=== PATIENT | male | born 1970 | race Caucasian/White ===

== ENCOUNTER → 2019-12-07 07:56 | Outpatient (BNVA) | payer OTHER, SELFPAY | PROVIDERS: Family Provider Family Medicine Adult Medicine; PCP Family Medicine; Visit Provider Nurse Practitioner | DX: F43.12 Post-traumatic stress disorder, chronic (principal); F33.1 Major depressive disorder, recurrent, moderate | CPT/HCPCS: 99213 ==

== ENCOUNTER 2019-12-16 11:37 | Outpatient (CLI) | payer OTHER, SELFPAY ==
--- NOTE | 2019-12-16 12:00 | CT_ITS ---
WS: [id number] CT CERVICAL SPINE HISTORY: Neck pain TECHNIQUE: Contiguous 2.5 mm axial imaging performed through the entire cervical spine. Sagittal and coronal reformats also performed. All CT scans at [facility] use at least one of these do se optimization techniques: automated exposure control; mA and/or kV adjustment per patient size (inc ludes targeted exams where dose is matched to clinical indication); or iterative reconstruction. DLP: 1813.51 mGycm COMPARISON: 09/30/2019 MRI cervical spine. Mild straightening of the normal cervical lordosis. Small endplate osteophytes with the cervical spin e. Mild disc space narrowing at C5-6. No fractures. Craniocervical junction is normally aligned. C1 a nd C2 lateral masses are aligned odontoid is intact. C2-C3: Central disc protrusion with small calcification. No stenosis. C3-C4: Very mild osteophytic ridging. Mild LEFT foraminal narrowing due to osteophyte disease and fac et disease. C4-C5: Mild osteophytic ridging and a central disc protrusion. Mild contact on the ventral thecal sac . No significant stenosis. C5-C6: Mild osteophytic ridging is asymmetric to the RIGHT. Severe RIGHT foraminal stenosis is predom inantly due to osteophyte disease from the facet and vertebral body. Mild contact on the ventral cord . There is a component of disc bulging centrally. Mild central stenosis with no LEFT foraminal narrow ing. C6-C7: Mild osteophytic ridging is asymmetric to the LEFT. Mild contact on the LEFT ventral thecal sa c. Mild encroachment into the proximal LEFT foramen. C7-T1: No stenosis. Lung apices are clear. Paravertebral soft tissues are normal. CT/CT cervical spin wo con* [id number] IMPRESSION: 1. Severe RIGHT foraminal stenosis at C5-6 due to asymmetric hypertrophic oste ophyte disease. 2. Mild central stenosis at C5-6 due to disc osteophyte disease. 3. Mild LEFT proximal foraminal stenosis due to asymmetric osteophyte disease from the vertebral body. 4. Mild LEFT foraminal stenosis at C3-4 due to osteophyte.
== END 2019-12-16 11:38 | disposition home or self-care (01) ==
LOC: RADWPI 11:41
PROVIDERS: Family Provider Family Medicine Adult Medicine; PCP Emergency Medicine Emergency Medical Services; Visit Provider Licensed Practical Nurse
DX: M54.2 Cervicalgia (principal); M48.02 Spinal stenosis, cervical region
CPT/HCPCS: 72125

== ENCOUNTER → 2020-01-28 10:09 | Outpatient (BNVA) | payer OTHER, SELFPAY | PROVIDERS: Family Provider Family Medicine Adult Medicine; PCP Emergency Medicine Emergency Medical Services; Visit Provider Nurse Practitioner | DX: J02.9 Acute pharyngitis, unspecified (principal); J06.9 Acute upper respiratory infection, unspecified | CPT/HCPCS: 87081; 87880 ==

== ENCOUNTER → 2020-02-22 09:25 | Outpatient (BNVA) | payer OTHER, SELFPAY | PROVIDERS: Family Provider Family Medicine Adult Medicine; PCP Emergency Medicine Emergency Medical Services; Referring Provider Licensed Practical Nurse; Visit Provider Psychiatry & Neurology Neurology | DX: G56.22 Lesion of ulnar nerve, left upper limb (principal) | CPT/HCPCS: 95886; 95910 ==

== ENCOUNTER 2020-03-29 12:51 | Observation (INO) | payer OTHER, SELFPAY ==
[2020-03-28 10:20] VITALS: BMI 28.7
[2020-03-29] VITALS (20 sets, daily range): BP systolic 127–171; BP diastolic 85–114; PULSE 65–108; RESP 11–20; TEMP 36.1–36.6; O2SAT 95–100
--- NOTE | 2020-03-29 09:15 | ANES.PREANE2 ---
Pre-Anesthetic Assessment Pre-Anesthetic Assessment: Height/Weight: Height 1.78 m Weight 90.718 kg Temp Pulse Resp BP Pulse Ox 97.8 F 67 18 127/85 99 03/29/20 09:02 03/29/20 09:02 03/29/20 09:02 03/29/20 09:02 03/29/20 09:02 Preop Diagnosis: Intervertebral disc disorder with myelopathy, mid cervical region Proposed Procedure: Operation Date: 03/29/20 10:00 Proposed Procedures p Anterior Cervical Discecotmy&Fusion 2Lev C5-6 C6-7 32671 M50.020(Not Applicable) - Dm Jenkins MD Last intake: Intake Last Liquid Date 03/28/20 Last Liquid Time 20:30 Last Solid Date 03/28/20 Last Solid Time 19:30 Social: Social History: Tobacco (chews) and No alcohol Exam: Pre-Anes Outpt Exam: alert, oriented x 3, clear to auscultation bilaterally and regular rate & rhythm Airway: Submandibular: WNL Cervical ROM: WNL MP: 1 Dentition: Other (very poor dentation) History/ROS: No significant history except as noted Pulmonary: Pulmonary: None reported CV/HEM: CV/HEM: HTN : : None reported Hepatic: Hepatic: None reported GI: GI: GERD (occ) Metabolic: Metabolic: Hyperlipidemia Musc/skel: Musc/skel: OA/DJD Neuropsych: Neuropsych: Anxiety, Depression and Neuropathy (bilat UE) Anesthetic Plan: ASA status: 3 Anesthesia: Anesthesia Evaluation and General Risk of > 500 ml blood loss (7ml/kg in children): No PFSH Anesthesia PFSH: Medical History Cervical disc disorder with myelopathy of mid-cervical region Major depressive disorder, recurrent, moderate Post-traumatic stress disorder, chronic 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 Salena Jenkins Open release of the median nerve at wrist on the right History of knee surgery (~2001) Left knee History of shoulder surgery (~1991) 1991 and 2016, Right Family History Father COPD (chronic obstructive pulmonary disease) Social History Smoking and tobacco status: former smoker Alcohol intake: former Year of sobriety/quit date alcohol: 20+ Lives independently: Yes Household members: spouse Housing: House Marital status: service: Yes Current occupational status: disabled History of recent travel: No Data Anesthesia Cardiac Studies: No Data to Display
[2020-03-29] MEDS: sodium chloride 0.9% 1,000 ML 30 ML IV (09:17)
--- NOTE | 2020-03-29 09:21 | W.PM.OPSUD ---
Surgery/Procedure H&P Update DATE OF PROCEDURE: March 29, 2020 DATE H&P PERFORMED: 03/27/20 H&P UPDATE INFORMATION: I have reviewed H&P completed within last 30 days and H&P to be scanned into chart PREOP DIAGNOSIS: Intervertebral disc disorder with myelopathy, mid cervical region PRIMARY INDICATION FOR PROCEDURE: Pain PLANNED PROCEDURE: Operation Date: 03/29/20 10:00 Proposed Procedures Anterior Cervical Discectomy/Fusion/fixation, C5-6 and C6-7 96664 M50.020(Not Applicable) - Dm Jenkins MD
--- NOTE | 2020-03-29 09:52 | XR_ITS ---
WS: [id number] INTRAOPERATIVE LATERAL CERVICAL SPINE HISTORY: surgery COMPARISON: None available. Lateral radiograph obtained in the OR with a metallic marker indicating the anterior C6-7 disc level. Soft tissue spacers are now present. Patient is intubated. XR/XR cervical spine 1ort [id number] IMPRESSION: Intraoperative planning marker at anterior C6-7 disc level.
--- NOTE | 2020-03-29 09:53 | XR_ITS ---
WS: [id number] LATERAL CERVICAL SPINE: 3 view. Lateral radiographs are performed in upright neutral, flexion and extension to the patient's toleranc e. HISTORY: surgery COMPARISON: None available. Patient is intubated. Obliquely oriented soft tissue marker anteriorly extends towards the C5-6 disc space. XR/XR cervical spine 1Vport [id number] IMPRESSION: Soft tissue marker at anterior C5-6 disc level.
--- NOTE | 2020-03-29 09:59 | P.OP_ITS ---
Brief Operative Note: Date of procedure: 03/29/20 Pre-op diagnosis: Intervertebral disc disorder with myelopathy, midcervical Post-op diagnosis: same (with instability of joint) Procedure Done: C5-C6, C6-C7 ACDFF Surgeon: Dm Jenkins Estimated blood loss (mL): 25 Complications: None. Post-op Plan: PACU, then bautista Condition: stable Disposition: PACU Coding Level of Care Code Acute Aquatics Director for Sheila Greene
[2020-03-29] MEDS: thrombin 5,000 unit SDV 5000 UNIT XX (11:03)
--- NOTE | 2020-03-29 12:48 | XR_ITS ---
WS: [id number] Cervical spine 2 view. HISTORY: Postop fusion. Status post anterior cervical fusion at C5-6 and C6-7 with interbody spacers. Disc spaces have been r esumed. Anterior cervical plate is slightly displaced by 2.5 mm from the C5 vertebral body. Straighte armand and reversal normal lordosis. XR/XR cervical spine 3V* [id number] IMPRESSION: Early postoperative changes of anterior cervical fusion with interbody spacers from C5 to C7.
[2020-03-29] MEDS: hyDRALAzine 20 mg/mL INJ 1 mL 5 MG IVP ×3 (13:31→13:51)
--- NOTE | 2020-03-29 13:41 | SUR.PHASEI ---
1341 PT HAS EQUAL STRENGTH IN UPPER AND LOWER EXTREMITIES
[2020-03-29] MEDS: HYDROcodone-acetaminophen 5-325 mg Tablet PO (14:57)
[2020-03-29] MEDS: lactated ringers 1,000 ML 90 ML IV (15:48)
[2020-03-29] MEDS: docusate sodium 100 mg Capsule PO (17:41)
--- NOTE | 2020-03-29 18:30 | P.OP_ITS ---
Operative Report Date of procedure: March 29, 2020 Pre-op Diagnosis: Intervertebral disc disorder with myelopathy, mid cervical region Post-op diagnosis: same (with instability of joint) Procedure Done: C5-C6, C6-C7 anterior cervical discectomy, with osteophytectomy. C5-C6, C6-C7 anterior cervical plate/screw fixation. C5-C6, C6-C7 placement of intervertebral prosthetic devices. C5-C6, C6-C7 anterior cervical fusion utilizing morselized autograft obtained from the osteophytectomy portions of the procedure. Implants: Synthes Vectra plate/screw system. ACIS ProTi Spacers. Specimens removed/disposition: C5-C6 and C6-C7 discs. Pathology: Disc fragments. Surgeon: Dm Jenkins Anesthesia: General Estimated blood loss (mL): 25 IV fluids (mL): 1,300 Urine output (mL): 100 Complications: None. Condition: stable Disposition: PACU Brief History: The patient is a 50-year-old male with symptomatic, radiographically confirmed cervical disc/joint disease and associated neural impingement. Imaging studies demonstrated dominant abnormalities at C5-C6 and C6-C7. Conservative management, including pain clinic interventions, did not provide adequate lasting symptom relief. After review of the diagnostic and treatment options with the risks/potential benefits/rationale for each, the patient requested to proceed with surgical intervention. Procedure: After routine preoperative evaluation and informed consent were obtained, the patient was taken to the Operating Room and placed under general endotracheal anesthesia. He was positioned supine and fit in the [facility] tongs for the application of in-line cervical traction. The anterolateral neck on the left was prepared with hair clippers. A proposed transverse skin incision was marked with a sterile skin marker, utilizing intraoperative radiography and regional anatomy for localization. The area was scrubbed with Betadine, prepped with DuraPrep, and draped with sterile towels and drapes. Ioban surgical barrier was applied. The proposed incision site was infiltrated with 1% Xylocaine with Epinephrine. A skin incision was made and carried down into the subcutaneous tissues. The platysma was identified and divided in the direction of its fibers. A plane was dissected just medial to the carotid sheath and lateral to the midline esophagus and trachea. Prevertebral soft tissues were bluntly dissected free of the anterior margin of the cervical spine. Longus coli muscles were freed from their medial attachments. Deep self-retaining retractors were placed. Intraoperative radiography verified the desired surgical levels. The C5-C6 and C6-C7 interspaces were sequentially incised with a #11 blade. Discectomies were accomplished utilizing various curettes and pituitary rongeurs. Anterior marginal osteophytes were resected with the Lempert and Kerrison rongeurs. Cartilaginous end plates were stripped free with curettes. Posterior marginal osteophytes were resected with thin foot plate Kerrison rongeurs. The medial aspects of the neural foramina were enlarged in a similar manner. Posterior longitudinal ligament was divided and resected as necessary to further the decompression. Overall, encroachment and osteophyte prominence were more prominent on the right at C5-C6 and on the left at C6-C7. Once the decompressions were felt to be adequate at both levels, the disc spaces were sized. A 7mm ACIS ProTi lordotic/medium Spacer was chosen for C5-C6. A 7mm ACIS ProTi lordotic/medium Spacer was chosen for C6-C7. The Spacers were packed with morselized autograft obtained from the osteophytectomy portions of the procedure. The Spacers were sequentially placed within the C5-C6 and C6-C7 interspaces while in-line cervical traction was applied via the Antunez-Wells tongs. Once the Spacers were felt to be in good position, a Synthes Vectra plate of the desired size was chosen. The plate was bent to match the curvature of the patient's cervical spine utilizing the plate patrick. The plate was secured to th e C5, C6 and C7 vertebral bodies with bilateral 4 mm x 14 mm self-drilling screws. Final screw tightening was performed, and the locking mechanisms within the plate were noted to engage the screws at each site. The construct was inspected, and appeared to be in good position and secure. The wound was copiously irrigated with sterile saline and antibiotic irrigation. Hemostasis was ensured with the bipolar electrocautery. Wound closure was performed in multiple layers with 2-0 Vicryl Plus simple interrupted closure of the platysma and deep dermis as separate layers. Final skin closure was performed with 4-0 Vicryl Plus in a running subcuticular pattern. Steri-Strips were applied, and a sterile dressing was placed. The patient was released from the Antunez-Wells tongs and fit in a Gray collar. He was transferred onto the Recovery Room cart in the supine position. He was extubated without incident. The patient tolerated the procedure well. All sponge, needle, and instrument counts were correct at the completion of the procedure.
--- NOTE | 2020-03-29 18:30 | P.DS_ITS ---
Discharge Providers Date of Admission: 03/29/20 12:51 Date of Discharge: March 29, 2020 Attending Provider at Admission: Dm Jenkins MD Attending Provider at Discharge: Dm Jenkins MD Primary Care Provider: Saul Byrd DO Diagnoses at Discharge Discharge Diagnosis (1) Cervical disc disorder with myelopathy of mid-cervical region: Status: Chronic (2) Instability of joint: Status: Acute Reason for Visit Reason for Visit: Reason For Visit: ACDFF Brief History: The patient is a 50-year-old male with symptomatic, radiographically confirmed cervical disc/joint disease and associated neural impingement. Imaging studies demonstrated dominant abnormalities at C5-C6 and C6-C7. Conservative management, including pain clinic interventions, did not provide adequate lasting symptom relief. After review of the diagnostic and treatment options with the risks/potential benefits/rationale for each, the patient requested to proceed with surgical intervention. Hospital Course Hospital Course: The patient underwent a C5-C6, C6-C7 ACDFF on 03/29/2020. He tolerated the procedure well, and reported improvement in preoperative symptoms following surgery. He completed preoperative and postoperative intravenous antibiotic doses, and the physical therapy postoperative spine protocol. He was ambulatory, voiding, and tolerating regular diet prior to discharge home on the evening of the date of surgery. Physical Exam Const: COMMON NORMALS: no acute distress GENERAL APPEARANCE: cooperative and comfortable Neck/C-Spine: GENERAL: Yes trachea midline and No anterior neck swelling CERVICAL SPINE: Yes collar present Resp: COMMON NORMALS: normal respiratory effort EFFORT & INSPECTION: Yes able to speak in complete sentences, No tachypneic and No stridor Extremity: COMMON NORMALS: no clubbing, cyanosis or edema Neuro: COMMON NORMALS: moves all extremities MOTOR EXAM: 5/5 motor strength present throughout (Bilateral upper extremities) Psych: COMMON NORMALS: mental status grossly normal, Normal thought process present and speech normal ATTITUDE: Yes calm and Yes engaged ACTIVITY/MOTOR BEHAVIOR: Yes appropriate eye contact SPEECH: Yes normal spe ech MOOD & AFFECT: Yes euthymic mood THOUGHT PROCESS: Normal thought process present ATTENTION/CONCENTRATION: Yes attention grossly intact Skin: WOUNDS: Yes surgical site (Left anterolateral neck surgical incision without erythema or active drainage. Surgical site dressing clean/dry/intact.) Urinary Catheter Management^: Mccoy: Cath Placed During This Visit: yes, but has since been removed by the nurse Reason for Continuing Indwelling Catheter: Decision to DC Catheter Urinary Catheter Date of Insertion: 03/29/20 Urinary Catheter Time of Insertion: 10:30 Date Urinary Catheter Removed: 03/29/20 Time Urinary Catheter Discontinued: 15:00 Discharge Data Data Completed and Pending: Completed Studies During Hospitalization Category Date Time Status XR cervical spine 1Vport [id number] Rout ine Exams 03/29/20 09:52 Completed XR cervical spine 1Vport 15088 Rout ine Exams 03/29/20 09:53 Completed XR cervical spine 3V* [id number] Routine Exams 03/29/20 12:48 Completed Pending at discharge Category Date Time Status Pathology: Surgic al [PTH] Routine Pth 03/29/20 12:38 Ordered Imaging^: Other Xray: Radiologist's impression: Early postoperative changes of anterior cervical fusion with interbody spacers from C5 to C7. Procedures Performed: C5-C6, C6-C7 anterior cervical discectomy/fusion/fixation. Intravenous antibiotics. Physical therapy. Vitals: Last Vital Signs Temp 97.0 F L 03/29/20 18:04 Pulse 78 03/29/20 18:04 Resp 16 03/29/20 18:04 BP 160/97 03/29/20 18:04 Pulse Ox 96 03/29/20 18:04 Discharge Plan Discharge Patient Disposition: Home, Self-Care Condition: Stable Prescriptions: New Schuyler 7.5-325 mg tablet 1 tab PO Q4H PRN (Reason: pain) Qty: 25 RF: 0 Continued meloxicam 7.5 mg tablet 7.5 mg PO BID PRN (Reason: Pain) RF: 0 sildenafil 100 mg tablet 100 mg PO .QWeek PRN (Reason: Erectile Dysfunction) RF: 0 sumatriptan succinate 25 mg tablet See Rx Instructions PO Q2H PRN (Reason: migraine headache) RF: 0 magnesium oxide 400 mg magnesium capsule 400 mg PO QDAY RF: 0 aripiprazole 5 mg tablet 5 mg PO QDAY Qty: 30 RF: 5 venlafaxine [Effexor XR] 150 mg capsule,extended release 24hr 150 mg PO QDAY RF: 0 Discharge Orders: Discharge Order (Routine); Ordered 03/29/20 Ordered By: Dm Jenkins Referrals: Dm Jenkins MD [Physician] - 2 weeks (Please call Dr. Jenkins's office 03/30/20 to schedule an appointment within the next two weeks at . ) Discharge Diet: Usual diet Discharge Activity: Limit activity as instructed and As per PT/OT instructions Patient Instructions: Hydrocodone/Acetaminophen (By mouth), Anterior Cervical Discectomy (DC) Activity Restrictions/Additional Instructions: Activity -Cervical fusion: Wear cervical collar 24 hours a day. Change as necessary for showering, shaving, or if it becomes soiled. -No lifting or reaching overhead. - No driving until office followup visit - No lifting/pushing/pulling over 10 pounds - Avoid twisting or bending - Walking is encouraged - Home exercise per physical therapist - You may engage in sexual intercourse at any time as long as it is comfortable for you - Check with your doctor before returning to work. Notify your doctor if you develop: - temperature of 101.5 degrees F. or higher - redness or swelling of the incision - Foul drainage - increasing pain - increasing numbness or tingling in the arms or legs - New or increasing problems with vision, balance, memory, speaking, nausea or vomiting Hygiene: - Showering is okay - No tub baths or soaking Other: Remove outer bandage 3 days after surgery. If you have paper strips, leave in place until they fall off on their own. If you have stitches, keep your incision dry until the stitches are removed. Your doctor's office is available to answer any questions from 7 AM to 5:00 PM, Thursday through at [phone]. After hours, go to the emergency room at [facility] or call 911 for assistance. Discharge Date/Time: 03/29/20 18:44 Discharge Attestations Time Spent in Discharge Care*: other (Postop global.) Quality Metrics Clinical Quality Measures During this hospital stay, did patient experience: None Coding Level of Care Code Acute Account Collector for [facility] Fwd Exam Detailed Diagnoses Cervical disc disorder with myelopathy of mid-cervical region M50.020 Instability of joint M25.30 Comment Postop global.
== END 2020-03-29 18:44 | disposition home or self-care (01) ==
LOC: MEDSURG 12:51
PROVIDERS: Admitting Provider Specialist; PCP Emergency Medicine Emergency Medical Services; Visit Provider Specialist
PROC: 0RB30ZZ Excision of Cervical Vertebral Disc, Open Approach (ICD-10-PCS; CPT 22551; principal; 2020-03-29 10:00)
DX: M50.022 Cervical disc disorder at C5-C6 level with myelopathy (principal); M53.2X2 Spinal instabilities, cervical region; I10 Essential (primary) hypertension; K21.9 Gastro-esophageal reflux disease without esophagitis; E78.5 Hyperlipidemia, unspecified; M19.90 Unspecified osteoarthritis, unspecified site; Z87.891 Personal history of nicotine dependence
CPT/HCPCS: 22551; 22552; 22853 ×2; 12345; 51702; 72020; 72040; 88304; 97110; 97161; 97760; C1713; G0378; J0131; J0360; J0690; J1100; J2001; J2405; J2704; J3010; J3490; J7030; L0172; L0174

== ENCOUNTER 2020-04-12 09:01 | Outpatient (CLI) | payer OTHER, SELFPAY ==
--- NOTE | 2020-04-12 09:09 | XRR_ITS ---
PROCEDURE INFORMATION: Exam: XR Cervical Spine, 4 or 5 Views Exam date and time: 04/12/2020 9:27 AM Age: 50 years old Clinical indication: Condition or disease; Cervical region; Prior surgery; Surgery date: <1 month; Surgery type: Cervical spinal fusion 2 weeks ago; Additional info: S/P cervical spinal fusion TECHNIQUE: Imaging protocol: XR of the cervical spine, 4 or 5 views. COMPARISON: CR XR cervical spine 3V* [id number] 03/29/2020 1:08 PM FINDINGS: Vertebrae: Stable anterior fusion extending from C5-C7 with interbody spacers. Diminished cervical lordosis. Anatomic alignment, without instability. Soft tissues: Unremarkable. XR/XR cervical spine 4-5V [id number] IMPRESSION: Stable anterior fusion extending from C5-C7 with interbody spacers.
== END 2020-04-12 09:02 | disposition home or self-care (01) ==
LOC: RAD 09:05
PROVIDERS: PCP Emergency Medicine Emergency Medical Services; Visit Provider Orthopaedic Surgery
DX: Z98.1 Arthrodesis status (principal); M43.22 Fusion of spine, cervical region
CPT/HCPCS: 72050

== ENCOUNTER 2020-05-15 07:46 | Outpatient (CLI) | payer OTHER, SELFPAY ==
--- NOTE | 2020-05-15 07:57 | XR_ITS ---
WS: [id number] LATERAL CERVICAL SPINE: 3 view. Lateral radiographs are performed in upright neutral, flexion and extension to the patient's toleranc e. HISTORY: Neck pain COMPARISON: 04/12/2020 Anterior cervical fusion with interbody spacers from C5 to C7. Postsurgical changes are intact. No renae bsidence or lucency around the hardware. No soft tissue abnormality. No significant instability noted with flexion or extension. XR/XR cervical spine fl/ex [id number] IMPRESSION: 1. Anterior cervical fusion from C5 to C7 with interbody spacers, no complicat ions. 2. No cervical instability.
--- NOTE | 2020-05-15 08:00 | CT_ITS ---
WS: [id number] CT CERVICAL SPINE HISTORY: s/p cervical spinal fusion TECHNIQUE: Contiguous 2.5 mm axial imaging performed through the entire cervical spine. Sagittal and coronal reformats also performed. All CT scans at [facility] use at least one of these do se optimization techniques: automated exposure control; mA and/or kV adjustment per patient size (inc ludes targeted exams where dose is matched to clinical indication); or iterative reconstruction. DLP: 1778.01 mGycm COMPARISON: 12/16/[address] examination anterior cervical fusion with interbody spacers have been placed at C5 -C7. C5-6 and C6-7 disc spaces have been restored and the interbody spacers are in good position. No subsidence. No fractures. C2-C3: Mild osteophytic ridging with no stenosis. C3-C4: Mild osteophytic ridging with a small central disc protrusion and mild LEFT foraminal narrowin g. C4-C5: Small central disc protrusion. C5-C6: Osteophytic ridging asymmetric to the RIGHT. Severe RIGHT foraminal narrowing with mild on the LEFT and mild central stenosis. C6-C7: Osteophytic ridging greater to the LEFT. C7-T1: Mild osteophytic ridging without stenosis. Soft tissues are normal. CT/CT cervical spin wo con* [id number] IMPRESSION: 1. Interval anterior cervical fusion from C5 through C7 with interbody spacers . No complications. 2. Severe RIGHT foraminal stenosis at C5-6 predominantly due to osteophyte dis ease.
== END 2020-05-15 07:47 | disposition home or self-care (01) ==
LOC: RADWPI 07:48
PROVIDERS: Family Provider Emergency Medicine Emergency Medical Services; PCP Emergency Medicine Emergency Medical Services; Visit Provider Licensed Practical Nurse
DX: Z98.1 Arthrodesis status (principal); M48.02 Spinal stenosis, cervical region
CPT/HCPCS: 72040; 72125

== ENCOUNTER → 2020-05-28 07:48 | Outpatient (BNVA) | payer OTHER, SELFPAY | PROVIDERS: Family Provider Emergency Medicine Emergency Medical Services; PCP Emergency Medicine Emergency Medical Services; Visit Provider Nurse Practitioner | DX: F43.12 Post-traumatic stress disorder, chronic (principal); F33.1 Major depressive disorder, recurrent, moderate | CPT/HCPCS: 99213 ==

== ENCOUNTER 2020-08-23 15:29 | Emergency (ER) | payer OTHER, SELFPAY ==
--- NOTE | 2020-08-23 15:36 | XR_ITS ---
WS: [id number] XR hip LT 2-3V wo/w pel* [id number] REASON FOR EXAM: pain FINDINGS: Joint spaces of the left hip is well-preserved. Minimal spurring of the superior acetabulum. No focal bony abnormality. No soft tissue abnormality. XR/XR hip LT 2-3V wo/w pel* [id number] IMPRESSION: No acute abnormality identified.
[2020-08-23 16:05] VITALS: BP 131/80; PULSE 96; RESP 14; TEMP 36.8; O2SAT 98; BMI 27.3
--- NOTE | 2020-08-23 16:35 | ED_ITS ---
HPI - Extremity Problem General: Chief complaint: Extremity Injury, Lower Stated complaint: L HIP PAIN Time Seen by Provider: 08/23/20 15:44 History of Present Illness: HPI Narrative: 50-year-old male patient presents to the emergency department with left hip pain. Reports symptoms of left hip pain for 6 weeks. He has followed with his primary care provider who referred him to chiropractor, reports has helped some. He reports upcoming appointment with his primary care provider in 3 weeks. He states was advised by his to come to the emergency department as he continues to experience pain with ambulation. He reports pain is worse with ambulation, is not present with rest or with setting. He reports the pain is not changed. There is no redness swelling, denies swelling of the left lower extremity or redness. He denies trauma or injury. MD Complaint: joint pain (Left hip) Onset (ago): week(s) (6) Pain Consistency: intermittent Location: left Severity scale (1-10): 3 Quality: aching Radiation: none Relieving factors: immobilization and rest Exacerbating factors: weight bearing Associated symptoms: Reports no associated symptoms; Deny chest pain, fever(s) or rash Review of Systems General: Reports: 10 or more systems reviewed and unremarkable except in HPI and below Const: Denies: fever(s), chills or diaphoresis Eyes: Denies: blurry vision or eye redness ENMT: Denies: throat pain, dental pain or disequilibrium Card: Denies: chest pain, palpitations or irregular heart rhythm Resp: Denies: dyspnea, productive cough, non-productive cough or wheezing GI: Denies: abdominal pain, nausea or vomiting : Denies: dysuria Musc: Reports: joint pain (Left hip); Denies: neck pain or back pain Skin/Breast: Denies: rash or pruritus Neuro: Denies: headache(s), weakness in extremities or behavioral changes Psych: Denies: anxiety or depression Lawrence/Lymph: Denies: easy bruising PFS ED PFSH: Medical History (Updated 08/23/20 @ 17:06 by ALEENA Joseph) Cervical disc disorder with myelopathy of mid-cervical region Major depressive disorder, recurrent, moderate Post-operative state Post-traumatic stress disorder, chronic 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 Salena Jenkins Open release of the median nerve at wrist on the right History of knee surgery (~2001) Left knee History of shoulder surgery (~1991) 1991 and 2016, Right History of spinal surgery 03/29/2020. Dr. Mason Jenkins: C5-C6, C6-C7 ACDFF Family History Father COPD (chronic obstructive pulmonary disease) Social History Smoking and tobacco status: former smoker Alcohol intake: former Year of sobriety/quit date alcohol: 20+ Lives independently: Yes Household members: spouse Housing: House Marital status: service: Yes branch: [employer] Current occupational status: disabled History of recent travel: No Physical Exam Const: COMMON NORMALS: no acute distress, patient oriented x3, healthy appearing and alert GENERAL APPEARANCE: cooperative, comfortable and well hydrated HENMT: COMMON NORMALS: normocephalic, Normal external nose present and moist oral mucous membranes HEAD & SCALP: normocephalic NOSE: Normal external nose present Eye: COMMON NORMALS: Equal, round and reactive pupils present and EOMs intact bilaterally GENERAL EYE: appearance normal, both eyes and all related structures PUPIL: Yes Equal, round and reactive pupils present Neck/C-Spine: COMMON NORMALS: full ROM and no lymphadenopathy GENERAL: Yes normal visual inspection and Yes trachea midline CERVICAL SPINE: Yes cervical ROM normal Lymph: LYMPHATIC: no lymphadenopathy noted Chest: COMMONS NORMALS: normal inspection of the chest Resp: COMMON NORMALS: normal respiratory effort and clear to auscultation bilaterally AUSCULTATION: clear to auscultation bilaterally Cardio: COMMON NORMALS: regular rhythm, S1 normal heart sound present, S2 normal heart sound present and Peripheral pulses 2+ throughout RHYTHM: regular rhythm HEART SOUNDS: S1 normal heart sound present and S2 normal heart sound present PERIPHERAL PULSES: Peripheral pulses 2+ throughout GI: COMMON NORMALS: Soft to palpation and non-tender INSPECTION: Yes normal to inspection PALPATION: Yes Soft to palpation : COMMON NORMALS: Yes no CVA tenderness BLADDER/KIDNEY EXAM: Yes no CVA tenderness Back/Pelvis: COMMON NORMALS: no CVA tenderness and thoracic and lumbar spine normal to inspection Extremity: COMMON NORMALS: normal to inspection and capillary refill normal GENERAL: Yes normal exam except as noted and Yes monofilament exam performed Monofilament exam findings: L great toe: normal, L 3rd toe: normal, L 5th toe: normal, R great toe: normal, R 3rd toe: normal and R 5th toe: normal RIGHT LOWER EXTREMITY: Yes hip joint Right hip: Yes inspection (Normal), Yes palpation (Not able to reproduce pain to the hip medial, lateral or posterior), Yes ROM (Full range of motion noted), Yes neurovascular exam (Distally intact without deficit) and Yes special tests Right hip special tests: 90-?90 straight leg raise test: Negative and Trendelenburg test: Negative Neuro: COMMON NORMALS: patient oriented x3 and no focal motor deficits SENSORIUM/ORIENTATION: Yes alert SPEECH: speech normal GAIT: Yes Normal gait present Psych: COMMON NORMALS: mental status grossly normal, Normal thought process present and cooperative ACTIVITY/MOTOR BEHAVIOR: Yes appropriate eye contact THOUGHT PROCESS: Normal thought process present Skin: COMMON NORMALS: no rashes or lesions noted and turgor normal GENERAL SKIN EXAM: no rashes or lesions noted and turgor normal Course ED course: 50-year-old male patient presents to the emergency department with 6-week onset of left hip pain, left hip x-ray revealed minimal spurring of the superior acetabulum. Pain is been chronic in nature, he has not experienced trauma or injury, reports pain is not changed. Has follow-up appointment with his primary care physician, he agrees to follow-up in the [facility] with recommendation to follow-up with orthopedic surgery. He agrees to return to the emergency department if he develops redness swelling of the left lower extremity, increased pain or change of pain. Vital Signs: Vital signs: Vital Signs Temperature 98.3 F 08/23/20 16:05 Pulse Rate 86 08/23/20 16:40 Respiratory Rate 17 08/23/20 16:40 Blood Pressure 153/79 08/23/20 16:40 Pulse Oximetry 98 08/23/20 16:40 MDM - Extremity (Nontraumatic) Imaging Data^: Other Xray: Radiologist's impression: [address] [address] XRay Report Signed Patient: Bora Kessler #: [id number] : 1970Acct#:[id number] Age/Sex: 50 / MADM Date: 08/23/20 Loc: ERRoom/Bed: Attending Dr: Ordering Provider/Ordering MD: Walter Farah MD Date of Service: 08/23/20 Procedure(s): XR hip LT 2-3V wo/w pel* [id number] Accession Number(s): [id number] Report Number: [id number] WS: [id number] XR hip LT 2-3V wo/w pel* [id number] REASON FOR EXAM: pain FINDINGS: Joint spaces of the left hip is well-preserved. Minimal spurring of the superior acetabulum. No focal bony abnormality. No soft tissue abnormality. XR/XR hip LT 2-3V wo/w pel* [id number] IMPRESSION: No acute abnormality identified. Dictated By:Lee Paige Jr, MD Signed By:Lee Paige Jr MDSigned Date/Time:08/23/201632 DD/ 163 Discharge Plan Discharge Patient Disposition: Home Clinical Impression: Arthritis Chronic hip pain Qualifiers: Laterality: left Qualified Code(s): M25.552 - Pain in left hip Condition: Stable Prescriptions: New naproxen 500 mg tablet 500 mg PO Q12H PRN (Reason: pain) Qty: 30 RF: 0 Discontinued meloxicam 7.5 mg tablet 7.5 mg PO BID PRN (Reason: Pain) RF: 0 No Action sildenafil 100 mg tablet 100 mg PO .QWeek PRN (Reason: Erectile Dysfunction) RF: 0 sumatriptan succinate 25 mg tablet See Rx Instructions PO Q2H PRN (Reason: migraine headache) RF: 0 magnesium oxide 400 mg magnesium capsule 400 mg PO QDAY RF: 0 aripiprazole 5 mg tablet 5 mg PO QDAY Qty: 30 RF: 5 venlafaxine [Effexor XR] 150 mg capsule,extended release 24hr 150 mg PO QDAY Qty: 30 RF: 5 [place] 7.5-325 mg tablet 1 tab PO Q4H PRN (Reason: pain) Qty: 25 RF: 0 Discharge Orders: Discharge Order (Routine); Ordered 08/23/20 Ordered By: Krystal Vanessa Referrals: Saul Byrd, DO [Primary Care Provider] - Discharge Diet: Usual diet Discharge Activity: Resume usual activity Patient Instructions: Arthralgia (ED) Activity Restrictions/Additional Instructions: Cool compresses alternate with warm moist heat as needed for left hip pain Continue follow-up with your primary care physician as scheduled Continue follow-up with chiropractor as recommended Stop Mobic, take naproxen as needed for pain, take medication with food, stop medication if you develop abdominal pain. Discharge Date/Time: 08/23/20 17:19 Coding Level of Care Code ED Dumb Waiter Operator for Sheila Greene
[2020-08-23 16:40] VITALS: BP 153/79; PULSE 86; RESP 17; O2SAT 98
== END 2020-08-23 17:19 | disposition home or self-care (01) ==
PROVIDERS: Emergency Provider Nurse Practitioner Family; Family Provider Emergency Medicine Emergency Medical Services; PCP Emergency Medicine Emergency Medical Services
DX: G89.29 Other chronic pain (principal); M25.552 Pain in left hip; M19.90 Unspecified osteoarthritis, unspecified site; Z87.891 Personal history of nicotine dependence
CPT/HCPCS: 12345; 73502; 99281; 99282

== ENCOUNTER 2020-09-17 20:00 | Outpatient (CLI) | payer OTHER, SELFPAY | END 2020-09-17 20:01 | disposition home or self-care (01) | LOC: SLEEP 09-18 08:41 | PROVIDERS: Family Provider Emergency Medicine Emergency Medical Services; PCP Emergency Medicine Emergency Medical Services; Visit Provider Emergency Medicine Emergency Medical Services | DX: G47.33 Obstructive sleep apnea (adult) (pediatric) (principal) | CPT/HCPCS: 95810 ==

== ENCOUNTER → 2020-10-03 09:41 | Outpatient (BNVA) | payer OTHER, SELFPAY | PROVIDERS: Family Provider Emergency Medicine Emergency Medical Services; PCP Emergency Medicine Emergency Medical Services; Referring Provider Emergency Medicine Emergency Medical Services; Visit Provider Specialist | DX: M25.552 Pain in left hip (principal) | CPT/HCPCS: 73502 ==

== ENCOUNTER 2020-10-16 20:00 | Outpatient (CLI) | payer OTHER, SELFPAY | END 2020-10-16 20:01 | disposition home or self-care (01) | LOC: SLEEP 10-17 12:08 | PROVIDERS: Family Provider Emergency Medicine Emergency Medical Services; PCP Emergency Medicine Emergency Medical Services; Visit Provider Emergency Medicine Emergency Medical Services | DX: G47.33 Obstructive sleep apnea (adult) (pediatric) (principal) | CPT/HCPCS: 95811 ==

== ENCOUNTER 2020-10-30 15:37 | Outpatient (CLI) | payer OTHER, SELFPAY ==
--- NOTE | 2020-10-30 15:47 | MR_ITS ---
WS: [id number] MRI LEFT HIP NONCONTRAST TECHNIQUE: Axial T1, axial T2 fat sat, coronal T1, coronal STIR, sagittal T2 fat sat, sagittal T1, an d sagittal T2 fat sat, of both hips. CLINICAL INFORMATION: M25.559 - Pain in unspecified hip COMPARISON: None. FINDINGS: Left hip is normal in appearance. Normal bone marrow signal in the left femoral head and neck. No acu te fractures in the left hip. No evidence of avascular necrosis. Right hip is normal in appearance. M ild degenerative narrowing both hips. Normal bone marrow signal in the inferior and superior pubic ra mi. Normal bone marrow signal in the sacrum. Normal pelvic soft tissues. No inguinal lymphadenopathy. MR/MR hip LT wo con* [id number] IMPRESSION: 1. Both hips are normal in appearance. No acute fractures. No evidence of avas cular necrosis. 2. Mild degenerative arthritis both hips. 3. Normal bone marrow signal in the pelvis and sacrum.
== END 2020-10-30 15:38 | disposition home or self-care (01) ==
LOC: RADWPI 15:38
PROVIDERS: PCP Emergency Medicine Emergency Medical Services; Visit Provider Specialist
DX: M25.552 Pain in left hip (principal); M16.12 Unilateral primary osteoarthritis, left hip
CPT/HCPCS: 73721

== ENCOUNTER → 2021-01-24 09:33 | Outpatient (BNVA) | payer OTHER, SELFPAY | PROVIDERS: PCP Emergency Medicine Emergency Medical Services; Visit Provider Surgery | DX: K62.5 Hemorrhage of anus and rectum (principal); R10.9 Unspecified abdominal pain; Z20.822 Contact with and (suspected) exposure to COVID-19 | CPT/HCPCS: 87635 ==

== ENCOUNTER 2021-01-29 06:12 | Day surgery (SDC) | payer OTHER, SELFPAY ==
[2021-01-29 06:23] VITALS: BMI 28.4
--- NOTE | 2021-01-29 06:27 | W.PM.OPSFHP ---
Same Day Surgery H&P Indication for Procedure/HPI DATE OF PROCEDURE: January 29, 2021 CHIEF COMPLAINT/INDICATIONFOR SURGICAL PROCEDURE: Bleeding per rectum PREOP DIAGNOSIS: Intervertebral disc disorder with myelopathy, mid cervical region PLANNED PROCEDRUE: Operation Date: 01/29/21 07:15 Proposed Procedures p EGD/colon 49832 15920 R10.9 K62.58(Not Applicable) - Tarun Hall MD s Colonoscopy(Bilateral) - Tarun Hall MD This is a pleasant 50 years old gentleman referred to my practice with history of bleeding per rectum for the past 2 months, started first only on wiping and later on it with seeing fresh blood in the toilet, patient never had endoscopies before and he denies hematemesis or nonintentional weight loss. Or associated abdominal pain. No evidence of being on blood thinners. Interval history 01/29/2021 Patient comes today for EGD and colonoscopy ROS All systems have been reviewed negative except as per the above or per problem list. Medications/Allergies* Home Medications Medication Instructions Recorded Confirmed Type magnesium oxide 400 mg PO QDAY 12/06/19 12/28/20 History sildenafil 100 mg tablet 100 mg PO .QWeek PRN tab 12/06/19 12/28/20 History sumatriptan succinate 25 mg tablet See Rx Instructions PO Q2H PRN tab 12/06/19 12/28/20 History Allergies/Adverse Reactions Allergy/AdvReac Type Severity Reaction Status Date / Time pravastatin AdvReac Mild muscle Verified 01/29/21 06:29 aches Pertinent History/Comorbid Conditions* Medical History (Updated 12/28/20 @ 06:39 by Tarun Hall MD) Bleeding per rectum Cervical disc disorder with myelopathy of mid-cervical region Major depressive disorder, recurrent, moderate Post-operative state Post-traumatic stress disorder, chronic 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 Salena Jenkins Open release of the median nerve at wrist on the right History of knee surgery (~2001) Left knee History of shoulder surgery (~1991) 1991 and 2016, Right History of spinal surgery 03/29/2020. Dr. Mason Jenkins: C5-C6, C6-C7 ACDFF Family History (Updated 12/07/19 @ 10:05 by Sherine Nguyen LPN) COPD (chronic obstructive pulmonary disease) Father Social History Smoking and tobacco status: former smoker Alcohol intake: former Year of sobriety/quit date alcohol: 20+ Lives independently: Yes Household members: spouse Housing: House Marital status: service: Yes branch: [employer] Current occupational status: disabled History of recent travel: No Pertinent Exam Findings alert, oriented x 3, clear to auscultation bilaterally, regular rate & rhythm and procedure specific exam findings (Abdominal examination nontender nondistended soft) Recommendations Surgery/Procedure today (Diagnostic EGD and colonoscopy with possible biopsy and possible polypectomy.) Other Plans: Informed consent per chart Coding Level of Care Code Acute Lockstitch Sleeve Setter for Sheila Greene
[2021-01-29 06:33] VITALS: BMI 28.4
[2021-01-29 06:42] VITALS: BP 147/107; PULSE 83; RESP 18; TEMP 36.6; O2SAT 97
[2021-01-29] MEDS: sodium chloride 0.9% 1,000 ML 30 ML IV (06:57)
--- NOTE | 2021-01-29 07:21 | ANES.PREANE2 ---
Pre-Anesthetic Assessment Pre-Anesthetic Assessment: Height/Weight: Height 1.78 m Weight 89.811 kg Temp Pulse Resp BP Pulse Ox 97.8 F 83 18 147/107 97 01/29/21 06:42 01/29/21 06:42 01/29/21 06:42 01/29/21 06:42 01/29/21 06:42 Preop Diagnosis: Bleeding per rectum Proposed Procedure: Operation Date: 01/29/21 07:15 Proposed Procedures p EGD/colon 54302 32452 R10.9 K62.58(Not Applicable) - Tarun Hall MD s Colonoscopy(Bilateral) - Tarun Hall MD Was Beta Sukh taken within 24 hours: N/A Was Clonidine taken within 24 hours: N/A Last intake: Intake Last Liquid Date 01/28/21 Last Liquid Time 20:00 Last Solid Date 01/28/21 Last Solid Time 08:00 Social: Social History: Tobacco and No alcohol Exam: Pre-Anes Outpt Exam: alert, oriented x 3, clear to auscultation bilaterally and regular rate & rhythm Airway: Submandibular: WNL Cervical ROM: WNL MP: 2 Dentition: Chipped Additional comments: Very poor dentition, missing several, several chipped Pulmonary: Pulmonary: COPD GI: GI: GERD Musc/skel: Musc/skel: Lower Back Pain Neuropsych: Neuropsych: Anxiety and Depression Anesthetic Plan: ASA status: 3 Anesthesia: MAC Risk of > 500 ml blood loss (7ml/kg in children): No Meds/Allergies Current Medications: Current Medications Generic Name Dose Route Start Last Admin Trade Name Freq PRN Reason Stop Dose Admin Sodium Chloride 1,000 mls @ 30 ml s/hr 01/29/21 06:45 01/29/21 06:57 Sodium Chloride 0.9% IV 01/30/21 06:44 30 mls/hr .Q24H JOSELYN Administration PFSH Anesthesia PFSH: Medical History Bleeding per rectum Cervical disc disorder with myelopathy of mid-cervical region Major depressive disorder, recurrent, moderate Post-operative state Post-traumatic stress disorder, chronic 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 Salena Jenkins Open release of the median nerve at wrist on the right History of knee surgery (~2001) Left knee History of shoulder surgery (~1991) 1991 and 2016, Right History of spinal surgery 03/29/2020. Dr. Mason Jenkins: C5-C6, C6-C7 ACDFF Family History Father COPD (chronic obstructive pulmonary disease) Social History (Updated 01/29/21 @ 06:47 by Poonam Atkins RN) Smoking and tobacco status: former smoker Alcohol intake: former Year of sobriety/quit date alcohol: 20+ Lives independently: Yes Household members: spouse Housing: House Marital status: service: Yes branch: [employer] Current occupational status: disabled History of recent travel: No Data Anesthesia Cardiac Studies: No Data to Display
--- NOTE | 2021-01-29 07:23 | ANES.PREANE2 ---
Pre-Anesthetic Assessment Pre-Anesthetic Assessment: Height/Weight: Height 1.78 m Weight 89.811 kg Temp Pulse Resp BP Pulse Ox 97.8 F 83 18 147/107 97 01/29/21 06:42 01/29/21 06:42 01/29/21 06:42 01/29/21 06:42 01/29/21 06:42 Preop Diagnosis: Bleeding per rectum Proposed Procedure: Operation Date: 01/29/21 07:15 Proposed Procedures p EGD/colon 04559 06239 R10.9 K62.58(Not Applicable) - Tarun Hall MD s Colonoscopy(Bilateral) - Tarun Hall MD Familial anesthetic complications: none Was Beta Sukh taken within 24 hours: N/A Was Clonidine taken within 24 hours: N/A Last intake: Intake Last Liquid Date 01/28/21 Last Liquid Time 20:00 Last Solid Date 01/28/21 Last Solid Time 08:00 Last Intake: 20:00 Social: Social History: Tobacco (chew) Packs per day: stop smoking 2 years ago Pack years: 35 Exam: Pre-Anes Outpt Exam: alert, oriented x 3, clear to auscultation bilaterally and regular rate & rhythm Airway: Submandibular: WNL Cervical ROM: WNL MP: 2 Dentition: Other (poor multiple decayed and missing) Pulmonary: Pulmonary: COPD CV/HEM: CV/HEM: HTN : : None reported Hepatic: Hepatic: None reported GI: GI: None reported Metabolic: Metabolic: None reported Musc/skel: Musc/skel: None reported Neuropsych: Neuropsych: Depression and HAMMOND Anesthetic Plan: ASA status: 2 Anesthesia: MAC Meds/Allergies Current Medications: Current Medications Generic Name Dose Route Start Last Admin Trade Name Freq PRN Reason Stop Dose Admin Sodium Chloride 1,000 mls @ 30 ml s/hr 01/29/21 06:45 01/29/21 06:57 Sodium Chloride 0.9% IV 01/30/21 06:44 30 mls/hr .Q24H JOSELYN Administration PFSH Anesthesia PFSH: Medical History Bleeding per rectum Cervical disc disorder with myelopathy of mid-cervical region Major depressive disorder, recurrent, moderate Post-operative state Post-traumatic stress disorder, chronic 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 Salena Jenkins Open release of the median nerve at wrist on the right History of knee surgery (~2001) Left knee History of shoulder surgery (~1991) 1991 and 2016, Right History of spinal surgery 03/29/2020. Dr. Mason Jenkins: C5-C6, C6-C7 ACDFF Family History Father COPD (chronic obstructive pulmonary disease) Social History (Updated 01/29/21 @ 06:47 by Poonam Atkins RN) Smoking and tobacco status: former smoker Alcohol intake: former Year of sobriety/quit date alcohol: 20+ Lives independently: Yes Household members: spouse Housing: House Marital status: service: Yes branch: [employer] Current occupational status: disabled History of recent travel: No Data Anesthesia Cardiac Studies: No Data to Display
[2021-01-29 08:04] VITALS: BP 127/95; PULSE 92; RESP 18; TEMP 36.2; O2SAT 93
--- NOTE | 2021-01-29 08:04 | ANE.PACU2 ---
Inpatient post-anesthesia follow up: Airway intact: Yes Vital signs: Temperature 97.2 F Pulse Rate 92 Respiratory Rate 18 Blood Pressure 127/95 Pulse Oximetry 93 Oxygen Delivery Me thod Room Air Oxygen Flow Rate Fraction of Inspir ed Oxygen Hydration adequate: Yes Nausea and vomiting: No Pain level: 1 Mental status: Baseline
[2021-01-31 13:42] LABS: H. Pylori / CLO Test Negative
== END 2021-01-29 08:32 | disposition home or self-care (01) ==
PROVIDERS: PCP Emergency Medicine Emergency Medical Services; Visit Provider Surgery
PROC: 0DJD8ZZ Inspection of Lower Intestinal Tract, Via Natural or Artificial Opening Endoscopic (ICD-10-PCS; CPT 45378; 2021-01-29 07:15)
PROC: 0DJ08ZZ Inspection of Upper Intestinal Tract, Via Natural or Artificial Opening Endoscopic (ICD-10-PCS; CPT 43235; 2021-01-29 07:15)
DX: K62.5 Hemorrhage of anus and rectum (principal); Z87.891 Personal history of nicotine dependence; K21.9 Gastro-esophageal reflux disease without esophagitis; K44.9 Diaphragmatic hernia without obstruction or gangrene; K29.70 Gastritis, unspecified, without bleeding; K29.80 Duodenitis without bleeding; J44.9 Chronic obstructive pulmonary disease, unspecified; I10 Essential (primary) hypertension
CPT/HCPCS: 43239; 45378; 87077; 96360; J7030

== ENCOUNTER 2022-07-11 12:36 | Emergency (ER) | payer OTHER, SELFPAY ==
[2022-07-11 12:55] VITALS: BP 136/82; PULSE 100; RESP 14; TEMP 36.7; O2SAT 98; BMI 27.9
[2022-07-11 13:12] VITALS: BP 136/82; PULSE 100; RESP 14; TEMP 36.7; O2SAT 98
--- NOTE | 2022-07-11 13:36 | W.ED.URI ---
HPI - URI/Sore Throat General: Chief Complaint: Headache Stated Complaint: Possible Covid Time Seen by Provider: 07/11/22 13:09 Source: patient Mode of arrival: ambulatory Limitations: no limitations History of Present Illness: 4-year-old male presents to the ER today for cough, shortness of breath, headache, runny nose x3 days. Patient reports it began with a headache and runny nose and he has now progressed into a cough and some mild shortness of breath. Patient reports cough is productive. Patient denies any fever or chills. Reports very mild body aches. Patient denies any known contact with COVID. [facility] come [facility] as it sounded like it could be COVID. Patient reports he is taking [id number] medications at this time with only minimal relief. 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 Salena Jenkins Open release of the median nerve at wrist on the right History of knee surgery (~2001) Left knee History of shoulder surgery (~1991) 1991 and 2016, Right History of spinal surgery 03/29/2020. Dr. 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+ Lives independently: Yes Household members: spouse Housing: House Marital status: service: Yes branch: [employer] Current occupational status: disabled History of recent travel: No Physical Exam Const: COMMON NORMALS: no acute distress, average body habitus, patient oriented x3, no limitations, healthy appearing, alert and well nourished HENMT: COMMON NORMALS: normocephalic, atraumatic, external ears normal, TM's normal bilaterally, Normal nasal mucous membranes and turbinates present and moist oral mucous membranes HEAD & SCALP: normocephalic and atraumatic NOSE: Normal nasal mucous membranes and turbinates present EXTERNAL EAR: Yes external ears normal TYMPANIC MEMBRANE: TM's normal bilaterally Eye: COMMON NORMALS: conjunctivae normal CONJUNCTIVA: Yes conjunctivae normal Neck/C-Spine: COMMON NORMALS: full ROM and no lymphadenopathy Resp: COMMON NORMALS: normal respiratory effort, No retractions and clear to auscultation bilaterally AUSCULTATION: clear to auscultation bilaterally Cardio: COMMON NORMALS: regular rate, regular rhythm and No murmurs present (Cardio) RATE: regular rate RHYTHM: regular rhythm GI: COMMON NORMALS: Normal to inspection, nondistended, normoactive bowel sounds present, Soft to palpation and non-tender PALPATION: Yes Soft to palpation Extremity: COMMON NORMALS: full ROM Neuro: COMMON NORMALS: patient oriented x3 SENSORIUM/ORIENTATION: Yes alert Psych: COMMON NORMALS: mental status grossly normal, Normal thought process present and cooperative THOUGHT PROCESS: Normal thought process present Skin: COMMON NORMALS: no rashes or lesions noted and no wounds GENERAL SKIN EXAM: no rashes or lesions noted Course ED course: 52-year-old male presents to the ER today for cough, headache, runny nose, shortness of breath x3 days. Patient reports started with a headache and runny nose and now he has a cough that is productive. He is not been taking any medications for symptoms at this time. Denies any known sick contacts with COVID. We will get a COVID swab at this time. Patient's vitals are all stable. On exam, lungs are clear. No additional imaging is likely necessary at this time. Vital Signs: Vital signs: Vital Signs Temperature 98.1 F 07/11/22 13:12 Pulse Rate 100 07/11/22 13:12 Respiratory Rate 14 07/11/22 13:12 Blood Pressure 136/82 07/11/22 13:12 Pulse Oximetry 98 07/11/22 13:12 Oxygen Delivery Me thod 07/11/22 13:12 MDM - URI/Sore Throat Medical Decision Making 52-year-old male presents to the ER today for cough, headache, runny nose, shortness of breath x3 days. Patient reports started with a headache and runny nose and now he has a cough that is productive. He is not been taking any medications for symptoms at this time. Denies any known sick contacts with COVID. We will get a COVID swab at this time. Patient's vitals are all stable. On exam, lungs are clear. No additional imaging is likely necessary at this time. Patient's COVID was positive in the ER today. This is likely explaining most of his symptoms. His symptoms are mild and patient is fully vaccinated and boosted. 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 Take 600 to 1200 mg twice daily. Push fluids. Okay to take Tylenol and Motrin for any pain. Follow-up with PCP in 7 to 10 days. Return to the ER with any new or worsening symptoms. Patient verbalized understanding and was in agreement with the treatment plan. Lab Data Laboratory Results SARS-CoV-2 Ag (Rapid) Positive (Negative) H 07/11/22 13:16 Critical Care Time Critical Care Time: Critical Care Time: No Discharge Plan Discharge Patient Disposition: Home Clinical Impression: COVID-19 Condition: Stable Prescriptions: No Action sildenafil 100 mg tablet 100 mg PO .QWeek PRN (Reason: Erectile Dysfunction) Rx Instructions: Limit 4 doses per 30 days. sumatriptan succinate 25 mg tablet See Rx Instructions PO Q2H PRN (Reason: migraine headache) Rx Instructions: Not to exceed 2 tabs within 24 hours magnesium oxide 400 mg magnesium capsule 400 mg PO QDAY aripiprazole 5 mg tablet 5 mg PO QDAY Qty: 30 5RF venlafaxine [Effexor XR] 150 mg capsule,extended release 24hr 150 mg PO QDAY Qty: 30 5RF azithromycin 250 mg tablet See Rx Instructions PO .COMPLEX Qty: 6 0RF Rx Instructions: For 250 mg dose pack: take 500 mg today (day 1), then 250 mg for 4 days (days 2-5) PO Mucinex 1,200 mg tablet extended release 12hr 1,200 mg PO BID 14 Days Qty: 28 0RF naproxen 500 mg tablet 500 mg PO Q12H PRN (Reason: pain) Qty: 30 0RF Hold Instructions: Resume on 02/02/21. Rx Instructions: take 1 BID PRN pain with food Discharge Orders: Discharge ED (Routine); Ordered 07/11/22 Ordered By: Solange Rodrigues Referrals: Saul Byrd DO [Primary Care Provider] - Discharge Diet: Usual diet Discharge Activity: Resume usual activity Patient Instructions: Opioid Safety Activity Restrictions/Additional Instructions: Push fluids. Take Mucinex 600 mg twice daily as discussed. Alternate Tylenol and Motrin for pain. Follow-up with PCP in 7 to 10 days if no improvement. Return to the ER with new or worsening symptoms. Coding Level of Care Code ED Agency Sales Management Assistant for Sheila Greene
[2022-07-11 13:47] LABS: SARS Covid-2 Antigen Positive (Negative)
== END 2022-07-11 14:15 | disposition home or self-care (01) ==
PROVIDERS: Emergency Provider Physician Assistant; PCP Emergency Medicine Emergency Medical Services
DX: U07.1 COVID-19 (principal); F17.220 Nicotine dependence, chewing tobacco, uncomplicated
CPT/HCPCS: 87426; 99282

== ENCOUNTER 2022-10-24 12:41 | Emergency (ER) | payer OTHER, SELFPAY ==
[2022-10-24 12:46] VITALS: BP 121/82; PULSE 90; RESP 14; TEMP 36.6; O2SAT 96; BMI 28.4
--- NOTE | 2022-10-24 13:12 | XR_ITS ---
WS: [id number] Portable AP upright chest, 10/24/2022 Clinical Data: short of breath Comparison: None. Findings: No nodules, masses or effusions are seen. The heart is normal. The pulmonary vascularity is not increased. No pneumonia or pneumothorax is seen. XR/XR chest 1V portable [id number] Impression: Negative chest.
[2022-10-24 13:19] VITALS: BP 113/72; PULSE 92; RESP 16; O2SAT 95
--- NOTE | 2022-10-24 13:29 | W.ED.SOB ---
Documented by User: Solange Rodrigues PA-C 10/24/22 14:24 HPI - SOB/Dyspnea General: Chief Complaint: Shortness of Breath/Dyspnea Stated Complaint: SOB,congestion Time Seen by Provider: 10/24/22 13:12 Source: patient Mode of arrival: ambulatory Limitations: no limitations History of Present Illness: HPI Narrative: 52-year-old male with a history of COPD presents to the ER today for shortness of breath, runny nose, cough x3 to 4 days. Patient reports that started with a sore throat which improved over the first 24 hours. He reports he now has a productive cough with green sputum. He reports little bit of a runny nose but denies congestion. Denies any fever or chills. Denies any body aches. Denies any recent sick contacts. Patient does have a history of COPD but does not take any inhalers at home on a regular basis. Patient reports that shortness of breath is worse when he is lying down. He also reports shortness of breath with exertion. He denies any chest pain. Patient denies any lower extremity swelling. He is not taking any [id number] medications for symptoms at home at this time. 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 Salena Jenkins Open release of the median nerve at wrist on the right History of knee surgery (~2001) Left knee History of shoulder surgery (~1991) 1991 and 2016, Right History of spinal surgery 03/29/2020. Dr. 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+ Lives independently: Yes Household members: spouse Housing: House Marital status: service: Yes branch: [employer] Current occupational status: disabled History of recent travel: No Physical Exam Const: COMMON NORMALS: no acute distress, average body habitus, patient oriented x3, no limitations, healthy appearing, alert and well nourished HENMT: COMMON NORMALS: normocephalic, atraumatic, external ears normal, TM's normal bilaterally, Normal external nose present, Normal nasal mucous membranes and turbinates present, moist oral mucous membranes and oropharynx normal HEAD & SCALP: normocephalic and atraumatic NOSE: Normal external nose present and Normal nasal mucous membranes and turbinates present EXTERNAL EAR: Yes external ears normal TYMPANIC MEMBRANE: TM's normal bilaterally Eye: COMMON NORMALS: conjunctivae normal CONJUNCTIVA: Yes conjunctivae normal Lymph: LYMPHATIC: no lymphadenopathy noted Resp: COMMON NORMALS: normal respiratory effort, No retractions and clear to auscultation bilaterally AUSCULTATION: clear to auscultation bilaterally Cardio: COMMON NORMALS: regular rate, regular rhythm and No murmurs present (Cardio) RATE: regular rate RHYTHM: regular rhythm GI: COMMON NORMALS: Normal to inspection, nondistended, normoactive bowel sounds present, Soft to palpation and non-tender PALPATION: Yes Soft to palpation Extremity: COMMON NORMALS: normal to inspection, full ROM and no pedal edema Neuro: COMMON NORMALS: patient oriented x3 SENSORIUM/ORIENTATION: Yes alert Psych: COMMON NORMALS: mental status grossly normal, Normal thought process present and cooperative THOUGHT PROCESS: Normal thought process present Skin: COMMON NORMALS: no rashes or lesions noted and no wounds GENERAL SKIN EXAM: no rashes or lesions noted Course ED course: Patient presents the ER for cough, sore throat, runny nose, short of breath for the last 2 to 3 days. Patient has a history of COPD. On exam patient appears well. Patient's lung sounds are clear bilaterally. Slightly erythematous turbinates however otherwise normal exam. We will get some basic labs to make sure patient does not have a white count or elevated BNP. We will also get a chest x-ray. Patient did a home COVID swab which was negative in the last 24 hours. Patient does not appear to be flulike so we will hold on an influenza swab. Vital Signs: Vital signs: Vital Signs Temperature 97.8 F 10/24/22 12:46 Pulse Rate 93 10/24/22 14:35 Respiratory Rate 16 10/24/22 14:35 Blood Pressure 116/72 10/24/22 14:35 Pulse Oximetry 96 10/24/22 14:35 Oxygen Delivery Me thod 10/24/22 13:19 MDM - SOB/Dyspnea Medical Decision Making Labs are unremarkable. Chest x-ray was negative for pneumonia. Likely this is a viral upper respiratory infection causing a mild COPD exacerbation. We will treat with a short burst of steroids and a Ventolin inhaler to use as needed. Also will send in Mucinex. Recommended patient take this until symptoms improve. Push fluids. If symptoms worsen, return to the ER. Otherwise follow-up with PCP in 4 to 5 days. Patient verbalized understanding and was in agreement with the treatment plan. Lab Data 10/24/22 13:30 10/24/22 13:30 Labs/Radiology: Radiology Impressions Chest X-Ray 10/24/22 13:12 Impression: Negative chest. Laboratory Results WBC 7.3 10^3/uL (4.0-10.0) 10/24/22 13:30 RBC 5.17 10^6/uL (4.1-5.3) 10/24/22 13:30 Hgb 15.8 g/dL (11.7-16.6) 10/24/22 13:30 Hct 45.2 % (42.0-52.0) 10/24/22 13:30 MCV 87.4 fl (80-94) 10/24/22 13:30 MCH 30.6 pg (28.0-34.0) 10/24/22 13:30 MCHC 35.0 g/dL (30.0-36.0) 10/24/22 13:30 RDW 11.9 % (12.1-15.1) L 10/24/22 13:30 Plt Count 205 10^3/cmm (130-400) 10/24/22 13:30 MPV 8.9 fL (7.4-10.4) 10/24/22 13:30 Neut % (Auto) 54.3 % 10/24/22 13:30 Lymph % (Auto) 31.4 % 10/24/22 13:30 [place] % (Auto) 10.1 % 10/24/22 13:30 Eos % (Auto) 3.3 % 10/24/22 13:30 Baso % (Auto) 0.6 % 10/24/22 13:30 Neut # (Auto) 3.94 10^3/uL (1.8-7.7) 10/24/22 13:30 Lymph # (Auto) 2.3 10^3/uL (0.8-4.8) 10/24/22 13:30 [place] # (Auto) 0.7 10^3/uL (0.2-0.9) 10/24/22 13:30 Eos # (Auto) 0.2 10^3/uL (0.0-0.8) 10/24/22 13:30 Baso # (Auto) 0.0 10^3/uL (0.0-0.1) 10/24/22 13:30 Nucleated RBC % (auto) 0 % 10/24/22 13:30 Nucleated RBCs # 0.0 /100WBC 10/24/22 13:30 Sodium 139 mmol/L (136-145) 10/24/22 13:30 Potassium 3.6 mmol/L (3.5-5.1) 10/24/22 13:30 Chloride 102 mmol/L (98-107) 10/24/22 13:30 Carbon Dioxide 27 mmol/L (22-29) 10/24/22 13:30 Anion Gap 13.6 (5-19) 10/24/22 13:30 BUN 11 mg/dL (6-20) 10/24/22 13:30 Creatinine 0.7 mg/dL (0.7-1.2) 10/24/22 13:30 GFR Calculation 119.4 mL/min (90-130) 10/24/22 13:30 Glucose 118 mg/dL (65-115) H 10/24/22 13:30 Calculated Osmolality 288 mOsm/kg (285-295) 10/24/22 13:30 Calcium 9.5 mg/dL (8.5-10.5) 10/24/22 13:30 NT-Pro-B Natriuret Pep 5 pg/mL (0-125) 10/24/22 13:30 Critical Care Time Critical Care Time: Critical Care Time: No Discharge Plan Discharge Patient Disposition: Home Clinical Impression: Acute exacerbation of chronic obstructive pulmonary disease URI (upper respiratory infection) Qualifiers: URI type: unspecified viral URI Qualified Code(s): J06.9 - Acute upper respiratory infection, unspecified Condition: Stable Prescriptions: New prednisone 20 mg tablet 40 mg PO DAILY 4 Days Qty: 8 0RF Ventolin HFA 90 mcg/actuation HFA aerosol inhaler 2 inh inhalation Q4H PRN (Reason: shortness of breath or wheezing) Qty: 6.7 0RF Mucinex 600 mg tablet extended release 12hr 600 mg PO BID PRN (Reason: congestion) Qty: 20 0RF No Action sildenafil 100 mg tablet 100 mg PO .QWeek PRN (Reason: Erectile Dysfunction) Rx Instructions: Limit 4 doses per 30 days. sumatriptan succinate 25 mg tablet See Rx Instructions PO Q2H PRN (Reason: migraine headache) Rx Instructions: Not to exceed 2 tabs within 24 hours magnesium oxide 400 mg magnesium capsule 400 mg PO QDAY aripiprazole 5 mg tablet 5 mg PO QDAY Qty: 30 5RF venlafaxine [Effexor XR] 150 mg capsule,extended release 24hr 150 mg PO QDAY Qty: 30 5RF azithromycin 250 mg tablet See Rx Instructions PO .COMPLEX Qty: 6 0RF Rx Instructions: For 250 mg dose pack: take 500 mg today (day 1), then 250 mg for 4 days (days 2-5) PO Mucinex 1,200 mg tablet extended release 12hr 1,200 mg PO BID 14 Days Qty: 28 0RF naproxen 500 mg tablet 500 mg PO Q12H PRN (Reason: pain) Qty: 30 0RF Hold Instructions: Resume on 02/02/21. Rx Instructions: take 1 BID PRN pain with food Discharge Orders: Discharge ED (Routine); Ordered 10/24/22 Ordered By: Solange Rodrigues Referrals: Saul Byrd DO [Primary Care Provider] - Discharge Diet: Usual diet Discharge Activity: Resume usual activity Patient Instructions: Opioid Safety, Pain Management Activity Restrictions/Additional Instructions: Take steroids as prescribed. Use inhaler as needed. Take Mucinex as prescribed. Rest and increase fluids recommended. Follow-up with PCP in 4 to 5 days if no improvement. Return to the ER with any new or worsening symptoms. 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 Salena Jenkins Open release of the median nerve at wrist on the right History of knee surgery (~2001) Left knee History of shoulder surgery (~1991) 1991 and 2016, Right History of spinal surgery 03/29/2020. Dr. 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+ Lives independently: Yes Household members: spouse Housing: House Marital status: service: Yes branch: [employer] Current occupational status: disabled History of recent travel: No Course Vital Signs: Vital signs: Vital Signs Temperature 97.8 F 10/24/22 12:46 Pulse Rate 93 10/24/22 14:35 Respiratory Rate 16 10/24/22 14:35 Blood Pressure 116/72 10/24/22 14:35 Pulse Oximetry 96 10/24/22 14:35 Oxygen Delivery Me thod 10/24/22 13:19 MDM - SOB/Dyspnea Medical Decision Making Labs are unremarkable. Chest x-ray was negative for pneumonia. Likely this is a viral upper respiratory infection causing a mild COPD exacerbation. We will treat with a short burst of steroids and a Ventolin inhaler to use as needed. Also will send in Mucinex. Recommended patient take this until symptoms improve. Push fluids. If symptoms worsen, return to the ER. Otherwise follow-up with PCP in 4 to 5 days. Patient verbalized understanding and was in agreement with the treatment plan. Chart reviewed and patient discussed with midlevel. Agree with assessment and plan. Lab Data 10/24/22 13:30 10/24/22 13:30 Labs/Radiology: Radiology Impressions Chest X-Ray 10/24/22 13:12 Impression: Negative chest. Laboratory Results WBC 7.3 10^3/uL (4.0-10.0) 10/24/22 13:30 RBC 5.17 10^6/uL (4.1-5.3) 10/24/22 13:30 Hgb 15.8 g/dL (11.7-16.6) 10/24/22 13:30 Hct 45.2 % (42.0-52.0) 10/24/22 13:30 MCV 87.4 fl (80-94) 10/24/22 13:30 MCH 30.6 pg (28.0-34.0) 10/24/22 13:30 MCHC 35.0 g/dL (30.0-36.0) 10/24/22 13:30 RDW 11.9 % (12.1-15.1) L 10/24/22 13:30 Plt Count 205 10^3/cmm (130-400) 10/24/22 13:30 MPV 8.9 fL (7.4-10.4) 10/24/22 13:30 Neut % (Auto) 54.3 % 10/24/22 13:30 Lymph % (Auto) 31.4 % 10/24/22 13:30 [place] % (Auto) 10.1 % 10/24/22 13:30 Eos % (Auto) 3.3 % 10/24/22 13:30 Baso % (Auto) 0.6 % 10/24/22 13:30 Neut # (Auto) 3.94 10^3/uL (1.8-7.7) 10/24/22 13:30 Lymph # (Auto) 2.3 10^3/uL (0.8-4.8) 10/24/22 13:30 [place] # (Auto) 0.7 10^3/uL (0.2-0.9) 10/24/22 13:30 Eos # (Auto) 0.2 10^3/uL (0.0-0.8) 10/24/22 13:30 Baso # (Auto) 0.0 10^3/uL (0.0-0.1) 10/24/22 13:30 Nucleated RBC % (auto) 0 % 10/24/22 13:30 Nucleated RBCs # 0.0 /100WBC 10/24/22 13:30 Sodium 139 mmol/L (136-145) 10/24/22 13:30 Potassium 3.6 mmol/L (3.5-5.1) 10/24/22 13:30 Chloride 102 mmol/L (98-107) 10/24/22 13:30 Carbon Dioxide 27 mmol/L (22-29) 10/24/22 13:30 Anion Gap 13.6 (5-19) 10/24/22 13:30 BUN 11 mg/dL (6-20) 10/24/22 13:30 Creatinine 0.7 mg/dL (0.7-1.2) 10/24/22 13:30 GFR Calculation 119.4 mL/min (90-130) 10/24/22 13:30 Glucose 118 mg/dL (65-115) H 10/24/22 13:30 Calculated Osmolality 288 mOsm/kg (285-295) 10/24/22 13:30 Calcium 9.5 mg/dL (8.5-10.5) 10/24/22 13:30 NT-Pro-B Natriuret Pep 5 pg/mL (0-125) 10/24/22 13:30 Discharge Plan Discharge Patient Disposition: Home Clinical Impression: Acute exacerbation of chronic obstructive pulmonary disease URI (upper respiratory infection) Qualifiers: URI type: unspecified viral URI Qualified Code(s): J06.9 - Acute upper respiratory infection, unspecified Condition: Stable Prescriptions: New prednisone 20 mg tablet 40 mg PO DAILY 4 Days Qty: 8 0RF Ventolin HFA 90 mcg/actuation HFA aerosol inhaler 2 inh inhalation Q4H PRN (Reason: shortness of breath or wheezing) Qty: 6.7 0RF Mucinex 600 mg tablet extended release 12hr 600 mg PO BID PRN (Reason: congestion) Qty: 20 0RF No Action sildenafil 100 mg tablet 100 mg PO .QWeek PRN (Reason: Erectile Dysfunction) Rx Instructions: Limit 4 doses per 30 days. sumatriptan succinate 25 mg tablet See Rx Instructions PO Q2H PRN (Reason: migraine headache) Rx Instructions: Not to exceed 2 tabs within 24 hours magnesium oxide 400 mg magnesium capsule 400 mg PO QDAY aripiprazole 5 mg tablet 5 mg PO QDAY Qty: 30 5RF venlafaxine [Effexor XR] 150 mg capsule,extended release 24hr 150 mg PO QDAY Qty: 30 5RF azithromycin 250 mg tablet See Rx Instructions PO .COMPLEX Qty: 6 0RF Rx Instructions: For 250 mg dose pack: take 500 mg today (day 1), then 250 mg for 4 days (days 2-5) PO Mucinex 1,200 mg tablet extended release 12hr 1,200 mg PO BID 14 Days Qty: 28 0RF naproxen 500 mg tablet 500 mg PO Q12H PRN (Reason: pain) Qty: 30 0RF Hold Instructions: Resume on 02/02/21. Rx Instructions: take 1 BID PRN pain with food Discharge Orders: Discharge ED (Routine); Ordered 10/24/22 Ordered By: Solange Rodrigues Referrals: Saul Byrd DO [Primary Care Provider] - Discharge Diet: Usual diet Discharge Activity: Resume usual activity Patient Instructions: Opioid Safety, Pain Management Activity Restrictions/Additional Instructions: Take steroids as prescribed. Use inhaler as needed. Take Mucinex as prescribed. Rest and increase fluids recommended. Follow-up with PCP in 4 to 5 days if no improvement. Return to the ER with any new or worsening symptoms. Coding Level of Care Code ED Economics Professor for Sheila rGeene Exam Comprehensive
[2022-10-24 13:42] LABS: Basophils % 0.6 %; Eosinophils # 0.2 10^3/uL (0.0-0.8); Eosinophils % 3.3 %; Hematocrit 45.2 % (42.0-52.0); Hemoglobin 15.8 g/dL (11.7-16.6); Lymphocytes # 2.3 10^3/uL (0.8-4.8); Lymphocytes % 31.4 %; Mean Corpuscular Hemoglobin 30.6 pg (28.0-34.0); Mean Corpuscular Volume 87.4 fl (80-94); Mean Platelet Volume 8.9 fL (7.4-10.4); Monocytes # 0.7 10^3/uL (0.2-0.9); Monocytes % 10.1 %; Neutrophils # 3.94 10^3/uL (1.8-7.7); Neutrophils % 54.3 %; Nucleated Red Blood Cells % 0 %; Platelet Count 205 10^3/cmm (130-400); Red Blood Count 5.17 10^6/uL (4.1-5.3); Red Cell Distribution Width 11.9 % (12.1-15.1); White Blood Count 7.3 10^3/uL (4.0-10.0)
[2022-10-24 14:13] LABS: Anion Gap 13.6 (5-19); Blood Urea Nitrogen 11 mg/dL (6-20); Calcium 9.5 mg/dL (8.5-10.5); Carbon Dioxide 27 mmol/L (22-29); Chloride 102 mmol/L (98-107); Glomerular Filtration Rate 119.4 mL/min (90-130); Glucose 118 mg/dL (65-115); NT Pro B Type Natriuretic Pept 5 pg/mL (0-125); Osmolality Calculated 288 mOsm/kg (285-295); Potassium 3.6 mmol/L (3.5-5.1); Sodium 139 mmol/L (136-145)
[2022-10-24 14:35] VITALS: BP 116/72; PULSE 93; RESP 16; O2SAT 96
== END 2022-10-24 14:38 | disposition home or self-care (01) ==
PROVIDERS: Emergency Provider Physician Assistant; PCP Emergency Medicine Emergency Medical Services
DX: J44.1 Chronic obstructive pulmonary disease with (acute) exacerbation (principal); J06.9 Acute upper respiratory infection, unspecified; F17.220 Nicotine dependence, chewing tobacco, uncomplicated
CPT/HCPCS: 71045; 80048; 83880; 85025; 99283

== ENCOUNTER 2023-06-19 20:02 | Emergency (ER) | payer OTHER, SELFPAY ==
--- NOTE | 2023-06-19 20:04 | USR_ITS ---
PROCEDURE INFORMATION: Exam: US Duplex Left Lower Extremity Veins, Limited Exam date and time: 06/19/2023 9:26 PM Age: 53 years old Clinical indication: Swelling (edema) of limb; Lower extremity, left; Additional info: Leg swelling TECHNIQUE: Imaging protocol: Real-time duplex ultrasound of the left extremity with 2-D rowan scale, color Doppler flow and spectral waveform analysis including responses to compression and other maneuvers (when performed) with image documentation. Limited exam focused on the left lower extremity veins. COMPARISON: No relevant prior studies available. FINDINGS: Left deep veins: Unremarkable. The common femoral, femoral, proximal profunda femoral, popliteal, posterior tibial, and peroneal veins are patent without thrombus. Normal Doppler waveforms. Normal compressibility and/or augmentation response. Superficial veins: Hypoechoic intraluminal thrombus with decreased compressibility in the greater saphenous vein extending from the ankle to the level of the distal left thigh. Soft tissues: Unremarkable. US/CV venous duplex [facility] [id number] IMPRESSION: 1. Superficial thrombophlebitis in the left greater saphenous vein extending from the ankle to the level of the distal left thigh. 2. No evidence for deep venous thrombosis in the left lower extremity.
[2023-06-19 20:38] VITALS: BP 138/97; PULSE 83; RESP 18; TEMP 36.8; O2SAT 97; BMI 26.3
[2023-06-19 21:09] VITALS: BP 151/95; PULSE 80; O2SAT 96
[2023-06-19 21:49] LABS: Basophils # 0.1 10^3/uL (0.0-0.1); Basophils % 0.6 %; Eosinophils # 0.2 10^3/uL (0.0-0.8); Eosinophils % 2.8 %; Hematocrit 46.9 % (42.0-52.0); Hemoglobin 16.1 g/dL (11.7-16.6); Lymphocytes # 2.6 10^3/uL (0.8-4.8); Lymphocytes % 31.4 %; Mean Corpuscular HGB Conc 34.3 g/dL (30.0-36.0); Mean Corpuscular Hemoglobin 30.1 pg (28.0-34.0); Mean Corpuscular Volume 87.8 fl (80-94); Mean Platelet Volume 8.9 fL (7.4-10.4); Monocytes # 0.8 10^3/uL (0.2-0.9); Monocytes % 9.2 %; Neutrophils # 4.51 10^3/uL (1.8-7.7); Neutrophils % 55.6 %; Nucleated Red Blood Cells % 0 %; Platelet Count 234 10^3/cmm (130-400); Red Blood Count 5.34 10^6/uL (4.1-5.3); Red Cell Distribution Width 12.3 % (12.1-15.1); White Blood Count 8.1 10^3/uL (4.0-10.0)
--- NOTE | 2023-06-19 21:50 | ED_ITS ---
HPI - Extremity Problem General: Chief complaint: Extremity Problem,Nontraumatic Stated complaint: swelling in left leg Time Seen by Provider: 06/19/23 20:29 Source: patient Mode of arrival: ambulatory Limitations: no limitations History of Present Illness: 53-year-old male who states he had some erythema to his left lower leg he is also had some slight pain in that leg. [facility] to make sure he did have a DVT. He does have a slight streaking up his knee he denies any fever he rates pain a 2 out of 10. Denies any known injuries. Associated symptoms: Deny chest pain, fever(s) or rash Review of Systems Const: Denies: fever(s), chills, body aches or change in appetite ENMT: Denies: throat pain or dental pain Card: Denies: chest pain Resp: Denies: dyspnea GI: Denies: abdominal pain, nausea, vomiting or diarrhea Musc: Reports: extremity swelling; Denies: neck pain or back pain Skin/Breast: Denies: rash Neuro: Denies: headache(s) PFSH ED PFSH: Medical History Bleeding per rectum Cervical disc disorder with myelopathy of mid-cervical region Major depressive disorder, recurrent, moderate Post-operative state Post-traumatic stress disorder, chronic 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 Salena Jenkins Open release of the median nerve at wrist on the right History of knee surgery (~2001) Left knee History of shoulder surgery (~1991) 1991 and 2016, Right History of spinal surgery 03/29/2020. Dr. 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+ Substance/Drug Use: never Lives independently: Yes Household members: spouse Housing: House Marital status: service: Yes branch: [employer] Current occupational status: disabled Physical Exam Const: COMMON NORMALS: no acute distress, patient oriented x3 and healthy appearing HENMT: COMMON NORMALS: normocephalic and atraumatic HEAD & SCALP: normocephalic and atraumatic Neck/C-Spine: COMMON NORMALS: full ROM and supple Chest: COMMONS NORMALS: normal inspection of the chest Resp: COMMON NORMALS: normal respiratory effort Cardio: COMMON NORMALS: regular rate, regular rhythm and No murmurs present (Cardio) RATE: regular rate RHYTHM: regular rhythm GI: COMMON NORMALS: Normal to inspection, nondistended, normoactive bowel sounds present, Soft to palpation, non-tender and no masses PALPATION: Yes Soft to palpation Extremity: COMMON NORMALS: full ROM NARRATIVE EXTREMITY EXAM: Erythema to left lower leg with slight streaking no calf tenderness distal pulses intact Neuro: COMMON NORMALS: patient oriented x3, moves all extremities and no focal motor deficits Psych: COMMON NORMALS: mental status grossly normal, Normal thought process present and cooperative THOUGHT PROCESS: Normal thought process present Skin: COMMON NORMALS: no rashes or lesions noted and no wounds GENERAL SKIN EXAM: no rashes or lesions noted Course Vital Signs: Vital signs: Vital Signs Temperature 98.2 F 06/19/23 20:38 Pulse Rate 80 06/19/23 21:09 Respiratory Rate 18 06/19/23 20:38 Blood Pressure 151/95 06/19/23 21:09 Pulse Oximetry 96 06/19/23 21:09 Oxygen Delivery Me thod Room Air 06/19/23 21:09 MDM - Extremity (Nontraumatic) Medical Decision Making Patient presents here with superficial thrombophlebitis he has no signs of cellulitis the streaking is likely from a superficial thrombophlebitis. No DVT he is to do warm compresses [facility] if worsening. Medical Records I reviewed the patient's medical records. Lab Data I reviewed the patient's lab results. 06/19/23 21:21 Radiology Impressions Venous Duplex 06/19/23 20:04 IMPRESSION: 1. Superficial thrombophlebitis in the left greater saphenous vein extending from the ankle to the level of the distal left thigh. 2. No evidence for deep venous thrombosis in the left lower extremity. Laboratory Results WBC 8.1 10^3/uL (4.0-10.0) 06/19/23 21:21 RBC 5.34 10^6/uL (4.1-5.3) H 06/19/23 21:21 Hgb 16.1 g/dL (11.7-16.6) 06/19/23 21:21 Hct 46.9 % (42.0-52.0) 06/19/23 21:21 MCV 87.8 fl (80-94) 06/19/23 21:21 MCH 30.1 pg (28.0-34.0) 06/19/23 21:21 MCHC 34.3 g/dL (30.0-36.0) 06/19/23 21:21 RDW 12.3 % (12.1-15.1) 06/19/23 21:21 Plt Count 234 10^3/cmm (130-400) 06/19/23 21:21 MPV 8.9 fL (7.4-10.4) 06/19/23 21:21 Neut % (Auto) 55.6 % 06/19/23 21:21 Lymph % (Auto) 31.4 % 06/19/23 21:21 [place] % (Auto) 9.2 % 06/19/23 21:21 Eos % (Auto) 2.8 % 06/19/23 21:21 Baso % (Auto) 0.6 % 06/19/23 21:21 Neut # (Auto) 4.51 10^3/uL (1.8-7.7) 06/19/23 21:21 Lymph # (Auto) 2.6 10^3/uL (0.8-4.8) 06/19/23 21:21 [place] # (Auto) 0.8 10^3/uL (0.2-0.9) 06/19/23 21:21 Eos # (Auto) 0.2 10^3/uL (0.0-0.8) 06/19/23 21:21 Baso # (Auto) 0.1 10^3/uL (0.0-0.1) 06/19/23 21:21 Nucleated RBC % (auto) 0 % 06/19/23 21:21 Nucleated RBCs # 0.0 /100WBC 06/19/23 21:21 Discharge Plan Discharge Patient Disposition: Home Clinical Impression: Superficial thrombophlebitis Condition: Stable Prescriptions: No Action sildenafil 100 mg tablet 100 mg PO .QWeek PRN (Reason: Erectile Dysfunction) Rx Instructions: Limit 4 doses per 30 days. sumatriptan succinate 25 mg tablet See Rx Instructions PO Q2H PRN (Reason: migraine headache) Rx Instructions: Not to exceed 2 tabs within 24 hours magnesium oxide 400 mg magnesium capsule 400 mg PO QDAY aripiprazole 5 mg tablet 5 mg PO QDAY Qty: 30 5RF venlafaxine [Effexor XR] 150 mg capsule,extended release 24hr 150 mg PO QDAY Qty: 30 5RF azithromycin 250 mg tablet See Rx Instructions PO .COMPLEX Qty: 6 0RF Rx Instructions: For 250 mg dose pack: take 500 mg today (day 1), then 250 mg for 4 days (days 2-5) PO Mucinex 1,200 mg tablet extended release 12hr 1,200 mg PO BID 14 Days Qty: 28 0RF naproxen 500 mg tablet 500 mg PO Q12H PRN (Reason: pain) Qty: 30 0RF Hold Instructions: Resume on 02/02/21. Rx Instructions: take 1 BID PRN pain with food Ventolin HFA 90 mcg/actuation HFA aerosol inhaler 2 inh inhalation Q4H PRN (Reason: shortness of breath or wheezing) Qty: 6.7 0RF Mucinex 600 mg tablet extended release 12hr 600 mg PO BID PRN (Reason: congestion) Qty: 20 0RF Discharge Orders: Discharge ED (Routine); Ordered 06/19/23 Ordered By: Walter Farah Referrals: Saul Byrd DO [Primary Care Provider] - Discharge Diet: Advance as tolerated Discharge Activity: Resume usual activity Patient Instructions: Superficial Thrombophlebitis (ED) Coding Level of Care Code ED Accounting Policy Consultant for Sheila Greene
[2023-06-19 22:27] VITALS: BP 151/95; PULSE 80; RESP 18; O2SAT 97
== END 2023-06-19 22:30 | disposition home or self-care (01) ==
PROVIDERS: Emergency Provider Emergency Medicine; PCP Emergency Medicine Emergency Medical Services
DX: I80.02 Phlebitis and thrombophlebitis of superficial vessels of left lower extremity (principal); F17.220 Nicotine dependence, chewing tobacco, uncomplicated
CPT/HCPCS: 85025; 93971; 99284

== ENCOUNTER → 2023-08-24 15:09 | Outpatient (BNVA) | payer OTHER, SELFPAY | PROVIDERS: PCP Emergency Medicine Emergency Medical Services; Visit Provider Specialist | DX: M19.011 Primary osteoarthritis, right shoulder | CPT/HCPCS: 73030; 99214 ==

== ENCOUNTER → 2023-08-27 10:07 | Outpatient (BNVA) | payer OTHER, SELFPAY | PROVIDERS: PCP Emergency Medicine Emergency Medical Services; Visit Provider Dermatology | DX: L82.1 Other seborrheic keratosis (principal); L57.0 Actinic keratosis; D48.5 Neoplasm of uncertain behavior of skin; L81.4 Other melanin hyperpigmentation; D22.5 Melanocytic nevi of trunk | CPT/HCPCS: 11102; 17000; 99203 ==

== ENCOUNTER → 2023-09-29 09:17 | Outpatient (BNVA) | payer OTHER, SELFPAY | PROVIDERS: PCP Emergency Medicine Emergency Medical Services; Visit Provider Dermatology | DX: C44.42 Squamous cell carcinoma of skin of scalp and neck (principal) | CPT/HCPCS: 12042; 17311 ==

== ENCOUNTER 2023-10-22 12:57 | Outpatient (CLI) | payer OTHER, SELFPAY ==
--- NOTE | 2023-10-22 13:00 | IR_ITS ---
WS: [id number] SHOULDER ARTHROGRAM RIGHT Fluoroscopic guided right shoulder arthrogram CLINICAL INFORMATION: hx of 2 shoulder surgeries, increased pain COMPARISON: None. PROCEDURE: The procedure including risks, benefits and complications were discussed with the patient, who agreed to proceed. Using sterile technique, the patient was prepped and draped in the usual ster ile fashion. After 1% lidocaine injection using fluoroscopic guidance, a 22-gauge spinal needle was a dvanced into the glenohumeral joint. Approximately 13 ml of a solution containing 15 ml normal saline , 5 ml Omnipaque 240, and 0.1 ml gadolinium was administered. No immediate complications. FLUOROSCOPY TIME: 1min [id number] # of spot films: 2 IMPRESSION: Uncomplicated fluoroscopic-guided right shoulder arthrogram. MRI to follow.
--- NOTE | 2023-10-22 13:03 | MR_ITS ---
WS: [id number] EXAMINATION: MRI RIGHT SHOULDER ARTHROGRAM ORDER DATE: 10/22/2023 1:03 PM COMPARISON: RIGHT HISTORY: hx of 2 shoulder surgeries, increased pain CONTRAST: 2019 and 2017. TECHNIQUE: Axial T2 STAR, coronal proton density fat sat, sagittal T2 fat sat, sagittal proton densit y fat sat, axial proton density fat sat, coronal T2 fat sat, and coronal T1 performed. After contrast , axial T1 fat sat, coronal T1 fat sat, and sagittal T1 fat sat were performed. FINDINGS: Moderate degenerative arthritis AC joint with mild edema and synovial thickening. Subacromial space i s preserved. Mild tendinopathy distal supraspinatus. Tiny undersurface tears distal supraspinatus. No tendon retraction. Normal infraspinatus. Normal teres minor. Subscapularis is normal in appearance. Normal biceps tendon in the bicipital groove. Biceps labral anchor is intact. Glenoid labrum appears intact. No acute appearing labral tears. Subchondral cystic change involving the glenoid. Prior posto perative changes inferior glenoid labral repair. IMPRESSION: 1. Prior postoperative changes inferior glenoid labral repair. No acute labral tears. 2. Normal biceps labral anchor. 3. Biceps tendon is intact within the bicipital groove. 4. Small undersurface tears involving the distal supraspinatus. No tendon retraction. Mild tendinopa thy supraspinatus. 5. Moderate degenerative arthritis AC joint with mild edema and synovial thickening. Subacromial spa ce is preserved.
== END 2023-10-22 12:58 | disposition home or self-care (01) ==
LOC: RAD 12:58
PROVIDERS: PCP Emergency Medicine Emergency Medical Services; Visit Provider Specialist
DX: M25.511 Pain in right shoulder (principal); Z98.890 Other specified postprocedural states; M19.011 Primary osteoarthritis, right shoulder; M75.101 Unspecified rotator cuff tear or rupture of right shoulder, not specified as traumatic
CPT/HCPCS: 23350; 73223; 77002; A9577; Q9966

== ENCOUNTER → 2023-10-26 10:18 | Outpatient (BNVA) | payer OTHER, SELFPAY | PROVIDERS: PCP Emergency Medicine Emergency Medical Services; Visit Provider Specialist | DX: M19.011 Primary osteoarthritis, right shoulder (principal); M67.911 Unspecified disorder of synovium and tendon, right shoulder | CPT/HCPCS: 20610; 99213; J1100; J2795; J3301 ==

== ENCOUNTER → 2023-11-30 10:31 | Outpatient (BNVA) | payer OTHER, SELFPAY | PROVIDERS: PCP Emergency Medicine Emergency Medical Services; Visit Provider Specialist | DX: M67.911 Unspecified disorder of synovium and tendon, right shoulder (principal); M19.011 Primary osteoarthritis, right shoulder | CPT/HCPCS: 99214 ==

== ENCOUNTER 2023-12-10 06:00 | Outpatient (RCR) | payer OTHER, SELFPAY | END 2023-12-16 23:59 | disposition home or self-care (01) | LOC: MPT 06:00 | PROVIDERS: Visit Provider Specialist | DX: M25.511 Pain in right shoulder (principal) | CPT/HCPCS: 97110; 97161; G0283 ==

== ENCOUNTER 2023-12-17 06:00 | Outpatient (RCR) | payer OTHER, SELFPAY | END 2024-01-12 23:59 | disposition home or self-care (01) | LOC: MPT 06:00 | PROVIDERS: Visit Provider Specialist | DX: M25.511 Pain in right shoulder (principal) | CPT/HCPCS: 97110 ==

== ENCOUNTER → 2024-08-26 09:42 | Outpatient (BNVA) | payer OTHER, SELFPAY | PROVIDERS: Visit Provider Nurse Practitioner Family | DX: L57.0 Actinic keratosis (principal); L82.1 Other seborrheic keratosis; L57.8 Other skin changes due to chronic exposure to nonionizing radiation; D22.5 Melanocytic nevi of trunk | CPT/HCPCS: 17000; 99213 ==

== ENCOUNTER 2024-09-30 11:41 | Emergency (ER) | payer OTHER, SELFPAY ==
--- NOTE | 2024-09-30 11:42 | XR_ITS ---
WS: [id number] Portable AP upright chest, 09/30/2024 Clinical Data: cp Comparison: Portable chest, 10/24/2022 Findings: No nodules, masses or effusions are seen. The heart is normal. The pulmonary vascularity is not increased. No pneumonia or pneumothorax is seen. The distal portion of an anterior cervical disc fusion is seen. XR/XR chest 1V portable [id number] Impression: Negative chest.
--- NOTE | 2024-09-30 11:43 | ECG_ITS ---
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 Measurements Intervals [place] Rate: 78 P: 78 OH: 132 QRS: 72 QRSD: 93 T: 65 QT: 358 QTc: 408 Interpretive Statements SINUS RHYTHM No previous ECG available for comparison Electronically Signed On 10-02-2024 20:59:30 DRY CELL SEALER by Tayo Diaz M.D. [email or web address]
[2024-09-30 11:48] VITALS: BP 159/104; PULSE 80; RESP 17; TEMP 36.6; O2SAT 99; BMI 26.4
--- NOTE | 2024-09-30 12:15 | W.ED.CHESTPA ---
HPI - Chest Pain General: Chief Complaint: Chest Pain Stated Complaint: CP Time Seen by Provider: 09/30/24 12:13 Source: patient Mode of arrival: ambulatory Limitations: no limitations History of Present Illness: Patient is a very pleasant 54-year-old male who presents to the ED today with complaint of intermittent left-sided chest pain. Patient states he began noticing chest pain yesterday while riding in the car with his . He states he will have brief (3 to 4 minutes) of left-sided chest pain before it resolves. He can place 2 fingers over the area of his chest where the pain is. He states pain will usually alleviate for 20 minutes or so before returning for another few minutes. It is not worsened by movement, deep inhalation, or exertion. Does not seem to be affected by eating. He has no shortness of breath or difficulty breathing. No racing heart rate or palpitations. No known cardiac issues. PMH is significant for anxiety and PTSD. [facility] No recent surgeries. No dyspnea or cough. No swelling to lower extremities. MD complaint: chest pain Onset (ago): day(s) (yesterday) Timing of current episode: episodic Prior episodes: No Onset: during rest Pain location: left chest Pain radiation: none Severity: mild Relieving factors: nothing Exacerbating factors: nothing Treatment prior to arrival: none Risk Factors: Coronary artery disease risk factors: none Thoracic aortic dissection risk factors: none Related Data Home Medications Medication Instructions Recorded Confirmed magnesium oxide 400 mg PO QDAY 12/06/19 11/30/23 sildenafil 100 mg tablet 100 mg PO .QWeek PRN Erectile 12/06/19 11/30/23 Dysfunction sumatriptan succinate 25 mg tablet See Rx Instructions PO Q2H PRN 12/06/19 11/30/23 migraine headache Previous Rx's Medication Instructions Recorded aripiprazole 5 mg tablet 5 mg PO QDAY #30 tabs 05/28/20 venlafaxine 150 mg 150 mg PO QDAY #30 caps 05/28/20 capsule,extended release 24 hr (Effexor XR) naproxen 500 mg tablet 500 mg PO Q12H PRN pain #30 tabs 08/23/20 azithromycin 250 mg tablet See Rx Instructions PO .COMPLEX #6 03/20/22 tabs guaifenesin 1,200 mg tablet, 1,200 mg PO BID 2 weeks #28 tabs 03/20/22 extended release 12 hr (Mucinex) albuterol sulfate 90 mcg/actuation 2 inh inhalation Q4H PRN shortness 10/24/22 aerosol inhaler (Ventolin HFA) of breath or wheezing #6.7 grams guaifenesin 600 mg tablet, 600 mg PO BID PRN congestion #20 10/24/22 extended release 12 hr (Mucinex) tabs Allergies Allergy/AdvReac Type Severity Reaction Status Date / Time pravastatin AdvReac Mild muscle Verified 09/30/24 11:52 aches PFSH ED PFSH: Medical History Bleeding per rectum Post-operative state 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 Dr. Mason Jenkins: C5-C6, C6-C7 ACDFF History of knee surgery (~2001) Left knee History of shoulder surgery (~1991) 1991 and 2016, Right History of carpal tunnel surgery (~2017) 05/27/2018 Dr. Salena Jenkins Open release of the median nerve at wrist on the right Family History Father COPD (chronic obstructive pulmonary disease) Social History Smoking and tobacco/nicotine status: former use of tobacco/nicotine Alcohol intake: former Year of sobriety/quit date alcohol: 20+ Substance/Drug Use: never Lives independently: Yes Household members: spouse Housing: House Marital status: service: Yes branch: [employer] Current occupational status: disabled Physical Exam Const: COMMON NORMALS: no acute distress, average body habitus, patient oriented x3, no limitations, healthy appearing, alert and well nourished GENERAL APPEARANCE: cooperative ORIENTATION/CONSCIOUSNESS: Yes awake, Yes oriented to person, Yes oriented to place and Yes oriented to time HENMT: COMMON NORMALS: normocephalic and atraumatic HEAD & SCALP: normal to inspection, normocephalic and atraumatic Neck/C-Spine: COMMON NORMALS: full ROM, no lymphadenopathy, supple, no meningeal signs and no JVD Chest: COMMONS NORMALS: normal inspection of the chest Chest images (male): 1. TTP Resp: COMMON NORMALS: normal respiratory effort and clear to auscultation bilaterally AUSCULTATION: clear to auscultation bilaterally Cardio: COMMON NORMALS: no JVD, regular rate and regular rhythm RATE: regular rate RHYTHM: regular rhythm GI: COMMON NORMALS: Normal to inspection, nondistended, normoactive bowel sounds present, Soft to palpation, non-tender, No hepatosplenomegaly present and no masses PALPATION: Yes Soft to palpation and Yes No hepatosplenomegaly present : COMMON NORMALS: Yes no CVA tenderness BLADDER/KIDNEY EXAM: Yes no CVA tenderness Back/Pelvis: COMMON NORMALS: no CVA tenderness and thoracic and lumbar spine normal to inspection Extremity: COMMON NORMALS: normal to inspection, capillary refill normal, no clubbing, cyanosis or edema, no calf tenderness and no pedal edema GENERAL: Yes normal exam except as noted Neuro: COMMON NORMALS: patient oriented x3, moves all extremities, no focal motor deficits and no sensory deficits noted SENSORIUM/ORIENTATION: Yes alert, Yes oriented to person, Yes oriented to place and Yes oriented to time MENINGEAL SIGNS: Yes no meningeal signs Skin: COMMON NORMALS: no rashes or lesions noted GENERAL SKIN EXAM: no rashes or lesions noted Course Vital Signs: Vital signs: Vital Signs Temperature 97.9 F 09/30/24 11:48 Pulse Rate 80 09/30/24 12:51 Respiratory Rate 10 L 09/30/24 12:51 Blood Pressure 150/112 09/30/24 12:30 Pulse Oximetry 99 09/30/24 12:51 Oxygen Delivery Me thod Room Air 09/30/24 12:51 MDM - Chest Pain Medical Decision Making Patient is a nice 54-year-old male here for a brief/intermittent episodes of left-sided chest pain since yesterday. Pain is somewhat reproducible with palpation. His EKG is nonischemic. CXR is unremarkable. Blood work including troponin is unremarkable. He will be allowed discharge with recommendations [facility]. Return to ED precautions given. Medical Records I reviewed the patient's medical records. Lab Data I reviewed the patient's lab results. 09/30/24 12:07 09/30/24 12:07 Laboratory Results WBC 7.68 10^3/uL (3.29-11.43) 09/30/24 12:07 RBC 5.14 10^6/uL (3.85-5.65) 09/30/24 12:07 Hgb 15.90 g/dL (11.27-16.99) 09/30/24 12:07 Hct 45.5 % (37-53) 09/30/24 12:07 MCV 88.5 fl (82-101) 09/30/24 12:07 MCH 30.9 pg (27-33) 09/30/24 12:07 MCHC 34.9 g/dL (30-55) 09/30/24 12:07 RDW 12.6 % (12.1-15.1) 09/30/24 12:07 Plt Count 239 10^3/cmm (157-399) 09/30/24 12:07 MPV 8.4 fL (7.4-10.4) 09/30/24 12:07 Neut % (Auto) 52.3 % 09/30/24 12:07 Lymph % (Auto) 37.2 % 09/30/24 12:07 [facility] % (Auto) 8.5 % 09/30/24 12:07 Eos % (Auto) 1.2 % 09/30/24 12:07 Baso % (Auto) 0.5 % 09/30/24 12:07 Neut # (Auto) 4.02 10^3/uL (1.8-7.7) 09/30/24 12:07 Lymph # (Auto) 2.9 10^3/uL (0.8-4.8) 09/30/24 12:07 [facility] # (Auto) 0.7 10^3/uL (0.2-0.9) 09/30/24 12:07 Eos # (Auto) 0.1 10^3/uL (0.0-0.8) 09/30/24 12:07 Baso # (Auto) 0.0 10^3/uL (0.0-0.1) 09/30/24 12:07 Nucleated RBC % (auto) 0 % 09/30/24 12:07 Nucleated RBCs # 0.0 /100WBC 09/30/24 12:07 PT 13.30 SECONDS (12.1-14.9) 09/30/24 12:07 INR 0.98 (0.8-1.2) 09/30/24 12:07 Sodium 140 mmol/L (136-145) 09/30/24 12:07 Potassium 3.7 mmol/L (3.5-5.1) 09/30/24 12:07 Chloride 103 mmol/L (98-107) 09/30/24 12:07 Carbon Dioxide 26 mmol/L (22-29) 09/30/24 12:07 Anion Gap 14.7 (5-19) 09/30/24 12:07 BUN 12 mg/dL (6-20) 09/30/24 12:07 Creatinine 0.7 mg/dL (0.7-1.2) 09/30/24 12:07 GFR Calculation 118.4 mL/min (90-130) 09/30/24 12:07 Glucose 98 mg/dL (65-115) 09/30/24 12:07 Calculated Osmolality 290 mOsm/kg (285-295) 09/30/24 12:07 Calcium 9.3 mg/dL (8.5-10.5) 09/30/24 12:07 Total Bilirubin 0.5 mg/dL (0.15-1.2) 09/30/24 12:07 AST 19 U/L (0-40) 09/30/24 12:07 ALT 17 U/L (0-41) 09/30/24 12:07 Alkaline Phosphatase 74 U/L (40-130) 09/30/24 12:07 Troponin T Baseline < 6 ng/L (0-15) 09/30/24 12:07 Total Protein 7.0 g/dL (6.6-8.7) 09/30/24 12:07 Albumin 4.4 g/dL (3.5-5.2) 09/30/24 12:07 Globulin 2.6 g/dL (1.3-4.6) 09/30/24 12:07 Lipase 36 U/L (13-60) 09/30/24 12:07 XR interpretation done by ED provider, pending radiology final review Discharge Plan Discharge Patient Disposition: Home Clinical Impression: Chest pain Qualifiers: Chest pain type: unspecified Qualified Code(s): R07.9 - Chest pain, unspecified Condition: Stable Prescriptions: No Action sildenafil 100 mg tablet 100 mg PO .QWeek PRN (Reason: Erectile Dysfunction) Rx Instructions: Limit 4 doses per 30 days. sumatriptan succinate 25 mg tablet See Rx Instructions PO Q2H PRN (Reason: migraine headache) Rx Instructions: Not to exceed 2 tabs within 24 hours magnesium oxide 400 mg magnesium capsule 400 mg PO QDAY aripiprazole 5 mg tablet 5 mg PO QDAY Qty: 30 5RF venlafaxine [Effexor XR] 150 mg capsule,extended release 24hr 150 mg PO QDAY Qty: 30 5RF azithromycin 250 mg tablet See Rx Instructions PO .COMPLEX Qty: 6 0RF Rx Instructions: For 250 mg dose pack: take 500 mg today (day 1), then 250 mg for 4 days (days 2-5) PO Mucinex 1,200 mg tablet extended release 12hr 1,200 mg PO BID 14 Days Qty: 28 0RF naproxen 500 mg tablet 500 mg PO Q12H PRN (Reason: pain) Qty: 30 0RF Hold Instructions: Resume on 02/02/21. Rx Instructions: take 1 BID PRN pain with food Ventolin HFA 90 mcg/actuation HFA aerosol inhaler 2 inh inhalation Q4H PRN (Reason: shortness of breath or wheezing) Qty: 6.7 0RF Mucinex 600 mg tablet extended release 12hr 600 mg PO BID PRN (Reason: congestion) Qty: 20 0RF Discharge Orders: Discharge ED (Routine); Ordered 09/30/24 Ordered By: Marta Montgomery Activity Restrictions/Additional Instructions: As we discussed, your cardiac workup here was unremarkable. I would like [facility]. As we discussed, you need to return to the emergency department for onset of severe or constant chest pain, shortness of breath, difficulty breathing, racing heart rate/palpitations, lightheadedness/dizziness, generally feeling worse or unwell, or any other concerns you may have. Hope you begin to feel better soon. Coding Level of Care Code ED Adhesive Bonding Machine Operator for Sheila Greene
[2024-09-30 12:16] LABS: Basophils % 0.5 %; Eosinophils # 0.1 10^3/uL (0.0-0.8); Eosinophils % 1.2 %; Hematocrit 45.5 % (37-53); Lymphocytes # 2.9 10^3/uL (0.8-4.8); Lymphocytes % 37.2 %; Mean Corpuscular HGB Conc 34.9 g/dL (30-55); Mean Corpuscular Hemoglobin 30.9 pg (27-33); Mean Corpuscular Volume 88.5 fl (82-101); Mean Platelet Volume 8.4 fL (7.4-10.4); Monocytes # 0.7 10^3/uL (0.2-0.9); Monocytes % 8.5 %; Neutrophils # 4.02 10^3/uL (1.8-7.7); Neutrophils % 52.3 %; Nucleated Red Blood Cells % 0 %; Platelet Count 239 10^3/cmm (157-399); Red Blood Count 5.14 10^6/uL (3.85-5.65); Red Cell Distribution Width 12.6 % (12.1-15.1); White Blood Count 7.68 10^3/uL (3.29-11.43)
[2024-09-30 12:30] VITALS: BP 150/112; PULSE 85; O2SAT 97
[2024-09-30 12:30] LABS: INR 0.98 (0.8-1.2)
[2024-09-30 12:36] LABS: Alanine Aminotransferase 17 U/L (0-41); Albumin Level 4.4 g/dL (3.5-5.2); Alkaline Phosphatase 74 U/L (40-130); Anion Gap 14.7 (5-19); Aspartate Amino Transferase 19 U/L (0-40); Blood Urea Nitrogen 12 mg/dL (6-20); Calcium 9.3 mg/dL (8.5-10.5); Carbon Dioxide 26 mmol/L (22-29); Chloride 103 mmol/L (98-107); Creatinine Clr Calc Pharmacy 134.7664; Globulin 2.6 g/dL (1.3-4.6); Glomerular Filtration Rate 118.4 mL/min (90-130); Glucose 98 mg/dL (65-115); Lipase 36 U/L (13-60); Osmolality Calculated 290 mOsm/kg (285-295); Potassium 3.7 mmol/L (3.5-5.1); Sodium 140 mmol/L (136-145); Total Bilirubin 0.5 mg/dL (0.15-1.2)
[2024-09-30 12:40] LABS: Troponin(5th) Baseline < 6 ng/L (0-15)
[2024-09-30 12:51] VITALS: PULSE 80; RESP 10; O2SAT 99
[2024-09-30 13:04] VITALS: BP 168/107; PULSE 84; O2SAT 98
== END 2024-09-30 13:06 | disposition home or self-care (01) ==
PROVIDERS: Emergency Medicine; Emergency Provider Physician Assistant
DX: R07.9 Chest pain, unspecified (principal); Z87.891 Personal history of nicotine dependence
CPT/HCPCS: 36415; 71045; 80053; 83690; 84484; 85025; 85610; 93005; 99285

== ENCOUNTER 2024-10-11 08:18 | Outpatient (CLI) | payer OTHER, SELFPAY ==
--- NOTE | 2024-10-11 08:26 | MRR_ITS ---
PROCEDURE INFORMATION: Exam: MR Right Upper Extremity Joint Without Contrast; Wrist Exam date and time: 10/11/2024 8:39 AM Age: 54 years old Clinical indication: Pain; Wrist; Right; Prior surgery; Surgery date: 6+ months; Surgery type: Carpal tunnel 2019; Additional info: R wrist pain TECHNIQUE: Imaging protocol: Magnetic resonance imaging of the right upper extremity without contrast. Exam focused on the wrist. COMPARISON: No relevant prior studies available. FINDINGS: Limitations: Motion and coil artifact. Bones/joints: Alignment is notable for mild negative ulnar variance. Small distal radioulnar joint effusion. An ovoid T1 and T2 hypointense intramedullary focus within the distal radius at its volar aspect is consistent with a benign bone island on series 501, image 18 measuring 0.5 x 0.4 x 0.3 cm. Small pisotriquetral joint effusion. Scapholunate ligament: Unremarkable. No tear. Lunotriquetral ligament: Unremarkable. No tear. Other ligaments: Subtle amorphous abnormal increased signal intensity in the region of the dorsal and volar intercarpal ligament complexes is noted, greatest dorsally. Triangular fibrocartilage complex: Unremarkable. No tear. Flexor compartment tendons: Unremarkable. No tear. Extensor compartment tendons: Unremarkable. No tear. Soft tissues: Unremarkable. MR/MR wrist RT wo con* [id number] IMPRESSION: 1. No acute osseous findings. 2. Probable mild sprain of the dorsal and volar intercarpal ligament complexes, greatest dorsally. 3. Small distal radioulnar joint and pisotriquetral joint effusions.
== END 2024-10-11 08:19 | disposition home or self-care (01) ==
PROVIDERS: PCP Nurse Practitioner Family; Visit Provider Nurse Practitioner Family
DX: R93.7 Abnormal findings on diagnostic imaging of other parts of musculoskeletal system (principal)
CPT/HCPCS: 73221

== ENCOUNTER → 2025-02-24 07:52 | Outpatient (BNVA) | payer OTHER, SELFPAY | PROVIDERS: PCP Nurse Practitioner Family; Visit Provider Nurse Practitioner Family | DX: L30.8 Other specified dermatitis (principal); L82.1 Other seborrheic keratosis; L57.8 Other skin changes due to chronic exposure to nonionizing radiation; D22.5 Melanocytic nevi of trunk; L57.0 Actinic keratosis | CPT/HCPCS: 17000; 99213 ==

== ENCOUNTER 2025-03-17 11:12 | Emergency (ER) | payer OTHER, SELFPAY ==
[2025-03-17 11:20] VITALS: BP 150/101; PULSE 85; RESP 16; TEMP 37.1; O2SAT 99; BMI 25.8
[2025-03-17 12:34] LABS: Basophils # 0.1 10^3/uL (0.0-0.1); Basophils % 0.9 %; Eosinophils # 0.1 10^3/uL (0.0-0.8); Eosinophils % 1.9 %; Hematocrit 47.9 % (37-53); Lymphocytes # 2.3 10^3/uL (0.8-4.8); Lymphocytes % 40.6 %; Mean Corpuscular HGB Conc 33.6 g/dL (30-55); Mean Corpuscular Hemoglobin 30.6 pg (27-33); Mean Corpuscular Volume 91.1 fl (82-101); Mean Platelet Volume 8.6 fL (7.4-10.4); Monocytes # 0.5 10^3/uL (0.2-0.9); Monocytes % 9.1 %; Neutrophils # 2.69 10^3/uL (1.8-7.7); Nucleated Red Blood Cells % 0 %; Platelet Count 204 10^3/cmm (157-399); Red Blood Count 5.26 10^6/uL (3.85-5.65); Red Cell Distribution Width 12.9 % (12.1-15.1); White Blood Count 5.72 10^3/uL (3.29-11.43)
[2025-03-17 12:52] LABS: Alanine Aminotransferase 20 U/L (0-41); Albumin Level 4.2 g/dL (3.5-5.2); Alkaline Phosphatase 79 U/L (40-130); Anion Gap 14.8 (5-19); Aspartate Amino Transferase 17 U/L (0-40); Blood Urea Nitrogen 8 mg/dL (6-20); Calcium 8.9 mg/dL (8.5-10.5); Carbon Dioxide 24 mmol/L (22-29); Chloride 105 mmol/L (98-107); Creatinine Clr Calc Pharmacy 131.9825; Globulin 2.5 g/dL (1.3-4.6); Glucose 73 mg/dL (65-115); Osmolality Calculated 287 mOsm/kg (285-295); Potassium 3.8 mmol/L (3.5-5.1); Sodium 140 mmol/L (136-145); Total Bilirubin 0.3 mg/dL (0.15-1.2); Total Protein 6.7 g/dL (6.6-8.7)
--- NOTE | 2025-03-17 12:52 | W.ED.WEAKNES ---
HPI - Weakness General: Chief complaint: Weakness Stated complaint: vertigo/headaches Time Seen by Provider: 03/17/25 12:51 History of Present Illness: 55-year-old male presents emergency room complaining of occipital ache headache has been present intermittently for some time worse today get some dizziness associated with no difficulty speech or swallowing he has been able to ambulate okay he feels a little unsteady at times. No vomiting is able to ambulate okay. He has intermittently had the symptoms for several years. The occipital headache is a little bit worse today it does not radiate around over the scalp to the forehead. She taken Tylenol and ibuprofen for it. He does notice that head movement worsens it being still makes it better. Is also complaining some pain on the right side of his neck he has chronic neck pain from a previous fusion seems to be a little bit worse. 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 Dr. Mason Jenkins: C5-C6, C6-C7 ACDFF History of knee surgery (~2001) Left knee History of shoulder surgery (~1991) 1991 and 2016, Right History of carpal tunnel surgery (~2017) 05/27/2018 Dr. Salena Jenkins Open release of the median nerve at wrist on the right Family History Father COPD (chronic obstructive pulmonary disease) Social History Smoking and tobacco/nicotine status: former use of tobacco/nicotine Alcohol intake: former Year of sobriety/quit date alcohol: 20+ Substance/Drug Use: never Lives independently: Yes Household members: spouse Housing: House Marital status: service: Yes branch: [employer] Current occupational status: disabled Physical Exam Const: COMMON NORMALS: no acute distress GENERAL APPEARANCE: cooperative and comfortable ORIENTATION/CONSCIOUSNESS: Yes awake, Yes oriented to person, Yes oriented to place and Yes oriented to time HENMT: COMMON NORMALS: normocephalic, atraumatic and hearing grossly normal bilaterally HEAD & SCALP: normocephalic and atraumatic Resp: COMMON NORMALS: normal respiratory effort, No retractions, No use of accessory muscles and clear to auscultation bilaterally AUSCULTATION: clear to auscultation bilaterally Cardio: COMMON NORMALS: regular rate, regular rhythm and No murmurs present (Cardio) RATE: regular rate RHYTHM: regular rhythm GI: COMMON NORMALS: Soft to palpation and No hepatosplenomegaly present AUSCULTATION: Yes normoactive bowel sounds PALPATION: Yes Soft to palpation, No Tenderness to palpation present (GI), No Guarding due to palpation present (GI) and Yes No hepatosplenomegaly present Extremity: COMMON NORMALS: normal to inspection, capillary refill normal, no clubbing, cyanosis or edema, no calf tenderness and no pedal edema Neuro: SENSORIUM/ORIENTATION: Yes oriented to person, Yes oriented to place and Yes oriented to time Skin: COMMON NORMALS: no rashes or lesions noted GENERAL SKIN EXAM: no rashes or lesions noted Course Vital Signs: Vital signs: Vital Signs Temperature 98.7 F 03/17/25 11:20 Pulse Rate 84 03/17/25 13:44 Respiratory Rate 16 03/17/25 11:20 Blood Pressure 147/97 03/17/25 13:44 Pulse Oximetry 97 03/17/25 13:44 Oxygen Delivery Me thod Room Air 03/17/25 13:44 MDM - Weakness Medical Decision Making Several days that she has been chronic. I think his headaches are in part due to the cervicalgia. Will set him up for MRI of the neck and follow-up with orthopedic surgery regarding this. For his dizziness and headaches also set him up to see neurology. He states he is feeling much better discharged home continued use of diclofenac and tizanidine prednisone taper. Also give meclizine to use as needed for dizziness Medical Records I reviewed the patient's medical records. Lab Data I reviewed the patient's lab results. 03/17/25 12:21 03/17/25 12:[address] 03/17/25 13:29 IMPRESSION: No acute intracranial finding. Laboratory Results WBC 5.72 10^3/uL (3.29-11.43) 03/17/25 12:21 RBC 5.26 10^6/uL (3.85-5.65) 03/17/25 12:21 Hgb 16.10 g/dL (11.27-16.99) 03/17/25 12:21 Hct 47.9 % (37-53) 03/17/25 12:21 MCV 91.1 fl (82-101) 03/17/25 12:21 MCH 30.6 pg (27-33) 03/17/25 12:21 MCHC 33.6 g/dL (30-55) 03/17/25 12:21 RDW 12.9 % (12.1-15.1) 03/17/25 12:21 Plt Count 204 10^3/cmm (157-399) 03/17/25 12:21 MPV 8.6 fL (7.4-10.4) 03/17/25 12:21 Neut % (Auto) 47.0 % 03/17/25 12:21 Lymph % (Auto) 40.6 % 03/17/25 12:21 Cocke % (Auto) 9.1 % 03/17/25 12:21 Eos % (Auto) 1.9 % 03/17/25 12:21 Baso % (Auto) 0.9 % 03/17/25 12:21 Neut # (Auto) 2.69 10^3/uL (1.8-7.7) 03/17/25 12:21 Lymph # (Auto) 2.3 10^3/uL (0.8-4.8) 03/17/25 12:21 Cocke # (Auto) 0.5 10^3/uL (0.2-0.9) 03/17/25 12:21 Eos # (Auto) 0.1 10^3/uL (0.0-0.8) 03/17/25 12:21 Baso # (Auto) 0.1 10^3/uL (0.0-0.1) 03/17/25 12:21 Nucleated RBC % (auto) 0 % 03/17/25 12:21 Nucleated RBCs # 0.0 /100WBC 03/17/25 12:21 Sodium 140 mmol/L (136-145) 03/17/25 12:21 Potassium 3.8 mmol/L (3.5-5.1) 03/17/25 12:21 Chloride 105 mmol/L (98-107) 03/17/25 12:21 Carbon Dioxide 24 mmol/L (22-29) 03/17/25 12:21 Anion Gap 14.8 (5-19) 03/17/25 12:21 BUN 8 mg/dL (6-20) 03/17/25 12:21 Creatinine 0.7 mg/dL (0.7-1.2) 03/17/25 12:21 GFR Calculation 118.0 mL/min (90-130) 03/17/25 12:21 Glucose 73 mg/dL (65-115) 03/17/25 12:21 Calculated Osmolality 287 mOsm/kg (285-295) 03/17/25 12:21 Calcium 8.9 mg/dL (8.5-10.5) 03/17/25 12:21 Total Bilirubin 0.3 mg/dL (0.15-1.2) 03/17/25 12:21 AST 17 U/L (0-40) 03/17/25 12:21 ALT 20 U/L (0-41) 03/17/25 12:21 Alkaline Phosphatase 79 U/L (40-130) 03/17/25 12:21 Total Protein 6.7 g/dL (6.6-8.7) 03/17/25 12:21 Albumin 4.2 g/dL (3.5-5.2) 03/17/25 12:21 Globulin 2.5 g/dL (1.3-4.6) 03/17/25 12:21 All radiology interpretation(s) finalized by discharge Discharge Plan Discharge Patient Disposition: Home Clinical Impression: Cervical disc disorder with myelopathy of mid-cervical region, Dizziness, Headache Condition: Stable Prescriptions: New tizanidine 4 mg tablet 4 mg PO Q6H PRN (Reason: muscle spasticity) Qty: 20 0RF Rx Instructions: do not exceed 3 doses per 24 hrs prednisone 20 mg tablet 20 mg PO TID Qty: 15 0RF Rx Instructions: 1 p.o. 3 times daily x3 days, 1 p.o. twice daily x2 days, 1 p.o. daily x2 days meclizine 25 mg tablet 25 mg PO QID PRN (Reason: dizziness) Qty: 20 0RF No Action cyclobenzaprine 10 mg Tablet 10 mg PO TID PRN (Reason: Muscle Spasm) buspirone 10 mg Tablet 10 mg PO TID mirtazapine 15 mg Tablet 7.5 mg PO BEDTIME diclofenac sodium 1 % Gel 4 g TOPICAL QID PRN (Reason: MUSCLE PAIN ) Rx Instructions: apply to single knee, ankle, foot; for foot includes sole/toes/top of foot venlafaxine [Effexor XR] 150 mg capsule,extended release 24hr 300 mg PO QDAY aripiprazole 5 mg tablet 2.5 mg PO QDAY acetaminophen [Tylenol Extra Strength] 500 mg Tablet 1,000 mg PO QID PRN (Reason: Fever Or Pain) Discharge Orders: Discharge ED (Routine); Ordered 03/17/25 Ordered By: Ken Griffith Referrals: Augusta Bello APRN [Primary Care Provider, Family Practice] Patient Instructions: Opioid Safety, Pain Management Activity Restrictions/Additional Instructions: Thank you for choosing [facility] for your healthcare needs today. It is very important that you follow up as instructed or that you return to the Emergency Department should you have concerns or if your condition changes or worsens in any way. You were seen in the emergency room with complaint of neck pain and headache. He also had complained of some dizziness. Your neurologic exam was unremarkable. Given your history of having these symptoms recurrently suspect there may be some correlation between the neck issues and the headache. Will set you up for an outpatient MRI referral to orthopedic spine surgery also gave you meclizine for the dizziness additionally gave you prednisone taper and tizanidine to use as needed for symptoms. Follow-up with orthopedic spine surgery they will also make you an appointment for neurology. Print Language: [place] Coding Level of Care Code ED Tube Mounter for Chg Fwd Related Data Home Medications ?Medication ?Instructions ?Recorded ?Confirmed acetaminophen 500 mg tablet 1,000 mg PO QID PRN Fever Or Pain 03/17/25 03/17/25 (Tylenol Extra Strength) aripiprazole 5 mg tablet 2.5 mg PO QDAY 03/17/25 03/17/25 buspirone 10 mg tablet 10 mg PO TID 03/17/25 03/17/25 cyclobenzaprine 10 mg tablet 10 mg PO TID PRN Muscle Spasm 03/17/25 03/17/25 diclofenac sodium 1 % topical gel 4 g topical QID PRN MUSCLE PAIN 03/17/25 03/17/25 mirtazapine 15 mg tablet 7.5 mg PO BEDTIME 03/17/25 03/17/25 venlafaxine 150 mg 300 mg PO QDAY 03/17/25 03/17/25 capsule,extended release 24 hr (Effexor XR) Previous Rx's ?Medication ?Instructions ?Recorded meclizine 25 mg tablet 25 mg PO QID PRN dizziness #20 tabs 03/17/25 prednisone 20 mg tablet 20 mg PO TID #15 tabs 03/17/25 tizanidine 4 mg tablet 4 mg PO Q6H PRN muscle spasticity 03/17/25 #20 tabs Allergies Allergy/AdvReac Type Severity Reaction Status Date / Time pravastatin AdvReac Mild muscle Verified 09/30/24 11:52 aches
--- NOTE | 2025-03-17 13:29 | CTR_ITS ---
PROCEDURE INFORMATION: Exam: CT Head Without Contrast Exam date and time: 03/17/2025 1:49 PM Age: 55 years old Clinical indication: Pain; Headache; Migraine; Aura effect not specified; Additional info: Occipital migraine with dizziness TECHNIQUE: Imaging protocol: Computed tomography of the head without contrast. Radiation optimization: All CT scans at this facility use at least one of these dose optimization techniques: automated exposure control; mA and/or kV adjustment per patient size (includes targeted exams where dose is matched to clinical indication); or iterative reconstruction. COMPARISON: CT cervical spin wo con* [id number] 05/15/2020 8:07 AM RADIATION DOSE METRICS: Total DLP (mGy-cm): 1132.18 FINDINGS: Brain: Normal. No hemorrhage. Unremarkable white matter. No mass effect. Cerebral ventricles: No ventriculomegaly. Paranasal sinuses: Visualized sinuses are unremarkable. No fluid levels. Mastoid air cells: Visualized mastoid air cells are well aerated. Bones: Unremarkable. No acute fracture. Soft tissues: Unremarkable. CT/CT head wo con* [id number] IMPRESSION: No acute intracranial finding.
[2025-03-17] MEDS: methylPREDNISolone sod succ 125 mg/2 mL INJ IVP (13:39)
[2025-03-17] MEDS: diphenhydrAMINE 50 mg/mL SDV 1mL IVP (13:39)
[2025-03-17] MEDS: ketorolac 30 mg/mL INJ IVP (13:39)
[2025-03-17] MEDS: sodium chloride 0.9% 1,000 ML 999 ML IV (13:41)
[2025-03-17 13:44] VITALS: BP 147/97; PULSE 84; O2SAT 97
[2025-03-17 15:29] VITALS: BP 134/102; PULSE 86; O2SAT 98
--- NOTE | 2025-03-17 18:10 | DCPLANNER ---
messaged neuro for er f/u
--- NOTE | 2025-03-17 18:18 | DCPLANNER ---
messaged ortho and faxed outpatient MRI order to scheduling
== END 2025-03-17 15:30 | disposition home or self-care (01) ==
PROVIDERS: Emergency Medicine; Emergency Provider Family Medicine; PCP Nurse Practitioner Family
DX: M50.020 Cervical disc disorder with myelopathy, mid-cervical region, unspecified level (principal); R42 Dizziness and giddiness; R51.9 Headache, unspecified; Z87.891 Personal history of nicotine dependence
CPT/HCPCS: 36415; 70450; 80053; 85025; 96361; 96374; 96375; 99285; J1200; J1885; J2919; J7030

== ENCOUNTER 2025-03-28 14:01 | Outpatient (CLI) | payer OTHER, SELFPAY ==
--- NOTE | 2025-03-28 14:06 | MR_ITS ---
WS: [id number] MRI CERVICAL SPINE NONCONTRAST TECHNIQUE: Sagittal T1, T2 and STIR imaging. Axial T2, gradient, and fiesta imaging. CLINICAL INFORMATION: CERVICAL RADICULOPATHY COMPARISON: MRI 2019 FINDINGS: Straightening of the normal cervical lordosis. ACDF C5-C7. C2-C3: Progressed Central disc osteophyte protrusion with indentation cervical cord. Mild facet arthropathy. Foramen are patent. C3-C4: Disc osteophyte complex with mild central canal stenosis. Moderate facet arthropathy. Mild LEFT foraminal narrowing. C4-C5: Disc osteophyte complex with slight indentation cervical cord. Mild central canal stenosis. Moderate facet arthropathy. Moderate RIGHT and mild LEFT foraminal narrowing. C5-C6: ACDF. Mild central canal stenosis. Moderate RIGHT bony foraminal narrowing. Mild facet arthropathy. C6-C7: ACDF. Mild LEFT foraminal narrowing. Spinal canal is patent. C7-T1: ACDF. Mild disc osteophyte complex. Moderate LEFT and no significant RIGHT foraminal narrowing. T1-T2: Mild LEFT foraminal narrowing. Visualized brain stem structures: Normal. Prevertebral soft tissues: Normal. MR/MR cervical spin wo con* [id number] IMPRESSION: 1. Postoperative changes ACDF C5-C7 is new compared to previous. 2. Mild central canal stenosis C2-3 with progressed central disc osteophyte pr otrusion. 3. Mild central canal stenosis C3-C4 and C4-C5 with disc osteophyte protrusion s worse at C4-5 with slight indentation of the cervical cord. 4. Moderate RIGHT C4-5, RIGHT C5-C6 and LEFT C7-T1 bony foraminal narrowing.
== END 2025-03-28 14:02 | disposition home or self-care (01) ==
PROVIDERS: PCP Nurse Practitioner Family; Visit Provider Family Medicine
DX: M54.12 Radiculopathy, cervical region (principal); Z98.1 Arthrodesis status; M48.02 Spinal stenosis, cervical region; M25.78 Osteophyte, vertebrae; M50.21 Other cervical disc displacement, high cervical region; M50.221 Other cervical disc displacement at C4-C5 level; M48.03 Spinal stenosis, cervicothoracic region; R93.7 Abnormal findings on diagnostic imaging of other parts of musculoskeletal system; M47.892 Other spondylosis, cervical region; M48.04 Spinal stenosis, thoracic region
CPT/HCPCS: 72141

== ENCOUNTER → 2025-04-06 13:58 | Outpatient (BNVA) | payer OTHER, SELFPAY | PROVIDERS: PCP Nurse Practitioner Family; Visit Provider Orthopaedic Surgery | DX: M54.2 Cervicalgia (principal) | CPT/HCPCS: 72050; 99203 ==

== ENCOUNTER → 2025-04-12 15:23 | Outpatient (BNVA) | payer OTHER, SELFPAY | PROVIDERS: PCP Nurse Practitioner Family; Visit Provider Specialist | DX: M65.331 Trigger finger, right middle finger (principal) | CPT/HCPCS: 73130; 99214 ==

== ENCOUNTER 2025-06-23 12:06 | Emergency (ER) | payer OTHER, SELFPAY ==
--- OUTSIDE RECORDS SUMMARY | 2024-06-23 10:30 | XMS_ITS | Encounter Summary ---
Author Name [facility] [place] [facility] [place] Address [address] [place] [address] Care Team Providers Care Manager Acute Name Role Phone DURANJUAN ANTONIO Primary Care Provider Unavailangelique e Insurance Providers: All historical and current Section Date Range: From patient's date of to the date document was created. This section includes the names of all active insurance providers for the patient. Insurance Provider Type of Coverage Plan Name Start of Policy Coverage End of Policy Coverage Group Number Member ID Insurance Provider's Telephone Number Policy Stone's Name Patient's Relationship to Policy Stone [facility] (WNR) MEDICARE ADVANTAGE [facility] (WNR) Nov 16, 2022 [id number] Max OBANDO PATIENT Selected Encounter This section includes the information on record at [place] for the Encounter. Date/Time Encounter Type Encounter Description Reason Provider Source Jun 23, 2024 03:30 PM OFFICE O/P EST MOD 30 MIN PRIMARY CARE/MEDICINE AUGUSTA QUINTERO Encounter Template Text not used by VA Plan of Treatment: Future Appointments (+ 6 months) and Future Tests (+/- 45 days) The Plan of Treatment section includes future care activities for the patient from all VA treatmentfacilities. This section includes future appointments and future orders which are active, pending or scheduled. Future Appointments This section includes appointments that were scheduled to occur 6 months from the date of the Encounter, up to a maximum of 20 appointments. The data comes from all [place] treatment facilities. Appointment Date/Time Appointment Type Appointme nt Facility Name Jul 11, 2024 02:00 PM AMBULATORY - MEDICINE [facility] Jul 11, 2024 02:01 PM AMBULATORY - MEDIC[place] [facility] Aug 08, 2024 12:45 PM AMBULATORY - [facility]IC[facility] [place] [facility] Aug 26, 2024 10:45 AM AMBULATORY - MEDIC[facility] [place] [facility] Sep 09, 2024 10:15 AM AMBULATORY - MEDICINE [place] [facility] Sep 14, 2024 11:30 AM AMBULATORY - MEDICINE [facility] Sep 19, 2024 10:30 AM AMBULATORY - MEDICINE [place] [facility] Sep 30, 2024 11:00 AM AMBULATORY - MEDICINE [facility] Sep 30, 2024 12:30 PM AMBULATORY - MEDICINE [place] [facility] Oct 06, 2024 10:30 AM AMBULATORY - MEDICINE [facility] Oct 11, 2024 08:45 AM AMBULATORY - MEDICINE [place] [facility] Oct 25, 2024 10:30 AM AMBULATORY - MEDICINE [facility] Oct 25, 2024 10:31 AM AMBULATORY - MEDICINE [place] [facility] Nov 11, 2024 10:15 AM AMBULATORY - MEDICINE [place] [facility] Vital Signs: All taken on the encounter date This section contains inpatient and outpatient Vital Signs collected on the date of the Encounter. Date/Time Temperature Pulse Blood Pressure Respiratory Rate SP02 Pain Height Weight Body Mass Index Source Jun 23, 2024 03:45 PM 98.6 98 148/101 20 97 6 186.2 26 [facility] Social History: Smoking Status (Most current) and Tobacco Use (All prior to encounter date) This section includes the most current, and the historical, smoking and tobacco- related health factors from the [place] facility where the Encounter took place. Current Smoking Status This section includes the most current smoking, or tobacco-related health factor, from the [place] facility where the Encounter took place. Date/Time Current Smoking Status Comment Facil ity March 23, 2024 09:00 AM VA-TOBACCO USER EVERY DAY [facility] Tobacco Use History This section includes a history of the smoking, or tobacco-related health factors, that were collected on or before the date of the Encounter. The data comes from the [place] facility where the Encounter took place. 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 [facility] March 23, 2024 09:00 AM VA-TOBACCO USE MED NO [facility] March 23, 2024 09:00 AM VA-TOBACCO USE WI 30 MIN OF WAKEUP [facility] March 23, 2024 09:00 AM VA-TOBACCO USER EVERY DAY [facility] April 15, 2023 02:30 PM VA-TOBACCO USE 30 YEARS OR MORE [facility] April 15, 2023 02:30 PM VA-TOBACCO USE ADVICE [facility] April 15, 2023 02:30 PM VA-TOBACCO USE 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 [facility] April 15, 2023 02:30 PM VA-TOBACCO USE MED NO [place] [facility] April 15, 2023 02:30 PM VA-TOBACCO USE WI 30 MIN OF WAKEUP [facility] April 15, 2023 02:30 PM VA-TOBACCO USER EVERY DAY [facility] Jan 23, 2022 05:20 PM VA-TOBACCO USE 30 YEARS OR MORE [facility] Jan 23, 2022 05:20 PM VA-TOBACCO USE ADVICE [facility] Jan 23, 2022 05:20 PM VA-TOBACCO USE 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 [facility] Jan 23, 2022 05:20 PM VA-TOBACCO USE MED NO [facility] Jan 23, 2022 05:20 PM VA-TOBACCO USE WI 30 MIN OF WAKEUP [facility] Jan 23, 2022 05:20 PM VA-TOBACCO USER EVERY DAY [facility] Aug 09, 2020 02:00 PM VA-TOBACCO DOESNT USE WI 30 MIN WAKEUP [facility] Aug 09, 2020 02:00 PM VA-TOBACCO USE 5 T O 15 YEARS [facility] Aug 09, 2020 02:00 PM VA-TOBACCO USE ADVICE [facility] Aug 09, 2020 02:00 PM VA-TOBACCO USE 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 [facility] Aug 09, 2020 02:00 PM VA-TOBACCO USE MED NO [facility] Aug 09, 2020 02:00 PM VA-TOBACCO USER EVERY DAY [facility] Jul 22, 2018 08:56 AM CURRENT TOBACCO USER [facility] Jul 22, 2018 08:56 AM CURRENT TOBACCO US ER (NOT READY TO QUIT) [facility] Jul 22, 2018 08:56 AM SMOKELESS TOBACCO AMOUNT/LENGTH V15 35yr history [facility] Jul 22, 2018 08:56 AM TOBACCO CESSATION REFERRAL DECLINED [facility] Jul 22, 2018 08:56 AM TOBACCO MEDS OFFER ED BUT DECLINED [facility] Jul 22, 2018 08:56 AM TOBACCO USER OFFERED MEDS [facility] May 24, 2018 01:40 PM CURRENT TOBACCO USER [facility] May 24, 2018 01:40 PM CURRENT TOBACCO US ER (NOT READY TO QUIT) [facility] May 24, 2018 01:40 PM TOBACCO CESSATION REFERRAL DECLINED [facility] May 24, 2018 01:40 PM TOBACCO MEDS OFFER ED BUT DECLINED [facility] May 24, 2018 01:40 PM TOBACCO USER OFFERED MEDS [facility] Mar 09, 2018 02:09 PM CURRENT TOBACCO USER [facility] Mar 09, 2018 02:09 PM CURRENT TOBACCO US ER (NOT READY TO QUIT) [facility] Mar 09, 2018 02:09 PM SMOKELESS TOBACCO AMOUNT/LENGTH V15 35+yr history [facility] Mar 09, 2018 02:09 PM TOBACCO CESSATION REFERRAL DECLINED [facility] Mar 09, 2018 02:09 PM TOBACCO MEDS OFFER ED BUT DECLINED [facility] Mar 09, 2018 02:09 PM TOBACCO USER OFFERED MEDS [facility] Nov 13, 2017 10:32 AM CURRENT TOBACCO USER [facility] Nov 13, 2017 10:32 AM CURRENT TOBACCO US ER (NOT READY TO QUIT) [facility] Nov 13, 2017 10:32 AM SMOKELESS TOBACCO AMOUNT/LENGTH V15 35yr history 1 can q 3 days [facility] Nov 13, 2017 10:32 AM TOBACCO CESSATION REFERRAL DECLINED [facility] Nov 13, 2017 10:32 AM TOBACCO MEDS OFFER ED BUT DECLINED [facility] Nov 13, 2017 10:32 AM TOBACCO USER OFFERED MEDS [facility] Nov 06, 2016 07:45 AM CURRENT TOBACCO USER [facility] Nov 06, 2016 07:[address] OP SMOKING CLINIC [facility] Sep 29, 2014 08:59 AM CURRENT TOBACCO USER [facility] Sep 29, 2014 08:[address] OP SMOKING CLINIC [facility] Oct 06, 2013 09:24 AM CURRENT TOBACCO USER [facility] Oct 06, 2013 09:[address] OP SMOKING CLINIC [facility] Sep 23, 2012 10:14 AM CURRENT TOBACCO USER [facility] Sep 23, 2012 10:[address] [facility] Feb 25, 2012 08:32 AM TOBACCO MEDS OFFER ED BUT DECLINED [facility] Feb 25, 2012 08:32 AM TOBACCO OFFERED PT MEDS (PROVIDER) [facility] Feb 25, 2012 08:[address] [facility] May 22, 2011 10:29 AM CURRENT TOBACCO USER [facility] May 22, 2011 10:29 AM TOBACCO MEDS OFFER ED BUT DECLINED [facility] May 22, 2011 10:29 AM TOBACCO OFFERED PT MEDS (PROVIDER) [facility] May 22, 2011 10:[address] [facility] Sep 30, 2010 08:48 AM TOBACCO MEDS OFFER ED BUT DECLINED [facility] Sep 30, 2010 08:48 AM TOBACCO OFFERED PT MEDS (PROVIDER) [facility] Sep 30, 2010 08:[address] OP SMOKING CLINIC [facility] Sep 05, 2010 08:47 AM TOBACCO MEDS OFFER ED BUT DECLINED [facility] Sep 05, 2010 08:47 AM TOBACCO OFFERED PT MEDS (PROVIDER) [facility] Sep 05, 2010 08:[address] [facility] Jun 12, 2010 02:58 PM TOBACCO MEDS OFFER ED BUT DECLINED [facility] Jun 12, 2010 02:58 PM TOBACCO OFFERED PT MEDS (PROVIDER) [facility] Jun 12, 2010 02:[address] [facility] Feb 28, 2010 02:47 PM CURRENT TOBACCO USER [facility] Feb 28, 2010 02:47 PM TOBACCO MEDS OFFER ED BUT DECLINED [facility] Feb 28, 2010 02:47 PM TOBACCO OFFERED PT MEDS (PROVIDER) [facility] Feb 28, 2010 02:[address] OP SMOKING CLINIC [facility] Oct 31, 2008 10:23 AM CURRENT TOBACCO USER [facility] Oct 31, 2008 10:[address] OP SMOKING CLINIC [facility] Dec 02, 2007 10:17 AM CURRENT TOBACCO USER [facility] Dec 02, 2007 10:17 AM TOBACCO OFFERED PT MEDS (PROVIDER) [facility] Dec 02, 2007 10:[address] OP SMOKING CLINIC [facility] Jul 01, 2007 09:39 AM CURRENT TOBACCO USER [facility] Jul 01, 2007 09:39 AM TOBACCO MEDS OFFER ED BUT DECLINED [facility] Dec 02, 2006 02:09 PM CURRENT TOBACCO USER [facility] Oct 27, 2002 09:57 AM TOB-SMOKES OR USES TOBACCO PRODUCTS < 1/2 pk day [facility] Encounter Notes: All associated encounter notes This section contains the clinical notes associated to the Encounter. Date/Time Encounter Note(s) Provider Source Jun 23, 2024 04:11 PM PRIMARY CARE PROGR ESS NOTE: LOCAL TITLE: PRIMARY CARE CLINIC PROGRESS NOTE PB STANDARD TITLE: PRIMARY CARE PROGRESS NOTE DATE OF NOTE: JUN 23, 2024@16:11 ENTRY DATE: JUN 23, 2024@16:11:12 AUTHOR: AUGUSTA QUINTERO EXP COSIGNER: URGENCY: STATUS: COMPLETED This is a 54 year old MALE DS - Disabilities Eligibility: SERVICE CONNECTED 50% to 100% VERIFIED Total S/C %: 90 IMPAIRED HEARING 0% S/C TINNITUS 10% S/C POST-TRAUMATIC STRESS DISORDER 70% S/C KNEE CONDITION 20% S/C LIMITED MOTION OF ARM 30% S/C LIMITED MOTION OF ARM 20% S/C LIMITED FLEXION OF KNEE 10% S/C 2ND DEGREE WELCH 0% S/C SCARS 0% S/C UPPER ARM CONDITION 30% S/C Chief Complaint (Reason for today's visit): Follow-up on fatigue and joint pain History of Present Illness (Subjective): presents to clinic today for scheduled appointment for to fatigue and joint pain follow-up ERICA is positive but RNA negative will send to rheumatology he was also positive for Yarnell spotted fever and went to he is currently still taking doxycycline with negative decrease in fatigue and joint pain. states he has 10 more days of doxycycline will refer to rheumatology for further evaluation of ERICA. Allergies: INSECT STINGS, PRAVASTATIN, ROSUVASTATIN REVIEW OF SYSTEMS: HEENT: No visual or auditory symptoms. RESPIRATORY: No shortness of breath, cough or sputum. CARDIOVASCULAR: No chest pain or palpitation. GI: No abdominal pain, nausea, vomiting or bowel changes. MUSCULOSKELETAL: Joint pain SKIN: No new rashes, no unhealing lesions, no moles. PSYCH: Denies being depressed or anxious. VITALS: Temperature: 98.6 F [37.0 C] (06/23/2024 15:45) Respiratory Rate: 20 (06/23/2024 15:45) Pulse Rate: 98 (06/23/2024 15:45) Blood Pressure: 148/101 (06/23/2024 15:45) HT: 71 in [180.3 cm] (07/25/2022 09:01) WT: 186.2 lb. [84.46 kg] (06/23/2024 15:45) BMI: 26.0 97% (06/23/2024 15:45) PHYSICAL EXAM: General: NAD noted, A&Ox3, pleasant, appears stated age HEENT: NCAT, TM's clear, nares and oropharynx clear Neck: Supple with normal active ROM, without any lymphadenopathy Heart: RRR, no murmur, clicks, or rub Resp: Lungs CTA bilaterally, respirations even and unlabored Abdomen: Soft, non-distended, non-tender Ext: No clubbing, cyanosis, edema or obvious deformity Neuro: Grossly intact Psych: Affect normal, answers questions appropriately throughout visit DIAGNOSTIC STUDIES: Labs Performed/Reviewed at Today's Visit: Radiology/Imaging Performed/Reviewed at Today's Visit: Reason for studies: On the following Active Medications: Active Outpatient Medications (including Supplies): Active Outpatient Medications Status 1) CYCLOBENZAPRINE HCL 10MG TAB TAKE ONE TABLET BY MOUTH ACTIVE THREE TIMES A DAY NEEDED FOR MUSCLE SPASM MAY CAUSE DROWSINESS. DO NOT DRINK ALCOHOL WHILE TAKING THIS MEDICATION. 2) DICLOFENAC NA 1% TOP GEL APPLY 4 GM TO AFFECTED ACTIVE AREA(S) FOUR TIMES A DAY NEEDED FOR PAIN DO NOT EXCEED MORE THAN 16 GRAMS DAILY TO ANY LOWER EXTREMITY JOINT. NOT MORE THAN 8 GRAMS DAILY TO ANY UPPER EXTREMITY JOINT. MAX 32GM/DAY OVER ALL JOINTS. (MEASURE DOSE WITH RULER ATTACHED INSIDE BOX) 3) DOXYCYCLINE HYCLATE 100MG TAB TAKE ONE TABLET BY ACTIVE MOUTH TWICE A DAY FOR LYME DISEASE TAKE UNTIL FINISHED. AVOID SUN EXPOSURE WHILE TAKING. 4) NAPROXEN 500MG TAB TAKE ONE TABLET BY MOUTH TWICE ACTIVE DAILY NEEDED FOR PAIN TAKE WITH FOOD. 5) VENLAFAXINE HCL 75MG 24HR SA CAP TAKE THREE CAPSULES ACTIVE (S) BY MOUTH ONCE A DAY FOR DEPRESSION WITH FOOD. DO NOT ABRUPTLY DISCONTINUE MEDICATION. 1) Chronic low back pain (SNOMED CT 534232199) 2) Hyperlipidemia (SNOMED CT 55674010) 3) Carpal tunnel syndrome (SNOMED CT 69741528) 4) Wrist pain (SNOMED CT 76916082) 5) BPPV - Benign paroxysmal positional vertigo 6) Hyperlipidemia 7) Mild chronic obstructive pulmonary disease 8) Recurrent major depression 9) Osteoarthritis 10) Cervical disc disorder with radiculopathy 11) Sleep Apnea (SCT 05460095) 12) Hiatal hernia 13) PTSD - Post-traumatic stress disorder 14) Exposure to potentially hazardous substance (SCT 749246685964218) 15) Bilateral tinnitus 16) Sensorineural hearing loss of bilateral ears ===== MEDICATION RECONCILIATION: ACTIVE/ OUTPATIENT MEDICATIONS: MRT1 - Med Reconciliation INCLUDED IN THIS LIST: Alphabetical list of active outpatient prescriptions dispensed from this [place] (local) and dispensed from another [place] or [facility] facility (remote) as well as inpatient orders (local pending and active), local clinic medications, locally documented non-VA medications, and local prescriptions that have or been discontinued in the past 90 days. Non-VA Meds Last Documented On: Sep 23, 2012 NOTE The display of VA prescriptions dispensed from another [place] or [facility] facility (remote) is limited to active outpatient prescription entries matched to National Drug File at the originating site and may not include some items such as investigational drugs, compounds, etc. NOT INCLUDED IN THIS LIST: Medications self-entered by the patient into personal health records (i.e. [employer]) are NOT included in this list. Non-VA medications documented outside this [place], remote inpatient orders (regardless of status) and remote clinic medications are NOT included in this list. The patient and provider must always discuss medications the patient is taking, regardless of where the medication was dispensed or obtained. OUTPT ARIPIPRAZOLE 2MG TAB (Status = Discontinued) TAKE ONE-HALF TABLET BY MOUTH ONCE A DAY FOR DEPRESSION Rx# [id number] Last Released: 02/10/24 Qty/Days' Supply: 30 Rx Expiration Date: 02/05/25 Refills Remainin Indication: FOR DEPRESSION OUTPT CYCLOBENZAPRINE HCL 10MG TAB (Status = Active) TAKE ONE TABLET BY MOUTH THREE TIMES A DAY NEEDED FOR MUSCLE SPASM MAY CAUSE DROWSINESS. DO NOT DRINK ALCOHOL WHILE TAKING THIS MEDICATION. Rx# [id number] Last Released: 05/03/24 Qty/Days' Supply: /60 Rx Expiration Date: 04/30/25 Refills Remainin Indication: FOR MUSCLE SPASM OUTPT DICLOFENAC NA 1% TOP GEL (Status = Active) APPLY 4 GM TO AFFECTED AREA(S) FOUR TIMES A DAY NEEDED FOR PAIN DO NOT EXCEED MORE THAN 16 GRAMS DAILY TO ANY LOWER EXTREMITY JOINT. NOT MORE THAN 8 GRAMS DAILY TO ANY UPPER EXTREMITY JOINT. MAX 32GM/DAY OVER ALL JOINTS. (MEASURE DOSE WITH RULER ATTACHED INSIDE BOX) Rx# [id number] Last Released: 05/02/24 Qty/Days' Supply: 200/90 Rx Expiration Date: 04/30/25 Refills Remainin Indication: FOR PAIN OUTPT DOXYCYCLINE HYCLATE 100MG TAB (Status = Active) TAKE ONE TABLET BY MOUTH TWICE A DAY FOR LYME DISEASE TAKE UNTIL FINISHED. AVOID SUN EXPOSURE WHILE TAKING. Rx# [id number] Last Released: 06/09/24 Qty/Days' Supply: Rx Expiration Date: 07/09/24 Refills Remainin Indication: FOR LYME DISEASE OUTPT NAPROXEN 500MG TAB (Status = Active) TAKE ONE TABLET BY MOUTH TWICE DAILY NEEDED FOR PAIN TAKE WITH FOOD. Rx# [id number] Last Released: 03/28/24 Qty/Days' Supply: 60/30 Rx Expiration Date: 03/24/25 Refills Remainin Indication: FOR PAIN OUTPT SILDENAFIL CITRATE 100MG TAB (Status = ) TAKE ONE-HALF TABLET BY MOUTH EVERY WEEK NEEDED FOR ERECTILE DYSFUNCTION (TAKE 60 MINUTES PRIOR TO SEXUAL ACTIVITY) - LIMIT 6 DOSES PER 30 DAYS CUT TABLET IN HALF FOR YOUR DOSE Rx# [id number] Last Released: 06/09/23 Qty/Days' Supply: Rx Expiration Date: 04/14/24 Refills Remainin OUTPT VENLAFAXINE HCL 75MG 24HR SA CAP (Status = Discontinued) TAKE THREE CAPSULES BY MOUTH ONCE A DAY FOR DEPRESSION WITH FOOD. DO NOT ABRUPTLY DISCONTINUE MEDICATION. Rx# [id number] Last Released: 02/10/24 Qty/Days' Supply: 270/90 Rx Expiration Date: 02/05/25 Refills Remainin Indication: FOR DEPRESSION OUTPT VENLAFAXINE HCL 75MG 24HR SA CAP (Status = Discontinued) TAKE THREE CAPSULES BY MOUTH ONCE A DAY FOR DEPRESSION WITH FOOD. DO NOT ABRUPTLY DISCONTINUE MEDICATION. Rx# [id number] Last Released: 04/20/24 Qty/Days' Supply: 270 Rx Expiration Date: 04/09/25 Refills Remainin Indication: FOR DEPRESSION OUTPT VENLAFAXINE HCL 75MG 24HR SA CAP (Status = Active/Suspended) TAKE THREE CAPSULES BY MOUTH ONCE A DAY FOR DEPRESSION WITH FOOD. DO NOT ABRUPTLY DISCONTINUE MEDICATION. Rx# [id number] Last Released: /Days' Supply: 270/ Rx Expiration Date: 06/11/25 Refills Remainin Indication: FOR DEPRESSION SUPPLIES PHARMACY TERMS AND POSSIBLE PATIENT ACTIONS INPT = [facility] inpatient order IV = [place] intravenous medication OUTPT = [place] outpatient prescription PHARMACY POSSIBLE PATIENT TERMS EXPLANATION ACTIONS -------- ---- ACTIVE A prescription that can be If you have refills, filled at the local [place] pharmacy. you may request a refill of this prescription from your [place] pharmacy. CLINIC A medication you received during If you have questions a visit to a [place] clinic or about this medication emergency department. contact your [place] healthcare team. DISCONTINUED A prescription your provider has Contact your VA stopped. It is no longer healthcare team if you available to be sent to you or need more of this picked up at the [place] pharmacy medication. window. A prescription which is too old Contact your VA to fill. This does not refer to healthcare team if you the expiration date of the need more of this medication in the container. medication. NON-VA A medication that came from If this medication someplace other than a VA information is pharmacy. This may be an incorrect or out of prescription from either the VA date, please tell your or non-VA providers that was VA healthcare team. filled outside the VA. Or, it may be an vrbq-nop-fagaqry (OTC), herbal, dietary supplements or sample medication. ON HOLD An active prescription that will Contact your VA not be filled until pharmacy when you need resolves the issue. more of this medication. PARKED An active prescription that will Contact your VA not be filled until the patient pharmacy when you need requests it. this medication. PENDING This prescription order has been If you have been sent to the pharmacy for review instructed to start and is not ready yet. this medication now, contact your VA pharmacy. SUSPENDED An active prescription that is Contact your VA not scheduled to be filled yet. pharmacy if you need You should receive it before this medication now. you run out. DISCONTINUED: No changes ADDED/CHANGES: No changes NON-VA MEDICATIONS NOT LISTED ABOVE (List, including Herbals and OTC): Reviewed with patient/family members. Copy given to patient. Patient verbalized understanding? Yes ===== ASSESSMENT/IMPRESSION: Fatigue current Multiple joint pains current PLAN OF CARE: Fatigue and joint pain referred to rheumatology has a positive ERICA. Follow-up: as needed and keep regularly scheduled appointment. Discussed diet and exercise as relevant to patient conditions. Patient is advised this primary care clinic has open access and he can make a same day appointment anytime a problem/concern arises. Patient further advised he can be seen on a walk-in basis as needed. Patient is provided clinic contact information. Treatment plan as noted above and the After Visit Summary was reviewed with [place]; opportunity provided to report concerns and ask question regarding aspects of care or treatment or services; concurrence reached and verbalized understanding. Discussed with patient that in the event of community imaging/testing being ordered in the future, once the imaging testing has been completed, please notify PACT of within 1 week by a VA PACT member; this is due to intermittent lapses in notification of imaging completion within [facility]. All questions answered; agrees to plan of care. Follow up as listed above, annually, and as needed. Keep all completion at outside facility if not called with results appointments. Medications Reconciled. Time spent 30 minutes. [place] [facility] APR Float *ELEVATED LDL: No lipid treatment change is needed based on patient's current status. Comment: refused statins at this time The benefits of maintaining a healthy weight range were explained to the patient. is allergic to statins and is currently working on dietary changes, is a vegetarian /es/ CRIS Holloway, MSN, Odilon Campbell [facility] Signed: 07/04/2024 15:04 AUGUSTA QUINTERO [facility] Jun 23, 2024 03:46 PM PRIMARY CARE NURSI NG NOTE: LOCAL TITLE: PRIMARY CARE NURSING PROGRESS NOTE (TEXT) NURSING P STANDARD TITLE: PRIMARY CARE NURSING NOTE DATE OF NOTE: JUN 23, 2024@15:46 ENTRY DATE: JUN 23, 2024@15:46:19 AUTHOR: HUSSAIN MEHTAIGNER: URGENCY: STATUS: COMPLETED Established Patient JUAN PABLO OBANDO IS A 54 YEAR OLD MALE BEING SEEN IN CLINIC JUN 23, 2024. = = REASON FOR VISIT: Here for follow up on joint pain and taking antibiotic. Pickton states he still has alot of pain, treatment did not help. Are you receiving care any where other than the [facility]? No HEALTH AND SURGICAL HISTORY: Does patient report using home oxygen? CURRENT ACTIVE MEDICATIONS FOR REVIEW: Allergies/ADRs (Tool #5) FACILITY ALLERGY/ADR -------- No Remote Allergy/ADR Data available for this patient [facility] INSECT STINGS [facility] PRAVASTATIN [facility] ROSUVASTATIN Med. Reconciliation (Tool #1) INCLUDED IN THIS LIST: Alphabetical list of active outpatient prescriptions dispensed from this [place] (local) and dispensed from another [place] or [facility] facility (remote) as well as inpatient orders (local pending and active), local clinic medications, locally documented non-VA medications, and local prescriptions that have or been discontinued in the past 90 days. Non-VA Meds Last Documented On: Sep 23, 2012 NOTE The display of VA prescriptions dispensed from another [place] or [facility] facility (remote) is limited to active outpatient prescription entries matched to National Drug File at the originating site and may not include some items such as investigational drugs, compounds, etc. NOT INCLUDED IN THIS LIST: Medications self-entered by the patient into personal health records (i.e. [employer]) are NOT included in this list. Non-VA medications documented outside this [place], remote inpatient orders (regardless of status) and remote clinic medications are NOT included in this list. The patient and provider must always discuss medications the patient is taking, regardless of where the medication was dispensed or obtained. OUTPT ARIPIPRAZOLE 2MG TAB (Status = Discontinued) TAKE ONE-HALF TABLET BY MOUTH ONCE A DAY FOR DEPRESSION Rx# [id number] Last Released: 02/10/24 Qty/Days Supply: Rx Expiration Date: 02/05/25 Refills Remainin Indication: FOR DEPRESSION OUTPT CYCLOBENZAPRINE HCL 10MG TAB (Status = Active) TAKE ONE TABLET BY MOUTH THREE TIMES A DAY NEEDED FOR MUSCLE SPASM MAY CAUSE DROWSINESS. DO NOT DRINK ALCOHOL WHILE TAKING THIS MEDICATION. Rx# [id number] Last Released: 05/03/24 Qty/Days Supply: 180/60 Rx Expiration Date: 04/30/25 Refills Remainin Indication: FOR MUSCLE SPASM OUTPT DICLOFENAC NA 1% TOP GEL (Status = Active) APPLY 4 GM TO AFFECTED AREA(S) FOUR TIMES A DAY NEEDED FOR PAIN DO NOT EXCEED MORE THAN 16 GRAMS DAILY TO ANY LOWER EXTREMITY JOINT. NOT MORE THAN 8 GRAMS DAILY TO ANY UPPER EXTREMITY JOINT. MAX 32GM/DAY OVER ALL JOINTS. (MEASURE DOSE WITH RULER ATTACHED INSIDE BOX) Rx# [id number] Last Released: 05/02/24 Qty/Days Supply: 200/90 Rx Expiration Date: 04/30/25 Refills Remainin Indication: FOR PAIN OUTPT DOXYCYCLINE HYCLATE 100MG TAB (Status = Active) TAKE ONE TABLET BY MOUTH TWICE A DAY FOR LYME DISEASE TAKE UNTIL FINISHED. AVOID SUN EXPOSURE WHILE TAKING. Rx# [id number] Last Released: 06/09/24 Qty/Days Supply: 42 Rx Expiration Date: 07/09/24 Refills Remainin Indication: FOR LYME DISEASE OUTPT NAPROXEN 500MG TAB (Status = Active) TAKE ONE TABLET BY MOUTH TWICE DAILY NEEDED FOR PAIN TAKE WITH FOOD. Rx# [id number] Last Released: 03/28/24 Qty/Days Supply: 60 Rx Expiration Date: 03/24/25 Refills Remainin Indication: FOR PAIN OUTPT SILDENAFIL CITRATE 100MG TAB (Status = ) TAKE ONE-HALF TABLET BY MOUTH EVERY WEEK NEEDED FOR ERECTILE DYSFUNCTION (TAKE 60 MINUTES PRIOR TO SEXUAL ACTIVITY) - LIMIT 6 DOSES PER 30 DAYS CUT TABLET IN HALF FOR YOUR DOSE Rx# [id number] Last Released: 06/09/23 Qty/Days Supply: Rx Expiration Date: 04/14/24 Refills Remainin OUTPT VENLAFAXINE HCL 75MG 24HR SA CAP (Status = Discontinued) TAKE THREE CAPSULES BY MOUTH ONCE A DAY FOR DEPRESSION WITH FOOD. DO NOT ABRUPTLY DISCONTINUE MEDICATION. Rx# [id number] Last Released: 02/10/24 Qty/Days Supply: 270 Rx Expiration Date: 02/05/25 Refills Remainin Indication: FOR DEPRESSION OUTPT VENLAFAXINE HCL 75MG 24HR SA CAP (Status = Discontinued) TAKE THREE CAPSULES BY MOUTH ONCE A DAY FOR DEPRESSION WITH FOOD. DO NOT ABRUPTLY DISCONTINUE MEDICATION. Rx# [id number] Last Released: 04/20/24 Qty/Days Supply: Rx Expiration Date: 04/09/25 Refills Remainin Indication: FOR DEPRESSION OUTPT VENLAFAXINE HCL 75MG 24HR SA CAP (Status = Active/Suspended) TAKE THREE CAPSULES BY MOUTH ONCE A DAY FOR DEPRESSION WITH FOOD. DO NOT ABRUPTLY DISCONTINUE MEDICATION. Rx# [id number] Last Released: Qty/Days Supply: 270 Rx Expiration Date: 06/11/25 Refills Remainin Indication: FOR DEPRESSION SUPPLIES PHARMACY TERMS AND POSSIBLE PATIENT ACTIONS INPT = [place] inpatient order IV = [place] intravenous medication OUTPT = [place] outpatient prescription PHARMACY POSSIBLE PATIENT TERMS EXPLANATION ACTIONS -------- ---- ACTIVE A prescription that can be If you have refills, filled at the local [place] pharmacy. you may request a refill of this prescription from your [place] pharmacy. CLINIC A medication you received during If you have questions a visit to a [place] clinic or about this medication emergency department. contact your [place] healthcare team. DISCONTINUED A prescription your provider has Contact your [facility] stopped. It is no longer healthcare team if you available to be sent to you or need more of this picked up at the [place] pharmacy medication. window. A prescription which is too old Contact your VA to fill. This does not refer to healthcare team if you the expiration date of the need more of this medication in the container. medication. NON-VA A medication that came from If this medication someplace other than a VA information is pharmacy. This may be a incorrect or out of prescription from either the VA date, please tell your or non VA providers that was VA healthcare team. filled outside the VA. Or, it may be an eopr-ndt-uhgwozw (OTC), herbal, dietary supplements or sample medication. ON HOLD An active prescription that will Contact your VA not be filled until pharmacy pharmacy when you need resolves the issue. more of this medication. PARKED An active prescription that will Contact your VA not be filled until the patient pharmacy when you need requests it. this medication. PENDING This prescription order has been If you have been sent to the pharmacy for review instructed to start and is not ready yet. this medication now, contact your VA pharmacy. SUSPENDED An active prescription that is Contact your VA not scheduled to be filled yet. pharmacy if you need You should receive it before this medication now. you run out. IS PATIENT TAKING ANY OVER THE COUNTER MEDICATIONS, SUCH VITAMINS OR HERBAL SUPPLEMENTS, INCLUDING ANY MEDICATIONS PRESCRIBED BY ANOTHER PHYSICIAN? No ALLERGIES/ADVERSE REACTIONS: INSECT STINGS, PRAVASTATIN, ROSUVASTATIN Does patient have any new allergies to report since last visit? VITALS: TEMPERATURE: 98.6 F [37.0 C] (06/23/2024 15:45) BP: 148/101 (06/23/2024 15:45) RESP: 20 (06/23/2024 15:45) PULSE: 98 (06/23/2024 15:45) HT: 71 in [180.3 cm] (07/25/2022 09:01) WT: 186.2 lb [84.46 kg] (06/23/2024 15:45) BMI: 26.0 PAIN ASSESSMENT: (Most Recent Pain Score in Vitals Package: 6 (06/23/2024 15:45) ) The patient indicated that they and their close contacts have not traveled outside of the [place] in the past 21 days. The patient reports the following symptoms: No symptoms present The patient is not immunocompromised. The patient does not report having a history of Multi Drug Resistant Organism (MDRO) within the last five years. The patient does not report having been exposed to measles, chickenpox, or zoster in last 30 days. STRESS: Thank you for your service. Now let us serve you. At the [facility], we strive to provide you with exceptional health care that improves your health and well-being. Are you feeling sad, empty, or depressed? No Do you need to talk about things in your life that worry you or cause you stress? No Do you need to talk about personal problems, family problems, alcohol use, drug use, or mental or emotional illness? No SUICIDE SCREENING: The patient was asked, Over the past two weeks, how often have you been bothered by thoughts that you would be better off or of hurting yourself in some way? Not At All SPIRITUAL ASSESSMENT: Are there sabianism practices or spiritual concerns you want the temperature regulator pyrometer, your physician, and other health care team members to immediately know about? Patient advised to call the clinic for any concerns, questions, or symptoms. Patient and/or caregiver verbalized understanding of plan of care. Pain Assessment: - PAIN ASSESSMENT: .. This patient's last pain assessment score was: 6 (06/23/2024 15:45). A detailed pain assessment showed the following: Pain characteristics (per patient's own words) Constant Location of current pain Generalize Joint Pain Onset/Duration of the current pain. Constant or variable? Less than 1 year Pain Management Education: One to one counseling/education with patient was provided. Patient's self identified pain goal: 0 Patient/Nurse Interview: * * Patient states that questions were answered in a way that was easily understood. /misael/ HUSSAIN MEHTA LPN Signed: 06/23/2024 15:48 HUSSAIN MEHTA [place] [facility]
--- OUTSIDE RECORDS SUMMARY | 2024-07-11 09:01 | XMS_ITS | Encounter Summary ---
Author Name [facility] Address [address] [place] [address] Care Team Providers Care Molder Setter Name Role Phone RENEEJUAN ANTONIO Primary Care Provider Unavailabl e Insurance Providers: All historical and current [...] Stone's Name Patient's Relationship to Policy Stone [facility] (WNR) MEDICARE ADVANTAGE [facility] (WNR) Nov 16, 2022 [id number] Max OBANDO PATIENT Selected Encounter This section includes the information on record at MD for the Encounter. Date/Time Encounter Type Encounter Description Reason Provider Source Jul 11, 2024 02:01 PM CONFORMITY EVALUATION AUDIOLOGY ICD-10-CM Z46.1 Encounter for fitting and adjustment of hearing aid EVAN OSUNA RA Max Encounter Template Text not used by VA Assessments - Encounter Diagnoses This section includes the primary and secondary diagnoses documented for the Encounter. Date/Time Primary/Secondary Diagnosis Diagnosis Name Provider Source Jul 11, 2024 01:43 PM PRIMARY Encounter for fitting and adjustment of hearing aid EVAN OSUNA RA [facility] Jul 11, 2024 01:43 PM SECONDARY Sensorineural hearing loss, bilateral GRAVES,ALEXAND RA A [place] [facility] Jul 11, 2024 01:43 PM SECONDARY Tinnitus, bilateral GRAVES,ALEXAND RA A [place] [facility] Plan of Treatment: Future Appointments (+ 6 months) and Future Tests (+/- 45 days) The Plan of Treatment section includes future care activities for the patient from all [facility] treatmentwaldo hospitalities. This section includes future appointments and future orders which are active, pending or scheduled. Future Appointments This section includes appointments that were scheduled to occur 6 months from the date of the Encounter, up to a maximum of 20 appointments. The data comes from all [place] treatment facilities. Appointment Date/Time Appointment Type Appointme nt Facility Name Aug 08, 2024 12:45 PM AMBULATORY - MEDICINE [place] [facility] Aug 26, 2024 10:45 AM AMBULATORY - MEDICINE [place] [facility] Sep 09, 2024 10:15 AM AMBULATORY - MEDICINE [place] [facility] Sep 14, 2024 11:30 AM AMBULATORY - MEDICINE [facility] Sep 19, 2024 10:30 AM AMBULATORY - MEDICINE [place] [facility] Sep 30, 2024 11:00 AM AMBULATORY - MEDICINE [facility] Sep 30, 2024 12:30 PM AMBULATORY - MEDICINE [place] [facility] Oct 06, 2024 10:30 AM AMBULATORY - MEDICINE [facility] Oct 11, 2024 08:45 AM AMBULATORY - MEDICINE [place] [facility] Oct 25, 2024 10:30 AM AMBULATORY - MEDICINE [facility] Oct 25, 2024 10:31 AM AMBULATORY - MEDICINE [place] [facility] Nov 11, 2024 10:15 AM AMBULATORY - MEDICINE [place] [facility] Dec 30, 2024 10:30 AM AMBULATORY - PSYCHIATRY [facility] Social History: Smoking Status (Most current) and Tobacco Use (All prior to encounter date) This section includes the most current, and the historical, smoking and tobacco- related health factors from the MD facility where the Encounter took place. Current Smoking Status This section includes the most current smoking, or tobacco-related health factor, from the [place] facility where the Encounter took place. Date/Time Current Smoking Status Anne shaw Nov 20, 2010 10:38 AM TOBACCO OFFERRED S [facility] SMOKING [facility] Tobacco Use History This section includes a history of the smoking, or tobacco-related health factors, that were collected on or before the date of the Encounter. The data comes from the [place] facility where the Encounter took place. Date/Time Smoking Status/Tobacco Use Comment F acility Nov 20, 2010 10:38 AM TOBACCO OFFERRED S [facility] SMOKING [facility] Jun 18, 2010 10:48 AM TOBACCO MEDS OFFERED BUT DECLINE D [facility] Jun 18, 2010 10:48 AM TOBACCO OFFERED PT MEDS (PROVIDE R) [facility] Jun 18, 2010 10:[address] [facility] SMOKING [facility] Encounter Notes: All associated encounter notes This section contains the clinical notes associated to the Encounter. Date/Time Encounter Note(s) Provider Source Jul 11, 2024 08:05 AM AUDIOLOGY NOTE: LOCAL TITLE: HEARING CLINIC PB STANDARD TITLE: AUDIOLOGY NOTE DATE OF NOTE: JUL 11, 2024@08:05 ENTRY DATE: JUL 11, 2024@08:05:22 AUTHOR: BHASKAR OSUNA COSIGNER: URGENCY: STATUS: COMPLETED Diagnosis: Sensorineural Hearing Loss, Bilateral and Tinnitus, Bilateral Treatment: Hearing Aid Fitting Time spent with : 60 minutes Coram seen for a hearing aid fitting via Audio Telehealth and verbally consented to the Telehealth modality. Multi-factor personally identifiable information of the was obtained verbally (full name and date of ). Coram accompanied by: none Patient site: [facility] SUBJECTIVE: Patient is here for the issue of new hearing aids. HEARING DEVICES: Coram was fit with the following hearing devices and accessories today: 06/2024 PHONAK AUDEO L90-RL NÉSTOR L [id number] 07/14/27 12/11/2406/2024 PHONAK AUDEO L90-RL NÉSTOR R [id number] 07/14/27 12/11/24 - S VEGETABLE INSPECTOR 5.0 - SIZE 2 - OPEN DOME 4.0 - LARGE - CERUSTOP - NO RETENTION TAILS Phone Connectivity: yes, streaming. BACK UP HEARING DEVICE: 2019 PHONAK AUDEO X31-281A NÉSTOR L [id number] (LOST) - 2xS/Large Open Smokey Dome OBJECTIVE/ASSESSMENT: Otoscopy was performed by collaboration of telehealth clinical computer technician and provider via telehealth technology/video otoscope which revealed: Right: unremarkable Left: unremarkable Probe-Microphone Measures: Conformity evaluation was performed using real ear measures with NAL-NL2 ([employer]) targets. Maximum output was within the predicted upper limit of comfort. Hearing aids set to 100% target gain per patient subjective listening preference. Feedback tutoring manager completed. Familiarized patient with sound indicators (low battery signal, volume control, etc.). Device(s) issued in Remote Investment Banking Associate System. Physical Fit/Comfort: Good per patient. Sound Quality: Good per patient. Settings: - Programs: Automatic program - Push button: enabled - Volume control: short press - Program change: medium press - On/Off device: long press Phone Connectivity: - streaming. DIRECT PATIENT EDUCATION-30 minutes educated on: - Use of batteries/detective narcotics and vice - Hearing aid care and maintenance - Adjustment period/ importance of daily consistent use (8- 12hrs/day) - Realistic expectations - Effective communication strategies - Pet/child warning - Patient instructed not to wear devices in excessive noise - Installation and use of additional accessories - Ordering supplies through [facility] - Repair process - Trial period Coram demonstrated how to: - Insert/remove hearing aid(s) - Adjust volume control/program switch - Change batteries/charge hearing aid(s) Coram was provided: - Hearing aid manual - [place] form 2477b Coram was counseled/educated on services provided today and is in agreement with the plan. Patient was given clinic phone number and encouraged to contact the clinic as needs arise. PLAN: Patient is an experienced hearing aid user and did not wish to schedule a follow-up appointment at this time. IOI-HAMMOND provided to patient for completion in one month. /misael/ Rayo Rondon [facility] Signed: 07/11/2024 14:05 BHASKAR OSUNA [facility]
--- OUTSIDE RECORDS SUMMARY | 2024-08-08 07:45 | XMS_ITS | Encounter Summary ---
Author Name [facility] [place] [facility] [place] Organization [facility] [place] [facility] [place] Address [address] [place] [address] Care Team Providers Care Safety And Health Manager Name Role Phone RENEE JUAN ANTONIO Primary Care Provider Unavailabl e Insurance [...] Stone's Name Patient's Relationship to Policy Stone [facility] (WNR) MEDICARE ADVANTAGE [facility] (WNR) Nov 16, 2022 [id number] Max OBANDO PATIENT Selected Encounter This section includes the information on record at [place] for the Encounter. Date/Time Encounter Type Encounter Description Reason Provider Source Aug 08, 2024 12:45 PM COMPRE OPH EXAM EST PT 1/> OPTOMETRY ICD-10-CM H52.223 Regular astigmatism, bilateral LOWERY,JUSTYNA S IHE Encounter Template Text not used by [place] Assessments - Encounter Diagnoses This section includes the primary and secondary diagnoses documented for the Encounter. Date/Time Primary/Secondary Diagnosis Diagnosis Name Provider Source Aug 08, 2024 01:08 PM PRIMARY Regular astigmatism, bilateral LOWERY,JUSTYNA S [facility] [facility] Aug 08, 2024 01:08 PM SECONDARY Hypermetropia, bilateral JUSTYNA LOWERY [facility] [facility] Aug 08, 2024 01:08 PM SECONDARY Presbyopia JUSTYNA LOWERY [facility] Plan of Treatment: Future Appointments (+ 6 months) and Future Tests (+/- 45 days) The Plan of Treatment section includes future care activities for the patient [facility] This section includes future appointments and future orders which are active, pending or scheduled. Future Appointments This section includes appointments that were scheduled to occur 6 months from the date of the Encounter, up to a maximum of 20 appointments. The data comes from all [place] [facility]. Appointment Date/Time Appointment Type Appointme nt Facility Name Aug 26, 2024 10:45 AM AMBULATORY - MEDICINE [facility] Sep 09, 2024 10:15 AM AMBULATORY - MEDICINE [facility] Sep 14, 2024 11:30 AM AMBULATORY - MEDICINE [facility] Sep 19, 2024 10:30 AM AMBULATORY - MEDICINE [facility] [facility] Sep 30, 2024 11:00 AM AMBULATORY - MEDICINE [facility] Sep 30, 2024 12:30 PM AMBULATORY - MEDICINE [facility] [facility] Oct 06, 2024 10:30 AM AMBULATORY - MEDICINE [facility] Oct 11, 2024 08:45 AM AMBULATORY - MEDICINE [facility] [facility] Oct 25, 2024 10:30 AM AMBULATORY - MEDICINE [facility] Oct 25, 2024 10:31 AM AMBULATORY - MEDICINE [facility] Nov 11, 2024 10:15 AM AMBULATORY - MEDICINE [facility] [facility] Dec 30, 2024 10:30 AM AMBULATORY - PSYCHIATRY [facility] Jan 20, 2025 03:15 PM AMBULATORY - MEDICINE [facility] [facility] Feb 02, 2025 09:30 AM AMBULATORY - PSYCHIATRY [facility] Social History: Smoking Status (Most current) and Tobacco Use (All prior to encounter date) This section includes the most current, and the historical, smoking and tobacco- related health factors from the [place] facility where the Encounter took place. Current Smoking Status This section includes the most current smoking, or tobacco-related health factor, from the [place] facility where the Encounter took place. Date/Time Current Smoking Status Comment Radha shaw Nov 20, 2010 10:38 AM TOBACCO OFFERRED S [facility] SMOKING [facility] Tobacco Use History This section includes a history of the smoking, or tobacco-related health factors, that were collected on or before the date of the Encounter. The data comes from the [facility] where the Encounter took place. Date/Time Smoking Status/Tobacco Use Comment F acility Nov 20, 2010 10:38 AM TOBACCO OFFERRED S [facility] SMOKING [facility] Jun 18, 2010 10:48 AM TOBACCO MEDS OFFERED BUT DECLINE D [facility] Jun 18, 2010 10:48 AM TOBACCO OFFERED PT MEDS (PROVIDE R) [facility] Jun 18, 2010 10:[address] OP SMOKING [facility] Encounter Notes: All associated encounter notes This section contains the clinical notes associated to the Encounter. Date/Time Encounter Note(s) Provider Source Aug 08, 2024 01:03 PM EYE NOTE: LOCAL TITLE: EYEGLASS PRESCRIPTION NOTE PB STANDARD TITLE: EYE NOTE DATE OF NOTE: AUG 08, 2024@13:03 ENTRY DATE: AUG 08, 2024@13:04:06 AUTHOR: JUSTYNA LOWERY EXP COSIGNER: URGENCY: STATUS: COMPLETED DATE OF LAST EYE EXAM:AUG 08, 2024 +[id number] +1.75-0.07a886 +2.25 add LENS MATERIAL: LENS TYPE: PAL - Previous wearer Other Add Ons: Photochromic lenses included due to medical condition Additional Comments: plastic lenses /misael/ Justyna Lowery OD Hr Manager, [facility] Signed: 08/08/2024 13:04 JUSTYNA LOWERY [facility] Aug 08, 2024 12:48 PM OPHTHALMOLOGY E & M NOTE: LOCAL TITLE: OPHTHALMIC EXAM PB STANDARD TITLE: OPHTHALMOLOGY E & M NOTE DATE OF NOTE: AUG 08, 2024@12:48 ENTRY DATE: AUG 08, 2024@12:48:50 AUTHOR: DAYANNA WELLINGTON EXP COSIGNER: URGENCY: STATUS: COMPLETED SUBJECTIVE: 54 year old seen in clinic. CHIEF COMPLAINT: Blur at NV. Pt said that it is getting harder to see his phone. Pt current glasses are from his last exam here. Last eye exam: 08/14/2022 here. Surgery: None since last visit here. Eye medications: None. Lab: Hgb A1C: HGA1C 5.2 % 04/29/2024 08:54 Diabetic: Pt states no. ALLERGIES: INSECT STINGS, PRAVASTATIN, ROSUVASTATIN VISUAL ACUITY OD: 20/20-0 ph: Blur OS: 20/25-0 ph: 20-0 With present glasses pupils rapd - Pt last DFE was 01/2021 here. WEARING +1.50 sph +1.25 sph +2.00 Lens Type: Progressive /es/ MAURA TELLOhing [facility] Signed: 08/08/2024 12:53 DAYANNA WELLINGTON [facility] Aug 08, 2024 07:28 AM OPHTHALMOLOGY E & M NOTE: LOCAL TITLE: OPHTHALMIC EXAM PB STANDARD TITLE: OPHTHALMOLOGY E & M NOTE DATE OF NOTE: AUG 08, 2024@07:28 ENTRY DATE: AUG 08, 2024@07:28:36 AUTHOR: JUSTYNA LOWERY EXP COSIGNER: URGENCY: STATUS: COMPLETED SUBJECTIVE: 54 year old seen in clinic. CHIEF COMPLAINT: Blur at NV. Pt said that it is getting harder to see his phone. Pt current glasses are from his last exam here. Last eye exam: 08/14/2022 here. Surgery: None since last visit here. Eye medications: None. Lab: Hgb A1C: HGA1C 5.2 % 04/29/2024 08:54 Diabetic: Pt states no. ALLERGIES: INSECT STINGS, PRAVASTATIN, ROSUVASTATIN VISUAL ACUITY OD: 20/20-0 ph: Blur OS: 20/25-0 ph: 20-0 With present glasses pupils rapd - Pt last DFE was 01/2021 here. WEARING +1.50 sph +1.25 sph +2.00 Lens Type: Progressive (Copied Tech note above, Agree with findings, continue Doctor note below.) SUBJECTIVE CC:54M, c/o near vision blur ou of gradual onset. Really struggling to see anything up close. Feels like he is doing pretty good in the distance. OHX: JUSTIN:as above Hab RX:as above LDFE:02/03 Injuries:- Surgeries:- Oc Meds:- Glc:- DR:- AMD:- MHX: DM:- HTN:- HrtDis:- LungDis:+ Cancer:- See Cover sheet for complete with allergies FmHx: Glc - AMD - OBJECTIVE: ENTERING: VA:as above Pupils:as above CVF:FTFC ou EOMs:FROM ou REFRACTION: OD:+1.50-0.59z996 20/20 OS:+1.75-0.49v623 20/20 +2.25 add 20/20 ou SLEx: Adnexa/Lids/Lashes:mild sup dermatochalasis ou Tear Film:wnl ou Conj:small ping n/t ou Cornea:cl ou, -staining ou Sclera:wnl ou Iris:wnl ou A/C:d/q ou Lens:tr ns ou TA: 14/14 mmHg@107pm FE:90D undilated exam Vitreous:cl ou Maculae:wnl ou Vessels:wnl ou ONH:dist margins ou C/D:0.4/0.4 Periphery:not assessed today ASSESSMENT: 1)Hypermetropia, Reg Astig, PResbyopia ou PLAN: 1)Spec Rx given OD:+1.50-0.35i563 20/20 OS:+1.75-0.55u597 20/20 +2.25 add 20/20 ou Ordered new VA glasses today, plastic, progressive, photochromatic lenses RTc PRN /es/ Justyna Lowery OD Hr Manager, [facility] Signed: 08/08/2024 13:08 JUSTYNA LOWERY [facility] [facility]
--- OUTSIDE RECORDS SUMMARY | 2024-09-09 05:15 | XMS_ITS ---
Author Name [facility] [place] Organization [facility] [place] Address [address] [place] [address] Care Team Providers Care Resourcing Advisor Name Role Phone RENEE JUAN ANTONIO Primary Care Provider Unavailangelique e Insurance [...] Stone's Name Patient's Relationship to Policy Stone [facility] (WNR) MEDICARE ADVANTAGE [facility] (WNR) Nov 16, 2022 [id number] Max OBANDO PATIENT Selected Encounter This section includes the information on record at [place] for the Encounter. Date/Time Encounter Type Encounter Description Reason Provider Source Sep 09, 2024 10:15 AM OFFICE O/P EST MOD 30 [facility] - IND ICD-10-CM F43.12 Post-traumatic stress disorder, chronic SUAD ENG Encounter Template Text not used by [place] Assessments - Encounter Diagnoses This section includes the primary and secondary diagnoses documented for the Encounter. Date/Time Primary/Secondary Diagnosis Diagnosis Name Provider Source Sep 09, 2024 10:42 AM PRIMARY Post-traumatic stress disorder, chronic SUAD ENG [facility] Sep 09, 2024 10:42 AM SECONDARY Major depressive disorder, recurrent, unspecified SUAD ENG [facility] Plan of Treatment: Future Appointments (+ 6 months) and Future Tests (+/- 45 days) The Plan of Treatment section includes future care activities for the patient [facility] [place] [facility] This section includes future appointments and future orders which are active, pending or scheduled. Future Appointments This section includes appointments that were scheduled to occur 6 months from the date of the Encounter, up to a maximum of 20 appointments. The data comes from all [facility]. Appointment Date/Time Appointment Type Appointme nt Facility Name Sep 14, 2024 11:30 AM AMBULATORY - MEDICINE [facility] Sep 19, 2024 10:30 AM AMBULATORY - MEDICINE [facility] [facility] Sep 30, 2024 11:00 AM AMBULATORY - MEDICINE [facility] Sep 30, 2024 12:30 PM AMBULATORY - MEDICINE [place] [facility] Oct 06, 2024 10:30 AM AMBULATORY - MEDICINE [facility] Oct 11, 2024 08:45 AM AMBULATORY - MEDICINE [place] [facility] Oct 25, 2024 10:30 AM AMBULATORY - MEDICINE [facility] Oct 25, 2024 10:31 AM AMBULATORY - MEDICINE [place] [facility] Nov 11, 2024 10:15 AM AMBULATORY - MEDICINE [place] [facility] Dec 30, 2024 10:30 AM AMBULATORY - PSYCHIATRY [facility] Jan 20, 2025 03:15 PM AMBULATORY - MEDICINE [place] [facility] Feb 02, 2025 09:30 AM AMBULATORY - PSYCHIATRY [facility] Feb 24, 2025 08:45 AM AMBULATORY - MEDICINE [place] 2025 11:00 AM AMBULATORY - MEDICINE [place] Mar 10, 2025 03:00 PM AMBULATORY - PSYCHIATRY [facility] Social History: Smoking Status (Most current) and Tobacco Use (All prior to encounter date) This section includes the most current, and the historical, smoking and tobacco- related health factors from the [place] facility where the Encounter took place. Current Smoking Status This section includes the most current smoking, or tobacco-related health factor, from the [place] facility where the Encounter took place. Date/Time Current Smoking Status Comment Radha shaw Nov 20, 2010 10:38 AM TOBACCO OFFERRED S [facility] SMOKING [facility] Tobacco Use History This section includes a history of the smoking, or tobacco-related health factors, that were collected on or before the date of the Encounter. The data comes from the [place] facility where the Encounter took place. Date/Time Smoking Status/Tobacco Use Comment F jojo Nov 20, 2010 10:38 AM TOBACCO OFFERRED S [facility] SMOKING [facility] Jun 18, 2010 10:48 AM TOBACCO MEDS OFFERED BUT DECLINE D [facility] Jun 18, 2010 10:48 AM TOBACCO OFFERED PT MEDS (PROVIDE R) [facility] Jun 18, 2010 10:[address] [facility] Radiology Reports: +/- 30 days of the encounter Radiology Reports For cases when an order for radiology services may have been completed prior to the date of the Encounter, the report list includes the Radiology Reports that were completed up to 30 days before dateof the Encounter. For cases when an order for radiology services may have been completed after the date of the Encounter, the report list also includes the Radiology Reports that were completed up to30 days after date of the Encounter. The data comes from all [place] treatment facilities. 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 No fracture or dislocation. No bony destruction. No significant degenerative changes. Findings similar to previous studies dating back to 08/12/2016. Impression: 1. No acute bony change 2. With the given history suggest MRI of the wrist Primary Interpreting Staff: ARIE GARCIA, RADIOLOGIST ([facility], no e-sig) /ARIE Bruno [facility] Encounter Notes: All associated encounter notes This section contains the clinical notes associated to the Encounter. Date/Time Encounter Note(s) Provider Source Sep 09, 2024 10:39 AM PSYCHIATRY NOTE: LOCAL TITLE: PSYCHIATRIC PROGRESS NOTE PB STANDARD TITLE: PSYCHIATRY NOTE DATE OF NOTE: SEP 09, 2024@10:39 ENTRY DATE: SEP 09, 2024@10:39:46 AUTHOR: SUAD ENG EXP COSIGNER: URGENCY: STATUS: COMPLETED consent: [place] provided verbal consent for receiving care through the modality of [facility] Patient verified date of and full name. Veterans Current Location: [facility] in [place], [place] OBANDOJUAN PABLO is a 54 y/o MALE Note from previous visit was reviewed: Yes Reviewed progress notes Denies any SI/HI plans or intent Chief Complaint: Med Management History of Present Illness: reports since last seen has been doing struggling. He states he has been more irritable recently. He states people are dumb and set him off. He states he will act out verbally, but states not physically acting out. He states he is getting more intrusive thoughts recently. He states he is getting nightmares and coming back. The Beaumont would currently rate depression to be 4-5/10 with 10 being the worst. He states he is getting enjoyment. Denies any Suicidal Ideations plans or intent. denies any adverse side effects to medication. Past Suicide Attempts: Denies Protective Factors: Family and Farm Allergies:INSECT STINGS, PRAVASTATIN, ROSUVASTATIN Family History of attempted or completed suicides: Denies Social History: Occupation: [employer] Live with: and son Alcohol: Denies: was a problem in the past. Sober since 2000 Illicit Drug Use: Denies any illicit drug use such as Cannabis, Methamphetamines, Cocaine, LSD, MDMA, etc Prescription: Denies misusing any prescription medication Tobacco: Chew half can per day Refused Tobacco cessation Access to firearms: Endorses: Lock safe and unloaded Discussed firearm safety. is aware this narrator recommends firearm be in a locked safe and stored away from ammunition. At any point in time if experiences SI or HI firearms should be removed from access. Medications: All active medications reviewed with patient Psychiatric Examination: General Appearance: Appears stated age, normal body habitus, dressed appropriately, well groomed Gait: Sitting Behavior: Calm and Cooperative Eye Contact: Good eye contact Speech: Regular rate, regular volume, coherent, regular articulation, spontaneous, no perseveration or paucity Thought Process: no racing thoughts, logical thought process, goal directed Thought Content: Denies any Suicidal ideations, denies any homicidal ideations, denies any auditory or visual hallucinations, denies any delusions, denies any paranoia, denies any obsessions or compulsions, is not actively responding to stimuli Mood: Fine Affect: Congruent Orientation: Oriented to self, place and time Insight: Intact Judgement: Intact Prognosis: Fair Safety- Beaumont is not a safety risk to self or others at this time. Capable of making practice safe judgment and perform ADLs. Assessment: MDD, recurrent, in partial remission PTSD, chronic, secondary to combat Plan: 1. Medications: Discussed medication in detail with the . Will cont Effexor 225mg daily for mood. Discussed monitoring BP Will start Buspar 10mg TID for anxiety and irritability Discussed side effects, risks, benefits and alternatives. Patient voiced understanding and was in agreement with this plan. Advised not to mix prescription medications with illicit substances or alcohol and not to drive if sedated. Beaumont also warned of risks of treatment noncompliance and/or refusal. Informed consent obtained and med reconciliation completed. 2. Labs: None ordered: labs by pcp april 2024 3. Consults/Medical: None ordered at this time. 4. Safety Planning was reviewed with the patient. is aware if patient begins having any suicidal or homicidal ideations this is an emergency and Beaumont needs to call 9-11 or go to the nearest ED. Discussed Veterans Crisis Line [phone]. 5. Patient should follow-up in 2 months Patient is encouraged to call with any questions or concerns. Instructed Beaumont to follow up with his primary care provider routinely and as needed for wellness and any medical concerns. Return to [facility] for ongoing medication management, psychoeducation and supportive psychotherapy. May return sooner if needed Encouraged patient to follow up with primary care & other specialty clinical services as indicated. Patient educated regarding tobacco, alcohol, illicit substance usage and their associated harmful effects. Encouraged to cut-down and abstain from use; encouraged participation in 12 step, ADTP where applicable. Patient instructed to access 911 or to go to the emergency room if psychiatric or medical symptoms worsen and is in need of immediate medical attention. National Suicide Prevention Hotline, mental health walk-in clinic information provided. Medication list was reviewed and reconciled with (including VA, Non-VA, remote and recently medications). Psychotherapy: 17 minutes was spent in addition to ENM code on performing supportive psychotherapy and coping skills Moderate Complexity: This encounter is moderate medical decision making complexity secondary to one or more chronic illnesses with exacerbation, progression, or side effects of treatment. /misael/ Suad Eng DO, MA John J Pershing [facility] Signed: 09/09/2024 10:41 SUAD ENG [facility] Sep 09, 2024 10:30 AM PRIMARY CARE EDUCA TION NOTE: LOCAL TITLE: OPT PHY INSTR AUTO PB STANDARD TITLE: PRIMARY CARE EDUCATION NOTE DATE OF NOTE: SEP 09, 2024@10:30 ENTRY DATE: SEP 09, 2024@10:30:07 AUTHOR: SUAD ENG EXP COSIGNER: URGENCY: STATUS: COMPLETED This documentation is related to: . F/U Visit Description of Today's Injury/Illness: PTSD and MDD Mental Health Testing: RETURN TO CLINIC: Return appointment is needed. . Special Instructions: . MEDICATION REVIEW/ASSESSMENT & PLAN: Start Buspar 10mg TID RTC 2 months Active Outpatient Medications (including Supplies): Active Outpatient [...] DOSE WITH RULER ATTACHED INSIDE BOX) 3) NAPROXEN 500MG TAB TAKE ONE TABLET BY MOUTH TWICE ACTIVE DAILY NEEDED FOR PAIN TAKE WITH FOOD. 4) VENLAFAXINE HCL 75MG 24HR SA CAP TAKE THREE CAPSULES ACTIVE BY MOUTH ONCE A DAY FOR DEPRESSION WITH FOOD. DO NOT ABRUPTLY DISCONTINUE MEDICATION. Pending Outpatient Medications Status 1) BUSPIRONE HCL 10MG TAB TAKE ONE TABLET BY MOUTH THREE PENDING TIMES A DAY DO NOT TAKE WITH GRAPEFRUIT JUICE. 5 Total Medications Medication reconciliation performed with confirmed /significant other and /significant other voiced an understandng of current medications? Yes Beaumont/significant other were provided an updated medication list. Following results reviewed and discussed with patient: Future Appointments: 09/19/2024 10:30 [facility] CARE-DENTAL GEN [id number] 2025 11:00 [facility] CARE-RHEUMATOLOGY [id number] 05/11/2025 14:30 PB-CT APPT(NC) /misael/ Suad Eng DO, MA John J Pershing [facility] Signed: 09/09/2024 10:31 SUAD ENG [facility]
--- OUTSIDE RECORDS SUMMARY | 2024-09-14 06:30 | XMS_ITS | Encounter Summary ---
Author Name [facility] Organization [facility] Address [address] [place] [address] Care Team Providers Care Bench Molder Name Role Phone RENEE JUAN ANTONIO Primary [...] Stone's Name Patient's Relationship to Policy Stone [facility] (WNR) MEDICARE ADVANTAGE [facility] (WNR) Nov 16, 2022 [id number] Max OBANDO PATIENT Selected Encounter This section includes the information on record at ID for the Encounter. Date/Time Encounter Type Encounter Description Reason Provider Source Sep 14, 2024 11:30 AM OFFICE O/P EST MOD 30 MIN PRIMARY CARE/MEDICINE ICD-10-CM M25.531 Pain in right wrist AUGUSTA QUINTERO Max Encounter Template Text not used by VA Assessments - Encounter Diagnoses This section includes the primary and secondary diagnoses documented for the Encounter. Date/Time Primary/Secondary Diagnosis Diagnosis Name Provider Source Sep 15, 2024 09:31 AM PRIMARY Pain in right wrist [facility] QUINTERO [facility] Sep 15, 2024 09:31 AM SECONDARY Encounter for immunization LISANDRO FRANCISCO Mason [facility] Plan of Treatment: Future Appointments (+ 6 months) and Future Tests (+/- 45 days) The Plan of Treatment section includes future care activities for the [facility] This section includes future appointments and future orders which are active, pending or scheduled. Future Appointments This section includes appointments that were scheduled to occur 6 months from the date of the Encounter, up to a maximum of 20 appointments. The data comes from all [facility]. Appointment Date/Time Appointment Type Appointme nt Facility Name Sep 19, 2024 10:30 AM AMBULATORY - MEDICINE [facility] Sep 30, 2024 11:00 AM AMBULATORY - MEDICINE [facility] Sep 30, 2024 12:30 PM AMBULATORY - MEDICINE [facility] Oct 06, 2024 10:30 AM AMBULATORY - MEDICINE [facility] Oct 11, 2024 08:45 AM AMBULATORY - MEDICINE [facility] Oct 25, 2024 10:30 AM AMBULATORY - MEDICINE [facility] Oct 25, 2024 10:31 AM AMBULATORY - MEDICINE [facility] Nov 11, 2024 10:15 AM AMBULATORY - MEDICINE [facility] Dec 30, 2024 10:30 AM AMBULATORY - PSYCHIATRY [facility] Jan 20, 2025 03:15 PM AMBULATORY - MEDICINE [facility] Feb 02, 2025 09:30 AM AMBULATORY - PS[facility]CHIATRY [facility] Feb 24, 2025 08:45 AM AMBULATORY - MEDICINE [facility] 2025 11:00 AM AMBULATORY - MEDICINE [facility] Mar 10, 2025 03:00 PM AMBULATORY - PS[facility]CHIATRY [facility] Vital Signs: All taken on the encounter date This section contains inpatient and outpatient Vital Signs collected on the date of the Encounter. Date/Time Temperature Pulse Blood Pressure Respiratory Rate SP02 Pain Height Weight Body Mass Index Source Sep 14, 2024 11:47 AM 98.4 85 124/90 18 98 4 70.0 184.0 26 [facility] Immunizations: All administered on the encounter date This section contains immunizations associated to the Encounter. Immunization Series Date Issued Administered By Site Reaction Lot Number CVX Code Drug Senior Formulation Scientist Comment(s) Source INFLUENZA, SPLIT VIRUS, TRIVALENT, PF Sep 14, 2024 SOFIA FRANCISCO LEFT DELTO ID [id number] GREG[employer]IO[employer]LEXIS [facility] Social History: Smoking Status (Most current) and Tobacco Use (All prior to encounter date) This section includes the most current, and the historical, smoking and tobacco- related health factors from the ID facility where the Encounter took place. Current Smoking Status This section includes the most current smoking, or tobacco-related health factor, from the ID facility where the Encounter took place. Date/Time Current Smoking Status Comment Facil ity March 23, 2024 09:00 AM VA-TOBACCO USER EVERY DAY [facility] Tobacco Use History This section includes a history of the smoking, or tobacco-related health factors, that were collected on or before the date of the Encounter. The data comes from the ID facility where the Encounter took place. 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 [facility] March 23, 2024 09:00 AM VA-TOBACCO USE MED NO [facility] March 23, 2024 09:00 AM VA-TOBACCO USE WI 30 MIN OF WAKEUP [facility] March 23, 2024 09:00 AM VA-TOBACCO USER EVERY DAY [facility] April 15, 2023 02:30 PM VA-TOBACCO USE 30 YEARS OR MORE [facility] April 15, 2023 02:30 PM VA-TOBACCO USE ADVICE [facility] April 15, 2023 02:30 PM VA-TOBACCO USE 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 [facility] April 15, 2023 02:30 PM VA-TOBACCO USE MED NO [facility] April 15, 2023 02:30 PM VA-TOBACCO USE WI 30 MIN OF WAKEUP [facility] April 15, 2023 02:30 PM VA-TOBACCO USER EVERY DAY [facility] Jan 23, 2022 05:20 PM VA-TOBACCO USE 30 YEARS OR MORE [facility] Jan 23, 2022 05:20 PM VA-TOBACCO USE ADVICE [facility] Jan 23, 2022 05:20 PM VA-TOBACCO USE 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 [facility] Jan 23, 2022 05:20 PM VA-TOBACCO USE MED NO [facility] Jan 23, 2022 05:20 PM VA-TOBACCO USE WI 30 MIN OF WAKEUP [facility] Jan 23, 2022 05:20 PM VA-TOBACCO USER EVERY DAY [facility] Aug 09, 2020 02:00 PM VA-TOBACCO DOESNT USE WI 30 MIN WAKEUP [facility] Aug 09, 2020 02:00 PM VA-TOBACCO USE 5 T O 15 YEARS [facility] Aug 09, 2020 02:00 PM VA-TOBACCO USE ADVICE [place] [facility] Aug 09, 2020 02:00 PM VA-TOBACCO USE 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 [facility] Aug 09, 2020 02:00 PM VA-TOBACCO USE MED NO [facility] Aug 09, 2020 02:00 PM VA-TOBACCO USER EVERY DAY [facility] Jul 22, 2018 08:56 AM CURRENT TOBACCO USER [place] [facility] Jul 22, 2018 08:56 AM CURRENT TOBACCO US ER (NOT READY TO QUIT) [facility] Jul 22, 2018 08:56 AM SMOKELESS TOBACCO AMOUNT/LENGTH V15 35yr history [place] [facility] Jul 22, 2018 08:56 AM TOBACCO CESSATION REFERRAL DECLINED [facility] Jul 22, 2018 08:56 AM TOBACCO MEDS OFFER ED BUT DECLINED [facility] Jul 22, 2018 08:56 AM TOBACCO USER OFFERED MEDS [facility] May 24, 2018 01:40 PM CURRENT TOBACCO USER [facility] May 24, 2018 01:40 PM CURRENT TOBACCO US ER (NOT READY TO QUIT) [facility] May 24, 2018 01:40 PM TOBACCO CESSATION REFERRAL DECLINED [facility] May 24, 2018 01:40 PM TOBACCO MEDS OFFER ED BUT DECLINED [facility] May 24, 2018 01:40 PM TOBACCO USER OFFERED MEDS [facility] Mar 09, 2018 02:09 PM CURRENT TOBACCO USER [place] [facility] Mar 09, 2018 02:09 PM CURRENT TOBACCO US ER (NOT READY TO QUIT) [facility] Mar 09, 2018 02:09 PM SMOKELESS TOBACCO AMOUNT/LENGTH V15 35+yr history [facility] Mar 09, 2018 02:09 PM TOBACCO CESSATION REFERRAL DECLINED [facility] Mar 09, 2018 02:09 PM TOBACCO MEDS OFFER ED BUT DECLINED [facility] Mar 09, 2018 02:09 PM TOBACCO USER OFFERED MEDS [facility] Nov 13, 2017 10:32 AM CURRENT TOBACCO USER [facility] [place] [facility] Nov 13, 2017 10:32 AM CURRENT TOBACCO US ER (NOT READY TO QUIT) [facility] [place] [facility] Nov 13, 2017 10:32 AM SMOKELESS TOBACCO AMOUNT/LENGTH V15 35yr history 1 can q 3 days [facility] [place] [facility] Nov 13, 2017 10:32 AM TOBACCO CESSATION REFERRAL DECL[place]ED [facility] [place] [facility] Nov 13, 2017 10:32 AM TOBACCO MEDS OFFER ED BUT DECLINED [facility] Nov 13, 2017 10:32 AM TOBACCO USER OFFERED MEDS [facility] Nov 06, 2016 07:45 AM CURRENT TOBACCO USER [facility] Nov 06, 2016 07:[address] OP SMOKING CLINIC [facility] Sep 29, 2014 08:59 AM CURRENT TOBACCO USER [facility] Sep 29, 2014 08:[address] OP SMOKING CLINIC [facility] Oct 06, 2013 09:24 AM CURRENT TOBACCO USER [facility] Oct 06, 2013 09:[address] OP SMOKING CLINIC [facility] Sep 23, 2012 10:14 AM CURRENT TOBACCO USER [facility] Sep 23, 2012 10:[address] OP SMOKING CLINIC [facility] Feb 25, 2012 08:32 AM TOBACCO MEDS OFFER ED BUT DECLINED [facility] Feb 25, 2012 08:32 AM TOBACCO OFFERED PT MEDS (PROVIDER) [facility] Feb 25, 2012 08:[address] OP SMOKING CLINIC [facility] May 22, 2011 10:29 AM CURRENT TOBACCO USER [facility] May 22, 2011 10:29 AM TOBACCO MEDS OFFER ED BUT DECLINED [facility] May 22, 2011 10:29 AM TOBACCO OFFERED PT MEDS (PROVIDER) [facility] [place] [facility] May 22, 2011 10:[address] OP SMOKING CLINIC [facility] Sep 30, 2010 08:48 AM TOBACCO MEDS OFFER ED BUT DECLINED [facility] Sep 30, 2010 08:48 AM TOBACCO OFFERED PT MEDS (PROVIDER) [facility] Sep 30, 2010 08:[address] OP SMOKING CLINIC [facility] Sep 05, 2010 08:47 AM TOBACCO MEDS OFFER ED BUT DECLINED [facility] Sep 05, 2010 08:47 AM TOBACCO OFFERED PT MEDS (PROVIDER) [facility] Sep 05, 2010 08:[address] OP SMOKING CLINIC [facility] Jun 12, 2010 02:58 PM TOBACCO MEDS OFFER ED BUT DECLINED [facility] Jun 12, 2010 02:58 PM TOBACCO OFFERED PT MEDS (PROVIDER) [facility] Jun 12, 2010 02:[address] OP SMOKING CLINIC [facility] Feb 28, 2010 02:47 PM CURRENT TOBACCO USER [facility] Feb 28, 2010 02:47 PM TOBACCO MEDS OFFER ED BUT DECLINED [facility] Feb 28, 2010 02:47 PM TOBACCO OFFERED PT MEDS (PROVIDER) [facility] Feb 28, 2010 02:[address] OP SMOKING CLINIC [facility] Oct 31, 2008 10:23 AM CURRENT TOBACCO USER [facility] Oct 31, 2008 10:[address] OP SMOKING CLINIC [facility] Dec 02, 2007 10:17 AM CURRENT TOBACCO USER [facility] Dec 02, 2007 10:17 AM TOBACCO OFFERED PT MEDS (PROVIDER) [facility] Dec 02, 2007 10:[address] OP SMOKING CLINIC [facility] Jul 01, 2007 09:39 AM CURRENT TOBACCO USER [facility] Jul 01, 2007 09:39 AM TOBACCO MEDS OFFER ED BUT DECLINED [facility] Dec 02, 2006 02:09 PM CURRENT TOBACCO USER [facility] Oct 27, 2002 09:57 AM TOB-SMOKES OR USES TOBACCO PRODUCTS < 1/2 pk day [facility] Radiology Reports: +/- 30 days of the [...] the Encounter. The data comes from all ID treatment facilities. 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 No fracture or dislocation. No bony destruction. No significant degenerative changes. Findings similar to previous studies dating back to 08/12/2016. Impression: 1. No acute bony change 2. With the given history suggest MRI of the wrist Primary Interpreting Staff: ARIE GARCIA, RADIOLOGIST (State Editor, no e-sig) /ARIE Bruno [facility] Encounter Notes: All associated encounter notes This section contains the clinical notes associated to the Encounter. Date/Time Encounter Note(s) Provider Source Sep 14, 2024 11:57 AM PRIMARY CARE PROGR ESS NOTE: LOCAL TITLE: PRIMARY CARE CLINIC PROGRESS NOTE PB STANDARD TITLE: PRIMARY CARE PROGRESS NOTE DATE OF NOTE: SEP 14, 2024@11:57 ENTRY DATE: SEP 14, 2024@11:57:25 AUTHOR: AUGUSTA QUINTERO EXP COSIGNER: URGENCY: STATUS: [...] S/C Chief Complaint (Reason for today's visit): right wrist pain History of Present Illness (Subjective): presented today for right wrist pain for 2 months he states that he fell 2 months ago and it has not gotten any better he rates his pain a 5 out of 10 we will x-ray today and splinted it he does not have any numbness or tingling. Will schedule for MRI to ensure were not missing anything since the pain is going on 2 months will notify of appointment. Allergies: INSECT STINGS, PRAVASTATIN, ROSUVASTATIN REVIEW OF SYSTEMS: HEENT: No visual or auditory symptoms. RESPIRATORY: No shortness of breath, cough or sputum. CARDIOVASCULAR: No chest pain or palpitation. GI: No abdominal pain, nausea, vomiting or bowel changes. MUSCULOSKELETAL: Other:right wrist pain SKIN: No new rashes, no unhealing lesions, no moles. : No urinary symptoms. PSYCH: Denies being depressed or anxious. VITALS: Temperature: 98.4 F [36.9 C] (09/14/2024 11:47) Respiratory Rate: 18 (09/14/2024 11:47) Pulse Rate: 85 (09/14/2024 11:47) Blood Pressure: 124/90 (09/14/2024 11:47) HT: 70.0 in [177.8 cm] (09/14/2024 11:47) WT: 184.0 lb [83.46 kg] (09/14/2024 11:47) BMI: 26.5 98% (09/14/2024 11:47) PHYSICAL EXAM: General: NAD noted, A&Ox3, pleasant, appears stated age Abdomen: Soft, non-distended, non-tender Ext: No clubbing, cyanosis, edema or obvious deformity Neuro: Grossly intact Psych: Affect normal, answers questions appropriately throughout visit DIAGNOSTIC STUDIES: Labs Performed/Reviewed at Today's Visit: None Radiology/Imaging Performed/Reviewed at Today's Visit: right wrist x-ray Reason for studies: right wrist pain On the following Active Medications: Active Outpatient Medications (including Supplies): Active Outpatient Medications Status 1) BUSPIRONE HCL 10MG TAB TAKE ONE TABLET BY MOUTH THREE ACTIVE TIMES A DAY FOR ANXIETY DO NOT TAKE WITH GRAPEFRUIT JUICE. 2) CYCLOBENZAPRINE HCL 10MG TAB TAKE ONE TABLET BY MOUTH ACTIVE THREE TIMES A DAY NEEDED FOR MUSCLE SPASM MAY CAUSE DROWSINESS. DO NOT DRINK ALCOHOL WHILE TAKING THIS MEDICATION. 3) DICLOFENAC NA 1% TOP GEL APPLY 4 GM TO AFFECTED ACTIVE AREA(S) FOUR TIMES A DAY NEEDED FOR PAIN DO NOT EXCEED MORE THAN 16 GRAMS DAILY TO ANY LOWER EXTREMITY JOINT. NOT MORE THAN 8 GRAMS DAILY TO ANY UPPER EXTREMITY JOINT. MAX 32GM/DAY OVER ALL JOINTS. (MEASURE DOSE WITH RULER ATTACHED INSIDE BOX) 4) NAPROXEN 500MG TAB TAKE ONE TABLET BY MOUTH TWICE ACTIVE DAILY NEEDED FOR PAIN TAKE WITH FOOD. 5) VENLAFAXINE HCL 75MG 24HR SA CAP TAKE THREE CAPSULES ACTIVE BY MOUTH ONCE A DAY FOR DEPRESSION WITH FOOD. DO NOT ABRUPTLY DISCONTINUE MEDICATION. 1) Chronic low back pain (SNOMED CT 399559628) 2) Hyperlipidemia (SNOMED CT 97588863) 3) Carpal tunnel syndrome (SNOMED CT 80109970) 4) Wrist pain (SNOMED CT 21172808) 5) BPPV - Benign paroxysmal positional vertigo 6) Hyperlipidemia 7) Mild chronic obstructive pulmonary disease 8) Recurrent major depression 9) Osteoarthritis 10) Cervical disc disorder with radiculopathy 11) Sleep Apnea (SCT 64183934) 12) Hiatal hernia 13) PTSD - Post-traumatic stress disorder 14) Exposure to potentially hazardous substance (SCT 084980047727036) 15) Bilateral tinnitus 16) Sensorineural hearing loss of bilateral ears ===== MEDICATION RECONCILIATION: ACTIVE/ OUTPATIENT MEDICATIONS: MRT1 - Med Reconciliation INCLUDED IN THIS LIST: Alphabetical list of active outpatient prescriptions dispensed from this ID (local) and dispensed from another ID or [facility] facility (remote) as well as inpatient orders (local pending and active), local clinic medications, locally documented non-VA medications, and local prescriptions that have or been discontinued in the past 90 days. Non-VA Meds Last Documented On: Sep 23, 2012 NOTE The display of VA prescriptions dispensed from another ID or DoD facility (remote) is limited to active outpatient prescription entries matched to National Drug File at the originating site and may not include some items such as investigational drugs, compounds, etc. NOT INCLUDED IN THIS LIST: Medications self-entered by the patient into personal health records (i.e. [employer]) are NOT included in this list. Non-VA medications documented outside this ID, remote inpatient orders (regardless of status) and remote clinic medications are NOT included in this list. The patient and provider must always discuss medications the patient is taking, regardless of where the medication was dispensed or obtained. OUTPT BUSPIRONE HCL 10MG TAB (Status = Active) TAKE ONE TABLET BY MOUTH THREE TIMES A DAY FOR ANXIETY DO NOT TAKE WITH GRAPEFRUIT JUICE. Rx# [id number] Last Released: 09/12/24 Qty/Days Supply: 270/90 Rx Expiration Date: 09/10/25 Refills Remainin Indication: FOR ANXIETY OUTPT CYCLOBENZAPRINE HCL 10MG TAB (Status = Active) TAKE ONE TABLET BY MOUTH THREE TIMES A DAY NEEDED FOR MUSCLE SPASM MAY CAUSE DROWSINESS. DO NOT DRINK ALCOHOL WHILE TAKING THIS MEDICATION. Rx# [id number] Last Released: 05/03/24 Qty/Days Supply: 180/60 Rx [...] DOSE WITH RULER ATTACHED INSIDE BOX) Rx# [id number] Last Released: 05/02/24 Qty/Days Supply: 200/90 Rx Expiration Date: 04/30/25 Refills Remainin Indication: FOR PAIN OUTPT DOXYCYCLINE HYCLATE 100MG TAB (Status = ) TAKE ONE TABLET BY MOUTH TWICE A DAY FOR LYME DISEASE TAKE UNTIL FINISHED. AVOID SUN EXPOSURE WHILE TAKING. Rx# [id number] Last Released: 06/09/24 Qty/Days Supply: 42 Rx Expiration Date: 07/09/24 Refills Remainin Indication: FOR LYME DISEASE OUTPT NAPROXEN 500MG TAB (Status = Active) TAKE ONE TABLET BY MOUTH TWICE DAILY NEEDED FOR PAIN TAKE WITH FOOD. Rx# [id number] Last Released: 03/28/24 Qty/Days Supply: 60/30 Rx Expiration Date: 03/24/25 Refills Remainin Indication: FOR PAIN OUTPT VENLAFAXINE HCL 75MG 24HR SA CAP (Status = Active) TAKE THREE CAPSULES BY MOUTH ONCE A DAY FOR DEPRESSION WITH FOOD. DO NOT ABRUPTLY DISCONTINUE MEDICATION. Rx# [id number] Last Released: 07/11/24 Qty/Days Supply: 270/90 Rx Expiration Date: 06/11/25 Refills Remainin Indication: FOR DEPRESSION SUPPLIES PHARMACY TERMS AND POSSIBLE PATIENT ACTIONS INPT = ID inpatient order IV = ID intravenous medication OUTPT = ID outpatient prescription PHARMACY POSSIBLE PATIENT TERMS EXPLANATION ACTIONS -------- ---- ACTIVE A prescription that can be If you have refills, filled at the local ID pharmacy. you may request a refill of this prescription from your VA pharmacy. CLINIC A medication you received during If you have questions a visit to a VA clinic or about this medication emergency department. contact your VA healthcare team. DISCONTINUED A prescription your provider has Contact your VA stopped. It is no longer healthcare team if you available to be sent to you or need more of this picked up at the ID pharmacy medication. window. A prescription which is [...] the VA. Or, it may be an iyke-qlo-tkhgysj (OTC), herbal, dietary supplements or sample medication. [...] patient. Patient verbalized understanding? Yes ===== ASSESSMENT/IMPRESSION: Right wrist pain -current PLAN OF CARE: Right wrist pain plan x-ray today and splint ordered Report: Right wrist 3 views. No fracture or dislocation. No bony destruction. No significant degenerative changes. Findings similar to previous studies dating back to 08/12/2016. Impression: 1. No acute bony change 2. With the given history suggest MRI of the wrist Will schedule for MRI wants in [place] Follow-up: _ as needed and keep regularly scheduled appointment. [...] the After Visit Summary was reviewed with Richardson; opportunity provided to report concerns and ask [...] Medications Reconciled. Time spent 30 minutes. [place] [facility] APR Float /es/ CRIS Holloway, MSN, Odilon Campbell [facility] Signed: 09/15/2024 10:40 AUGUSTA QUINTERO [facility] Sep 14, 2024 11:34 AM PRIMARY CARE NURSI NG NOTE: LOCAL TITLE: PRIMARY CARE NURSING PROGRESS NOTE (TEXT) NURSING P STANDARD TITLE: PRIMARY CARE NURSING NOTE DATE OF NOTE: SEP 14, 2024@11:34 ENTRY DATE: SEP 14, 2024@11:34:51 AUTHOR: LISANDRO FRANCISCO COSIGNER: URGENCY: STATUS: COMPLETED PRIMARY CARE NURSING PROGRESS NOTE (TEXT) NURSING PB Has ADDENDA Established Patient JUAN PABLO OBANDO IS A 54 YEAR OLD MALE BEING SEEN IN CLINIC SEP 14, 2024. = = REASON FOR VISIT: Right wrist pain post fall 2 months ago Are you receiving care any where other than the [facility]? No Chiropractor , Rheumatology [place], Dermatology HEALTH AND SURGICAL HISTORY: No new surgeries Does patient report using home oxygen? No CURRENT ACTIVE MEDICATIONS FOR REVIEW: Allergies/ADRs (Tool #5) FACILITY ALLERGY/ADR -------- No Remote Allergy/ADR Data available for this patient [facility] INSECT STINGS [facility] PRAVASTATIN [facility] ROSUVASTATIN Med. Reconciliation (Tool #1) INCLUDED IN THIS LIST: Alphabetical list of active outpatient prescriptions dispensed from this ID (local) and dispensed from another ID or DoD facility (remote) as well as inpatient orders (local pending and active), local clinic medications, locally documented non-VA medications, and local prescriptions that have or been discontinued in the past 90 days. Non-VA Meds Last Documented On: Sep 23, 2012 NOTE The display of VA prescriptions dispensed from another VA or DoD facility (remote) is limited to active outpatient prescription entries matched to National Drug File at the originating site and may not include some items such as investigational drugs, compounds, etc. NOT INCLUDED IN THIS LIST: Medications self-entered by the patient into personal health records (i.e. [employer]) are NOT included in this list. Non-VA medications documented outside this ID, remote inpatient orders (regardless of status) and remote clinic medications are NOT included in this list. The patient and provider must always discuss medications the patient is taking, regardless of where the medication was dispensed or obtained. OUTPT BUSPIRONE HCL 10MG TAB (Status = Active) TAKE ONE TABLET BY MOUTH THREE TIMES A DAY FOR ANXIETY DO NOT TAKE WITH GRAPEFRUIT JUICE. Rx# [id number] Last Released: 09/12/24 Qty/Days Supply: 270/90 Rx Expiration Date: 09/10/25 Refills Remainin Indication: FOR ANXIETY OUTPT CYCLOBENZAPRINE HCL 10MG TAB (Status = Active) TAKE ONE TABLET BY MOUTH THREE TIMES A DAY NEEDED FOR MUSCLE SPASM MAY CAUSE DROWSINESS. DO NOT DRINK ALCOHOL WHILE TAKING THIS MEDICATION. Rx# [id number] Last Released: 05/03/24 Qty/Days Supply: 180/60 Rx [...] DOSE WITH RULER ATTACHED INSIDE BOX) Rx# [id number] Last Released: 05/02/24 Qty/Days Supply: 200/90 Rx Expiration Date: 04/30/25 Refills Remainin Indication: FOR PAIN OUTPT DOXYCYCLINE HYCLATE 100MG TAB (Status = ) TAKE ONE TABLET BY MOUTH TWICE A DAY FOR LYME DISEASE TAKE UNTIL FINISHED. AVOID SUN EXPOSURE WHILE TAKING. Rx# [id number] Last Released: 06/09/24 Qty/Days Supply: 42/21 Rx Expiration Date: 07/09/24 Refills Remainin Indication: FOR LYME DISEASE OUTPT NAPROXEN 500MG TAB (Status = Active) TAKE ONE TABLET BY MOUTH TWICE DAILY NEEDED FOR PAIN TAKE WITH FOOD. Rx# [id number] Last Released: 03/28/24 Qty/Days Supply: 60/30 Rx Expiration Date: 03/24/25 Refills Remainin Indication: FOR PAIN OUTPT VENLAFAXINE HCL 75MG 24HR SA CAP (Status = Active) TAKE THREE CAPSULES BY MOUTH ONCE A DAY FOR DEPRESSION WITH FOOD. DO NOT ABRUPTLY DISCONTINUE MEDICATION. Rx# [id number] Last Released: 07/11/24 Qty/Days Supply: 270/90 Rx Expiration Date: 06/11/25 Refills Remainin Indication: FOR DEPRESSION SUPPLIES PHARMACY TERMS AND POSSIBLE PATIENT ACTIONS INPT = ID inpatient order IV = ID intravenous medication OUTPT = ID outpatient prescription PHARMACY POSSIBLE PATIENT TERMS EXPLANATION ACTIONS -------- ---- ACTIVE A prescription that can be If you have refills, filled at the local [facility] pharmacy. you may request a refill of this prescription from your [facility] pharmacy. CLINIC A medication you received during If you have questions a visit to a [facility] clinic or about this medication emergency department. contact your [facility] healthcare team. DISCONTINUED A prescription your provider has Contact your [facility] stopped. It is no longer healthcare team if you available to be sent to you or need more of this picked up at the ID pharmacy medication. window. A prescription which is [...] the [facility]. Or, it may be an lhig-hat-jimvabd (OTC), herbal, dietary supplements or sample medication. [...] before this medication now. you run out. Patient reports taking medications as ordered. IS PATIENT TAKING ANY OVER THE COUNTER MEDICATIONS, SUCH VITAMINS OR HERBAL SUPPLEMENTS, INCLUDING ANY MEDICATIONS PRESCRIBED BY ANOTHER PHYSICIAN? No ALLERGIES/ADVERSE REACTIONS: INSECT STINGS, PRAVASTATIN, ROSUVASTATIN Does patient have any new allergies to report since last visit? NO VITALS: TEMPERATURE: 98.6 F [37.0 C] (06/23/2024 [...] Now let us serve you. At the [facility], we strive to provide you with exceptional [...] Not At All SPIRITUAL ASSESSMENT: Are there caodaism practices or spiritual concerns you want the dry janitor, your physician, and other health care team members to immediately know about? No Patient advised to call the clinic for any concerns, questions, or symptoms. Patient and/or caregiver verbalized understanding of plan of care. Pain Assessment: - PAIN ASSESSMENT: .. This patient's last pain assessment score was: 6 (06/23/2024 15:45). A detailed pain assessment showed the following: Pain characteristics (per patient's own words) Constant, Sharp, Aching Location of current pain Other Right wrist Onset/Duration of the current pain. Constant or variable? Less than 1 year Patient's self identified pain goal: 0 Patient/Nurse Interview: * * Patient stated that adequate information was received regarding the condition and/or treatment. /misael/ BINTA Bec[facility] Signed: 09/14/2024 11:44 09/14/2024 ADDENDUM STATUS: COMPLETED Per [facility] Directive 1605.06, wristband documentation: Patient wristband was removed and destroyed by (staff name) Lisandro Francisco and placed in the designated [email or web address] bin. /imsael/ [facility] Signed: 09/14/2024 12:12 09/14/2024 ADDENDUM STATUS: COMPLETED Influenza Immunization - L,N,P,PH,U: Influenza, Trivalent, Preservative Free (Fluarix-Syringe) Administered: INFLUENZA, SPLIT VIRUS, TRIVALENT, PF Date Administered: Sep 14, 2024 11:30 Senior Formulation Scientist: Peela Lot: [id number] Exp Date: May 15, 2025 [facility]: [id number] Admin Route/Site: INTRAMUSCULAR/LEFT DELTOID Dosage: 0.5mL Vaccine Information Statement(s): INFLUENZA(FLU) VACC(INACTIVATED OR RECOMBINANT)VIS Jun 21, 2021 ([place]) Order By: Policy Administered By: Lisandro Francisco The Influenza Vaccine Information Statement (VIS) was reviewed with the patient/caregiver which lists the benefits and risks of the vaccine and the risks of not receiving the Influenza vaccine. The patient/caregiver denied any prior severe reaction to this vaccine or its components or a severe allergic reaction, such as anaphylaxis, to any vaccine or any injectable therapy. The patient/caregiver gave verbal consent to receive the vaccine. /misael/ [facility] Signed: 09/14/2024 12:15 LISANDRO FRANCISCO [facility]
--- OUTSIDE RECORDS SUMMARY | 2024-10-06 05:30 | XMS_ITS | Encounter Summary ---
Author Name [facility] [place] [place] [facility] [place] [facility] [place] Address [address] [place] [address] Care Team Providers Care Ui Developer With Angular Js Name Role Phone RENEE JUAN ANTONIO Primary [...] Stone's Name Patient's Relationship to Policy Stone [facility] (WNR) MEDICARE ADVANTAGE [facility] (WNR) Nov 16, 2022 [id number] Max OBANDO PATIENT Selected Encounter This section includes the information on record at [place] for the Encounter. Date/Time Encounter Type Encounter Description Reason Provider Source Oct 06, 2024 10:30 AM OFFICE O/P EST MOD 30 MIN PRIMARY CARE/MEDICINE ICD-10-CM M94.0 Chondrocostal junction syndrome [Tietze] JONES BELLO Encounter Template Text not used by [facility] Assessments - Encounter Diagnoses This section includes the primary and secondary diagnoses documented for the Encounter. Date/Time Primary/Secondary Diagnosis Diagnosis Name Provider Source Oct 09, 2024 05:35 PM PRIMARY Chondrocostal junction syndrome [Tietze] AUGUSTA BELLO [facility] Plan of Treatment: Future Appointments (+ 6 months) and Future Tests (+/- 45 days) The Plan of Treatment section includes future care activities for the patient from all [place] [facility]. This section includes future appointments and future orders which are active, pending or scheduled. Future Appointments This section includes appointments that were scheduled to occur 6 months from the date of the Encounter, up to a maximum of 20 appointments. The data comes from all [facility]. Appointment Date/Time Appointment Type Appointme nt Facility Name Oct 11, 2024 08:45 AM AMBULATORY - MEDICINE [facility] [facility] Oct 25, 2024 10:30 AM AMBULATORY - MEDICINE [facility] Oct 25, 2024 10:31 AM AMBULATORY - MEDICINE [facility] [facility] Nov 11, 2024 10:15 AM AMBULATORY - MEDICINE [facility] [facility] Dec 30, 2024 10:30 AM AMBULATORY - PSYCHIATRY [facility] Jan 20, 2025 03:15 PM AMBULATORY - MEDICINE [facility] [facility] Feb 02, 2025 09:30 AM AMBULATORY - PSYCHIATRY [facility] Feb 24, 2025 08:45 AM AMBULATORY - MEDICINE [facility] [facility] 2025 11:00 AM AMBULATORY - MEDICINE [facility] [facility] Mar 10, 2025 03:00 PM AMBULATORY - PSYCHIATRY [facility] March 23, 2025 03:30 PM AMBULATORY - MEDICINE [facility] March 24, 2025 03:15 PM AMBULATORY - MEDICINE [facility] [facility] March 30, 2025 11:15 AM AMBULATORY - MEDICINE [facility] [facility] Vital Signs: All taken on the encounter date This section contains inpatient and outpatient Vital Signs collected on the date of the Encounter. Date/Time Temperature Pulse Blood Pressure Respiratory Rate SP02 Pain Height Weight Body Mass Index Source Oct 06, 2024 11:26 AM 142/106 [facility] Oct 06, 2024 11:25 AM 98.1 100 149/114 18 98 6 187.1 27 [facility] Social History: Smoking Status (Most current) and Tobacco Use (All prior to encounter date) This section includes the most current, and the historical, smoking and tobacco- related health factors from the [place] facility where the Encounter took place. Current Smoking Status This section includes the most current smoking, or tobacco-related health factor, from the [place] facility where the Encounter took place. Date/Time Current Smoking Status Comment Facil ity March 23, 2024 09:00 AM VA-TOBACCO USER EVERY DAY [facility] Tobacco Use History This section includes a history of the smoking, or tobacco-related health factors, that were collected on or before the date of the Encounter. The data comes from the [place] facility where the Encounter took place. 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 USE DRILL GRINDER NO [facility] March 23, 2024 09:00 AM VA-TOBACCO USE MED NO [facility] March 23, 2024 09:00 AM VA-TOBACCO USE WI 30 MIN OF WAKEUP [facility] March 23, 2024 09:00 AM VA-TOBACCO USER EVERY DAY [facility] April 15, 2023 02:30 PM VA-TOBACCO USE 30 YEARS OR MORE [facility] April 15, 2023 02:30 PM VA-TOBACCO USE ADVICE [facility] April 15, 2023 02:30 PM VA-TOBACCO USE DRILL GRINDER NO [facility] April 15, 2023 02:30 PM VA-TOBACCO USE MED NO [facility] April 15, 2023 02:30 PM VA-TOBACCO USE WI 30 MIN OF WAKEUP [facility] April 15, 2023 02:30 PM VA-TOBACCO USER EVERY DAY [facility] Jan 23, 2022 05:20 PM VA-TOBACCO USE 30 YEARS OR MORE [facility] Jan 23, 2022 05:20 PM VA-TOBACCO USE ADVICE [facility] Jan 23, 2022 05:20 PM VA-TOBACCO USE DRILL GRINDER NO [facility] Jan 23, 2022 05:20 PM VA-TOBACCO USE MED NO [facility] Jan 23, 2022 05:20 PM VA-TOBACCO USE WI 30 MIN OF WAKEUP [facility] Jan 23, 2022 05:20 PM VA-TOBACCO USER EVERY DAY [facility] Aug 09, 2020 02:00 PM VA-TOBACCO DOESNT USE WI 30 MIN WAKEUP [facility] Aug 09, 2020 02:00 PM VA-TOBACCO USE 5 T O 15 YEARS [facility] Aug 09, 2020 02:00 PM VA-TOBACCO USE ADVICE [facility] Aug 09, 2020 02:00 PM VA-TOBACCO USE DRILL GRINDER NO [facility] [...] history 1 can q 3 days [facility] Nov 13, 2017 10:32 AM TOBACCO CESSATION REFERRAL DECLINED [facility] Nov 13, 2017 10:32 AM TOBACCO MEDS OFFER ED BUT DECLINED [facility] Nov 13, 2017 10:32 AM TOBACCO USER OFFERED MEDS [place] [facility] Nov 06, 2016 07:45 AM CURRENT TOBACCO USER [place] [facility] Nov 06, 2016 07:[address] [facility] [place] [facility] Sep 29, 2014 08:59 AM CURRENT TOBACCO USER [place] [facility] Sep 29, 2014 08:[address] [facility] [place] [facility] Oct 06, 2013 09:24 AM CURRENT TOBACCO USER [place] [facility] Oct 06, 2013 09:[address] [facility] [place] [facility] Sep 23, 2012 10:14 AM CURRENT TOBACCO USER [place] [facility] Sep 23, 2012 10:[address] [facility] [place] [facility] Feb 25, 2012 08:32 AM TOBACCO MEDS OFFER ED BUT DECLINED [facility] Feb 25, 2012 08:32 AM TOBACCO OFFERED PT MEDS (PROVIDER) [facility] Feb 25, 2012 08:[address] [facility] [place] [facility] May 22, 2011 10:29 AM CURRENT TOBACCO USER [facility] May 22, 2011 10:29 AM TOBACCO MEDS OFFER ED BUT DECLINED [facility] May 22, 2011 10:29 AM TOBACCO OFFERED PT MEDS (PROVIDER) [facility] May 22, 2011 10:[address] [facility] [place] [facility] Sep 30, 2010 08:48 AM TOBACCO MEDS OFFER ED BUT DECLINED [facility] Sep 30, 2010 08:48 AM TOBACCO OFFERED PT MEDS (PROVIDER) [facility] Sep 30, 2010 08:[address] [facility] [place] [facility] Sep 05, 2010 08:47 AM TOBACCO MEDS OFFER ED BUT DECLINED [facility] Sep 05, 2010 08:47 AM TOBACCO OFFERED PT MEDS (PROVIDER) [facility] Sep 05, 2010 08:[address] OP SMOKING CLINIC [facility] Jun 12, 2010 02:58 PM TOBACCO MEDS OFFER ED BUT DECLINED [facility] [place] [facility] Jun 12, 2010 02:58 PM TOBACCO OFFERED PT MEDS (PROVIDER) [facility] Jun 12, 2010 02:[address] OP SMOKING CLINIC [facility] Feb 28, 2010 02:47 PM CURRENT TOBACCO USER [facility] Feb 28, 2010 02:47 PM TOBACCO MEDS OFFER ED BUT DECLINED [facility] Feb 28, 2010 02:47 PM TOBACCO OFFERED PT MEDS (PROVIDER) [facility] Feb 28, 2010 02:[address] OP SMOKING CLINIC [facility] Oct 31, 2008 10:23 AM CURRENT TOBACCO USER [facility] Oct 31, 2008 10:[address] OP SMOKING CLINIC [facility] Dec 02, 2007 10:17 AM CURRENT TOBACCO USER [facility] Dec 02, 2007 10:17 AM TOBACCO OFFERED PT MEDS (PROVIDER) [facility] Dec 02, 2007 10:[address] OP SMOKING CLINIC [facility] Jul 01, 2007 09:39 AM CURRENT TOBACCO USER [facility] Jul 01, 2007 09:39 AM TOBACCO MEDS OFFER ED BUT DECLINED [facility] Dec 02, 2006 02:09 PM CURRENT TOBACCO USER [facility] Oct 27, 2002 09:57 AM TOB-SMOKES OR USES TOBACCO PRODUCTS < 1/2 pk day [facility] Radiology Reports: +/- 30 days of the [...] the Encounter. The data comes from all [place] treatment facilities. 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 No fracture or dislocation. No bony destruction. No significant degenerative changes. Findings similar to previous studies dating back to 08/12/2016. Impression: 1. No acute bony change 2. With the given history suggest MRI of the wrist Primary Interpreting Staff: ARIE GARCIA, RADIOLOGIST (Machining Engineer, no e-sig) /ARIE Bruno [facility] Encounter Notes: All associated encounter notes This section contains the clinical notes associated to the Encounter. Date/Time Encounter Note(s) Provider Source Dec 15, 2024 12:33 PM GENERAL MEDICINE N OTE: LOCAL TITLE: General Note PB STANDARD TITLE: GENERAL MEDICINE NOTE DATE OF NOTE: DEC 15, 2024@12:33 ENTRY DATE: DEC 15, 2024@12:33:08 AUTHOR: AUGUSTA BELLO EXP COSIGNER: URGENCY: STATUS: COMPLETED called notified of MRI wrist states feeling much better states he does not need any further action. And results of MRI given that it was probably just a sprain if he continues with any pain to just let me know. [place] inquired about a jury duty noted to be excused from jury duty for his PTSD and chronic back pain will work on that and give him a call me have it done /misael/ CRIS Holloway, MSN, Odilon Campbell [facility] Signed: 12/15/2024 12:47 Receipt Acknowledged By: 12/15/2024 14:39 /misael/ NAY RIVERA [facility] AUGUSTA BELLO [facility] Oct 06, 2024 11:42 AM PRIMARY CARE PROGR ESS NOTE: LOCAL TITLE: PRIMARY CARE CLINIC PROGRESS NOTE PB STANDARD TITLE: PRIMARY CARE PROGRESS NOTE DATE OF NOTE: OCT 06, 2024@11:42 ENTRY DATE: OCT 06, 2024@11:42:55 AUTHOR: AUGUSTA BELLO EXP COSIGNER: URGENCY: STATUS: COMPLETED This is [...] S/C Chief Complaint (Reason for today's visit): chest wall pain History of Present Illness (Subjective): Hatfield presented today for ER follow-up for chest pain he describes pain in between his rib cage that hurts when he moves around or coughs Allergies: INSECT STINGS, PRAVASTATIN, ROSUVASTATIN REVIEW OF SYSTEMS: HEENT: No visual or auditory symptoms. RESPIRATORY: No shortness of breath, cough or sputum. CARDIOVASCULAR: No chest pain or palpitation., Chest pain, Elevated blood pressure GI: No abdominal pain, nausea, vomiting or bowel changes. MUSCULOSKELETAL: Muscle aches SKIN: No new rashes, no unhealing lesions, no moles. : No urinary symptoms. PSYCH: Denies being depressed or anxious. VITALS: Temperature: 98.1 F [36.7 C] (10/06/2024 11:25) Respiratory Rate: 18 (10/06/2024 11:25) Pulse Rate: 100 (10/06/2024 11:25) Blood Pressure: 142/106 (10/06/2024 11:26) HT: 70.0 in [177.8 cm] (09/14/2024 11:47) WT: 187.1 lb [84.87 kg] (10/06/2024 11:25) BMI: 26.9 98% (10/06/2024 11:25) PHYSICAL EXAM: General: NAD noted, A&Ox3, pleasant, [...] 1) Chronic low back pain (SNOMED CT 764878073) 2) Hyperlipidemia (SNOMED CT 50964462) 3) Carpal tunnel syndrome (SNOMED CT 59410667) 4) Wrist pain (SNOMED CT 88447664) 5) BPPV - Benign paroxysmal positional vertigo 6) Hyperlipidemia 7) Mild chronic obstructive pulmonary disease 8) Recurrent major depression 9) Osteoarthritis 10) Cervical disc disorder with radiculopathy 11) Sleep Apnea (SCT 62309085) 12) Hiatal hernia 13) PTSD - Post-traumatic stress disorder 14) Exposure to potentially hazardous substance (SCT 346654198197656) 15) Bilateral tinnitus 16) Sensorineural hearing loss of bilateral ears ===== MEDICATION RECONCILIATION: ACTIVE/ OUTPATIENT MEDICATIONS: MRT1 - Med Reconciliation INCLUDED IN THIS LIST: Alphabetical list of active outpatient prescriptions dispensed from this [place] (local) and dispensed from another [place] or [facility] facility (remote) as well as inpatient orders (local pending and active), local clinic medications, locally documented non-VA medications, and local prescriptions that have or been discontinued in the past 90 days. Non-VA Meds Last Documented On: Sep 23, 2012 NOTE The display of VA prescriptions dispensed from another [place] or [facility] facility (remote) is limited to active outpatient prescription entries matched to National Drug File at the originating site and may not include some items such as investigational drugs, compounds, etc. NOT INCLUDED IN THIS LIST: Medications self-entered by the patient into personal health records (i.e. [employer]) are NOT included in this list. Non-VA medications documented outside this [place], remote inpatient orders (regardless of status) and remote clinic medications are NOT included in this list. The patient and provider must always discuss medications the patient is taking, regardless of where the medication was dispensed or obtained. OUTPT BUSPIRONE HCL 10MG TAB (Status = Active) TAKE ONE TABLET BY MOUTH THREE TIMES A DAY FOR ANXIETY DO NOT TAKE WITH GRAPEFRUIT JUICE. Rx# [id number] Last Released: 09/12/24 Qty/Days Supply: 270/90 Rx Expiration Date: 09/10/25 Refills Remainin Indication: FOR ANXIETY OUTPT CYCLOBENZAPRINE HCL 10MG TAB (Status = Active) TAKE ONE TABLET BY MOUTH THREE TIMES A DAY NEEDED FOR MUSCLE SPASM MAY CAUSE DROWSINESS. DO NOT DRINK ALCOHOL WHILE TAKING THIS MEDICATION. Rx# [id number] Last Released: 05/03/24 Qty/Days Supply: 180/60 Rx [...] DOSE WITH RULER ATTACHED INSIDE BOX) Rx# [id number] Last Released: 05/02/24 Qty/Days Supply: 200/90 Rx Expiration Date: 04/30/25 Refills Remainin Indication: FOR PAIN OUTPT DOXYCYCLINE HYCLATE 100MG TAB (Status = ) TAKE ONE TABLET BY MOUTH TWICE A DAY FOR LYME DISEASE TAKE UNTIL FINISHED. AVOID SUN EXPOSURE WHILE TAKING. Rx# [id number] Last Released: 06/09/24 Qty/Days Supply: 42/21 Rx Expiration Date: 07/09/24 Refills Remainin Indication: FOR LYME DISEASE OUTPT NAPROXEN 500MG TAB (Status = Active) TAKE ONE TABLET BY MOUTH TWICE DAILY NEEDED FOR PAIN TAKE WITH FOOD. Rx# [id number] Last Released: 03/28/24 Qty/Days Supply: 60/30 Rx Expiration Date: 03/24/25 Refills Remainin Indication: FOR PAIN OUTPT VENLAFAXINE HCL 75MG 24HR SA CAP (Status = Active) TAKE THREE CAPSULES BY MOUTH ONCE A DAY FOR DEPRESSION WITH FOOD. DO NOT ABRUPTLY DISCONTINUE MEDICATION. Rx# [id number] Last Released: 07/11/24 Qty/Days Supply: 270/90 Rx Expiration Date: 06/11/25 Refills Remainin Indication: FOR DEPRESSION SUPPLIES PHARMACY TERMS AND POSSIBLE PATIENT ACTIONS INPT = [place] inpatient order [place] = [place] intravenous medication OUTPT = [place] outpatient prescription PHARMACY POSSIBLE PATIENT TERMS EXPLANATION ACTIONS -------- ---- ACTIVE A prescription that can be If you have refills, filled at the local [place] pharmacy. you may request a refill of this prescription from your [place] pharmacy. CLINIC A medication you received during If you have questions a visit to a [place] clinic or about this medication emergency department. contact your [place] healthcare team. DISCONTINUED A prescription your provider has Contact your [facility] stopped. It is no longer healthcare team if you available to be sent to you or need more of this picked up at the [place] pharmacy medication. window. A prescription which is [...] the VA. Or, it may be an uzhx-kmt-udluajf (OTC), herbal, dietary supplements or sample medication. [...] this medication now. you run out. DISCONTINUED: ADDED/CHANGES: NON-VA MEDICATIONS NOT LISTED ABOVE (List, including Herbals and OTC): Reviewed with patient/family members. Copy given to patient. Patient verbalized understanding? ===== ASSESSMENT/IMPRESSION: Costochondritis -current PLAN OF CARE: Costochondritis plan to call Medrol dose pack to [facility] pharmacy Follow-up: __ as needed and keep regularly scheduled appointment. [...] the After Visit Summary was reviewed with [place]; opportunity provided to report concerns and ask [...] Medications Reconciled. Time spent 30 minutes. [place]a Bello [facility] APR Float /es/ CRIS Holloway, MSN, Odilon Campbell [facility] Signed: 10/09/2024 17:36 AUGUSTA BELLO [facility] Oct 06, 2024 11:16 AM PRIMARY CARE NURSI YEISON NOTE: LOCAL TITLE: PRIMARY CARE NURSING PROGRESS NOTE (TEXT) NURSING P STANDARD TITLE: PRIMARY CARE NURSING NOTE DATE OF NOTE: OCT 06, 2024@11:16 ENTRY DATE: OCT 06, 2024@11:16:43 AUTHOR: LISANDRO FRANCISCO COSIGNER: URGENCY: STATUS: COMPLETED PRIMARY CARE NURSING PROGRESS NOTE (TEXT) NURSING PB Has ADDENDA Established Patient JUAN PABLO OBANDO IS A 54 YEAR OLD MALE BEING SEEN IN CLINIC OCT 06, 2024. = = REASON FOR VISIT: ER follow up for chest pain. ER ruled out cardiac. Hatfield reports continued intermittent chest pain. Denies any other cardiac symptoms Are you receiving care any where other than the [facility]? No HEALTH AND SURGICAL HISTORY: adriana new surgeries Does patient report using home oxygen? No CURRENT ACTIVE MEDICATIONS FOR REVIEW: Allergies/ADRs (Tool #5) FACILITY ALLERGY/ADR -------- No Remote Allergy/ADR Data available for this patient [facility] INSECT STINGS [facility] PRAVASTATIN [facility] ROSUVASTATIN Med. Reconciliation (Tool #1) INCLUDED IN THIS LIST: Alphabetical list of active outpatient prescriptions dispensed from this [place] (local) and dispensed from another [place] or [facility] facility (remote) as well as inpatient orders (local pending and active), local clinic medications, locally documented non-VA medications, and local prescriptions that have or been discontinued in the past 90 days. Non-VA Meds Last Documented On: Sep 23, 2012 NOTE The display of VA prescriptions dispensed from another [place] or [facility] facility (remote) is limited to active outpatient prescription entries matched to National Drug File at the originating site and may not include some items such as investigational drugs, compounds, etc. NOT INCLUDED IN THIS LIST: Medications self-entered by the patient into personal health records (i.e. [employer]) are NOT included in this list. Non-VA medications documented outside this [place], remote inpatient orders (regardless of status) and remote clinic medications are NOT included in this list. The patient and provider must always discuss medications the patient is taking, regardless of where the medication was dispensed or obtained. OUTPT BUSPIRONE HCL 10MG TAB (Status = Active) TAKE ONE TABLET BY MOUTH THREE TIMES A DAY FOR ANXIETY DO NOT TAKE WITH GRAPEFRUIT JUICE. Rx# [id number] Last Released: 09/12/24 Qty/Days Supply: 270/90 Rx Expiration Date: 09/10/25 Refills Remainin Indication: FOR ANXIETY OUTPT CYCLOBENZAPRINE HCL 10MG TAB (Status = Active) TAKE ONE TABLET BY MOUTH THREE TIMES A DAY NEEDED FOR MUSCLE SPASM MAY CAUSE DROWSINESS. DO NOT DRINK ALCOHOL WHILE TAKING THIS MEDICATION. Rx# [id number] Last Released: 05/03/24 Qty/Days Supply: 180/60 Rx [...] DOSE WITH RULER ATTACHED INSIDE BOX) Rx# [id number] Last Released: 05/02/24 Qty/Days Supply: 200/90 Rx Expiration Date: 04/30/25 Refills Remainin Indication: FOR PAIN OUTPT DOXYCYCLINE HYCLATE 100MG TAB (Status = ) TAKE ONE TABLET BY MOUTH TWICE A DAY FOR LYME DISEASE TAKE UNTIL FINISHED. AVOID SUN EXPOSURE WHILE TAKING. Rx# [id number] Last Released: 06/09/24 Qty/Days Supply: 42/ Rx Expiration Date: 07/09/24 Refills Remainin Indication: FOR LYME DISEASE OUTPT NAPROXEN 500MG TAB (Status = Active) TAKE ONE TABLET BY MOUTH TWICE DAILY NEEDED FOR PAIN TAKE WITH FOOD. Rx# [id number] Last Released: 03/28/24 Qty/Days Supply: 60/30 Rx Expiration Date: 03/24/25 Refills Remainin Indication: FOR PAIN OUTPT VENLAFAXINE HCL 75MG 24HR SA CAP (Status = Active) TAKE THREE CAPSULES BY MOUTH ONCE A DAY FOR DEPRESSION WITH FOOD. DO NOT ABRUPTLY DISCONTINUE MEDICATION. Rx# [id number] Last Released: 07/11/24 Qty/Days Supply: 270/90 Rx Expiration Date: 06/11/25 Refills Remainin Indication: FOR DEPRESSION SUPPLIES PHARMACY TERMS AND POSSIBLE PATIENT ACTIONS [place]PT = [place] = [place] intravenous medication [place] = [place] outpatient prescription PHARMACY POSSIBLE PATIENT TERMS EXPLANATION ACTIONS -------- ---- ACTIVE A prescription that can be If you have refills, filled at the local [facility] pharmacy. you may request a refill of [...] more of this picked up at the [facility] pharmacy medication. window. A prescription which is [...] the [facility]. Or, it may be an omks-fls-nldfbsx (OTC), herbal, dietary supplements or sample medication. [...] An active prescription that is Contact your [place] not scheduled to be filled yet. pharmacy if you need You should receive it before this medication now. you run out. Patient reports taking medications as IS PATIENT TAKING ANY OVER THE COUNTER MEDICATIONS, SUCH VITAMINS OR HERBAL SUPPLEMENTS, INCLUDING ANY MEDICATIONS PRESCRIBED BY ANOTHER PHYSICIAN? No ALLERGIES/ADVERSE REACTIONS: INSECT STINGS, PRAVASTATIN, ROSUVASTATIN Does patient have any new allergies to report since last visit? NO VITALS: TEMPERATURE: 97.6 F [36.4 C] (09/30/2024 11:32) BP: 141/95 (09/30/2024 11:32) RESP: 18 (09/14/2024 11:47) PULSE: 87 (09/30/2024 11:32) HT: 70.0 in [177.8 cm] (09/14/2024 11:47) WT: 184.0 lb [83.46 kg] (09/14/2024 11:47) BMI: 26.5 PAIN ASSESSMENT: (Most Recent Pain Score in Vitals Package: 4 (09/14/2024 11:47) ) The patient indicated that they and [...] Now let us serve you. At the [facility], we strive to provide you with exceptional [...] Not At All SPIRITUAL ASSESSMENT: Are there worship practices or spiritual concerns you want the grocery stock clerk, your physician, and other health care team members to immediately know about? No Patient advised to call the clinic for any concerns, questions, or symptoms. Patient and/or caregiver verbalized understanding of plan of care. COVID-19 Immunization - L,N,P,PH,U: Refused Moderna Monovalent COVID-19 vaccine Immunization: COVID-19 (MODERNA), MRNA, LNP-S, PF, 50 MCG/0.5 ML (AGES 12+ YEARS) Refusal Reason: PATIENT DECISION Patient refuses all immunization(s) in the COVID-19 group Date Documented: 10/06/24 11:20 Pain Assessment: - PAIN ASSESSMENT: .. This patient's last pain assessment score was: 4 (09/14/2024 11:47). A detailed pain assessment showed the following: Pain characteristics (per patient's own words) Constant, Aching Location of current pain Generalize Joint Pain Onset/Duration of the current pain. Constant or variable? More than a year Patient's self identified pain goal: 0 Patient/Nurse Interview: * * Patient stated that adequate information was received regarding the condition and/or treatment. /misael/ [facility] Signed: 10/06/2024 11:20 10/06/2024 ADDENDUM STATUS: COMPLETED Per A Directive 1605.06, wristband documentation: Patient wristband was removed and destroyed by (staff name) Lisandro Francisco and placed in the designated DriveKed-It bin. /misael/ BINTA [facility] Signed: 10/06/2024 12:15 LISANDRO FRANCISCO [facility]
--- OUTSIDE RECORDS SUMMARY | 2024-10-25 05:31 | XMS_ITS | Encounter Summary ---
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 Date/Time Encounter Type Encounter Description Reason Provider Source Oct 25, 2024 10:31 AM HEARING SERVICE AUDIOLOGY ICD-10-CM Z46.1 Encounter for fitting and adjustment of hearing aid EVAN OSUNA RA [facility] Encounter Template Text not used by [place] Assessments - Encounter Diagnoses This section includes the primary and secondary diagnoses documented for the Encounter. Date/Time Primary/Secondary Diagnosis Diagnosis Name Provider Source Oct 25, 2024 10:28 AM PRIMARY Encounter for fitting and adjustment of hearing aid EVAN OSUNA RA [facility] Oct 25, 2024 10:28 AM SECONDARY Sensorineural hearing loss, bilateral GRAVES,ALEXAND RA A [facility] Oct 25, 2024 10:28 AM SECONDARY Tinnitus, bilateral GRAVES,ALEXAND RA A [facility] Plan of Treatment: Future Appointments (+ 6 months) and Future Tests (+/- 45 days) The Plan of Treatment section includes future care activities for the patient from all [place] [facility]. This section includes future appointments and future orders which are active, pending or scheduled. Future Appointments This section includes appointments that were scheduled to occur 6 months from the date of the Encounter, up to a maximum of 20 appointments. The data comes from all [facility]. Appointment Date/Time Appointment Type Appointme nt Facility Name Nov 11, 2024 10:15 AM AMBULATORY - MEDICINE [facility] Dec 30, 2024 10:30 AM [facility] Jan 20, 2025 03:15 PM AMBUL[facility] - MEDICINE [facility] Feb 02, 2025 09:30 AM [facility] Feb 24, 2025 08:45 AM AMBULATORY - MEDICINE [facility] 2025 11:00 AM AMBULATORY - MEDICINE [facility] Mar 10, 2025 03:00 PM AMBULATORY - PSY[facility]ATRY [facility] March 23, 2025 03:30 PM AMBULATORY - MEDICINE [facility] March 24, 2025 03:15 PM AMBULATORY - MEDICINE [facility] March 30, 2025 11:15 AM AMBULATORY - MEDICINE [facility] April 06, 2025 02:15 PM AMBULATORY - MEDICINE [facility] April 12, 2025 03:30 PM AMBULATORY - MEDICINE [facility] Social History: Smoking Status (Most current) and Tobacco Use (All prior to encounter date) This section includes the most current, and the historical, smoking and tobacco- related health factors from the [place] facility where the Encounter took place. Current Smoking Status This section includes the most current smoking, or tobacco-related health factor, from the [place] facility where the Encounter took place. Date/Time Current Smoking Status Anne shaw Nov 20, 2010 10:38 AM TOBACCO [facility] SMOKING CLINIC [facility] Tobacco Use History This section includes a history of the smoking, or tobacco-related health factors, that were collected on or before the date of the Encounter. The data comes from the [place] facility where the Encounter took place. Date/Time Smoking Status/Tobacco Use Comment F acility Nov 20, 2010 10:38 AM TOBACCO OFFERRED S TOP SMOKING CLINIC [facility] Jun 18, 2010 10:48 AM TOBACCO MEDS OFFERED BUT DECLINE D [facility] Jun 18, 2010 10:48 AM TOBACCO OFFERED PT MEDS (PROVIDE R) [facility] Jun 18, 2010 10:[address] OP SMOKING CLINIC [facility] Encounter Notes: All associated encounter notes This section contains the clinical notes associated to the Encounter. Date/Time Encounter Note(s) Provider Source Oct 25, 2024 08:04 AM AUDIOLOGY NOTE: LOCAL TITLE: HEARING CLINIC PB STANDARD TITLE: AUDIOLOGY NOTE DATE OF NOTE: OCT 25, 2024@08:04 ENTRY DATE: OCT 25, 2024@08:04:18 AUTHOR: BHASKAR OSUNA COSIGNER: URGENCY: STATUS: COMPLETED Diagnosis: Sensorineural Hearing Loss, Bilateral and Tinnitus, Bilateral Treatment: Hearing Aid Follow Up Time spent with [place]: 30 minutes seen for a hearing aid check via Audio Telehealth and verbally consented to the Telehealth modality. Multi-factor personally identifiable information of the was obtained verbally (full name and date of ). accompanied by: none Patient site: [facility] ____ HISTORY: was previously seen for the fitting of new hearing aids. Patient returns today for follow up. Patient reports difficulty hearing in background noise. reports acclimating well to the hearing aids and feels they are beneficial. [place] reports receiving the first shipment of supplies in the mail. 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 BACK UP HEARING DEVICE: 2019 PHONAK AUDEO [id number] NÉSTOR L [id number] (LOST) - 2xS/Large Open Smokey Dome OBJECTIVE/ASSESSMENT: Otoscopy was performed by collaboration of telehealth clinical facilities technician and provider via telehealth technology/video otoscope which revealed: Right ear: minimal cerumen Left ear: minimal cerumen International Outcome Inventory for Hearing Aids administered and saved in Mobile[employer]shake. Devices were cleaned and checked including replacement of filters. A listening check performed by TCT revealed proper function. Connected hearing aids to software. Datalogging showed about 11 hours of daily use. Created speech in noise program. Educated on use. Settings: - Programs: Automatic, Speech in Noise - Push button: enabled - Volume control: short press - Program change: medium press - On/Off device: long press Phone Connectivity: - streaming. Counseled patient on realistic expectations with hearing aids. Spoke with patient about option for Pritesh On but he declined interest. The was counseled/educated on services provided today and is in agreement with the plan. PLAN: Return to clinic as needed. /misael/ Rayo Rondon [facility] Signed: 10/25/2024 10:34 BHASKAR OSUNA [facility]
--- OUTSIDE RECORDS SUMMARY | 2024-11-11 05:15 | XMS_ITS | Encounter Summary ---
Author Name [facility] [place] Address [address] [place] [address] Care Team Providers Care Technology Applications Teacher Name Role Phone RENEE JUAN ANTONIO Primary [...] Stone's Name Patient's Relationship to Policy [facility] ([facility]) MEDICARE ADVANTAGE [facility] (WNR) Nov 16, 2022 [id number] Max OBANDO PATIENT Selected Encounter This section includes the information on record at [place] for the Encounter. Date/Time Encounter Type Encounter Description Reason Provider Source Nov 11, 2024 10:15 AM OFFICE O/P EST MOD 30 MIN MENTAL HEALTH CLINIC - IND ICD-10-CM F33.1 Major depressive disorder, recurrent, moderate SUAD ENG Encounter Template Text not used by [place] Assessments - Encounter Diagnoses This section includes the primary and secondary diagnoses documented for the Encounter. Date/Time Primary/Secondary Diagnosis Diagnosis Name Provider Source Nov 11, 2024 10:42 AM PRIMARY Major depressive disorder, recurrent, moderate SUAD ENG [facility] Nov 11, 2024 10:42 AM SECONDARY Post-traumatic stress disorder, chronic ALBERTINASUAD ANTOINE JAYCOB [facility] Plan of Treatment: Future Appointments (+ 6 months) and Future Tests (+/- 45 days) The Plan of Treatment section includes future care activities for the patient from all [place] [facility]. This section includes future appointments and future orders which are active, pending or scheduled. Future Appointments This section includes appointments that were scheduled to occur 6 months from the date of the Encounter, up to a maximum of 20 appointments. The data comes from all [place] treatment facilities. Appointment Date/Time Appointment Type Appointme nt Facility Name Dec 30, 2024 10:30 AM AMBULATORY - [facility]ATRY [facility] Jan 20, 2025 03:15 PM AMBULATORY - MEDICINE [facility] Feb 02, 2025 09:30 AM AMBULATORY - PSYCHIATRY [facility] Feb 24, 2025 08:45 AM AMBULATORY - MEDICINE [facility] [facility] 2025 11:00 AM AMBULATORY - MEDICINE [facility] Mar 10, 2025 03:00 PM AMBULATORY - PSYCHIATRY [facility] March 23, 2025 03:30 PM AMBULATORY - MEDICINE [facility] March 24, 2025 03:15 PM AMBULATORY - MEDICINE [facility] March 30, 2025 11:15 AM AMBULATORY - MEDICINE [facility] April 06, 2025 02:15 PM AMBULATORY - MEDICINE [place] [facility] April 12, 2025 03:30 PM AMBULATORY - MEDICINE [place] May 09, 2025 01:20 PM AMBULATORY - MEDICINE [facility] May 11, 2025 02:30 PM AMBULATORY - NONE [facility] Social History: Smoking Status (Most current) and Tobacco Use (All prior to encounter date) This section includes the most current, and the historical, smoking and tobacco- related health factors from the [place] facility where the Encounter took place. Current Smoking Status This section includes the most current smoking, or tobacco-related health factor, from the [place] facility where the Encounter took place. Date/Time Current Smoking Status Anne shaw Nov 20, 2010 10:38 AM TOBACCO [facility] SMOKING CLINIC [facility] Tobacco Use History This section includes a history of the smoking, or tobacco-related health factors, that were collected on or before the date of the Encounter. The data comes from the [place] facility where the Encounter took place. Date/Time Smoking Status/Tobacco Use Comment F acility Nov 20, 2010 10:38 AM TOBACCO OFFERRED S TOP SMOKING CLINIC [facility] Jun 18, 2010 10:48 AM TOBACCO MEDS OFFERED BUT DECLINE D [facility] Jun 18, 2010 10:48 AM TOBACCO OFFERED PT MEDS (PROVIDE R) [facility] Jun 18, 2010 10:[address] OP SMOKING CLINIC [facility] Encounter Notes: All associated encounter notes This section contains the clinical notes associated to the Encounter. Date/Time Encounter Note(s) Provider Source Nov 11, 2024 10:39 AM PSYCHIATRY NOTE: LOCAL TITLE: PSYCHIATRIC PROGRESS NOTE PB STANDARD TITLE: PSYCHIATRY NOTE DATE OF NOTE: NOV 11, 2024@10:39 ENTRY DATE: NOV 11, 2024@10:39:44 AUTHOR: SUAD ENG EXP COSIGNER: URGENCY: STATUS: COMPLETED consent: [place] provided verbal consent for receiving care through the modality of [place] VV Patient verified date of and full name. [place] accompanied [facility]ne is a 54 y/[facility] MALE Note from previous visit was reviewed: Yes Reviewed progress notes Denies any SI/HI plans or intent Chief Complaint: Med Management History of Present Illness: [place] reports since last seen has been struggling. States he did really enjoy watching his grandson yesterday. He states seasonal depression has been getting him down. He states he is present but not there. His states he is not eating much and not wanting to get off the couch. The [place] would currently rate depression to be 7 /10 with 10 being the worst. His states he will shower when he is reminded but states no house chores are being done. Denies any Suicidal Ideations plans or intent. denies any feelings of hopelessness but states does get this around 2-3x per week. His states his irritability is not any better. He states he does verbally lash out but not physical but she states she gets concerned as he has done this in the past. He states he is not sleeping good. Past Suicide Attempts: Denies Protective Factors: Family [...] Lock safe and unloaded Discussed firearm safety. [place] is aware this narrator recommends firearm be [...] is not actively responding to stimuli Mood: Okay Affect: Congruent Orientation: Oriented to self, place and time Insight: Intact Judgement: Intact Prognosis: Fair Safety- [place] is not a safety risk to self or others at this time. Capable of making practice safe judgment and perform ADLs. Assessment: MDD, recurrent, moderate PTSD, chronic, secondary to combat Plan: 1. Medications: Discussed medication in detail with the [place]. Will increase Effexor 300mg daily for mood. Discussed monitoring BP Will cont Buspar 10mg TID for anxiety and irritability Discussed side effects, risks, benefits and alternatives. Patient voiced understanding and was in agreement with this plan. Advised not to mix prescription medications with illicit substances or alcohol and not to drive if sedated. [place] also warned of risks of treatment noncompliance and/or refusal. Informed consent obtained and med reconciliation completed. 2. Labs: None ordered 3. Consults/Medical: Ind therapy 4. Safety Planning was reviewed with the patient. is aware if patient begins having any suicidal or homicidal ideations this is an emergency and needs to call 9-11 or go to the nearest ED. Discussed Veterans Crisis Line [phone]. 5. Patient should follow-up in 6 weeks Patient is encouraged to call with any questions or concerns. Instructed to follow up with his primary care provider routinely and as needed for wellness and any medical concerns. Return to [facility] for ongoing medication management, psychoeducation and supportive [...] addition to ENM code on performing supportive psychotherapy, boundaries, body signs and coping skills Moderate Complexity: This encounter is moderate medical decision making complexity secondary to one or more chronic illnesses with exacerbation, progression, or side effects of treatment. /misael/ Suad Eng DO, MA John J Pershing [facility] Signed: 11/11/2024 10:42 SUAD ENG [facility] Nov 11, 2024 10:33 AM PRIMARY CARE EDUCA TION NOTE: LOCAL TITLE: OPT PHY INSTR AUTO PB STANDARD TITLE: PRIMARY CARE EDUCATION NOTE DATE OF NOTE: NOV 11, 2024@10:33 ENTRY DATE: NOV 11, 2024@10:33:10 AUTHOR: SUAD ENG EXP COSIGNER: URGENCY: STATUS: COMPLETED This documentation is related to: . F/U Visit Description of Today's Injury/Illness: MDD and PTSD Mental Health Testing: RETURN TO CLINIC: Return appointment is needed. . Special Instructions: . MEDICATION REVIEW/ASSESSMENT & PLAN: Increase Effexor 300mg RTC 6 weeks Active Outpatient Medications (including Supplies): Active Outpatient Medications Status 1) BUSPIRONE HCL 10MG TAB TAKE ONE TABLET BY MOUTH THREE TIMES ACTIVE A DAY DO NOT TAKE WITH GRAPEFRUIT JUICE. Indication: FOR ANXIETY 2) CYCLOBENZAPRINE HCL 10MG TAB TAKE ONE TABLET BY MOUTH THREE ACTIVE TIMES A DAY NEEDED MAY CAUSE DROWSINESS. DO NOT DRINK ALCOHOL WHILE TAKING THIS MEDICATION. Indication: FOR MUSCLE SPASM 3) DICLOFENAC NA 1% TOP GEL APPLY 4 GM TO AFFECTED AREA(S) FOUR ACTIVE TIMES A DAY NEEDED DO NOT EXCEED MORE THAN 16 GRAMS DAILY TO ANY LOWER EXTREMITY JOINT. NOT MORE THAN 8 GRAMS DAILY TO ANY UPPER EXTREMITY JOINT. MAX 32GM/DAY OVER ALL JOINTS. (MEASURE DOSE WITH RULER ATTACHED INSIDE BOX) Indication: FOR PAIN 4) NAPROXEN 500MG TAB TAKE ONE TABLET BY MOUTH TWICE DAILY ACTIVE NEEDED TAKE WITH FOOD. Indication: FOR PAIN Pending Outpatient Medications Status 1) VENLAFAXINE HCL 150MG 24HR SA CAP TAKE TWO CAPSULES BY MOUTH PENDING ONCE A DAY WITH FOOD. DO NOT ABRUPTLY DISCONTINUE MEDICATION. Indication: FOR DEPRESSION 5 Total Medications Medication reconciliation performed with confirmed /significant other and /significant other voiced an understandng of current medications? Yes /significant other were provided an updated medication list. Following results reviewed and discussed with patient: Future Appointments: 11/23/2024 09:10 [facility] 657 2025 11:00 [facility]HE[facility] 657 05/11/2025 14:30 PB-CT APPT(NC) /es/ Suad Eng DO, MA John J Pershing [facility] Signed: 11/11/2024 10:37 SUAD ENG [facility]
--- OUTSIDE RECORDS SUMMARY | 2025-03-17 04:25 | XMS_ITS | Encounter Summary ---
Author Name [facility] [place] [facility] [place] Address [address] [place] [address] Care Team Providers Care County Treasurer Name Role Phone DURANJUAN ANTONIO Primary Care [...] Stone's Name Patient's Relationship to Policy Stone AARP [facility] (WNR) MEDICARE ADVANTAGE [facility] (WNR) Nov 16, 2022 [id number] Max OBANDO PATIENT Selected Encounter This section includes the information on record at [place] for the Encounter. Date/Time Encounter Type Encounter Description Reason Provider Source March 17, 2025 09:25 AM Outpatient Encounter ADMIN PAT ACTIVTIES (MASNONCT) JUNI KAISER Encounter Template Text not used by [place] Plan of Treatment: Future Appointments (+ 6 [...] 20 appointments. The data comes from all [facility]. Appointment Date/Time Appointment Type Appointme nt Facility Name March 23, 2025 03:30 PM AMBULATORY - MEDICINE [facility] March 24, 2025 03:15 PM AMBULATORY - MEDICINE [facility] March 30, 2025 11:15 AM AMBULATORY - MEDICINE [facility] April 06, 2025 02:15 PM AMBULATORY - MEDICINE [facility] April 12, 2025 03:30 PM AMBULATORY - MEDICINE [facility] May 09, 2025 01:20 PM AMBULATORY - MEDICINE [facility] May 11, 2025 02:30 PM AMBULATORY - NONE [facility] Jun 02, 2025 03:00 PM AMBULATORY - PSYCHIATRY [facility] Jun 09, 2025 10:15 AM AMBULATORY - MEDICINE [facility] Jun 12, 2025 02:50 PM AMBULATORY - MEDICINE [facility] Jun 19, 2025 11:30 AM AMBULATORY - MEDICINE [facility] Jul 14, 2025 03:00 PM AMBULATORY - PSYCHIATRY [facility] Aug 08, 2025 02:40 PM AMBULATORY - MEDICINE [facility] Aug 14, 2025 03:00 PM AMBULATORY - PSYCHIATRY [facility] Sep 11, 2025 03:00 PM AMBULATORY - PSYCHIATRY [facility] Sep 15, 2025 03:15 PM AMBULATORY - MEDICINE [facility] Active, Pending, and Scheduled Orders This section includes a listing of several types of active, pending, and scheduled orders, including clinic medications orders, diagnostic test orders, procedure orders and consult orders; where the start date of the order is 45 days before the date of the Encounter or 45 days after the date of theEncounter. The data comes from all [facility]. Test Date/Time Test Type Test Details Facility Name Feb 06, 2025 03:15 PM Consult Order [facility]-DERMATOLOGY 657A4 [facility] [employer] [facility] March 20, 2025 04:05 PM Consult Order [facility]-NEUROLOGY [id number] [facility] [employer] [facility] March 24, 2025 06:33 AM Consult Order [facility]-PAIN [id number] [facility] Lab Results: +/- 30 days of the encounter This section includes the Chemistry and Hematology Lab Results on record with [place] for the patient. Radiology Reports and Pathology Reports are provided separately, in subsequent sections. Lab Results This section contains the Chemistry/Hematology Results that were resulted 30 days before or 30 daysafter the date of the Encounter. Date/Time Source Result Type Result - Unit Interpretation Reference Range Specimen Type Comment April 05, 2025 09:09 AM [facility] HGA1C BLOOD Specimen Type: BLOOD No comment entered. Ordering Provider: SUAD ENG Report Released Date/Time: March 30, 2025 11:40 AM Reporting Lab: [facility] [address] [place] [address] Performing Lab: [facility] [address] [place] [address] HGA1C 5.5 4.0-6.0 April 05, 2025 09:[address] [facility] TSH (MA-PB) SERUM Specimen Ty pe: SERUM No comment entered. Ordering Provider: SUAD ENG Report Released Date/Time: March 30, 2025 11:40 AM Reporting Lab: [facility] [address] [place] [address] Performing Lab: [facility] [address] [place] [address] TSH 1.368 u[IU]/mL 0.47-5 April 05, 2025 09:[address] [facility] CHOLESTEROL PANEL (PB) PLASMA Specimen Type: P LASMA No comment entered. Ordering Provider: SUAD ENG Report Released Date/Time: March 30, 2025 11:40 AM Reporting Lab: [facility] [address] [place] [address] Performing Lab: [facility] [address] [place] [address] CHOLESTEROL 284 mg/dL H 0-200 TRIGLYCERIDE 133 mg/dL 0-150 CALCULATED LDL 196.4 mg/dL HDL(New) 61.0 mg/dL H >40 HDL % OF TOTAL CHOLESTEROL (PB) 21.5 >25 April 05, 2025 09:09 AM [facility] COMPREHENSIVE METABOLIC PANEL PLASMA Specimen Type: PLASMA No comment entered. Ordering Provider: SUAD ENG Report Released Date/Time: March 30, 2025 11:40 AM Reporting Lab: [facility] [address] [place] [address] Performing Lab: [facility] [address] [place] [address] CREATININE 0.72 mg/dL 0.7-1.3 UREA NITROGEN 12 mg/dL 9-25 GLUCOSE 75 mg/dL 72-99 SODIUM 141 meq/L 136-145 POTASSIUM 4.5 meq/L 3.5-5 CHLORIDE 106 meq/L 98-107 CARBON DIOXIDE 26 meq/L 22-31 CALCIUM 9.7 mg/dL 8.4-10.4 PROTEIN 7.2 g/dL 6-8.6 ALBUMIN 4.6 g/dL 3.4-5 TOTAL BILIRUBIN 0.6 mg/dL 0.2-1.2 ALKALINE PHOSPHATASE 76 U/L 40-150 AST/SGOT 22 U/L 5-34 ALT/SGPT 16 U/L 8-40 EGFR (CKD-EPI 2020) 109 April 05, 2025 09:09 AM [facility] CBC BLOO D Specimen Type: BLOOD No comment entered. Ordering Provider: SUAD ENG Report Released Date/Time: March 30, 2025 11:40 AM Reporting Lab: [facility] [address] [place] [address] Performing Lab: [facility] [address] [place] [address] WBC 4.8 10*3/uL 3.6-11.2 RBC 5.32 10*6/uL 4.10-5.70 HGB 16.2 g/dL 13.1-16.8 HCT 46.6 38.2-48.4 MCV 87.6 fL 80.0-100.0 MCH 30.5 pg 27.0-34.0 MCHC 34.8 g/dL 33.0-36.0 PLT 260 10*3/uL 150-400 MPV 9.2 fL 7.5-11.2 RDW 12.7 11.8-15.1 LYMPHOCYTES, AUTO % 43.6 MONOCYTES, AUTO % 11.0 NEUTROPHILS, AUTO % 42.3 EOSINOPHILS, AUTO % 2.1 BASOPHILS, AUTO % 0.8 LYMPHOCYTES, ABSOLUTE 2.11 10*3/uL 0.77- 4.50 MONOCYTES, ABSOLUTE 0.53 10*3/uL 0.19-0. 8 NEUTROPHILS, ABSOLUTE 2.05 10*3/uL L 2.10- 8.00 EOSINOPHILS, ABSOLUTE 0.10 10*3/uL 0.00- 0.60 BASOPHILS, ABSOLUTE 0.04 10*3/uL 0.00-0. 20 IMMATURE GRANS, AUTO % 0.2 IMMATURE GRANS, AUTO ABS 0.01 10*3/uL 0. 00-0.05 March 23, 2025 03:53 PM [facility] VITAMIN D, 25-HYDROXY SERUM Specimen Type: SE RUM No comment entered. Ordering Provider: GREG QUINTERO Report Released Date/Time: March 23, 2025 03:52 PM Reporting Lab: [place] [facility] [address] [place] [address] Performing Lab: [place] [facility] [address] [place] [address] VITAMIN D, 25-HYDROXY 33.8 ng/mL 30-96 March 23, 2025 03:53 PM [facility] MAGNESIUM PLASMA Specimen Typ e: PLASMA No comment entered. Ordering Provider: GREG QUINTERO Report Released Date/Time: March 23, 2025 03:52 PM Reporting Lab: [place] [facility] [address] [place] [address] Performing Lab: [place] [facility] [address] [place] [address] MAGNESIUM 2.21 mg/dL 1.6-2.6 March 23, 2025 03:53 PM [facility] B12 SERUM Specimen Type: SERUM No comment entered. Ordering Provider: GREG QUINTERO Report Released Date/Time: March 23, 2025 03:52 PM Reporting Lab: [place] [facility] [address] [place] [address] Performing Lab: [place] [facility] [address] [place] [address] B12 396 pg/mL 213-816 Social History: Smoking Status (Most current) and [...] Date/Time Current Smoking Status Comment Facil ity Nov 20, 2010 10:38 AM TOBACCO OFFERRED S [facility] SMOKING [facility] Tobacco Use History This section includes a history of the smoking, or tobacco-related health factors, that were collected on or before the date of the Encounter. The data comes from the [place] facility where the Encounter took place. Date/Time Smoking Status/Tobacco Use Comment F acility Nov 20, 2010 10:38 AM TOBACCO OFFERRED S [facility] Jun 18, 2010 10:48 AM TOBACCO MEDS OFFERED BUT DECLINE D [facility] Jun 18, 2010 10:48 AM TOBACCO OFFERED PT MEDS (PROVIDE R) [facility] Jun 18, 2010 10:[address] [facility] SMOKING [facility] Radiology Reports: +/- 30 days of [...] the Encounter. The data comes from all [place] treatment facilities. Date/Time Radiology Report Provider Source March 23, 2025 03:54 PM HAND,RIGHT,3 OR MO RE VIEWS: SINDY OBANDOABDOULAYE TURNER [id number] -[id number] M Exm Date: MARCH 23, 2025@15:54 Req Phys: GREG QUINTERO Loc: PB-DAVID PACT PASCUAL CALCINE FURNACE TENDER (Req'g Lo Img Loc: PB-XRAY [facility] Service: [place] [address] (Case [id number] COMPLETE) HAND,RIGHT,3 OR MORE VIEWS (RAD Detailed) CPT:37799 Proc Modifiers : RIGHT Reason for Study: trigger finger Clinical History: consult Report Status: Verified Date Reported: MARCH 23, 2025 Date Verified: MARCH 23, 2025 Hospice Manager E-Sig: Report: Right hand 3 views. No fracture or dislocation. No bony destruction. There are no significant degenerative changes. Impression: No evidence of acute bony change Primary Interpreting Staff: ARIE GARCIA, RADIOLOGIST (Hospice Manager, no e-sig) /ARIE Bruno [facility] March 23, 2025 03:53 PM SPINE CERVICAL MIN 4 OR 5 VIEWS: JUAN PABLO OBANDO [id number] -[id number] M Exm Date: MARCH 23, 2025@15:53 Req Phys: GREG QUINTERO Pat Loc: PB-DAVID PACT PASCUAL CALCINE FURNACE TENDER (Req'g Lo Img Loc: PB-XRAY [facility] Service: [place] [address] (Case [id number] COMPLETE) SPINE CERVICAL MIN 4 OR 5 VIEWS (RAD Detailed) CPT:30292 Reason for Study: headaches and neck pain Clinical History: wants pain management Report Status: Verified Date Reported: MARCH 23, 2025 Date Verified: MARCH 23, 2025 Hospice Manager E-Sig: Report: Cervical spine 7 views. No evidence of a fracture or dislocation. There is no bony destruction. Postop changes with discectomy and fusion with plate and screws anteriorly C5-6 and C6-7 levels. There are mild degenerative changes. Narrowing right neural foramen C5-6 level. Straightening of the normal lordotic curve. Impression: 1. Postop changes C5-6 and C6-7 levels 2. Mild degenerative arthritis 3. Straightening of the normal lordotic curve suspicious for muscle and/or ligamentous injury Primary Interpreting Staff: ARIE GARCIA RADIOLOGIST (Hospice Manager, no e-sig) /ARIE Bruno [facility] Encounter Notes: All associated encounter notes This section contains the clinical notes associated to the Encounter. Date/Time Encounter Note(s) Provider Source March 17, 2025 09:25 AM TELEHEALTH NOTE: LOCAL TITLE: TELE EMERGENCY CARE RN CARDIAC REHAB NOTE STANDARD TITLE: TELEHEALTH NOTE DATE OF NOTE: MARCH 17, 2025@09:25 ENTRY DATE: MARCH 17, 2025@09:59:41 AUTHOR: JUNI KAISER EXP COSIGNER: URGENCY: STATUS: COMPLETED referred from: Hal[facility] [place]'s name, last 4, and were verified. Encounter/Visit Type: Telephone 's Phone Number, Address, Email Address and Contact Information Patient Address: [address] [place] [id number] Patient Email - [email or web address] Emergency Contact: CON - Patient Contacts Patient Phone Numbers: Cell: No data available Home: Work: Emergency Contact: Name: CRISTIAN OBANDO Relationship: EXTENDED FAMILY MEMBER Secondary Emergency Contact: Name: No data available Relationship: No data available Phone: No data available Secondary Next of Kin Contact Name: No data available Relationship: No data available Phone: No data available --- Age: 55 years old Gender: MALE Chief Complaint: headache [facility] (PERI) supplemental manager Assessment Info Triage being performed by [facility] (PERI) RN Vital Signs: Stability Assessment : Neuro: Oriented to the following: Person, Place, Time, Situation Breathing Assessment: Regular Respirations, no labored breathing. Able to speak complete sentences with ease. Skin Assessment: Chief Complaint: 55yo with chronic neck pain, posterior headache and int dizziness [id number]. dizzy worse up on standing. has not checked bp at home. eating and drinking well. takes tylenol 1g for headaches with no relief. connected [facility] Brunner for further eval. Safety Assessment: Are you living in a safe environment? Yes Are you carrying any weapons or contraband? No Past Medical History/Active Problems: YOU - Active Problems 17 Active Problems PROBLEM LAST MOD PROVIDER Chronic low back pain (SNOMED CT 405720324) 02/14/2016 ALYSIA SMITH Hyperlipidemia (SNOMED CT 91737713) 11/17/2017 NIKITA CERDA Carpal Tunnel Syndrome 08/12/2016 NIKITA CERDA Pain in joint involving forearm 03/05/2021 JOSÉ FRANKLIN BPPV - Benign paroxysmal positional vertigo 09/27/2015 NIKITA CERDA Hyperlipidemia 12/13/2015 NIKITA CERDA Mild chronic obstructive pulmonary disease 12/13/2015 NIKITA CERDA Recurrent major depression 01/22/2022 CHARISSA QUINONEZ Osteoarthritis 12/13/2015 NIKITA CERDA Cervical disc disorder with radiculopathy 09/08/2019 JOSÉ FRANKLIN Sleep apnea 10/01/2020 JOSÉ FRANKLIN Moderate per sleep study. Hiatal hernia 03/06/2021 JOSÉ FRANKLIN By EGD, 01/2021. Posttraumatic stress disorder 04/15/2023 JOSÉ FRANKLIN Exposure to potentially hazardous substance 03/02/2024 CAROLINE KING Entered automatically through [facility] Problem List documentation program Bilateral tinnitus 06/10/2024 TERESITA OSUNA Sensorineural hearing loss of bilateral ears 06/10/2024 TERESITA OSUNA Posttraumatic stress disorder 03/10/2025 NELLA WINKLER Allergies/Adverse Reactions No allergy(ies) or New allergy(ies) reported by at this time. Current Medications: Active Outpatient Medications (including Supplies): BUSPIRONE HCL 10MG TAB TAKE ONE TABLET BY MOUTH THREE ACTIVE TIMES A DAY DO NOT TAKE WITH GRAPEFRUIT JUICE. Indication: FOR ANXIETY CYCLOBENZAPRINE HCL 10MG TAB TAKE ONE TABLET BY MOUTH ACTIVE THREE TIMES A DAY NEEDED MAY CAUSE DROWSINESS. DO NOT DRINK ALCOHOL WHILE TAKING THIS MEDICATION. Indication: FOR MUSCLE SPASM DICLOFENAC NA 1% TOP GEL APPLY 4 GM TO AFFECTED AREA(S) ACTIVE FOUR TIMES A DAY NEEDED DO NOT EXCEED MORE THAN 16 GRAMS DAILY TO ANY LOWER EXTREMITY JOINT. NOT MORE THAN 8 GRAMS DAILY TO ANY UPPER EXTREMITY JOINT. MAX 32GM/DAY OVER ALL JOINTS. (MEASURE DOSE WITH RULER ATTACHED INSIDE BOX) Indication: FOR PAIN MIRTAZAPINE 15MG TAB TAKE ONE-HALF TABLET BY MOUTH AT ACTIVE BEDTIME Indication: FOR DEPRESSION NAPROXEN 500MG TAB TAKE ONE TABLET BY MOUTH TWICE DAILY ACTIVE NEEDED TAKE WITH FOOD. Indication: FOR PAIN VENLAFAXINE HCL 150MG 24HR SA CAP TAKE TWO CAPSULES BY ACTIVE MOUTH ONCE A DAY WITH FOOD. DO NOT ABRUPTLY DISCONTINUE MEDICATION. Indication: FOR DEPRESSION Vital Signs (Historical/Last 3): Measurement DT TEMP RESP PULSE BP POx F(C) (L/MIN)(%) 10/06/2024 11:26 142/106 10/06/2024 11:25 98.1(36.7) 18 100 149/114 98 09/30/2024 11:32 97.6(36.4) 87 141/95 99 Measurement DT PAIN WEIGHT HEIGHT LB(KG)[BMI] IN(CM) 10/06/2024 11:26 10/06/2024 11:25 6 187.1(84.87)[27] 09/30/2024 11:32 Emergency Severity Index (FLAVIO) level: Level 3 Disposition: Transferred to Tele Emergency Care Provider Time Spent: 9minutes /es/ JUNI GOVEA RN REGISTERED NURSE Signed: 03/17/2025 10:21 [facility]
--- OUTSIDE RECORDS SUMMARY | 2025-03-23 10:30 | XMS_ITS | Encounter Summary ---
Author Name [facility] [place] [facility] [place] [facility] [facility] [place] Address [address] [place] [address] Care Team Providers Care Physical Therapy Aides Teacher Name Role Phone RENEE JUAN ANTONIO [...] Name Patient's Relationship to Policy [facility] (WNR) MEDICARE ADVANTAGE [facility] (WNR) Nov 16, 2022 [id number] Max OBANDO PATIENT Selected Encounter This section includes the information on record at [place] for the Encounter. Date/Time Encounter Type Encounter Description Reason Provider Source March 23, 2025 03:30 PM OFFICE O/P EST MOD 30 MIN PRIMARY CARE/MEDICINE ICD-10-CM Z09 Encntr for f/u exam aft trtmt for cond oth than jenig AUGUSTA Moise Encounter Template Text not used by [facility] Assessments - Encounter Diagnoses This section includes the primary and secondary diagnoses documented for the Encounter. Date/Time Primary/Secondary Diagnosis Diagnosis Name Provider Source March 23, 2025 04:06 PM PRIMARY Encntr for f/u exam aft trtmt for cond oth than malig neoplm AUGUSTA BELLO [facility] March 23, 2025 04:06 PM SECONDARY Cervicalgia AUGUSTA BELLO [facility] March 23, 2025 04:06 PM SECONDARY Headache, unspecified AUGUSTA BELLO [facility] March 23, 2025 04:06 PM SECONDARY Trigger finger, right middle finger BELLOAUGUSTA Barros [facility] Plan of Treatment: Future Appointments (+ 6 months) and Future Tests (+/- 45 days) The Plan of Treatment section includes future care activities for the patient from all [place] [facility] This section includes future appointments and future orders which are active, pending or scheduled. Future Appointments This section includes appointments that were scheduled to occur 6 months from the date of the Encounter, up to a maximum of 20 appointments. The data comes from all [facility] facilities. Appointment Date/Time Appointment Type Appointme nt Facility Name March 24, 2025 03:15 PM AMBULATORY [place]IC[place] [facility] March 30, 2025 11:15 AM AMBULATORY - [place]IC[place] [facility] April 06, 2025 02:15 PM AMBULATORY - MEDIC[place] [facility] April 12, 2025 03:30 PM AMBULATORY - MEDICINE [place] [facility] May 09, 2025 01:20 PM AMBULATORY - MEDICINE [place] [facility] May 11, 2025 02:30 PM AMBULATORY - NONE [place] [facility] Jun 02, 2025 03:00 PM AMBULATORY - PSYCHIATRY [facility] Jun 09, 2025 10:15 AM [facility] [place]IC[place] [facility] Jun 12, 2025 02:50 PM AMBULATORY - MEDICINE [place] [facility] Jun 19, 2025 11:30 AM AMBULATORY - MEDICINE [place] [facility] Jul 14, 2025 03:00 PM AMBULATORY - PSYCHIATRY [facility] Aug 08, 2025 02:40 PM AMBULATORY - MEDICINE [place] [facility] Aug 14, 2025 03:00 PM AMBULATORY - PS[facility]CHIATRY [facility] Sep 11, 2025 03:00 PM AMBULATORY - PS[facility]CHIATRY [facility] Sep 15, 2025 03:15 PM [facility] - MEDICINE [place] [facility] Active, Pending, and Scheduled Orders This section includes a listing of several types of active, pending, and scheduled orders, including clinic medications orders, diagnostic test orders, procedure orders and consult orders; where the start date of the order is 45 days before the date of the Encounter or 45 days after the date of theEncounter. The data comes from all [place] treatment facilities. Test Date/Time Test Type Test Details Facility Name Feb 06, 2025 03:15 PM Consult Order [facility]-DERMATOLOGY 657A4 Cons Recovery Room Rn's Choice [place] [facility] March 20, 2025 04:05 PM Consult Order COMMUNITY [facility]-NEUROLOGY 657A4 Cons Recovery Room Rn's Choice [place] [facility] March 24, 2025 06:33 AM Consult Order [facility]ITY CARE-PAIN 657A4 Cons Recovery Room Rn's Choice [facility] Lab Results: +/- 30 days of the encounter This section includes the Chemistry and Hematology Lab Results on record with [facility] for the patient. Radiology Reports and Pathology Reports are provided separately, in subsequent sections. Lab Results This section contains the Chemistry/Hematology Results that were resulted 30 days before or 30 daysafter the date of the Encounter. Date/Time Source Result Type Result - Unit Interpretation Reference Range Specimen Type Comment April 05, 2025 09:09 AM [facility] HGA1C BLOOD Specimen Type: BLOOD No comment entered. Ordering Provider: SUAD ENG Report Released Date/Time: March 30, 2025 11:40 AM Reporting [facility] [facility] [address] [place] [facility] [address] Performing Lab: [place] [facility] [address] [place] [address] HGA1C 5.5 4.0-6.0 April 05, 2025 09:09 AM [facility] TSH (MA-PB) SERUM Specimen Ty pe: SERUM No comment entered. Ordering Provider: SUAD ENG Report Released Date/Time: March 30, 2025 11:40 AM Reporting Lab: [place] [facility] [address] [place] [address] Performing Lab: [place] [facility] [address] [place] [address] TSH 1.368 u[IU]/mL 0.47-5 April 05, 2025 09:09 AM [place] [facility] CHOLESTEROL PANEL (PB) PLASMA Specimen Type: P LASMA No comment entered. Ordering Provider: SUAD ENG Report Released Date/Time: March 30, 2025 11:40 AM Reporting Lab: [place] [facility] [address] [place] [address] Performing Lab: [place] [facility] [address] [place] [address] CHOLESTEROL 284 mg/dL H 0-200 TRIGLYCERIDE 133 mg/dL 0-150 CALCULATED LDL 196.4 mg/dL HDL(New) 61.0 mg/dL H >40 HDL % OF TOTAL CHOLESTEROL (PB) 21.5 >25 April 05, 2025 09:09 AM [facility] COMPREHENSIVE METABOLIC PANEL PLASMA Specimen Type: PLASMA No comment entered. Ordering Provider: SUAD ENG Report Released Date/Time: March 30, 2025 11:40 AM Reporting Lab: [place] [facility] [address] [place] [address] Performing Lab: [place] [facility] [address] [place] [address] CREATININE 0.72 mg/dL 0.7-1.3 UREA NITROGEN 12 [...] 109 April 05, 2025 09:09 AM [facility] CBC BLOO D Specimen Type: BLOOD No comment entered. Ordering Provider: SUAD ENG Report Released Date/Time: March 30, 2025 11:40 AM Reporting Lab: [place] [facility] [address] [place] [address] Performing Lab: [place] [facility] [address] [place] [address] WBC 4.8 10*3/uL 3.6-11.2 RBC 5.32 10*6/uL [...] 0. 00-0.05 March 23, 2025 03:53 PM [facility] VITAMIN D, 25-HYDROXY SERUM Specimen Type: SE RUM No comment entered. Ordering Provider: AUGUSTA BELLO Report Released Date/Time: March 23, 2025 03:52 PM Reporting Lab: [place] [facility] [address] [place] [address] Performing Lab: [place] [facility] [address] [place] [address] VITAMIN D, 25-HYDROXY 33.8 ng/mL 30-96 March 23, 2025 03:53 PM [facility] MAGNESIUM PLASMA Specimen Typ e: PLASMA No comment entered. Ordering Provider: AUGUSTA BELLO Report Released Date/Time: March 23, 2025 03:52 PM Reporting Lab: [place] [facility] [address] [place] [address] Performing Lab: [place] [facility] [address] [place] [address] MAGNESIUM 2.21 mg/dL 1.6-2.6 March 23, 2025 03:53 PM [facility] B12 SERUM Specimen Type: SERUM No comment entered. Ordering Provider: AUGUSTA BELLO Report Released Date/Time: March 23, 2025 03:52 PM Reporting Lab: [place] [facility] [address] [place] [address] Performing Lab: [place] [facility] [address] [place] [address] B12 396 pg/mL 213-816 Vital Signs: All taken on the encounter date This section contains inpatient and outpatient Vital Signs collected on the date of the Encounter. Date/Time Temperature Pulse Blood Pressure Respiratory Rate SP02 Pain Height Weight Body Mass Index Source March 23, 2025 03:39 PM 98.5 97 133/86 18 97 6 183.9 26 [facility] Social History: Smoking Status (Most current) and Tobacco Use (All prior to encounter date) This section includes the most current, and the historical, smoking and tobacco- related health factors from the [place] facility where the Encounter took place. Current Smoking Status This section includes the most current smoking, or tobacco-related health factor, from the [place] facility where the Encounter took place. Date/Time Current Smoking Status Comment Facil ity March 23, 2024 09:00 AM VA-TOBACCO USER EVERY DAY [facility] Tobacco Use History This section includes a history of the smoking, or tobacco-related health factors, that were collected on or before the date of the Encounter. The data comes from the [place] facility where the Encounter took place. Date/Time Smoking Status/Tobacco Use Comment F acility March 23, 2024 09:00 AM VA-TOBACCO USE ADVICE [facility] March 23, 2024 09:00 AM VA-TOBACCO USE DELIVERY OF SHOPPING NEWS NO [facility] March 23, 2024 09:00 AM VA-TOBACCO USE MED NO [facility] March 23, 2024 09:00 AM VA-TOBACCO USE WI 30 MIN OF WAKEUP [facility] March 23, 2024 09:00 AM VA-TOBACCO USER EVERY DAY [facility] [place] [facility] April 15, 2023 02:30 PM VA-TOBACCO USE 30 YEARS OR MORE [facility] [place] [facility] April 15, 2023 02:30 PM VA-TOBACCO USE ADVICE [facility] April 15, 2023 02:30 PM VA-TOBACCO USE DELIVERY OF SHOPPING NEWS NO [facility] April 15, 2023 02:30 PM VA-TOBACCO USE MED NO [facility] April 15, 2023 02:30 PM VA-TOBACCO USE WI 30 MIN OF WAKEUP [facility] April 15, 2023 02:30 PM VA-TOBACCO USER EVERY DAY [facility] [facility] Jan 23, 2022 05:20 PM VA-TOBACCO USE 30 YEARS OR MORE [facility] [facility] Jan 23, 2022 05:20 PM VA-TOBACCO USE ADVICE [facility] [place] [facility] Jan 23, 2022 05:20 PM VA-TOBACCO USE DELIVERY OF SHOPPING NEWS NO [facility] [facility] Jan 23, 2022 05:20 PM VA-TOBACCO USE MED NO [facility] [place] [facility] Jan 23, 2022 05:20 PM VA-TOBACCO USE WI 30 MIN OF WAKEUP [facility] [place] [facility] Jan 23, 2022 05:20 PM VA-TOBACCO USER EVERY DAY [facility] [facility] Aug 09, 2020 02:00 PM VA-TOBACCO DOESNT USE WI 30 MIN WAKEUP [facility] [facility] Aug 09, 2020 02:00 PM VA-TOBACCO USE 5 T O 15 YEARS [facility] [place] [facility] Aug 09, 2020 02:00 PM VA-TOBACCO USE ADVICE [facility] [place] [facility] Aug 09, 2020 02:00 PM VA-TOBACCO USE DELIVERY OF SHOPPING NEWS NO [facility] [place] [facility] Aug 09, 2020 02:00 PM VA-TOBACCO USE MED NO [facility] [facility] Aug 09, 2020 02:00 PM VA-TOBACCO USER EVERY DAY [facility] [facility] Jul 22, 2018 08:56 AM CURRENT [place]BACCO USER [place] [facility] Jul 22, 2018 08:56 AM CURRENT TOBACCO US ER (NOT READY TO QUIT) [facility] Jul 22, 2018 08:56 AM SMOKELESS TOBACCO AMOUNT/LENGTH V15 35yr history [facility] [facility] Jul 22, 2018 08:56 AM TOBACCO CESSATION REFERRAL DECLINED [facility] [facility] Jul 22, 2018 08:56 AM TOBACCO MEDS OFFER ED BUT DECLINED [place] [facility] Jul 22, 2018 08:56 AM TOBACCO USER OFFERED MEDS [place] [facility] May 24, 2018 01:40 PM CURRENT TOBACCO USER [facility] May 24, 2018 01:40 PM CURRENT TOBACCO US ER (NOT READY TO QUIT) [place] [facility] May 24, 2018 01:40 PM TOBACCO CESSATION REFERRAL DECLINED [place] [facility] May 24, 2018 01:40 PM TOBACCO MEDS OFFER ED BUT DECLINED [place] [facility] May 24, 2018 01:40 PM TOBACCO USER OFFERED MEDS [facility] [facility] Mar 09, 2018 02:09 PM CURRENT TOBACCO USER [facility] [place] [facility] Mar 09, 2018 02:09 PM CURRENT TOBACCO US ER (NOT READY TO QUIT) [facility] [place] [facility] Mar 09, 2018 02:09 PM SMOKELESS TOBACCO AMOUNT/LENGTH V15 35+yr history [facility] [place] [facility] Mar 09, 2018 02:09 PM TOBACCO CESSATION REFERRAL DECLINED [place] [facility] Mar 09, 2018 02:09 PM TOBACCO MEDS OFFER ED BUT DECLINED [place] [facility] Mar 09, 2018 02:09 PM TOBACCO USER OFFERED MEDS [facility] [place] [facility] Nov 13, 2017 10:32 AM CURRENT TOBACCO USER [facility] [place] [facility] Nov 13, 2017 10:32 AM CURRENT TOBACCO US ER (NOT READY TO QUIT) [facility] [place] [facility] Nov 13, 2017 10:32 AM SMOKELESS TOBACCO AMOUNT/LENGTH V15 35yr history 1 can q 3 days [facility] [place] [facility] Nov 13, 2017 10:32 AM TOBACCO CESSATION REFERRAL DECLINED [place] [facility] Nov 13, 2017 10:32 AM TOBACCO MEDS OFFER ED BUT DECLINED [place] [facility] Nov 13, 2017 10:32 AM TOBACCO USER OFFERED MEDS [facility] [place] [facility] Nov 06, 2016 07:45 AM CURRENT TOBACCO USER [facility] [place] [facility] Nov 06, 2016 07:[address] OP SMOKING CLINIC [facility] [place] [facility] Sep 29, 2014 08:59 AM CURRENT TOBACCO USER [facility] [place] [facility] Sep 29, 2014 08:[address] [facility] SMOKING CLINIC [facility] [place] [facility] Oct 06, 2013 09:24 AM CURRENT TOBACCO USER [facility] [place] [facility] Oct 06, 2013 09:[address] [facility]MOKING [facility]IC [facility] [place] [facility] Sep 23, 2012 10:14 AM CURRENT TOBACCO USER [facility] Sep 23, 2012 10:[address] OP SMOKING CLINIC [facility] Feb 25, 2012 08:32 AM TOBACCO MEDS OFFER ED BUT [place]CL[place] [facility] Feb 25, 2012 08:32 AM TOBACCO OFFERED PT MEDS (PROVIDER) [facility] Feb 25, 2012 08:[address] OP SMOKING CLINIC [facility] May 22, 2011 10:29 AM CURRENT TOBACCO USER [facility] May 22, 2011 10:29 AM TOBACCO MEDS OFFER ED BUT [facility]CL[facility]ED [place] [facility] May 22, 2011 10:29 AM TOBACCO OFFERED PT MEDS (PROVIDER[place] [facility] May 22, 2011 10:[address] OP SMOKING CLINIC [facility] Sep 30, 2010 08:48 AM TOBACCO MEDS OFFER ED BUT DECLINED [facility] Sep 30, 2010 08:48 AM TOBACCO OFFERED PT MEDS (PROVIDER) [facility] Sep 30, 2010 08:[address] OP SMOKING CLINIC [facility] Sep 05, 2010 08:47 AM TOBACCO MEDS OFFER ED BUT DECLINED [facility] Sep 05, 2010 08:47 AM TOBACCO OFFERED PT MEDS (PROVIDER) [facility] Sep 05, 2010 08:[address] OP SMOKING CLINIC [facility] Jun 12, 2010 02:58 PM TOBACCO MEDS OFFER ED BUT DECLINED [facility] Jun 12, 2010 02:58 PM TOBACCO OFFERED PT MEDS (PROVIDER) [facility] Jun 12, 2010 02:[address] OP SMOKING CLINIC [facility] Feb 28, 2010 02:47 PM CURRENT TOBACCO USER [facility] Feb 28, 2010 02:47 PM TOBACCO MEDS OFFER ED BUT [facility]CL[place] [place] [facility] Feb 28, 2010 02:47 PM TOBACCO OFFERED PT MEDS (PROVIDER) [facility] Feb 28, 2010 02:[address] OP SMOKING CLINIC [facility] Oct 31, 2008 10:23 AM CURRENT TOBACCO USER [facility] Oct 31, 2008 10:[address] [facility] [place] Dec 02, 2007 10:17 AM CURRENT TOBACCO US[facility] Dec 02, 2007 10:17 AM TOBACCO OFFERED PT MEDS (PROVIDER) [facility] Dec 02, 2007 10:[address] OP SMOKING CLINIC [facility] Jul 01, 2007 09:39 AM CURRENT TOBACCO USER [facility] Jul 01, 2007 09:39 AM TOBACCO MEDS OFFER ED BUT DECLINED [facility] Dec 02, 2006 02:09 PM CURRENT TOBACCO USER [facility] Oct 27, 2002 09:57 AM TOB-SMOKES OR USES TOBACCO PRODUCTS < 1/2 pk day [facility] Radiology Reports: +/- 30 days of [...] the Encounter. The data comes from all [place] treatment facilities. Date/Time Radiology Report Provider Source March 23, 2025 03:54 PM HAND,RIGHT,3 OR [place] RE VIEWS: BORA OBANDO [id number] -[id number] M Exm Date: MARCH 23, 2025@15:54 Req Phys: AUGUSTA BELLO Pat Loc: PB-DAVID PACT PASCUAL BIOLOGICS SPECIALIST (Req'g Lo Img Loc: PB-XRAY ORIENTAL Service: [place] [address] (Case [id number] COMPLETE) HAND,RIGHT,3 OR MORE VIEWS (RAD Detailed) CPT:82802 Proc Modifiers : RIGHT Reason for Study: trigger finger Clinical History: consult Report Status: Verified Date Reported: MARCH 23, 2025 Date Verified: MARCH 23, 2025 Appliance Repair Technician E-Sig: Report: Right hand 3 views. No fracture or dislocation. No bony destruction. There are no significant degenerative changes. Impression: No evidence of acute bony change Primary Interpreting Staff: ARIE GARCIA, RADIOLOGIST (Appliance Repair Technician, no e-sig) /ARIE Bruno [facility] March 23, 2025 03:53 PM SPINE CERVICAL MIN 4 OR 5 VIEWS: BORA OBANDO [id number] -1970 M Exm Date: MARCH 23, 2025@15:53 Req Phys: AUGUSTA BELLO Pat Loc: PB-DAVID PACT PASCUAL BIOLOGICS SPECIALIST (Req'g Lo Img Loc: PB-XRAY ORIENTAL Service: [place] [address] (Case [id number] COMPLETE) SPINE CERVICAL MIN 4 OR 5 VIEWS (RAD Detailed) CPT:75363 Reason for Study: headaches and neck pain Clinical History: wants pain management Report Status: Verified Date Reported: MARCH 23, 2025 Date Verified: MARCH 23, 2025 Appliance Repair Technician E-Sig: Report: Cervical spine 7 views. No [...] and/or ligamentous injury Primary Interpreting Staff: ARIE GARCIA, RADIOLOGIST (Appliance Repair Technician, no e-sig) /ARIE Bruno [facility] Encounter Notes: All associated encounter notes This section contains the clinical notes associated to the Encounter. Date/Time Encounter Note(s) Provider Source April 05, 2025 03:55 PM PHYSICIAN LETTERS: LOCAL TITLE: TEST RESULT GENERAL LETTER ST[facility] STANDARD TITLE: PHYSICIAN LETTERS DATE OF NOTE: APRIL 05, 2025@15:55 ENTRY DATE: APRIL 05, 2025@15:55:36 AUTHOR: AUGUSTA BELLO EXP COSIGNER: URGENCY: STATUS: COMPLETED [facility] [address] [place] [address] APRIL 05, 2025 BORA OBANDO [address] [place] [id number] Dear Bora Obando, I would like to update you on your recent test results. LIPID PROFILE - High cholesterol and triglycerides (lipids) are risk factors for heart disease. Your cholesterol should fall between 140 and 200, and your triglycerides levels should be less than or equal to 150. HDL is the good cholesterol and should ideally be greater than 40. LDL is the bad cholesterol and optimal levels should be less than 100 (near optimal is between 100 and 129). TRIGLYCERIDE 133 mg/dL 04/05/2025 09:09 CHOLESTEROL 284 H mg/dL 04/05/2025 09:09 HDL(New) 61.0 H mg/dL 04/05/2025 09:09 CALCULATED LDL 196.4 mg/dL 04/05/2025 09:09 HDL % OF TOTAL CHOLESTEROL (PB) 21.5 % 04/05/2025 09:09 No DIRECT LDL EO data found These results are abnormal. Your cholesterol is 284 we like it to be below 200 GLUCOSE - Your blood sugar or glucose level result GLUCOSE GLUCOSE 75 mg/dL 04/05/2025 09:09 These readings are within normal limits. HEMOGLOBIN A1C - Gives us information about your diabetes (sugar or glucose) control over the past 3 months. Your target is to keep your A1C below 6 %. HGA1C 5.5 % 04/05/2025 09:09 These readings are within normal limits. CBC - A complete blood count (CBC) gives important information about the kinds and numbers of cells in the blood, especially red blood cells, white blood cells, and platelets. HGB 16.2 g/dL 04/05/2025 09:09 HEMATOCRIT 46.6 % (04/05/25 09:09) PLT 260 10*3/uL 04/05/2025 09:09 WHITE BLOOD COUNT 4.8 10*3/uL (04/05/25 09:09) These readings are within normal limits. CHEM 7 - This is important information about the current status of your kidneys, liver, and electrolyte and acid/base balance as well as of your blood sugar and blood proteins. SODIUM 141 mEq/L 04/05/2025 09:09 POTASSIUM 4.5 mEq/L 04/05/2025 09:09 CHLORIDE 106 mEq/L 04/05/2025 09:09 UREA NITROGEN 12 mg/dL 04/05/2025 09:09 CREATININE 0.72 mg/dL 04/05/2025 09:09 CALCIUM 9.7 mg/dL 04/05/2025 09:09 CARBON DIOXIDE 26 mEq/L 04/05/2025 09:09 GLUCOSE 75 mg/dL 04/05/2025 09:09 EGFR (CKD-EPI 2020) 109 04/05/2025 09:09 These readings are within normal limits. LIVER FUNCTION PANEL - These are tests for liver function: PROTEIN 7.2 g/dL 04/05/2025 09:09 ALBUMIN 4.6 g/dL 04/05/2025 09:09 TOTAL BILIRUBIN 0.6 mg/dL 04/05/2025 09:09 ALKALINE PHOSPHATASE 76 U/L 04/05/2025 09:09 AST/SGOT 22 U/L 04/05/2025 09:09 ALT/SGPT 16 U/L 04/05/2025 09:09 These readings are within normal limits. TSH - Thyroid-stimulating hormone (also known as TSH or thyrotropin) is a peptide hormone synthesized and secreted by thyrotrope cells in the anterior pituitary gland, which regulates the endocrine function of the thyroid gland. TSH TSH 1.368 uIU/mL 04/05/2025 09:09 These readings are within normal limits. FUTURE APPOINTMENTS: 04/06/2025 14:15 COM CARE-ORTHOPEDICS 65 04/12/2025 15:30 COM CARE-ORTHOPEDICS 657A 05/08/2025 14:00 PB-DAVID [facility] IND [facility] CRI 05/11/2025 14:30 PB-CT APPT(NC) 06/09/2025 10:15 PB-VVC [facility] [place] 09/26/2025 14:15 COM CARE-NEUROLOGY 657A4 Mr. Alfonzo Eng ordered additional labs I have them attached here your cholesterol jumped up to 284 but your triglycerides is normal everything else was within normal limits I can start you on a statin if you would like on your diet and watching your fat intake and trying to lower your cholesterol that way we just need to keep an eye on it let the nurses know when they give you a quality like to do Sincerely, Augusta Bello, ASSIGNMENT CLERK, MSN, Carmela Campbell [facility] BORA OBANDO KRISTEL G [facility] March 28, 2025 03:20 PM TELEPHONE ENCOUNTE R NOTE: LOCAL TITLE: TELEPHONE NOTE STANDARD TITLE: TELEPHONE ENCOUNTER NOTE DATE OF NOTE: MARCH 28, 2025@15:20 ENTRY DATE: MARCH 28, 2025@15:20:21 AUTHOR: LISANDRO FRANCISCO EXP COSIGNER: URGENCY: STATUS: COMPLETED Attempted to contact [facility] regarding the following from the Provider: Dear Bora Obando, I would like to update you on your recent test results. B12 - Helps maintain healthy nerve cells, red blood cells, and is also needed to make DNA. B12 396 pg/mL 03/23/2025 15:53 These readings are within normal limits. VITAMIN D - Helps promote the proper utilization of calcium and phosphorus, thereby producing proper bone maintenance. VITAMIN D, 25-HYDROXY 33.8 ng/mL 03/23/2025 15:53 These readings are within normal limits. MAGNESIUM 2.21 mg/dL 1.6 - 2.6 OTHER TEST RESULTS RADIOLOGY (NON-INVASIVE TEST RESULTS): cervical spine Report: Cervical spine 7 views. No evidence [...] curve suspicious for muscle and/or ligamentous injury right hand Report: Right hand 3 views. No fracture or dislocation. No bony destruction. There are no significant degenerative changes. Impression: No evidence of acute bony change PLAN Please continue your treatment as we discussed during your visit. If you have any questions please call your caseworker intake. I look forward to seeing you at your next clinic appointment. Thank you for choosing the [facility] for your healthcare. FUTURE APPOINTMENTS: 03/30/2025 11:15 PB-VVC [facility] [place] 05/08/2025 14:00 PB-DAVID [facility] IND [facility]WS CRI 05/11/2025 14:30 PB-CT APPT(NC) Mr. Sahni I just wanted to let you know already placed your pain consult already placed your Ortho consult and the labs were just stuff I had to have for those consults if you have any questions let me know Sincerely, CRIS Holloway, MSN, Carmela Barker [facility] Message left for to return call to clinic. Clinic contact information including ext. left in messege. No PPI given /misael/ Lisandro Francisco [facility]CR[facility] Signed: 03/28/2025 15:21 LISANDRO FRANCISCO [facility] March 27, 2025 02:50 PM PHYSICIAN LETTERS: LOCAL TITLE: TEST RESULT GENERAL LETTER STL STANDARD TITLE: PHYSICIAN LETTERS DATE OF NOTE: MARCH 27, 2025@14:50 ENTRY DATE: MARCH 27, 2025@14:50:45 AUTHOR: AUGUSTA BELLO EXP COSIGNER: URGENCY: STATUS: COMPLETED [facility] [address] [place] [address] MARCH 27, 2025 BORA OBANDO [address], [place] [address] Dear Bora Obando, I would like to update you on your recent test results. B12 - Helps maintain healthy nerve cells, red blood cells, and is also needed to make DNA. B12 396 pg/mL 03/23/2025 15:53 These readings are within normal limits. VITAMIN D - Helps promote the proper utilization of calcium and phosphorus, thereby producing proper bone maintenance. VITAMIN D, 25-HYDROXY 33.8 ng/mL 03/23/2025 15:53 These readings are within normal limits. MAGNESIUM 2.21 mg/dL 1.6 - 2.6 OTHER TEST RESULTS RADIOLOGY (NON-INVASIVE TEST RESULTS): cervical spine Report: Cervical spine 7 views. No evidence [...] curve suspicious for muscle and/or ligamentous injury right hand Report: Right hand 3 views. No fracture or dislocation. No bony destruction. There are no significant degenerative changes. Impression: No evidence of acute bony change PLAN Please continue your treatment as we discussed during your visit. If you have any questions please call your caseworker intake. I look forward to seeing you at your next clinic appointment. Thank you for choosing the [facility] for your healthcare. FUTURE APPOINTMENTS: 03/30/2025 11:15 PB-VVC [facility] [place] 05/08/2025 14:00 PB-DAVID [facility] IND SWS CRI 05/11/2025 14:30 PB-CT APPT(NC) Mr. Sahni I just wanted to let you know already placed your pain consult already placed your Ortho consult and the labs were just stuff I had to have for those consults if you have any questions let me know Sincerely, Augusta Bello, ASSIGNMENT CLERK, MSN, Carmela Campbell [facility] March 23, 2025 04:02 PM PRIMARY CARE PROGR ESS NOTE: LOCAL TITLE: PRIMARY CARE CLINIC PROGRESS NOTE PB STANDARD TITLE: PRIMARY CARE PROGRESS NOTE DATE OF NOTE: MARCH 23, 2025@16:02 ENTRY DATE: MARCH 23, 2025@16:03 AUTHOR: AUGUSTA BELLO EXP COSIGNER: URGENCY: STATUS: COMPLETED Date & Time:March@16:03 This is a 55 year old MALE Allergies: INSECT STINGS, PRAVASTATIN, ROSUVASTATIN CC: f/u ER headache and neck pain HPI: presented to clinici for f/u ER visit for headache and neck pain. already has appointments for neurosugery and would like a pain consult and othro cosult for trigger finger release Temperature: 98.5 F [36.9 C] (03/23/2025 15:39) Respiratory Rate: 18 (03/23/2025 15:39) Pulse Rate: 97 (03/23/2025 15:39) Blood Pressure: 133/86 (03/23/2025 15:39) HT: 70.0 in [177.8 cm] (09/14/2024 11:47) WT: 183.9 lb [83.42 kg] (03/23/2025 15:39) BMI: 26.4 97% (03/23/2025 15:39) REVIEW OF SYSTEMS: HEENT: headache RESPIRATORY: No cough, SOA, wheezing, or sputum production. CARDIOVASCULAR: No chest pain, palpitations, tachycardia, PND, or orthopnea. MUSCULOSKELETAL: neck pain and right hand pain SKIN: No rash, lesions, or infection PSYCH: No depression and anxious at this time. Not suicidal. 1) Chronic low back pain (SNOMED CT 529338020) 2) Hyperlipidemia (SNOMED CT 32232980) 3) Carpal tunnel syndrome (SNOMED CT 02343465) 4) Wrist pain (SNOMED CT 74202139) 5) BPPV - Benign paroxysmal positional vertigo 6) Hyperlipidemia 7) Mild chronic obstructive pulmonary disease 8) Recurrent major depression 9) Osteoarthritis 10) Cervical disc disorder with radiculopathy 11) Sleep Apnea (SCT 09985643) 12) Hiatal hernia 13) PTSD - Post-traumatic stress disorder 14) Exposure to potentially hazardous substance (SCT 598577895968050) 15) Bilateral tinnitus 16) Sensorineural hearing loss of bilateral ears 17) Posttraumatic stress disorder Active Outpatient Medications (including Supplies): Active Outpatient [...] ATTACHED INSIDE BOX) Indication: FOR PAIN 4) MIRTAZAPINE 15MG TAB TAKE ONE-HALF TABLET BY MOUTH AT ACTIVE BEDTIME Indication: FOR DEPRESSION 5) NAPROXEN 500MG TAB TAKE ONE TABLET BY MOUTH TWICE DAILY ACTIVE NEEDED TAKE WITH FOOD. Indication: FOR PAIN 6) VENLAFAXINE HCL 150MG 24HR SA CAP TAKE TWO CAPSULES BY MOUTH ACTIVE ONCE A DAY WITH FOOD. DO NOT ABRUPTLY DISCONTINUE MEDICATION. Indication: FOR DEPRESSION OBJECTIVE: Physical Exam General: NAD noted, A&Ox3, pleasant, appears stated age Abdomen: Soft, non-distended, non-tender Ext: No clubbing, cyanosis, edema or obvious deformity Neuro: Grossly intact, limited range of motion to neckk and Psych: Affect normal, answers questions appropriately throughout visit Assessment/Plan: f/u ER -current plan conintue current plan of care right middle trigger finger -current plan x-ray today of right hand and place othro consult trigger finger release cervialgia -current plan to place cervical spine x-ray today and place labs for pain consult per request, would like to be seen in [place] headache -current plan to place cervical spine x-ray today and place labs for pain consult per request, would like to be seen in [place] Follow-up: as needed. Discussed with patient that in the event of community imaging / testing being ordered in the future, once the imaging / testing has been completed, please notify PACT of completion at outside facility if not called with results within 1 week by a [facility] PACT member; this is due to intermittent lapses in notification of imaging completion within [facility]. All questions answered; agrees to plan of care. Follow up as listed above, annually, and as needed. Keep all appointments. Medications Reconciled. See AVS given to . Time spent 30 minutes. Augusta BLACKMON /misael/ CRIS Holloway, MSN, Carmela Diazhing [facility] Signed: 03/23/2025 16:17 AUGUSTA BELLO [facility] March 23, 2025 03:31 PM PRIMARY CARE NURSI NG NOTE: LOCAL TITLE: PRIMARY CARE NURSING PROGRESS NOTE (TEXT) NURSING P STANDARD TITLE: PRIMARY CARE NURSING NOTE DATE OF NOTE: MARCH 23, 2025@15:31 ENTRY DATE: MARCH 23, 2025@15:31:34 AUTHOR: DALIA HENRY COSIGNER: URGENCY: STATUS: COMPLETED PRIMARY CARE NURSING PROGRESS NOTE (TEXT) NURSING PB Has ADDENDA Established Patient BORA OBANDO IS A 55 YEAR OLD MALE BEING SEEN IN CLINIC MARCH 23, 2025. == == REASON FOR VISIT: ER follow up for neck pain, headache, dizziness. States dizziness has impoved. States also right hand middle finger stiff and locks up. Are you receiving care any where other than the [place]? No HEALTH AND SURGICAL HISTORY: Does patient report using home oxygen? CURRENT ACTIVE MEDICATIONS FOR REVIEW: If the list for review does not include a component, then it was not applicable to this patient. Allergies/ADRs (Tool #5) FACILITY ALLERGY/ADR -------- No Remote Allergy/ADR Data available for this patient [facility] INSECT STINGS [facility] PRAVASTATIN [facility] ROSUVASTATIN Med. Reconciliation (Tool #1) INCLUDED IN THIS LIST: Alphabetical list of active outpatient prescriptions dispensed from this CO (local) and dispensed from another CO or DoD facility (remote) as well as inpatient orders (local pending and active), local clinic medications, locally documented non-VA medications, and local prescriptions that have or been discontinued in the past 90 days. Non-VA Meds Last Documented On: Sep 23, 2012 NOTE The display of VA prescriptions dispensed from another CO or [facility] facility (remote) is limited to active outpatient prescription entries matched to National Drug File at the originating site and may not include some items such as investigational drugs, compounds, etc. NOT INCLUDED IN THIS LIST: Medications self-entered by the patient into personal health records (i.e. Websand) are NOT included in this list. Non-VA medications documented outside this CO, remote inpatient orders (regardless of status) and remote clinic medications are NOT included in this list. The patient and provider must always discuss medications the patient is taking, regardless of where the medication was dispensed or obtained. OUTPT BUSPIRONE HCL 10MG TAB (Status = Discontinued) TAKE ONE TABLET BY MOUTH THREE TIMES A DAY FOR ANXIETY DO NOT TAKE WITH GRAPEFRUIT JUICE. Rx# [id number] Last Released: 09/12/24 Qty/Days Supply: 270/90 Rx Expiration Date: 09/10/25 Refills Remainin Indication: FOR ANXIETY OUTPT BUSPIRONE HCL 10MG TAB (Status = Active) TAKE ONE TABLET BY MOUTH THREE TIMES A DAY FOR ANXIETY DO NOT TAKE WITH GRAPEFRUIT JUICE. Rx# [id number] Last Released: 01/23/25 Qty/Days Supply: 270/90 Rx Expiration Date: 01/21/26 Refills Remainin Indication: FOR ANXIETY OUTPT CYCLOBENZAPRINE HCL 10MG TAB (Status = Active) TAKE ONE TABLET BY MOUTH THREE TIMES A DAY NEEDED FOR MUSCLE SPASM MAY CAUSE DROWSINESS. DO NOT DRINK ALCOHOL WHILE TAKING THIS MEDICATION. Rx# [id number] Last Released: 10/11/24 Qty/Days Supply: 180/60 Rx Expiration Date: 04/30/25 [...] DOSE WITH RULER ATTACHED INSIDE BOX) Rx# [id number] Last Released: 05/02/24 Qty/Days Supply: 200/90 Rx Expiration Date: 04/30/25 Refills Remainin Indication: FOR PAIN OUTPT MIRTAZAPINE 15MG TAB (Status = Active) TAKE ONE-HALF TABLET BY MOUTH AT BEDTIME FOR DEPRESSION Rx# [id number] Last Released: 01/23/25 Qty/Days Supply: 45/90 Rx Expiration Date: 01/21/26 Refills Remainin Indication: FOR DEPRESSION OUTPT NAPROXEN 500MG TAB (Status = Active) TAKE ONE TABLET BY MOUTH TWICE DAILY NEEDED FOR PAIN TAKE WITH FOOD. Rx# [id number] Last Released: 03/28/24 Qty/Days Supply: 60/30 Rx Expiration Date: 03/24/25 Refills Remainin Indication: FOR PAIN OUTPT VENLAFAXINE HCL 150MG 24HR SA CAP (Status = Discontinued) TAKE TWO CAPSULES BY MOUTH ONCE A DAY FOR DEPRESSION WITH FOOD. DO NOT ABRUPTLY DISCONTINUE MEDICATION. Rx# [id number] Last Released: 11/17/24 Qty/Days Supply: 180/90 Rx Expiration Date: 11/12/25 Refills Remainin Indication: FOR DEPRESSION OUTPT VENLAFAXINE HCL 150MG 24HR SA CAP (Status = Active) TAKE TWO CAPSULES BY MOUTH ONCE A DAY FOR DEPRESSION WITH FOOD. DO NOT ABRUPTLY DISCONTINUE MEDICATION. Rx# [id number] Last Released: 01/23/25 Qty/Days Supply: 180/90 Rx Expiration Date: 01/21/26 Refills Remainin Indication: FOR DEPRESSION SUPPLIES OUTPT TABLET CUTTER (Status = ) USE TABLET CUTTER ONCE A DAY NEEDED FOR TABLET CUTTING Rx# [id number] Last Released: 01/23/25 Qty/Days Supply: 11/16 Rx Expiration Date: 02/19/25 Refills Remainin Indication: FOR TABLET CUTTING PHARMACY TERMS AND POSSIBLE PATIENT ACTIONS INPT = CO inpatient order IV = CO intravenous medication OUTPT = CO outpatient prescription PHARMACY POSSIBLE PATIENT TERMS EXPLANATION ACTIONS -------- ----- ACTIVE A prescription that can be If you have refills, filled at the local [place] pharmacy. you may request a refill of this prescription from your [place] pharmacy. CLINIC A medication you received during If you have questions a visit to a CO clinic or about this medication emergency department. contact your [place] healthcare team. DISCONTINUED A prescription your provider has Contact your [facility] stopped. It is no longer healthcare team if you available to be sent to you or need more of this picked up at the [place] pharmacy medication. window. A prescription which is [...] the VA. Or, it may be an [id number]-staousu (OTC), herbal, dietary supplements or sample medication. [...] before this medication now. you run out. Medication list reviewed with Patient Patient/Caregiver reports taking medications as ordered. IS PATIENT TAKING ANY OVER THE COUNTER MEDICATIONS, SUCH VITAMINS OR HERBAL SUPPLEMENTS, INCLUDING ANY MEDICATIONS PRESCRIBED BY ANOTHER PHYSICIAN? No Does patient have any new allergies to report since last visit? NO VITALS: TEMPERATURE: 98.1 F [36.7 C] (10/06/2024 11:25) BP: 142/106 (10/06/2024 11:26) RESP: 18 (10/06/2024 11:25) PULSE: 100 (10/06/2024 11:25) HT: 70.0 in [177.8 cm] (09/14/2024 11:47) WT: 187.1 lb [84.87 kg] (10/06/2024 11:25) BMI: 26.9 PAIN ASSESSMENT: (Most Recent Pain Score in Vitals Package: 6 (10/06/2024 11:25) ) The patient indicated that they and [...] Now let us serve you. At the [facility], we strive to provide you with exceptional health care that improves your health and well-being. Are you feeling sad, empty, or depressed? Yes Do you need to talk about things [...] Not At All SPIRITUAL ASSESSMENT: Are there evangelical practices or spiritual concerns you want the fundraising manager, your physician, and other health care team members to immediately know about? No Patient advised to call the clinic for any concerns, questions, or symptoms. Patient and/or caregiver verbalized understanding of plan of care. Per [facility] Directive 1605.06, wristband documentation: Patient wristband was removed and destroyed by (staff name) Dalia Henry and placed in the designated [employer] bin. COVID-19 Immunization-L,N,P,PH,U: Refused Moderna Monovalent COVID-19 vaccine Immunization: COVID-19 (MODERNA), MRNA, LNP-S, PF, 50 MCG/0.5 ML (AGES 12+ YEARS) Refusal Reason: PATIENT DECISION Patient refuses all immunization(s) in the COVID-19 group Date Documented: 03/23/25 15:35 Weight Control/Nutrition Counseling: * The patient received the following counseling at this encounter: Patient was encouraged to restrict fat, especially saturated fats, in a normal diet. Benefit of a diet high in fiber was discussed. Patient was advised to include 5 or more servings of fruit and vegetables and six or more servings of grains as a well balanced diet. Patient/Nurse Interview: * * Patient stated that adequate information was received regarding the condition and/or treatment. Sexual Orientation - CP,L,N,P,PH,PS,S,U: The patient thinks of their sexual orientation as: Straight or Heterosexual VVC DIGITAL DIVIDE CAPABILITY REMINDER: Patient is not interested in VVC at this time. 'S RIGHT TO DECLINE STATEMENT understands they have the right to decline the use of Telehealth Technology at any time without adverse affects on their continued access to healthcare. Advanced Directive Screen/Tire Building Supervisor: ADVANCE DIRECTIVE SCREENING: I asked if the patient has an advance directive, and determined that: Patient does not have an Advance Directive. Patient was given form to update and return when completed. ADVANCE DIRECTIVE NOTIFICATION I provided the patient with written notification about advance directives. Level of understanding: Good PC [facility] - PHP MAP: PERSONAL HEALTH PLAN INVENTORY & MAP Saucier's Response: Family /DARA Pozo Signed: 03/23/2025 15:38 03/23/2025 ADDENDUM STATUS: COMPLETED Pain Assessment: - PAIN ASSESSMENT: .. This patient's last pain assessment score was: 6 (03/23/2025 15:39). A detailed pain assessment showed the following: Location of current pain Neck Patient's self identified pain goal: 6 /misael/ DARA PAK Signed: 03/23/2025 15:46 DALIA HENRY [facility]
--- OUTSIDE RECORDS SUMMARY | 2025-03-30 06:15 | XMS_ITS | Encounter Summary ---
Author Name [facility] [facility] [place] [facility] [place] Address [address] [place] [address] Care Team Providers Care Derrick Worker Name Role Phone RENEEJUAN ANTONIO Primary Care Provider Unavailangelique e Insurance [...] Stone's Name Patient's Relationship to Policy Stone [facility] (WNR) MEDICARE ADVANTAGE [facility] (WNR) Nov 16, 2022 [id number] Max OBANDO PATIENT Selected Encounter This section includes the information on record at [place] for the Encounter. Date/Time Encounter Type Encounter Description Reason Provider Source March 30, 2025 11:15 AM SYNCH AUDIO-VIDEO EST [facility] - IND ICD-10-CM F43.12 Post-traumatic stress disorder, chronic SUAD ENG Encounter Template Text not used by [place] Assessments - Encounter Diagnoses This section includes the primary and secondary diagnoses documented for the Encounter. Date/Time Primary/Secondary Diagnosis Diagnosis Name Provider Source March 30, 2025 11:40 AM PRIMARY Post-traumatic stress disorder, chronic SUAD ENG [facility] March 30, 2025 11:40 AM SECONDARY Irritability and anger SUAD ENG [place] [facility] March 30, 2025 11:40 AM SECONDARY Major depressive disorder, recurrent, unspecified SUAD ENG [place] [facility] Plan of Treatment: Future Appointments (+ 6 months) and Future Tests (+/- 45 days) The Plan of Treatment section includes future care activities for the patient from all [place] [facility]. This section includes future appointments and future orders which are active, pending or scheduled. Future Appointments This section includes appointments that were scheduled to occur 6 months from the date of the Encounter, up to a maximum of 20 appointments. The data comes from all [facility] facilities. Appointment Date/Time Appointment Type Appointme nt Facility Name April 06, 2025 02:15 PM AMBULATORY - MEDICINE [place] [facility] April 12, 2025 03:30 PM AMBULATORY - MEDIC[place] [facility] May 09, 2025 01:20 PM AMBULATORY - MEDICINE [place] [facility] May 11, 2025 02:30 PM AMBULATORY - NONE [place] [facility] Jun 02, 2025 03:00 PM AMBULATORY - PSYCHIATRY [facility] Jun 09, 2025 10:15 AM AMBULATORY - MEDICINE [place] [facility] Jun 12, 2025 02:50 PM AMBULATORY - MEDICINE [place] [facility] Jun 19, 2025 11:30 AM AMBULATORY - MEDICINE [place] [facility] Jul 14, 2025 03:00 PM AMBULATORY - PSYCHIATRY [facility] Aug 08, 2025 02:40 PM AMBULATORY - MEDICINE [place] [facility] Aug 14, 2025 03:00 PM AMBULATORY - PSYCHIATRY [facility] Sep 11, 2025 03:00 PM AMBULATORY - PSYCHIATRY [facility] Sep 15, 2025 03:15 PM AMBULATORY - MEDICINE [place] [facility] Sep 26, 2025 02:15 PM AMBULATORY - MEDICINE [place] [facility] Active, Pending, and Scheduled Orders This section includes a listing of several types of active, pending, and scheduled orders, including clinic medications orders, diagnostic test orders, procedure orders and consult orders; where the start date of the order is 45 days before the date of the Encounter or 45 days after the date of theEncounter. The data comes from all [place] treatment facilities. Test Date/Time Test Type Test Details Facility Name March 20, 2025 04:05 PM Consult Order [facility]ITY [facility]-NEUROLOGY [id number] Cons Refund Specialist's Choice [place] [facility] March 24, 2025 06:33 AM Consult Order [facility]ITY CARE-PAIN [id number] Cons Refund Specialist's Choice [facility] Lab Results: +/- 30 days of the encounter This section includes the Chemistry and Hematology Lab Results on record with [place] for the patient. Radiology Reports and Pathology Reports are provided separately, in subsequent sections. Lab Results This section contains the Chemistry/Hematology Results that were resulted 30 days before or 30 daysafter the date of the Encounter. Date/Time Source Result Type Result - Unit Interpretation Reference Range Specimen Type Comment April 05, 2025 09:09 AM [facility] HGA1C BLOOD Specimen Type: BLOOD No comment entered. Ordering Provider: SUAD ENG Report Released Date/Time: March 30, 2025 11:40 AM Reporting Lab: [place] [facility] [address] [place] [address] Performing Lab: [place] [facility] [address] [place] [address] HGA1C 5.5 4.0-6.0 April 05, 2025 09:09 AM [facility] CHOLESTEROL PANEL (PB) PLASMA Specimen Type: P LASMA No comment entered. Ordering Provider: SUAD ENG Report Released Date/Time: March 30, 2025 11:40 AM Reporting Lab: [place] [facility] [address] [place] [address] Performing Lab: [place] [facility] [address] [place] [address] CHOLESTEROL 284 mg/dL H 0-200 TRIGLYCERIDE 133 mg/dL 0-150 CALCULATED LDL 196.4 mg/dL HDL(New) 61.0 mg/dL H >40 HDL % OF TOTAL CHOLESTEROL (PB) 21.5 >25 April 05, 2025 09:09 AM [facility] TSH (MA-PB) SERUM Specimen Ty pe: SERUM No comment entered. Ordering Provider: SUAD ENG Report Released Date/Time: March 30, 2025 11:40 AM Reporting Lab: [place] [facility] [address] [place] [address] Performing Lab: [place] [facility] [address] [place] [address] TSH 1.368 u[IU]/mL 0.47-5 April 05, 2025 09:09 AM [facility] COMPREHENSIVE METABOLIC PANEL PLASMA Specimen Type: PLASMA No comment entered. Ordering Provider: SUAD ENG Report Released Date/Time: March 30, 2025 11:40 AM Reporting Lab: [place] [facility] [address] [place] [address] Performing Lab: [place] [facility] [address] [place] [address] CREATININE 0.72 mg/dL 0.7-1.3 UREA NITROGEN 12 [...] 2020) 109 April 05, 2025 09:09 AM [facility] CBC BLOO D Specimen Type: BLOOD No comment entered. Ordering Provider: SUAD ENG Report Released Date/Time: March 30, 2025 11:40 AM Reporting Lab: [place] [facility] [address] [place] [address] Performing Lab: [place] [facility] [address] [place] [address] WBC 4.8 10*3/uL 3.6-11.2 RBC 5.32 10*6/uL [...] 0. 00-0.05 March 23, 2025 03:53 PM [facility] VITAMIN D, 25-HYDROXY SERUM Specimen Type: SE RUM No comment entered. Ordering Provider: GREG QUINTERO Report Released Date/Time: March 23, 2025 03:52 PM Reporting Lab: [place] [facility] [address] [place] [address] Performing Lab: [place] [facility] [address] [place] [address] VITAMIN D, 25-HYDROXY 33.8 ng/mL 30-96 March 23, 2025 03:53 PM [facility] MAGNESIUM PLASMA Specimen Typ e: PLASMA No comment entered. Ordering Provider: GREG QUINTERO Report Released Date/Time: March 23, 2025 03:52 PM Reporting Lab: [place] [facility] [address] [place] [facility] Performing Lab: [place] [facility] [address] [place] [address] MAGNESIUM 2.21 mg/dL 1.6-2.6 March 23, 2025 03:53 PM [facility] B12 SERUM Specimen Type: SERUM No comment entered. Ordering Provider: GREG QUINTERO Report Released Date/Time: March 23, 2025 03:52 PM Reporting Lab: [place] [facility] [address] [place] [address] Performing Lab: [place] [facility] [address] [place] [address] B12 396 pg/mL 213-816 Social History: Smoking Status (Most current) and Tobacco Use (All prior to encounter date) This section includes the most current, and the historical, smoking and tobacco- related health factors from the [place] facility where the Encounter took place. Current Smoking Status This section includes the most current smoking, or tobacco-related health factor, from the [place] facility where the Encounter took place. Date/Time Current Smoking Status Comment Facil ity Nov 20, 2010 10:38 AM TOBACCO OFFERRED S [facility] SMOKING [facility] Tobacco Use History This section includes a history of the smoking, or tobacco-related health factors, that were collected on or before the date of the Encounter. The data comes from the [place] facility where the Encounter took place. Date/Time Smoking Status/Tobacco Use Comment F acility Nov 20, 2010 10:38 AM TOBACCO OFFERRED S [facility] SMOKING [facility] Jun 18, 2010 10:48 AM TOBACCO MEDS OFFERED BUT DECLINE D [facility] Jun 18, 2010 10:48 AM TOBACCO OFFERED PT MEDS (PROVIDE R) [facility] Jun 18, 2010 10:[address] [facility] SMOKING [facility] Radiology Reports: +/- 30 days [...] the Encounter. The data comes from all [place] treatment facilities. Date/Time Radiology Report Provider Source March 23, 2025 03:54 PM HAND,RIGHT,3 OR MO RE VIEWS: JUAN PABLO OBANDO [id number] -1970 M Exm Date: MARCH 23, 2025@15:54 Req Phys: GREG QUINTERO Pat [facility] (Req'g Lo Img Loc: [facility] Service: [place] [address] (Case [id number] COMPLETE) HAND,RIGHT,3 OR MORE VIEWS (RAD Detailed) CPT:98299 Proc Modifiers : RIGHT Reason for Study: trigger finger Clinical History: consult Report Status: Verified Date Reported: MARCH 23, 2025 Date Verified: MARCH 23, 2025 Phlebotomy Program Coordinator E-Sig: Report: Right hand 3 views. No fracture or dislocation. No bony destruction. There are no significant degenerative changes. Impression: No evidence of acute bony change Primary Interpreting Staff: ARIE GARCIA, RADIOLOGIST (Phlebotomy Program Coordinator, no e-sig) /ARIE Bruno [facility] March 23, 2025 03:53 PM SPINE CERVICAL MIN 4 OR 5 VIEWS: OBANDOJUAN PABLO YUE [id number] -1970 M Exm Date: MARCH 23, 2025@15:53 Req Phys: GREG QUINTERO [facility] (Req'g Lo Img Loc: [facility] Service: [place] [address] (Case [id number] COMPLETE) SPINE CERVICAL MIN 4 OR 5 VIEWS (RAD Detailed) CPT:64216 Reason for Study: headaches and neck pain Clinical History: wants pain management Report Status: Verified Date Reported: MARCH 23, 2025 Date Verified: MARCH 23, 2025 Phlebotomy Program Coordinator E-Sig: Report: Cervical spine 7 views. No [...] injury Primary Interpreting Staff: ARIE GARCIA, RADIOLOGIST (Phlebotomy Program Coordinator, no e-sig) /ARIE Bruno [facility] Encounter Notes: All associated encounter notes This section contains the clinical notes associated to the Encounter. Date/Time Encounter Note(s) Provider Source March 30, 2025 11:36 AM PSYCHIATRY NOTE: LOCAL TITLE: PSYCHIATRIC PROGRESS NOTE STANDARD TITLE: PSYCHIATRY NOTE DATE OF NOTE: MARCH 30, 2025@11:36 ENTRY DATE: MARCH 30, 2025@11:36:56 AUTHOR: SUAD ENG COSIGNER: URGENCY: STATUS: COMPLETED consent: provided verbal consent for receiving care through the modality of [facility] Patient verified date of and full name. Veterans Current Location: [address] [place] [id number] JUAN PABLO OBANDO is a 55 y/o MALE Note from previous visit was reviewed: Yes Reviewed progress notes Denies any SI/HI plans or intent Chief Complaint: Med Management History of Present Illness: [place] reports since last seen has been struggling. He states he was supposed to speak to me last Thursday but melted down. He states he doesn't know what sets him off. He states there are days where he is peaceful and then days where he is just is really angry. He states he has thrown things in the past when he was upset. He states it is happening more often than it did in the past. He states it is not the medication adding to this it is just life in general. He states it is not family issues it is more his PTSD sx just coming back. He states this is the time of [place] He states he is getting more intrusive thoughts recently. He states the Remeron does help with sleep and can sleep if he takes this med but not if doesn't. He states he is still getting nightmares around 4-5x per week. The would currently rate depression to be 5-6/10 with 10 being the worst. [place] reports getting some enjoyment and depends on what he has to do. Denies any Suicidal Ideations plans or intent. [place] denies any adverse side effects to medication. [...] Lock safe and unloaded Discussed firearm safety. [place] is aware this narrator recommends firearm be in a locked safe and stored away from ammunition. At any point in time if [place] experiences SI or HI firearms should be [...] Insight: Intact Judgement: Intact Prognosis: Fair Safety- [place] is not a safety risk to self or others at this time. Capable of making practice safe judgment and perform ADLs. Assessment: MDD, recurrent, mild PTSD, chronic, secondary to combat Irritability Plan: 1. Medications: Discussed medication in detail with the [place]. Will start Seroquel 25mg BID PRN for irritability. Did discuss this could make him very tired and not to drive with this medication. Discussed how this is an atypical antipsychotic and with this comes the increased chances of developing metabolic syndrome, TD, and EPS. Will cont Remeron 7.5mg for sleep. Discussed to monitor weight with this 2 medications medication. COntinue Effexor 300mg daily for mood. Discussed monitoring BP Will cont Buspar 10mg TID for anxiety and irritability Discussed side effects, risks, benefits and alternatives. Patient voiced understanding and was in agreement with this plan. Advised not to mix prescription medications with illicit substances or alcohol and not to drive if sedated. [place] also warned of risks of treatment noncompliance and/or refusal. Informed consent obtained and med reconciliation completed. 2. Labs: TSH, CBC, CMP, HgA1c, Lipid Panel 3. Consults/Medical: cont Ind therapy 4. Safety Planning was reviewed with the patient. is aware if patient begins having any suicidal or homicidal ideations this is an emergency and [place] needs to call 9-11 or go to the nearest ED. Discussed [facility] Crisis Line [phone]. 5. Patient should follow-up in 2 months Patient is encouraged to call with any questions or concerns. Instructed to follow up with his primary care provider routinely and as needed for wellness and any medical concerns. Return to [facility] for ongoing medication management, psychoeducation and supportive [...] (including VA, Non-VA, remote and recently medications). High Complexity: This encounter is high medical decision making complexity secondary to one or more chronic illnesses requiring drug therapy with intensive monitoring for toxicity or metabolic syndrome. /misael/ Suad Eng DO, MA John J Pershing [facility] Signed: 03/30/2025 11:39 SUAD ENG [facility] March 30, 2025 11:31 AM PRIMARY CARE EDUCA TION NOTE: LOCAL TITLE: OPT PHY INSTR AUTO PB STANDARD TITLE: PRIMARY CARE EDUCATION NOTE DATE OF NOTE: MARCH 30, 2025@11:31 ENTRY DATE: MARCH 30, 2025@11:31:30 AUTHOR: SUAD ENG EXP COSIGNER: URGENCY: STATUS: COMPLETED This documentation is related to: . F/U Visit Description of Today's Injury/Illness: MDD and PTSD Mental Health Testing: RETURN TO CLINIC: Return appointment is needed. . Special Instructions: . MEDICATION REVIEW/ASSESSMENT & PLAN: Start Seroquel 25mg BID PRN for irritability RTC 2 months Allergies/ADRs (Tool #5) FACILITY ALLERGY/ADR -------- No Remote Allergy/ADR Data available for this patient [facility] INSECT STINGS [facility] PRAVASTATIN [facility] ROSUVASTATIN Med. Reconciliation (Tool #1) INCLUDED IN THIS LIST: Alphabetical list of active outpatient prescriptions dispensed from this [place] (local) and dispensed from another [place] or [facility] facility (remote) as well as inpatient orders (local pending and active), local clinic medications, locally documented non-VA medications, and local prescriptions that have or been discontinued in the past 90 days. Non-VA Meds Last Documented On: Sep 23, 2012 NOTE The display of VA prescriptions dispensed from another [place] or [facility] facility (remote) is limited to active outpatient prescription entries matched to National Drug File at the originating site and may not include some items such as investigational drugs, compounds, etc. NOT INCLUDED IN THIS LIST: Medications self-entered by the patient into personal health records (i.e. [employer]) are NOT included in this list. Non-VA medications documented outside this [place], remote inpatient orders (regardless of status) and remote clinic medications are NOT included in this list. The patient and provider must always discuss medications the patient is taking, regardless of where the medication was dispensed or obtained. OUTPT BUSPIRONE HCL 10MG TAB (Status = Discontinued) TAKE ONE TABLET BY MOUTH THREE TIMES A DAY FOR ANXIETY DO NOT TAKE WITH [employer] JUICE. Rx# [id number] Last Released: 09/12/24 Qty/Days Supply: 270/90 Rx Expiration Date: 09/10/25 Refills Remainin Indication: FOR ANXIETY OUTPT BUSPIRONE HCL 10MG TAB (Status = Active) TAKE ONE TABLET BY MOUTH THREE TIMES A DAY FOR ANXIETY DO NOT TAKE WITH [employer] JUICE. Rx# [id number] Last Released: 03/29/25 Qty/Days Supply: 270/90 Rx Expiration Date: 01/21/26 Refills Remainin Indication: FOR ANXIETY OUTPT CYCLOBENZAPRINE HCL 10MG TAB (Status = Active) TAKE ONE TABLET BY MOUTH THREE TIMES A DAY NEEDED FOR MUSCLE SPASM MAY CAUSE DROWSINESS. DO NOT DRINK ALCOHOL WHILE TAKING THIS MEDICATION. Rx# [id number] Last Released: 03/29/25 Qty/Days Supply: 180/60 Rx Expiration Date: 04/30/25 [...] DOSE WITH RULER ATTACHED INSIDE BOX) Rx# [id number] Last Released: 03/27/25 Qty/Days Supply: 200/90 Rx Expiration Date: 04/30/25 Refills Remainin Indication: FOR PAIN OUTPT MIRTAZAPINE 15MG TAB (Status = Active) TAKE ONE-HALF TABLET BY MOUTH AT BEDTIME FOR DEPRESSION Rx# [id number] Last Released: 01/23/25 Qty/Days Supply: 45 Rx Expiration Date: 01/21/26 Refills Remainin Indication: FOR DEPRESSION OUTPT MIRTAZAPINE 15MG TAB (Status = Pending) TAKE ONE-HALF TABLET BY MOUTH AT BEDTIME FOR DEPRESSION Renewed from Rx# [id number] Qty/Days Supply: 45 Login Date: 03/30/25 Refills Ordered: 1 OUTPT NAPROXEN 500MG TAB (Status = ) TAKE ONE TABLET BY MOUTH TWICE DAILY NEEDED FOR PAIN TAKE WITH FOOD. Rx# [id number] Last Released: 03/28/24 Qty/Days Supply: 60/30 Rx Expiration Date: 03/24/25 Refills Remainin Indication: FOR PAIN OUTPT QUETIAPINE FUMARATE 50MG TAB (Status = Pending) TAKE ONE-HALF TABLET BY MOUTH TWICE A DAY NEEDED Login Date: 03/30/25 Qty/Days Supply: 60/60 Refills Ordered: 1 OUTPT VENLAFAXINE HCL 150MG 24HR SA CAP (Status = Discontinued) TAKE TWO CAPSULES BY MOUTH ONCE A DAY FOR DEPRESSION WITH FOOD. DO NOT ABRUPTLY DISCONTINUE MEDICATION. Rx# [id number] Last Released: 11/17/24 Qty/Days Supply: 180 Rx Expiration Date: 11/12/25 Refills Remainin Indication: FOR DEPRESSION OUTPT VENLAFAXINE HCL 150MG 24HR SA CAP (Status = Active/Suspended) TAKE TWO CAPSULES BY MOUTH ONCE A DAY FOR DEPRESSION WITH FOOD. DO NOT ABRUPTLY DISCONTINUE MEDICATION. Rx# [id number] Last Released: 01/23/25 Qty/Days Supply: 180/90 Rx Expiration Date: 01/21/26 Refills Remainin Indication: FOR DEPRESSION OUTPT VENLAFAXINE HCL 150MG 24HR SA CAP (Status = Pending) TAKE TWO CAPSULES BY MOUTH ONCE A DAY FOR DEPRESSION WITH FOOD. DO NOT ABRUPTLY DISCONTINUE MEDICATION. Renewed from Rx# [id number] Qty/Days Supply: 180/90 Login Date: 03/30/25 Refills Ordered: 2 SUPPLIES OUTPT TABLET CUTTER (Status = ) USE TABLET CUTTER ONCE A DAY NEEDED FOR TABLET CUTTING Rx# [id number] Last Released: 01/23/25 Qty/Days Supply: 11/16 Rx Expiration Date: 02/19/25 Refills Remainin Indication: FOR TABLET CUTTING PHARMACY TERMS AND POSSIBLE PATIENT ACTIONS INPT = [place] inpatient order IV = [place] intravenous medication OUTPT = [place] outpatient prescription PHARMACY POSSIBLE PATIENT TERMS EXPLANATION ACTIONS -------- --- ACTIVE A prescription that can be If you have refills, filled at the local [place] pharmacy. you may request a refill of this prescription from your [facility] pharmacy. CLINIC A medication you received during If you have questions a visit to a [place] clinic or about this medication emergency department. contact your [place] healthcare team. DISCONTINUED A prescription your provider has Contact your [place] stopped. It is no longer healthcare team if you available to be sent to you or need more of this picked up at the [place] pharmacy medication. window. A prescription which is [...] the VA. Or, it may be an farl-[id number]-yxzdodi (OTC), herbal, dietary supplements or sample medication. [...] An active prescription that is Contact your [place] not scheduled to be filled yet. pharmacy if you need You should receive it before this medication now. you run out. ======== Medication reconciliation performed with confirmed /caregiver and /caregiver voiced an understanding of current medications? Yes [place]/caregiver were provided an updated medication list. Following results reviewed and discussed with patient: Future Appointments: 05/08/2025 14:00 [facility] IND SWS CRI 05/11/2025 14:30 PB-CT APPT(NC) /misael/ Suad Eng DO, MA John J Pershing [facility] Signed: 03/30/2025 11:33 SUAD ENG [facility]
--- OUTSIDE RECORDS SUMMARY | 2025-05-09 08:20 | XMS_ITS ---
Author Organization [facility] Address [address] [place] [address] Care Team Providers Care Eating Disorder Psychologist Name Role Phone NicolasRolanda Unavailable [phone] Problems Problem Type SNOMED Code ICD Code Onset Dates Problem Status W/U Status Risk Notes Problem Chronic pain syndrome (132539941) Chronic pain syndrome (G89.4) Active confirmed Encounters Encounter Location Date Provider Diagnosis Formerly [facility] [place] [address] [place] [address] 05/09/2025 Rloanda Nicolas Chronic pain syndrome G89.4 Assessments Encounter Date Diagnosis (ICD Code) Assessment Notes Treatment Notes Treatment Clinical Notes Section Notes 05/09/2025 Chronic pain syndrome (ICD-10 - G89.4) Plan Of Treatment Next Appt Details Provider Name:Rolanda Jacksontari Ventura, 08/08/2025 02:40:00 PM, [address] [place], [address], History and Physical Notes * HPI (History of Present Illness) Category Sub-Category Detail Notes Category Not es Provider Note Interventions: Pertinent Imaging: Original HPI: Progress Notes * Bora KESSLERDOB:[birth year] (55 yo M)Acc No.[id number]:05/09/2025 Progress Notes Patient: Bora Dunbar Provider: Hakan Valenzuela MD :1970 A ge:55 Y S ex:Male Date:05/09/2025 Address:[address] [place] Subjective: * Chief Complaints: * HPI: Les perez Note: Patient presents today to establish care. - - - - - - - - - - - - - - - - - - - - - - - - - - - - - - - - - - - - - - - - - Consent for chronic opioid therapy/clinic policies: SERENA: MAITE-R: Physical Therapy: yes, dates: Bowel/bladder incontinence - d enies - - - - - - - - - - - - - - - - - - - - - - - - - - - - - - - - - - - - - - - - -. Interventions: Pertinent Imaging: Original HPI:. Assessment: * Assessment: 1. C hronic pain syndrome - G89.4 (Primary) * Electronic signature of Antonieta Valenzuela MD on 06/23/2025 at 12:11 PM CDT Sign off status: Pending * Provider: Hakan Valenzuela MD Date: 0 05/09/2025 Generated for Earnestine johnson/Toni/Jose on: 0 06/23/2025 12:11 PM CDT
--- OUTSIDE RECORDS SUMMARY | 2025-05-17 04:19 | XMS_ITS ---
Author Name [facility] [facility] [place] [facility] [place] Address [address] [place] [address] Care Team Providers Care Regional Sales Leader Name Role Phone DURANJUAN ANTONIO Primary Care [...] Name Patient's Relationship to Policy Stone AARP [facility] (WNR) MEDICARE ADVANTAGE [facility] (WNR) Nov 16, 2022 [id number] Max OBANDO PATIENT Selected Encounter This section includes the information on record at [place] for the Encounter. Date/Time Encounter Type Encounter Description Reason Provider Source May 17, 2025 09:19 AM Outpatient Encounter ADMIN PAT ACTIVTIES (MASNONCT) CHELSEA ESPINO Encounter Template Text not used by [place] Plan of Treatment: Future Appointments (+ 6 [...] 20 appointments. The data comes from all [place] treatment [facility]. Appointment Date/Time Appointment Type Appointme nt Facility Name Jun 02, 2025 03:00 PM AMBULATORY - PSYCHIATRY [facility] Jun 09, 2025 10:15 AM AMBULATORY - MEDICINE [facility] [facility] Jun 12, 2025 02:50 PM [facility]BULATORY - [facility]ICINE [facility] Jun 19, 2025 11:30 AM AMBULATORY - MEDICINE [facility] Jul 14, 2025 03:00 PM AMBULATORY - PS[facility]CHIATRY [facility] Aug 08, 2025 02:40 PM [facility]ULATORY - MEDICINE [facility] [place] [facility] Aug 14, 2025 03:00 PM AMBULATORY - PSYCHIATRY [facility] Sep 11, 2025 03:00 PM AMBULATORY - PS[facility]CHIATRY [facility] Sep 15, 2025 03:15 PM AMBULATORY - MEDICINE [facility] Sep 26, 2025 02:15 PM AMBULATORY - MEDICINE [place] [facility] Oct 09, 2025 03:00 PM AMBULATORY - PSYCHIATRY [facility] Active, Pending, and Scheduled Orders This section includes a listing of several types of active, pending, and scheduled orders, including clinic medications orders, diagnostic test orders, procedure orders and consult orders; where the start date of the order is 45 days before the date of the Encounter or 45 days after the date of theEncounter. The data comes from all [facility]. Test Date/Time Test Type Test Details Facility Name May 26, 2025 02:06 PM Consult Order COMMUNITY CARE-CHIROPRACTIC 657A4 Cons Railway Engineer's Choice [facility] Social History: Smoking Status (Most current) [...] shaw Nov 20, 2010 10:38 AM TOBACCO [facility] S[facility]KING CLINIC [facility] Tobacco Use History This section includes a history of the smoking, or tobacco-related health factors, that were collected on or before the date of the Encounter. The data comes from the [place] facility where the Encounter took place. Date/Time Smoking Status/Tobacco Use Comment F acility Nov 20, 2010 10:38 AM TOBACCO OFFERRED S TOP SMOKING [facility] Jun 18, 2010 10:48 AM TOBACCO MEDS OFFERED BUT DECLINE D [facility] Jun 18, 2010 10:48 AM TOBACCO OFFERED PT MEDS (PROVIDE R) [facility] Jun 18, 2010 10:[address] OP SMOKING [facility] Radiology Reports: +/- 30 days of the [...] the Encounter. The data comes from all [place] treatment facilities. Date/Time Radiology Report Provider Source May 11, 2025 02:22 PM LDCT LUNG CANCER SCREENING: JUAN PABLO OBANDO [id number] -1970 M Exm Date: MAY 11, 2025@14:22 Req Phys: AUGUSTA QUINTERO Pat Loc: PB-ADMIN LUNG SCREENING (Req'g Img Loc: PB-CT IMAGING Service: [place] [address] (Case [id number] COMPLETE) LDCT LUNG CANCER SCREENING (CT Detailed) CPT:81896 Reason for Study: LCS Annual F/U LRAD 1 Clinical History: Responsible Attending: Augusta Rhodes Attending Contact Number: [id number] Resident Contact Number: Smoking Hx: 1ppd x 30yrs. Quit in 2018. Report Status: Verified Date Reported: MAY 16, 2025 Date Verified: MAY 16, 2025 Manager Psychology E-Sig:/ES/OUTSIDE SERVICE RADIOLOGY Report: EXAM: LDCT LUNG CANCER SCREENING ADDITIONAL HISTORY: Annual Screening COMPARISON: 05/10/2024 PROTOCOL: Screening protocol, low dose, non-contrast CT chest was performed at the local [place] facility in accordance with Lung-Rads 2021. Additional coronal and sagittal reconstructions. MIP reconstructions were reviewed. 2476 images were received by the [place] National Teleradiology Program (NTP) for interpretation. RADIATION DOSE: CTDI(vol): 2.8 mGy DLP: 111.0 mGy*cm INDEX NODULE: No suspicious pulmonary nodule. OTHER NODULES: A few sub-2 mm micronodules are stable. No new or enlarging pulmonary nodule. LUNG/AIRWAY FINDINGS: The lungs and central airways are unremarkable. EMPHYSEMA: Mild HEART, MEDIASTINUM AND LYMPH NODES: No significant abnormalities. VISUAL CORONARY ARTERY CALCIFICATIONS: None apparent UPPER ABDOMEN: Unremarkable. BONES, SOFT TISSUES, AND ADDITIONAL FINDINGS: Unremarkable. Impression: LUNG-RADS: 2: Benign. RECOMMENDATION: [address] follow-up, if patient meets screening criteria. LUNG-RADS MODIFIER: N/A. READING PHYSICIAN: Andrea Wileks MD -[id number] 05/16/2025 12:09 [facility] National Teleradiology Program [phone] (For Medical Practitioner Use Only) Attention Patients / Veterans: If you have questions or concerns about these test results, please contact your ordering provider or primary care team. Primary Interpreting Staff: OUTSIDE SERVICE RADIOLOGY, Staff Physician / RADIOLOGY,OUTSIDE SERVICE [facility] Encounter Notes: All associated encounter notes This section contains the clinical notes associated to the Encounter. Date/Time Encounter Note(s) Provider Source May 17, 2025 09:19 AM PRIMARY CARE DIAGN OSTIC STUDY NOTE: LOCAL TITLE: LDCT FOLLOW-UP NOTE PB STANDARD TITLE: PRIMARY CARE DIAGNOSTIC STUDY NOTE DATE OF NOTE: MAY 17, 2025@09:19 ENTRY DATE: MAY 17, 2025@09:20:02 AUTHOR: CHELSEA ESPINO EXP COSIGNER: URGENCY: STATUS: COMPLETED TRACKING OF NODULE INDICATED: Date of current image: Date: May 11, 2025 Lung RADS Score: 2 Incidental Findings: No incidental findings were noted. Plan: Interval until next LDCT scan is due: 12 months Patient Notification of results: Results letter sent to patient. Smoking history: Former smoker, 1 ppd x 30 years, quit 2017. /misael/ GIO Michel, RN LCS Program Signed: 05/17/2025 09:26 CHELSEA ESPINO [facility]
--- OUTSIDE RECORDS SUMMARY | 2025-05-17 04:24 | XMS_ITS ---
Author Name [facility] [place] Address [address] [place] [address] Care Team Providers Care Assistant Oceanographer Name Role Phone DURANJUAN ANTONIO Primary Care [...] Name Patient's Relationship to Policy Stone AARP [facility] (WNR) MEDICARE ADVANTAGE [facility] (WNR) Nov 16, 2022 [id number] Max KESSLER PATIENT Selected Encounter This section includes the information on record at [place] for the Encounter. Date/Time Encounter Type Encounter Description Reason Pro vider Source May 17, 2025 09:24 AM Outpatient Encounter ADMIN PAT ACTIVTIES (MASNONCT) IHE Encounter Template Text not used by [place] Plan of Treatment: Future Appointments (+ 6 [...] 20 appointments. The data comes from all [place] treatment [facility]. Appointment Date/Time Appointment Type Appointme nt Facility Name Jun 02, 2025 03:00 PM AMBULATORY - PSYCHIATRY [facility] Jun 09, 2025 10:15 AM AMBULATORY - MEDICINE [facility] Jun 12, 2025 02:50 PM AMBULATORY - MEDICINE [facility] Jun 19, 2025 11:30 AM AMBULATORY - MEDICINE [place] [facility] Jul 14, 2025 03:00 PM AMBULATORY - PSYCHIATRY [facility] Aug 08, 2025 02:40 PM AMBULATORY - MEDICINE [facility] Aug 14, 2025 03:00 PM AMBULATORY - PSYCHIATRY [facility] Sep 11, 2025 03:00 PM AMBULATORY - PSYCHIATRY [facility] Sep 15, 2025 03:15 PM AMBULATORY - MEDICINE [facility] Sep 26, 2025 02:15 PM AMBULATORY - MEDICINE [place] [facility] Oct 09, 2025 03:00 PM AMBULATORY - PSYCHIATRY [facility] Active, Pending, and Scheduled Orders This section includes a listing of several types of active, pending, and scheduled orders, including clinic medications orders, diagnostic test orders, procedure orders and consult orders; where the start date of the order is 45 days before the date of the Encounter or 45 days after the date of theEncounter. The data comes from all [facility]. Test Date/Time Test Type Test Details Facility Name May 26, 2025 02:06 PM Consult Order COMMUNITY CARE-CHIROPRACTIC 657A4 Cons Sponge Packer's Choice [facility] Social History: Smoking Status (Most current) and Tobacco Use (All prior to encounter date) This section includes the most current, and the historical, smoking and tobacco- related health factors from the [place] facility where the Encounter took place. Current Smoking Status This section includes the most current smoking, or tobacco-related health factor, from the [place] facility where the Encounter took place. Date/Time Current Smoking Status Anne shaw Nov 20, 2010 10:38 AM TOBACCO [facility] SMO[facility] CLINIC [facility] Tobacco Use History This section includes a history of the smoking, or tobacco-related health factors, that were collected on or before the date of the Encounter. The data comes from the [place] facility where the Encounter took place. Date/Time Smoking Status/Tobacco Use Comment F acility Nov 20, 2010 10:38 AM TOBACCO OFFERRED S TOP SMOKING [facility] Jun 18, 2010 10:48 AM TOBACCO MEDS OFFERED BUT DECLINE D [facility] Jun 18, 2010 10:48 AM TOBACCO OFFERED PT MEDS (PROVIDE R) [facility] Jun 18, 2010 10:[address] OP SMOKING [facility] Radiology Reports: +/- 30 days [...] the Encounter. The data comes from all [place] treatment facilities. Date/Time Radiology Report Provider Source May 11, 2025 02:22 PM LDCT LUNG CANCER SCREENING: BORA KESSLER [id number] -[id number] M Exm Date: MAY 11, 2025@14:22 Req Phys: AUGUSTA QUINTERO Pat Loc: PB-ADMIN LUNG SCREENING (Req'g Img Loc: PB-CT IMAGING Service: [place] [address] (Case [id number] COMPLETE) LDCT LUNG CANCER SCREENING (CT Detailed) CPT:74827 Reason for Study: LCS Annual F/U LRAD 1 Clinical History: Responsible Attending: Augusta Rhodes Attending Contact Number: [phone] Resident Contact Number: Smoking Hx: 1ppd x 30yrs. Quit in 2018. Report Status: Verified Date Reported: MAY 16, 2025 Date Verified: MAY 16, 2025 Clay Miner E-Sig:/ES/OUTSIDE SERVICE RADIOLOGY Report: EXAM: LDCT LUNG CANCER SCREENING ADDITIONAL HISTORY: Annual Screening COMPARISON: 05/10/2024 PROTOCOL: Screening protocol, low dose, non-contrast CT chest was performed at the local [place] facility in accordance with Lung-Rads 2021. Additional coronal and sagittal reconstructions. MIP reconstructions were reviewed. 2476 images were received by the [place] National Teleradiology Program (NTP) for interpretation. RADIATION [...] criteria. LUNG-RADS MODIFIER: N/A. READING PHYSICIAN: Andrea Wilkes MD -[id number] 05/16/2025 12:09 [facility] National Teleradiology Program [phone] (For Medical Practitioner Use Only) Attention Patients / Veterans: If you have questions or concerns about these test results, please contact your ordering provider or primary care team. Primary Interpreting Staff: OUTSIDE SERVICE RADIOLOGY, Staff Physician / RADIOLOGY,OUTSIDE SERVICE [facility] Encounter Notes: All associated encounter notes This section contains the clinical notes associated to the Encounter. Date/Time Encounter Note(s) Provider Source May 17, 2025 09:24 AM PRIMARY CARE LETTE RS: LOCAL TITLE: TEST RESULT LETTER PB STANDARD TITLE: PRIMARY CARE LETTERS DATE OF NOTE: MAY 17, 2025@09:24 ENTRY DATE: MAY 17, 2025@09:24:13 AUTHOR: CHELSEA ESPINO EXP COSIGNER: URGENCY: STATUS: COMPLETED [facility] [address] [place], [place] [address] MAY 17, 2025 BORA KESSLER [address] [place], [place] [address] Dear Bora Kessler, Thank you for completing your Lung Cancer Screening Imaging. You are very important to us. Lung cancer is treatable, and patients do better if it is found early. The national recommendation for Lung Cancer Screening is to continue through age 80 and/or until you have been cigarette free for 15 years. RADIOLOGY(NON-INVASIVE TEST RESULTS: Low Dose CT for Lung Cancer Screening DATE of EXAM: 05/11/2025 Lung-RADS category 2: Benign appearance or behavior. Nodules with a very low likelihood of becoming a clinically active cancer due to size or lack of growth. MANAGEMENT RECOMMENDATION: Continue annual screening with low-dose CT in 12 months. You will be due for your next Lung Cancer Screen imaging April 2026. If you have a cold or any lung congestion when you are due for your next screen, it is best to reschedule for 3-4 weeks to allow time for potential mucous to clear. Lung cancer screening can detect lung cancer but it does not prevent it. Rarely, a CT scan can miss a small lung cancer. Contact your primary care provider if you develop new symptoms, such as worsening shortness of breath, change in a cough, or coughing up blood. Should you have any questions, please contact your Primary Care provider. FUTURE APPOINTMENTS: 06/02/2025 15:00 PB-DAVID [facility] IND SWS CRI 06/09/2025 10:15 PB-VVC [facility] PSI IND [place] 09/26/2025 14:15 [facility] CARE-NEUROLOGY 657A4 CHELSEA ESPINO [facility]
--- OUTSIDE RECORDS SUMMARY | 2025-06-19 05:17 | XMS_ITS ---
Author Name [place] Address [address] [place] [address] Care Team Providers Care Generator Man Name Role Phone DURANJUAN ANTONIO Primary Care [...] Name Patient's Relationship to Policy Stone AARP [facility] (WNR) MEDICARE ADVANTAGE [facility] (WNR) Nov 16, 2022 [id number] Max OBANDO PATIENT Selected Encounter This section includes the information on record at [place] for the Encounter. Date/Time Encounter Type Encounter Description Reason Pro vider Source Jun 19, 2025 10:17 AM Outpatient Encounter ADMIN PAT ACTIVTIES (MASNONCT) IHE Encounter Template Text not used by [place] Plan of Treatment: Future Appointments (+ 6 [...] 20 appointments. The data comes from all [place] treatment [facility]. Appointment Date/Time Appointment Type Appointme nt Facility Name Jul 14, 2025 03:00 PM AMBULATORY - PS[facility]CHIATRY [facility] Aug 08, 2025 02:40 PM AMBULATORY - MEDICINE [facility] Aug 14, 2025 03:00 PM [facility] Sep 11, 2025 03:00 PM [facility] Sep 15, 2025 03:15 PM AMBULATORY - MEDICINE [facility] Sep 26, 2025 02:15 PM AMBULATORY - MEDICINE [facility] Oct 09, 2025 03:00 PM [facility] Active, Pending, and Scheduled Orders This section includes a listing of several types of active, pending, and scheduled orders, including clinic medications orders, diagnostic test orders, procedure orders and consult orders; where the start date of the order is 45 days before the date of the Encounter or 45 days after the date of theEncounter. The data comes from all [facility]. Test Date/Time Test Type Test Details Facility Name May 26, 2025 02:06 PM Consult Order COMMUNITY CARE-CHIROPRACTIC 657A4 Cons Rn Home Care's Choice [facility] Social History: Smoking Status (Most current) and Tobacco Use (All prior to encounter date) This section includes the most current, and the historical, smoking and tobacco- related health factors from the [place] facility where the Encounter took place. Current Smoking Status This section includes the most current smoking, or tobacco-related health factor, from the [place] facility where the Encounter took place. Date/Time Current Smoking Status Comment Radha nyy Nov 20, 2010 10:38 AM TOBACCO OFFERRED S [facility] SMOKING [facility] Tobacco Use History This section includes a history of the smoking, or tobacco-related health factors, that were collected on or before the date of the Encounter. The data comes from the [place] facility where the Encounter took place. Date/Time Smoking Status/Tobacco Use Comment F jojo Nov 20, 2010 10:38 AM TOBACCO OFFERRED S TOP SMOKING [facility] Jun 18, 2010 10:48 AM TOBACCO MEDS OFFERED BUT DECLINE D [facility] Jun 18, 2010 10:48 AM TOBACCO OFFERED PT MEDS (PROVIDE R) [facility] Jun 18, 2010 10:[address] OP SMOKING CLINIC [facility] Encounter Notes: All associated encounter notes This section contains the clinical notes associated to the Encounter. Date/Time Encounter Note(s) Provider Source Jun 19, 2025 10:18 AM ADMINISTRATIVE NOT E: LOCAL TITLE: [facility]: SCHEDULING ADMINISTRATION STANDARD TITLE: ADMINISTRATIVE NOTE DATE OF NOTE: JUN 19, 2025@10:18:01 ENTRY DATE: JUN 19, 2025@10:18:01 AUTHOR: JO ANN REYNA EXP COSIGNER: URGENCY: STATUS: COMPLETED Caller Verification Call Back Number: [phone] Emergency Contact: CRISTIAN OBANDO Emergency Contact Caller/Recipient Relation to Patient: Self Caller Name: JUAN PABLO OBANDO Scheduling Requested Service(s): [facility] Virtual Clinic Visit (VCV) Patient Requests Appt on or around: 2025-06-19 00:00:00 Patient Expects Callback: Yes Administrative Administrative Note Reason: Other Administrative Note Comments: Transfer from triage. to be seen within 24 hours [facility] VVC for headache and memory loss per [facility] triage. [place] scheduled 06/19 1130 [facility] VVC. AMSA confirmed received link. IMPORTANT: This note was created by [facility] Clinical Contact Center staff. Please do not alert the staff member by adding them as a signer for future communications. Alerts are not monitored by this user. /misael/ JO ANN REYNA Signed: 06/19/2025 10:18 JO ANN REYNA [facility]
--- OUTSIDE RECORDS SUMMARY | 2025-06-19 05:19 | XMS_ITS ---
Author Name [facility] [facility] [place] [facility] [place] Address [address] [place] [address] Care Team Providers Care Mercury Purifier Name Role Phone JUAN ANTONIO DURAN Primary Care Provider Unavailabl e Insurance Providers: [...] Name Patient's Relationship to Policy Stone AARP [facility] (WNR) MEDICARE ADVANTAGE [facility] (WNR) Nov 16, 2022 [id number] Max OBANDO PATIENT Selected Encounter This section includes the information on record at [place] for the Encounter. Date/Time Encounter Type Encounter Description Reason Pro vider Source Jun 19, 2025 10:19 AM Outpatient Encounter TELEPHONE TRIAGE IHE Encounter Template Text not used by VA [...] 20 appointments. The data comes from all [facility]. Appointment Date/Time Appointment Type Appointme nt Facility Name Jul 14, 2025 03:00 PM AMBULATORY - [facility]ATRY [facility] Aug 08, 2025 02:40 PM AMBULATORY - MEDICINE [facility] Aug 14, 2025 03:00 PM AMBULATORY - PS[facility]CHIATRY [facility] Sep 11, 2025 03:00 PM AMBULATORY - PS[facility]CHIATRY [facility] Sep 15, 2025 03:15 PM AMBULATORY - MEDICINE [facility] Sep 26, 2025 02:15 PM AMBULATORY - MEDICINE [facility] Oct 09, 2025 03:00 PM AMBULATORY - PS[facility]CHIATRY [facility] Active, Pending, and Scheduled Orders This section includes a listing of several types of active, pending, and scheduled orders, including clinic medications orders, diagnostic test orders, procedure orders and consult orders; where thestart date of the order is 45 days before the date of the Encounter or 45 days after the date of the Encounter. The data comes from all [facility]. Test Date/Time Test Type Test Details Facility Name May 26, 2025 02:06 PM Consult Order COMMUNITY CARE-CHIROPRACTIC 657A4 Cons Appointment Specialist's Choice [facility] Social History: Smoking Status (Most current) and Tobacco Use (All prior to encounter date) This section includes the most current, and the historical, smoking and tobacco- related health factors from the [place] facility where the Encounter took place. Current Smoking Status This section includes the most current smoking, or tobacco-related health factor, from the [place] facility where the Encounter took place. Date/Time Current Smoking Status Comment Radha shaw Nov 20, 2010 10:38 AM TOBACCO OFFERRED S [facility] SMOKING [facility] Tobacco Use History This section includes a history of the smoking, or tobacco-related health factors, that were collected on or before the date of the Encounter. The data comes from the [place] facility where the Encounter took place. Date/Time Smoking Status/Tobacco Use Comment F jojo Nov 20, 2010 10:38 AM TOBACCO OFFERRED S [facility] SMOKING [facility] Jun 18, 2010 10:48 AM TOBACCO MEDS OFFERED BUT DECLINE D [facility] Jun 18, 2010 10:48 AM TOBACCO OFFERED PT MEDS (PROVIDE R) [facility] Jun 18, 2010 10:[address] [facility] SMOKING CLINIC [facility] Encounter Notes: All associated encounter notes This section contains the clinical notes associated to the Encounter. Date/Time Encounter Note(s) Provider Source Jun 19, 2025 10:19 AM RN PROGRESS NOTE: LOCAL TITLE: [facility]: CLINICAL TRIAGE STANDARD TITLE: RN PROGRESS NOTE DATE OF NOTE: JUN 19, 2025@10:19:34 ENTRY DATE: JUN 19, 2025@10:19:35 AUTHOR: LEVI CHACON COSIGNER: URGENCY: STATUS: COMPLETED Caller Verification Call Back Number: [phone] Caller/Recipient Relation to Patient: Self Caller Name: JUAN PABLO OBANDO Emergency Contact: CRISTIAN OBANDO Triage Summary Conducted triage/discussed symptoms Pain Score: 3 Utilized the Triage Tool: Yes Chief Complaint: Headache Nurse's Recommendation / WHEN: Within 4 Hours Nurse's Recommendation / WHERE: Virtual Video Visit Patient Disposition Patient/Caregiver agrees to plan of care: Yes Patient WHERE: Virtual Video Visit Patient WHEN: Within 4 Hours Nursing Plan and Disposition Referred for [facility] Virtual Clinic Visit Transferred patient to Sched & Admin-VCV Other course(s) of action Generated msg to PACT/Provider Provided guidance for worsening symptoms: *Caller/Patient* advised to call facilities [place] Clinical Contact Center or seek immediate medical attention for new or worsening symptoms Nurse Summary Nurse Summary: Ringold called with complaints of headache and memory loss. states that he has chronic headaches but over the past 2 weeks, headaches has gotten worse. Since the headaches gotten worse he has noticed memory loss. Requesting to be evaluated. Clinical Contact Center Codes Clinic/Location: [address] [facility] RN Decision Support System Output: Triage Complete Triage Date: 06/19/2025, 10:07 AM Triage Note: Decision Support Tool Used: ClearTriage Protocol Used: Headache Protocol-Based Disposition: See Provider within 24 Hours Video visit offer not recorded Positive Triage Question: * [1] MODERATE headache (e.g., interferes with normal activities) AND [2] present > 24 hours AND [3] unexplained (Exceptions: Pain medicines not tried, typical migraine, or headache part of viral illness.) Care Advice Discussed: * Rest for Headache - Lie down in a dark quiet place and relax until feeling better. - Close your eyes and imagine your entire body relaxing. * Cold Pack for Headache - Put a cold pack or an ice bag (wrapped in a moist towel) on the forehead. - Do this for 20 minutes. * Neck Massage for Headache * Reasons To Call Back - You become worse Negative Triage Questions: * Difficult to awaken or acting confused (e.g., disoriented, slurred speech) * [1] Weakness of the face, arm or leg on one side of the body AND [2] new-onset * [1] Numbness of the face, arm or leg on one side of the body AND [2] new-onset * [1] Loss of speech or garbled speech AND [2] new-onset * Passed out (e.g., fainted, lost consciousness, blacked out and was not responding) * Sounds like a life-threatening emergency to the triager * [1] SEVERE headache (e.g., excruciating) AND [2] worst headache of life * [1] SEVERE headache AND [2] sudden-onset (i.e., reaching maximum intensity within seconds to 1 hour) * Unable to walk, or can only walk with assistance (e.g., requires support) * Stiff neck (can't touch chin to chest) * Severe pain in one eye * Loss of vision or double vision (Exception: Same as previously diagnosed migraines.) * [1] Other family members (or people in same household) with headaches AND [2] possibility of carbon monoxide exposure * [1] SEVERE headache (e.g., excruciating) AND [2] fever * [1] Fever > 100 F (37.8 C) AND [2] diabetes mellitus or weak immune system (e.g., HIV positive, cancer chemo, splenectomy, organ transplant, chronic steroids) * Patient sounds very sick or weak to the triager * [1] SEVERE headache (e.g., excruciating) AND [2] not improved after 2 hours of pain medicine * [1] Vomiting AND [2] 2 or more times (Exception: Similar to previously diagnosed migraines.) * Fever > 104 F (40 C) IMPORTANT: This note was created by [facility] Clinical Contact Center staff. Please do not alert the staff member by adding them as a signer for future communications. Alerts are not monitored by this user. /misael/ LEVI CHACON MSN,RN Signed: 06/19/2025 10:19 Receipt Acknowledged By: * AWAITING SIGNATURE * JUAN ANTONIO DURAN III 06/23/2025 09:30 /misael/ CHARLI TROYN, RN [facility] for LEVI SAUER [facility]
--- OUTSIDE RECORDS SUMMARY | 2025-06-19 06:30 | XMS_ITS | Encounter Summary ---
Author Name [facility] [place] Organization [facility] [place] Address [address] [place] [address] Care Team Providers Care Still Pump Operator Name Role Phone RENEEJUAN ANTONIO Primary Care [...] Stone's Name Patient's Relationship to Policy Stone [facility] (WNR) MEDICARE ADVANTAGE [facility] (WNR) Nov 16, 2022 [id number] Max OBANDO PATIENT Selected Encounter This section includes the information on record at [place] for the Encounter. Date/Time Encounter Type Encounter Description Reason Provider Source Jun 19, 2025 11:30 AM SYNCH AUDIO-VIDEO EST LOW 20 GENERAL INTERNAL MEDICINE ICD-10-CM R51.9 Headache, unspecified KOFFI FLETCHER IHMax Encounter Template Text not used by [place] Assessments - Encounter Diagnoses This section includes the primary and secondary diagnoses documented for the Encounter. Date/Time Primary/Secondary Diagnosis Diagnosis Name Provider Source Jun 19, 2025 12:08 PM PRIMARY Headache, unspecified PRIYANK FLETCHER [facility] Plan of Treatment: Future Appointments (+ 6 months) and Future Tests (+/- 45 days) The Plan of Treatment section includes future care activities for the patient from all [place] [facility] This section includes future appointments and future orders which are active, pending or scheduled. Future Appointments This section includes appointments that were scheduled to occur 6 months from the date of the Encounter, up to a maximum of 20 appointments. The data comes from all [facility]. Appointment Date/Time Appointment Type Appointme nt Facility Name Jul 14, 2025 03:00 PM AMBULATORY - [facility]ATRY [facility] Aug 08, 2025 02:40 PM AMBULATORY - MEDICINE [facility] Aug 14, 2025 03:00 PM AMBULATORY - PSYCHIATRY [facility] Sep 11, 2025 03:00 PM AMBULATORY - PSYCHIATRY [facility] Sep 15, 2025 03:15 PM AMBULATORY - MEDICINE [facility] Sep 26, 2025 02:15 PM AMBULATORY - MEDICINE [facility] Oct 09, 2025 03:00 PM AMBULATORY - PSYCHIATRY [facility] Active, Pending, and Scheduled Orders This section includes a listing of several types of active, pending, and scheduled orders, including clinic medications orders, diagnostic test orders, procedure orders and consult orders; where the start date of the order is 45 days before the date of the Encounter or 45 days after the date of theEncounter. The data comes from all [facility]. Test Date/Time Test Type Test Details Facility Name May 26, 2025 02:06 PM Consult Order COMMUNITY CARE-CHIROPRACTIC 657A4 Cons [place] Operator's Choice [facility] Social History: Smoking Status (Most current) and Tobacco Use (All prior to encounter date) This section includes the most current, and the historical, smoking and tobacco- related health factors from the [place] facility where the Encounter took place. Current Smoking Status This section includes the most current smoking, or tobacco-related health factor, from the [place] facility where the Encounter took place. Date/Time Current Smoking Status Comment Radha shaw Nov 20, 2010 10:38 AM TOBACCO [facility]KING [facility] Tobacco Use History This section includes a history of the smoking, or tobacco-related health factors, that were collected on or before the date of the Encounter. The data comes from the [place] facility where the Encounter took place. Date/Time Smoking Status/Tobacco Use Comment F acility Nov 20, 2010 10:38 AM TOBACCO OFFERRED S [facility] SMOKING CLINIC [facility] Jun 18, 2010 10:48 AM TOBACCO MEDS OFFERED BUT DECLINE D [facility] Jun 18, 2010 10:48 AM TOBACCO OFFERED PT MEDS (PROVIDE R) [facility] Jun 18, 2010 10:[address] [facility] SMOKING CLINIC [facility] Encounter Notes: All associated encounter notes This section contains the clinical notes associated to the Encounter. Date/Time Encounter Note(s) Provider Source Jun 19, 2025 11:34 AM URGENT CARE NOTE: LOCAL TITLE: 5 [facility] URGENT CARE VISIT STANDARD TITLE: URGENT CARE NOTE DATE OF NOTE: JUN 19, 2025@11:34 ENTRY DATE: JUN 19, 2025@11:34:29 AUTHOR: MIESHA FLETCHER COSIGNER: URGENCY: STATUS: COMPLETED PRIMARY CARE TEMPLATE Patient is a 55 year old (Feb) WHITE MALE. Patient's identity was verified with at least 2 personal identifiers. *Appointment type: Type of Visit: Video Visit: Telehealth Disclosure: Visit conducted by synchronous telehealth. Patient verbal consent obtained. Location/emergency number confirmed. Environment surveyed and all participants identified. Virtual conference room locked. Emergency contact information was obtained as follows: Confirmed [facility] Non-VA location for this appointment: Patient's current address [address], [place] [address] Patient's Primary NOK: HUGO OBANDOBrandin Saldana Relation: EXTENDED FAMILY M [address] [facility] [place], [place] [address] Chief Complaint: headache History of Present Illness: symptoms for several days. if he closes his eyes it helps the pain. headache is in the back of his head at the base of his skull. has tried heat, ice, massage, red light, cyclobenzaprine. All have been inconsistent in use. no blurred vision. PMH/Active Problem List 1) Chronic low back pain (SNOMED CT 616675885) 2) Hyperlipidemia (SNOMED CT 41330869) 3) Carpal tunnel syndrome (SNOMED CT 10890716) 4) Wrist pain (SNOMED CT 58265178) 5) BPPV - Benign paroxysmal positional vertigo 6) Hyperlipidemia 7) Mild chronic obstructive pulmonary disease 8) Recurrent major depression 9) Osteoarthritis 10) Cervical disc disorder with radiculopathy 11) Sleep Apnea (SCT 03143916) 12) Hiatal hernia 13) PTSD - Post-traumatic stress disorder 14) Exposure to potentially hazardous substance (SCT 592811110872813) 15) Bilateral tinnitus 16) Sensorineural hearing loss of bilateral ears 17) Posttraumatic stress disorder Problem list was reviewed. SOCIAL HISTORY Noncontributory Family History: Noncontributory MEDICATIONS: Active and Recently Outpatient Medications (including Supplies): Active Outpatient Medications Status 1) BUSPIRONE HCL 10MG TAB TAKE ONE TABLET BY MOUTH THREE TIMES ACTIVE A DAY DO NOT TAKE WITH GRAPEFRUIT JUICE. Indication: FOR ANXIETY 2) MIRTAZAPINE 15MG TAB TAKE ONE-HALF TABLET BY MOUTH AT ACTIVE (S) BEDTIME Indication: FOR DEPRESSION 3) QUETIAPINE FUMARATE 50MG TAB TAKE ONE-HALF TABLET BY MOUTH ACTIVE TWICE DAILY NEEDED Indication: IRRITABILITY 4) VENLAFAXINE HCL 150MG 24HR SA CAP TAKE TWO CAPSULES BY MOUTH ACTIVE ONCE A DAY WITH FOOD. DO NOT ABRUPTLY DISCONTINUE MEDICATION. Indication: FOR DEPRESSION Compared newly ordered medications and medication changes to active medications and non-VA medications, and then reviewed medications with patient and/or caregiver. All discrepancies noted and reconciled. Patient, or caregiver, was provided with reconciled medications list and advised to provide to all non VA providers. Potential adverse reactions of new medications were discussed with the patient. REVIEW OF SYSTEMS As per HPI, otherwise unremarkable. PHYSICAL EXAMINATION General: awake, alert, oriented X 3. resp easy. conversation without difficulty Pysch: normal mood VITALS Most recent vital signs: No data available BMI: 26.4 ASSESSMENT/PLAN 1. headache/cervicalgia - discussed being consistent with treatments for 24-48 hours. will send lidocaine patches. discussed acupuncture and care tech. he does currently see a chiropractor once a month. 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 will try the interventions that he currently has consistently to see if it helps. ER precautions Shared medical decision making occurred during this visit with the [facility]. Questions answered and is agreeable with treatment plan. All new medications discussed/reviewed with [facility]/caregiver including side effects/teratogenic side effects. Labs/testing ordered discussed with /caregiver and education was provided during this visit. DISPOSITION: Issue resolved with Clinical Contact Center appointment FOLLOW UP: Advised to keep all scheduled medical and follow-up appointments. was advised to seek medical treatment if symptoms do not improve and/or worsens. Video visit: total time spent 20 minutes. /misael/ Miesha LYNCH TAR CHASER-C Signed: 06/19/2025 12:08 Receipt Acknowledged By: * AWAITING SIGNATURE * JUAN ANTONIO DURAN III 06/21/2025 09:56 /misael/ CHARLI POWERS, RN [facility] for MIESHA OSLIS [facility]
--- OUTSIDE RECORDS SUMMARY | 2025-06-22 10:45 | XMS_ITS | Encounter Summary ---
Author Name [facility] [place] Organization [place] Address [address] [place] [address] Care Team Providers Care Enrichment Director Name Role Phone JUAN ANTONIO DURAN Primary [...] Name Patient's Relationship to Policy Stone AARP [facility] (WNR) MEDICARE ADVANTAGE [facility] (WNR) Nov 16, 2022 [id number] Max OBANDO PATIENT Selected Encounter This section includes the information on record at [place] for the Encounter. Date/Time Encounter Type Encounter Description Reason Pro vider Source Jun 22, 2025 03:45 PM Outpatient Encounter TELEPHONE TRIAGE IHE Encounter Template [...] 20 appointments. The data comes from all [facility]. Appointment Date/Time Appointment Type Appointme nt Facility Name Jul 14, 2025 03:00 PM AMBULATORY - PS[facility]IATRY [facility] Aug 08, 2025 02:40 PM AMBULATORY - MEDICINE [facility] Aug 14, 2025 03:00 PM AMBULATORY - PSYCHIATRY [facility] Sep 11, 2025 03:00 PM AMBULATORY - PS[facility]CHIATRY [facility] Sep 15, 2025 03:15 PM AMBULATORY - MEDICINE [facility] Sep 26, 2025 02:15 PM AMBULATORY - MEDICINE [facility] Oct 09, 2025 03:00 PM AMBULATORY - PSYCHIATRY [facility] Active, Pending, and Scheduled Orders This section includes a listing of several types of active, pending, and scheduled orders, including clinic medications orders, diagnostic test orders, procedure orders and consult orders; where thestart date of the order is 45 days before the date of the Encounter or 45 days after the date of the Encounter. The data comes from all [facility]. Test Date/Time Test Type Test Details Facility Name May 26, 2025 02:06 PM Consult Order COMMUNITY CARE-CHIROPRACTIC 657A4 Cons [place] Superintendent's Choice [facility] Social History: Smoking Status (Most current) and Tobacco Use (All prior to encounter date) This section includes the most current, and the historical, smoking and tobacco- related health factors from the [place] facility where the Encounter took place. Current Smoking Status This section includes the most current smoking, or tobacco-related health factor, from the [place] facility where the Encounter took place. Date/Time Current Smoking Status Comment Radha shaw Nov 20, 2010 10:38 AM TOBACCO OFFERRED S [facility] SMOKING [facility] Tobacco Use History This section includes a history of the smoking, or tobacco-related health factors, that were collected on or before the date of the Encounter. The data comes from the [place] facility where the Encounter took place. Date/Time Smoking Status/Tobacco Use Comment F jojo Nov 20, 2010 10:38 AM TOBACCO OFFERRED S [facility] SMOKING [facility] Jun 18, 2010 10:48 AM TOBACCO MEDS OFFERED BUT DECLINE D [facility] Jun 18, 2010 10:48 AM TOBACCO OFFERED PT MEDS (PROVIDE R) [facility] Jun 18, 2010 10:[address] OP SMOKING CLINIC [facility] Encounter Notes: All associated encounter notes This section contains the clinical notes associated to the Encounter. Date/Time Encounter Note(s) Provider Source Jun 22, 2025 03:45 PM RN PROGRESS NOTE: LOCAL TITLE: [facility]: CLINICAL TRIAGE STANDARD TITLE: RN PROGRESS NOTE DATE OF NOTE: JUN 22, 2025@15:45:42 ENTRY DATE: JUN 22, 2025@15:45:42 AUTHOR: STEVIE YOU EXP COSIGNER: URGENCY: STATUS: COMPLETED CCC: CLINICAL TRIAGE Has ADDENDA Caller Verification Caller/Recipient Relation to Patient: Self Caller Name: JUAN PABLO OBANDO Emergency Contact: CRISTIAN OBANDO Nursing Plan and Disposition Other course(s) of action Generated msg to PACT/Provider Provided guidance for worsening symptoms: *Caller/Patient* advised to call facilities [place] Clinical Contact Center or seek immediate medical attention for new or worsening symptoms Nurse Summary Nurse Summary: calls reporting recurrent headaches that he was seen by [facility] for a few days ago. [facility] provider report indicates to follow-up with PCP and go to ER with any worsening symptoms. Today reports he is having new symptom of blurry vision and other symptoms have not resolved from previous visit. Recommendation for ER evaluation due to worsening in symptoms. [place] did not confirm if he would go to ER or not but was provided information for non-VA ER notification as he is 2 hours from [facility]. [place] would like to schedule follow-up with PCP. Call warm transferred to [facility] for scheduling. Advise notification to PACT for follow-up. Non-Triage/Non-Symptom Call Generated msg to PACT/Provider-NonTriage Clinical Contact Center Codes Clinic/Location: V15 PB PHONE [facility] RN IMPORTANT: This note was created by [facility] Clinical Contact Center staff. Please do not alert the staff member by adding them as a signer for future communications. Alerts are not monitored by this user. /misael/ STEVIE YOU,MSN,RN [facility]15, Clinical Contact Center Signed: 06/22/2025 15:45 Receipt Acknowledged By: * AWAITING SIGNATURE * JUAN ANTONIO DURAN III 06/23/2025 09:20 /misael/ CHARLI POWERS, [facility] for DOMINGO YOON 06/23/2025 ADDENDUM STATUS: COMPLETED Spoke with and advised him he should be evaluated today for headache and memory loss. Recommended either urgent care visit at ER or [facility] ER to be sure no acute issues. Education provided with stating understanding. Advised him that if no acute issues identified after evaluation then we could schedule him in clinic for follow up for his headaches. /misael/ CHARLI POWERS, [facility] Signed: 06/23/2025 09:25 Receipt Acknowledged By: * AWAITING SIGNATURE * JUAN ANTONIO DURAN III, KIMBERLY L [facility]
--- OUTSIDE RECORDS SUMMARY | 2025-06-22 10:46 | XMS_ITS | Encounter Summary ---
Author Name [facility] [place] [facility] [place] [facility] [place] Address [address] [place] [address] Care Team Providers Care Dance Critic Name Role Phone DURANJUAN ANTONIO Primary Care [...] Name Patient's Relationship to Policy Stone [employer] [place] (WNR) MEDICARE ADVANTAGE [facility] (WNR) Nov 16, 2022 [id number] Max OBANDO PATIENT Selected Encounter This section includes the information on record at [place] for the Encounter. Date/Time Encounter Type Encounter Description Reason Pro vider Source Jun 22, 2025 03:46 PM Outpatient Encounter ADMIN PAT ACTIVTIES (MASNONCT) IHE Encounter Template Text not used by [place] Plan of Treatment: Future Appointments (+ 6 [...] 20 appointments. The data comes from all [place] treatment [facility]. Appointment Date/Time Appointment Type Appointme nt Facility Name Jul 14, 2025 03:00 PM AMBULATORY [facility]CHIATRY [facility] Aug 08, 2025 02:40 PM AMBULATORY - MEDICINE [facility] Aug 14, 2025 03:00 PM AMBULATORY - [facility]CHIATRY [facility] Sep 11, 2025 03:00 PM AMBULATORY [facility]IATRY [facility] Sep 15, 2025 03:15 PM AMBULATORY - MEDICINE [facility] Sep 26, 2025 02:15 PM AMBULATORY - MEDICINE [facility] Oct 09, 2025 03:00 PM AMBULATORY - PSYCHIATRY [facility] Active, Pending, and Scheduled Orders This section includes a listing of several types of active, pending, and scheduled orders, including clinic medications orders, diagnostic test orders, procedure orders and consult orders; where the start date of the order is 45 days before the date of the Encounter or 45 days after the date of theEncounter. The data comes from all [facility]. Test Date/Time Test Type Test Details Facility Name May 26, 2025 02:06 PM Consult Order [facility] 657A4 Cons Auto Washer's Choice [facility] Social History: Smoking Status [...] 20, 2010 10:38 AM TOBACCO OFFERRED S [facility] SMOKING [facility] Tobacco Use History This section includes a history of the smoking, or tobacco-related health factors, that were collected on or before the date of the Encounter. The data comes from the [place] facility where the Encounter took place. Date/Time Smoking Status/Tobacco Use Comment F jojo Nov 20, 2010 10:38 AM TOBACCO OFFERRED S TOP SMOKING [facility] Jun 18, 2010 10:48 AM TOBACCO MEDS OFFERED BUT DECLINE D [facility] Jun 18, 2010 10:48 AM TOBACCO OFFERED PT MEDS (PROVIDE R) [facility] Jun 18, 2010 10:[address] [facility] SMOKING CLINIC [facility] Encounter Notes: All associated encounter notes This section contains the clinical notes associated to the Encounter. Date/Time Encounter Note(s) Provider Source Jun 22, 2025 03:46 PM ADMINISTRATIVE NOT E: LOCAL TITLE: CCC: SCHEDULING ADMINISTRATION STANDARD TITLE: ADMINISTRATIVE NOTE DATE OF NOTE: JUN 22, 2025@15:46:51 ENTRY DATE: JUN 22, 2025@15:46:51 AUTHOR: KENZIE PRAJAPATI EXP COSIGNER: URGENCY: STATUS: COMPLETED CCC: SCHEDULING ADMINISTRATION Has ADDENDA Caller Verification Emergency Contact: CRISTIAN OBANDO Emergency Contact Caller/Recipient Relation to Patient: Self Caller Name: JUAN PABLO OBANDO Administrative Administrative Note Reason: Other Administrative Note Comments: PT REQUESTING RETURN CALL FROM PACT TO SCHEDULE PCP APPOINTMENT. PT WAS RECOMMENDED BY TRIAGE TO GO TO ER FOR WORSENING HEADACHES BUT PT IS REQUESTING TO SEE PCP. IMPORTANT: This note was created by [facility] Clinical Contact Center staff. Please do not alert the staff member by adding them as a signer for future communications. Alerts are not monitored by this user. /vane PRAJAPATI Signed: 06/22/2025 15:46 Receipt Acknowledged By: 06/23/2025 09:25 /BINTA River [facility] for DOMINGO Mason YOON * AWAITING SIGNATURE * NAY RIVERA * AWAITING SIGNATURE * JUAN ANTONIO DURAN III * AWAITING SIGNATURE * HUSSAIN MEHTA 06/23/2025 ADDENDUM STATUS: COMPLETED advised he should first be evaluated in UC or ER for his issues to rule out any significant issues based on his symptoms. He reports understanding. Would also like to schedule follow up with his pact team also. /BINTA River Signed: 06/23/2025 09:30 Receipt Acknowledged By: * AWAITING SIGNATURE * NAY RIVERA CHELSEA D [facility]
[2025-06-23 12:10] VITALS: BP 158/97; PULSE 94; RESP 16; TEMP 36.8; O2SAT 97; BMI 26.5
--- OUTSIDE RECORDS SUMMARY | 2025-06-23 12:10 | XMS_ITS | Continuity of Care Document ---
Author Name [facility] Organization [facility] Care Team Providers Care Newspaper Illustrator Name Role Phone [facility] Unavailable Unavailable Problems Combined list of problems from Department of Defense and Veterans Affairs facilities. It does not include entries that were removed or entered in error. Problem Status Onset Date Problem Type Date of Resolution Comments Source Bilateral tinnitus Active Condition [place] [facility] BPPV - Benign paroxysmal positional vertigo Active Condition [place] [facility] Carpal tunnel syndrome (SNOMED CT 16555032) Active Condition [place] [facility] Cervical disc disorder with radiculopathy Active Condition [place] [facility] Chronic low back pain (SNOMED CT 841356074) Active Condition [place] [facility] Exposure to potentially hazardous substance (SCT 348971909965647) Active Condition Mar 02 4 Entered By: FLORIN DAHL Comment: Entered automatically through DEONTE Problem List documentation program [facility] Exposure to potentially hazardous substance (SCT [id number]) Active Condition March 31 4 Entered By: TIMOTHY JERRY Comment: Entered automatically through DEONTE Problem List documentation program [facility] Hiatal hernia Active Condition Feb Entered By: JOSÉ FRANKLIN Comment: By D, 01/2021. [place] [facility] Hyperlipidemia Active Condition [place] [facility] Hyperlipidemia (SNOMED CT 34809821) Active Condition [place] [facility] Mild chronic obstructive pulmonary disease Active Condition [place] [facility] Osteoarthritis Active Condition [place] [facility] Posttraumatic stress disorder Active Condition [place] [facility] PTSD - Post-traumatic stress disorder Active Condition [place] [facility] Recurrent major depression Active Condition [place] [facility] Sensorineural hearing loss of bilateral ears Active Condition [place] [facility] Sleep Apnea (SCT 84880829) Active Condition Oct 01, 2020 Entered By: JOSÉ FRANKLIN Comment: Moderate per sleep study. [place] [facility] Wrist pain (SNOMED CT 52067567) Active Condition [place] [facility] Acute bronchitis (ICD-9-CM 466.0) Inactive Condition 10/20/2023 [place] [facility] Bursitis Inactive Condition 10/20/2023 [place] [facility] Copd Inactive Condition 10/20/2023 [place] [facility] Degeneration of lumbar intervertebral disc (SNOMED CT 00825176) Inactive Condition 10/20/2023 [place] [facility] Dislocation, Shoulder, Closed Inactive Condition 10/20/2023 [facility] Hand Arthritis Inactive Condition 10/20/2023 [place] [facility] Impotence, Organic Inactive Condition 10/20/2023 [place] [facility] JOINT PAIN-L/LEG Inactive Condition 10/20/2023 [place] [facility] JOINT PAIN-SHLDER Inactive Condition 10/20/2023 [place] [facility] Memory loss (ICD-9-CM 780.93) Inactive Condition 10/20/2023 [place] [facility] Routine General Medical Examination at a Health Care Facility * (ICD-9-CM V70.0) Inactive Condition 08/09/2020 [facility] SCREEN FOR HYPERTENSION Inactive Condition 08/09/2020 [place] [facility] SCREENING FOR ALCOHOLISM Inactive Condition 09/08/2019 [place] [facility] Tobacco Use Disorder * (ICD-9-CM 305.1) Inactive Condition 10/20/2023 [place] [facility] Diagnosis: ICD-10-CM R51.9 Headache, unspecified Active Diagnosis [place] [facility] Diagnosis: ICD-10-CM F43.12 Post-traumatic stress disorder, chronic Active Diagnosis [place] [facility] Diagnosis: ICD-10-CM Z09 Encntr for f/u exam aft trtmt for cond oth than malig neoplm Active Diagnosis [facility] Diagnosis: ICD-10-CM G44.59 Other complicated headache syndrome Active Diagnosis [place] [facility] Diagnosis: ICD-10-CM F43.10 Post-traumatic stress disorder, unspecified Active Diagnosis [facility] Diagnosis: ICD-10-CM K02.52 Dental caries on pit and fissure surfc penetrat into dentin Active Diagnosis [place] [facility] Diagnosis: ICD-10-CM F33.1 Major depressive disorder, recurrent, moderate Active Diagnosis [place] [facility] Diagnosis: ICD-10-CM Z46.1 Encounter for fitting and adjustment of hearing aid Active Diagnosis [place] [facility] Diagnosis: ICD-10-CM M94.0 Chondrocostal junction syndrome [Tietze] Active Diagnosis [facility] Diagnosis: ICD-10-CM R07.9 Chest pain, unspecified Active Diagnosis [facility] Diagnosis: ICD-10-CM M25.531 Pain in right wrist Active Diagnosis [facility] Diagnosis: ICD-10-CM H52.223 Regular astigmatism, bilateral Active Diagnosis [place] [facility] Diagnosis: ICD-10-CM F33.41 Major depressive disorder, recurrent, in partial remission Active Diagnosis [place] [facility] Diagnosis: ICD-10-CM H91.93 Unspecified hearing loss, bilateral Active Diagnosis [facility] Diagnosis: ICD-10-CM H93.13 Tinnitus, bilateral Active Diagnosis [place] [facility] Diagnosis: ICD-10-CM Z00.01 Encounter for general adult medical exam w abnormal findings Active Diagnosis [facility] Diagnosis: ICD-10-CM R20.2 Paresthesia of skin Active Diagnosis [facility] Medications Combined list of outpatient medications from Department of Defense and Veterans Affairs facilities.Medications provided include 1) outpatient medications from the last 15 months, and 2) patient-reported medications. Medication Details Route Status Patient Instructions Prescription Expires Prescription Number Last Dispense Date Ordering Provider Order Date Order Qty Source BUSPIRONE HCL 10MG TAB TAKE ONE TABLET BY MOUTH THREE TIMES A DAY FOR ANXIETY DO NOT TAKE WITH GRAPEFRU IT JUICE. ORAL ACTIVE 01/21/2026 [id number] ZACHERY ENG NDA R 2024 270 [place] [facility] BUSPIRONE HCL 10MG TAB TAKE ONE TABLET BY MOUTH THREE TIMES A DAY FOR ANXIETY DO NOT TAKE WITH GRAPEFRU IT JUICE. ORAL DISCONT INUED 09/10/2025 [id number] ZACHERY ENG NDA R 2023 270 [place] [facility] CYCLOBENZAP RINE HCL 10MG TAB TAKE ONE TABLET BY MOUTH THREE TIMES A DAY NEEDED FOR MUSCLE SPASM MAY CAUSE DROWSINE SS. DO NOT DRINK ALCOHOL WHILE TAKING THIS MEDICATI ON. ORAL 04/30/2025 [id number] ALEJO QUINTERO ISTEL G 2023 180 [facility] DICLOFENAC NA 1% GEL,TOP APPLY 4 GM TO AFFECTED AREA(S) FOUR TIMES A DAY NEEDED FOR PAIN DO NOT EXCEED MORE THAN 16 GRAMS DAILY TO ANY LOWER EXTREMIT Y JOINT. NOT MORE THAN 8 GRAMS DAILY TO ANY UPPER EXTREMIT Y JOINT. MAX 32GM/DAY OVER ALL JOINTS. (MEASURE DOSE WITH RULER ATTACHED INSIDE BOX) TOPICA L 04/30/2025 [id number] 5 ALEJO QUINTERO ISTEL G 2023 200 [facility] DOXYCYCLINE HYCLATE 100MG TAB TAKE ONE TABLET BY MOUTH TWICE A DAY FOR LYME DISEASE TAKE UNTIL FINISHED . AVOID SUN EXPOSURE WHILE TAKING. ORAL 07/09/2024 [id number] ALEJO QUINTERO ISTEL G 2023 42 [facility] LIDOCAINE 5% PATCH APPLY 1 PATCH TO SKIN SITE ONCE A DAY FOR LOCAL ANESTHES IA APPLY PATCH AND PRESS FIRMLY FOR 10-15 SECONDS. KEEP ON FOR 12 HOURS THEN REMOVE PATCH FOR 12 HOURS. TRANSD ERMAL ACTIVE 07/19/2025 [id number] Max FLETCHER 2024 30 [place] [facility] MIRTAZAPINE 15MG TAB TAKE ONE-HALF TABLET BY MOUTH AT BEDTIME FOR DEPRESSI ON ORAL SUSPEND ED 03/31/2026 [id number] 5 ZACHERY ENG NDBeni R 2024 45 [place] [facility] MIRTAZAPINE 15MG TAB TAKE ONE-HALF TABLET BY MOUTH AT BEDTIME FOR DEPRESSI ON ORAL DISCONT INUED 01/21/2026 [id number] ZACHERY ENG NDBeni R 2024 45 [place] [facility] NAPROXEN 500MG TAB TAKE ONE TABLET BY MOUTH TWICE DAILY NEEDED FOR PAIN TAKE WITH FOOD. ORAL 03/24/2025 [id number] LISA FRANKLIN D 2023 60 [facility] QUETIAPINE FUMARATE 50MG TAB TAKE ONE-HALF TABLET BY MOUTH TWICE DAILY NEEDED IRRITABI LITY ORAL ACTIVE 03/31/2026 [id number] ZACHERY ENG NDA R 2024 60 [place] [facility] VENLAFAXINE HCL 150MG 24HR CAP,SA TAKE TWO CAPSULES BY MOUTH ONCE A DAY FOR DEPRESSI ON WITH FOOD. DO NOT ABRUPTLY DISCONTI NUE MEDICATI ON. ORAL SUSPEND ED 03/31/2026 [id number] 5 ZACHERY ENG NDA R 2024 180 [place] [facility] VENLAFAXINE HCL 150MG 24HR CAP,SA TAKE TWO CAPSULES BY MOUTH ONCE A DAY FOR DEPRESSI ON WITH FOOD. DO NOT ABRUPTLY DISCONTI NUE MEDICATI ON. ORAL DISCONT INUED 01/21/2026 [id number] 5 ZACHERY ENG NDA R 2024 180 [place] [facility] VENLAFAXINE HCL 150MG 24HR CAP,SA TAKE TWO CAPSULES BY MOUTH ONCE A DAY FOR DEPRESSI ON WITH FOOD. DO NOT ABRUPTLY DISCONTI NUE MEDICATI ON. ORAL DISCONT INUED 11/12/2025 [id number] ZACHERY ENG NDA R 2023 180 [place] [facility] VENLAFAXINE HCL 75MG 24HR CAP,SA TAKE THREE CAPSULES BY MOUTH ONCE A DAY FOR DEPRESSI ON WITH FOOD. DO NOT ABRUPTLY DISCONTI NUE MEDICATI ON. ORAL DISCONT INUED (EDIT) 06/11/2025 [id number] 4 ZACHERY ENG NDA R 2023 270 [place] [facility] VENLAFAXINE HCL 75MG 24HR CAP,SA TAKE THREE CAPSULES BY MOUTH ONCE A DAY FOR DEPRESSI ON WITH FOOD. DO NOT ABRUPTLY DISCONTI NUE MEDICATI ON. ORAL DISCONT INUED 04/09/2025 [id number] ZACHERY ENG NDBeni R 2023 270 [facility] Allergies, Adverse Reactions, Alerts Combined list of allergies from Department of Defense and Veterans Affairs facilities. It does not include entries that were removed or entered in error. Substance Category Reaction Severity Reaction type Status Date Reported Comments Source INSECT STINGS Propensity to adverse reaction (finding) active 7 [facility] PRAVASTATIN Propensity to adverse reactions to drug (finding) Muscle pain active 2 [facility] ROSUVASTATIN Propensity to adverse reactions to drug (finding) active 1 [facility] Immunizations Combined list of available immunizations from the Department of Defense and Veterans Affairs facilities. 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 Status Comments Source INFLUENZA, SPLIT VIRUS, TRIVALENT, PF 2023 SOFIA YOON LEFT DELTO ID [id number] 140 complet ed [facility] ZOSTER RECOMBINANT 2023 TESSA HAYWARD RIGHT DELTO ID [id number] 187 complet ed [facility] ZOSTER RECOMBINANT 1 2022 HUSSAIN MEHTA LEFT DELTO ID [id number] 187 complet ed [facility] COVID-19 (MODERNA), MRNA, LNP-S, BIVALENT BOOSTER, PF, 50 MCG/0.5 ML OR 25MCG/0.25 ML DOSE 4 2022 ROGE SALINAS RIGHT DELTO ID [id number] 229 complet ed [facility] COVID-19 (MODERNA), MRNA, LNP-S, PF, 100 MCG OR 50 MCG DOSE 3 2021 207 complet ed MOD; [id number]; 2 [facility] COVID-19 (MODERNA), MRNA, LNP-S, PF, 100 MCG/0.5 ML DOSE 2 2020 207 complet ed MOD; [id number]; 1 [facility] COVID-19 (MODERNA), MRNA, LNP-S, PF, 100 MCG/0.5 ML DOSE 1 2020 207 complet ed MOD; [id number]; 1 [facility] INFLUENZA, INJECTABLE, QUADRIVALENT, PRESERVATIVE FREE 2019 150 complet ed [facility] INFLUENZA, INJECTABLE, QUADRIVALENT, PRESERVATIVE FREE 2018 150 complet ed [facility] TDAP 2017 115 complet ed [facility] INFLUENZA, INJECTABLE, QUADRIVALENT, PRESERVATIVE FREE 2017 150 complet ed 02, Partner: [facility]. Administe red by: [facility] Clinician (NPI=Not Provided) . Partner 94 Mfr: [employer] INFLUENZA, SEASONAL, INJECTABLE, PRESERVATIVE FREE 2015 140 complet ed [facility] INFLUENZA, UNSPECIFIED FORMULATION 2012 88 complet ed [facility] TDAP 2012 115 complet ed Right Deltoid [facility] INFLUENZA, UNSPECIFIED FORMULATION 2011 88 complet ed [facility] PNEUMOCOCCAL, UNSPECIFIED FORMULATION 2011 109 complet ed [facility] INFLUENZA, UNSPECIFIED FORMULATION 2009 88 complet ed [facility] INFLUENZA, UNSPECIFIED FORMULATION 2008 88 complet ed [facility] INFLUENZA, UNSPECIFIED FORMULATION 2003 88 complet ed [facility] INFLUENZA, UNSPECIFIED FORMULATION 2001 88 complet ed [facility] INFLUENZA, UNSPECIFIED FORMULATION 1997 JOI LOPEZ 88 comple t ed [place] [facility] INFLUENZA (HISTORICAL) 1996 TRICIA ANDRADE 88 complet ed [place] [facility] TD(ADULT) UNSPECIFIED FORMULATION 1994 139 complet ed [facility] Results Combined list of recent chemistry, hematology and other laboratory results from Department of Defense and Veterans Affairs, ranging from 15 months to all on record, depending upon the facility. Order Name Results Value Reference Range Date Interpretation Specimen Comments Source HGA1C HEMOGLOBIN A1C/HEMOGLO BIN.TOTAL IN BLOOD 5.5 4.0 - 6.0 04/05 Specimen Type: BLOOD No comment entered. Ordering Provider: OUSMANE ENG R Report Released Date/Time: March 30, 2025 11:40 AM Reporting Lab: [place] [facility] [address] [place] [address] Performing Lab: [place] [facility] [address] [place] [address] [place] [facility] TSH (MA-PB) THYROTROPIN [UNITS/VOLU ME] IN SERUM OR PLASMA 1.368 u[IU]/mL 0.47 - 5 04/05 Specimen Type: SERUM No comment entered. Ordering Provider: OUSMANE ENG R Report Released Date/Time: March 30, 2025 11:40 AM Reporting Lab: [place] [facility] [address] [place] [address] Performing Lab: [place] [facility] [address] [place] [address] [place] [facility] CHOLESTER OL PANEL (PB) CHOLESTEROL [MASS/VOLUM E] IN SERUM OR PLASMA 284 mg/dL 0 - 200 04/05 H Specimen Type: PLASMA No comment entered. Ordering Provider: OUSMANE ENG Report Released Date/Time: March 30, 2025 11:40 AM Reporting Lab: [place] [facility] [address] [place] [address] Performing Lab: [place] [facility] [address] [place] [address] [place] [facility] CHOLESTER OL PANEL (PB) TRIGLYCERID E [MASS/VOLUM E] IN SERUM OR PLASMA 133 mg/dL 0 - 150 04/05 Specimen Type: PLASMA No comment entered. Ordering Provider: OUSMANE ENG R Report Released Date/Time: March 30, 2025 11:40 AM Reporting Lab: [place] [facility] [address] [place] [address] Performing Lab: [place] [facility] [address] [place] [address] [place] [facility] CHOLESTER OL PANEL (PB) CHOLESTEROL IN LDL [MASS/VOLUM E] IN SERUM OR PLASMA BY CALCULATION 196.4 mg/dL 04/05 Specimen Type: PLASMA No comment entered. Ordering Provider: OUSMANE ENG R Report Released Date/Time: March 30, 2025 11:40 AM Reporting Lab: [place] [facility] [address] [place] [address] Performing Lab: [place] [facility] [address] [place] [address] [place] [facility] CHOLESTER OL PANEL (PB) CHOLESTEROL IN HDL [MASS/VOLUM E] IN SERUM OR PLASMA 61.0 mg/dL 40 04/05 H Specimen Type: PLASMA No comment entered. Ordering Provider: OUSMANE ENG Report Released Date/Time: March 30, 2025 11:40 AM Reporting Lab: [place] [facility] [address] [place] [address] Performing Lab: [place] [facility] [address] [place] [address] [place] [facility] CHOLESTER OL PANEL (PB) CHOLESTEROL IN HDL/CHOLEST MARGARET.TOTAL [MASS RATIO] IN SERUM OR PLASMA 21.5 25 04/05 Specimen Type: PLASMA No comment entered. Ordering Provider: OUSMANE ENG R Report Released Date/Time: March 30, 2025 11:40 AM Reporting Lab: [place] [facility] [address] [place] [address] Performing Lab: [place] [facility] [address] [place] [address] [place] [facility] COMPREHEN SIVE METABOLIC PANEL CREATININE [MASS/VOLUM E] IN SERUM OR PLASMA 0.72 mg/dL 0.7 - 1.3 04/05 Specimen Type: PLASMA No comment entered. Ordering Provider: OUSMANE ENG R Report Released Date/Time: March 30, 2025 11:40 AM Reporting Lab: [place] [facility] [address] [place] [address] Performing Lab: [place] [facility] [address] [place] [address] [place] [facility] COMPREHEN SIVE METABOLIC PANEL UREA NITROGEN [MASS/VOLUM E] IN SERUM OR PLASMA 12 mg/dL 9 - 25 04/05 Specimen Type: PLASMA No comment entered. Ordering Provider: OUSMANE ENG Report Released Date/Time: March 30, 2025 11:40 AM Reporting Lab: [place] [facility] [address] [place] [address] Performing Lab: [place] [facility] [address] [place] [address] [place] [facility] COMPREHEN SIVE METABOLIC PANEL GLUCOSE [MASS/VOLUM E] IN SERUM OR PLASMA 75 mg/dL 72 - 99 04/05 Specimen Type: PLASMA No comment entered. Ordering Provider: OUSMANE ENG Report Released Date/Time: March 30, 2025 11:40 AM Reporting Lab: [place] [facility] [address] [place] [address] Performing Lab: [place] [facility] [address] [place] [address] [place] [facility] COMPREHEN SIVE METABOLIC PANEL SODIUM [MOLES/VOLU ME] IN SERUM OR PLASMA 141 meq/L 136 - 145 04/05 Specimen Type: PLASMA No comment entered. Ordering Provider: OUSMANE ENG R Report Released Date/Time: March 30, 2025 11:40 AM Reporting Lab: [place] [facility] [address] [place] [address] Performing Lab: [place] [facility] [address] [place] [address] [place] [facility] COMPREHEN SIVE METABOLIC PANEL POTASSIUM [MOLES/VOLU ME] IN SERUM OR PLASMA 4.5 meq/L 3.5 - 5 04/05 Specimen Type: PLASMA No comment entered. Ordering Provider: OUSMANE ENG Report Released Date/Time: March 30, 2025 11:40 AM Reporting Lab: [place] [facility] [address] [place] [address] Performing Lab: [place] [facility] [address] [place] [address] [place] [facility] COMPREHEN SIVE METABOLIC PANEL CHLORIDE [MOLES/VOLU ME] IN SERUM OR PLASMA 106 meq/L 98 - 107 04/05 Specimen Type: PLASMA No comment entered. Ordering Provider: OUSMANE ENG R Report Released Date/Time: March 30, 2025 11:40 AM Reporting Lab: [place] [facility] [address] [place] [address] Performing Lab: [place] [facility] [address] [place] [address] [place] [facility] COMPREHEN SIVE METABOLIC PANEL CARBON DIOXIDE, TOTAL [MOLES/VOLU ME] IN SERUM OR PLASMA 26 meq/L 22 - 31 04/05 Specimen Type: PLASMA No comment entered. Ordering Provider: OUSMANE ENG R Report Released Date/Time: March 30, 2025 11:40 AM Reporting Lab: [place] [facility] [address] [place] [address] Performing Lab: [place] [facility] [address] [place] [address] [place] [facility] COMPREHEN SIVE METABOLIC PANEL CALCIUM [MASS/VOLUM E] IN SERUM OR PLASMA 9.7 mg/dL 8.4 - 10.4 04/05 Specimen Type: PLASMA No comment entered. Ordering Provider: OUSMANE ENG R Report Released Date/Time: March 30, 2025 11:40 AM Reporting Lab: [place] [facility] [address] [place] [address] Performing Lab: [place] [facility] [address] [place] [address] [place] [facility] COMPREHEN SIVE METABOLIC PANEL PROTEIN [MASS/VOLUM E] IN SERUM OR PLASMA 7.2 g/dL 6 - 8.6 04/05 Specimen Type: PLASMA No comment entered. Ordering Provider: OUSMANE ENG R Report Released Date/Time: March 30, 2025 11:40 AM Reporting Lab: [place] [facility] [address] [place] [address] Performing Lab: [place] [facility] [address] [place] [address] [place] [facility] COMPREHEN SIVE METABOLIC PANEL ALBUMIN [MASS/VOLUM E] IN SERUM OR PLASMA 4.6 g/dL 3.4 - 5 04/05 Specimen Type: PLASMA No comment entered. Ordering Provider: OUSMANE ENG R Report Released Date/Time: March 30, 2025 11:40 AM Reporting Lab: [place] [facility] [address] [place] [address] Performing Lab: [place] [facility] [address] [place] [address] [place] [facility] COMPREHEN SIVE METABOLIC PANEL BILIRUBIN.T OTAL [MASS/VOLUM E] IN SERUM OR PLASMA 0.6 mg/dL 0.2 - 1.2 04/05 Specimen Type: PLASMA No comment entered. Ordering Provider: OUSMANE ENG R Report Released Date/Time: March 30, 2025 11:40 AM Reporting Lab: [place] [facility] [address] [place] [address] Performing Lab: [place] [facility] [address] [place] [address] [place] [facility] COMPREHEN SIVE METABOLIC PANEL ALKALINE PHOSPHATASE [ENZYMATIC ACTIVITY/VO LUME] IN SERUM OR PLASMA 76 U/L 40 - 150 04/05 Specimen Type: PLASMA No comment entered. Ordering Provider: OUSMANE ENG R Report Released Date/Time: March 30, 2025 11:40 AM Reporting Lab: [place] [facility] [address] [place] [address] Performing Lab: [place] [facility] [address] [place] [address] [place] [facility] COMPREHEN SIVE METABOLIC PANEL ASPARTATE AMINOTRANSF ERASE [ENZYMATIC ACTIVITY/VO LUME] IN SERUM OR PLASMA 22 U/L 5 - 34 04/05 Specimen Type: PLASMA No comment entered. Ordering Provider: OUSMANE ENG R Report Released Date/Time: March 30, 2025 11:40 AM Reporting Lab: [place] [facility] [address] [place] [address] Performing Lab: [place] [facility] [address] [place] [address] [place] [facility] COMPREHEN SIVE METABOLIC PANEL ALANINE AMINOTRANSF ERASE [ENZYMATIC ACTIVITY/VO LUME] IN SERUM OR PLASMA 16 U/L 8 - 40 04/05 Specimen Type: PLASMA No comment entered. Ordering Provider: OUSMANE ENG R Report Released Date/Time: March 30, 2025 11:40 AM Reporting Lab: [place] [facility] [address] [place] [address] Performing Lab: [place] [facility] [address] [place] [address] [place] [facility] COMPREHEN SIVE METABOLIC PANEL GLOMERULAR FILTRATION RATE/1.73 SQ M.PREDICTED [VOLUME RATE/AREA] IN SERUM, PLASMA OR BLOOD BY CREATININE- BASED FORMULA (CKD-EPI 2020) 109 04/05 Specimen Type: PLASMA No comment entered. Ordering Provider: OUSMANE ENG R Report Released Date/Time: March 30, 2025 11:40 AM Reporting Lab: [place] [facility] [address] [place] [address] Performing Lab: [place] [facility] [address] [place] [address] [place] [facility] CBC LEUKOCYTES [#/VOLUME] IN BLOOD BY AUTOMATED COUNT 4.8 10*3/uL 3.6 - 11.2 04/05 Specimen Type: BLOOD No comment entered. Ordering Provider: OUSMANE ENG R Report Released Date/Time: March 30, 2025 11:40 AM Reporting Lab: [place] [facility] [address] [place] [address] Performing Lab: [place] [facility] [address] [place] [address] [place] [facility] CBC ERYTHROCYTE S [#/VOLUME] IN BLOOD BY AUTOMATED COUNT 5.32 10*6/uL 4.10 - 5.70 04/05 Specimen Type: BLOOD No comment entered. Ordering Provider: OUSMANE ENG R Report Released Date/Time: March 30, 2025 11:40 AM Reporting Lab: [place] [facility] [address] [place] [address] Performing Lab: [place] [facility] [address] [place] [address] [place] [facility] CBC HEMOGLOBIN [MASS/VOLUM E] IN BLOOD 16.2 g/dL 13.1 - 16.8 04/05 Specimen Type: BLOOD No comment entered. Ordering Provider: OUSMANE ENG R Report Released Date/Time: March 30, 2025 11:40 AM Reporting Lab: [place] [facility] [address] [place] [address] Performing Lab: [place] [facility] [address] [place] [address] [place] [facility] CBC HEMATOCRIT [VOLUME FRACTION] OF BLOOD 46.6 38.2 - 48.4 04/05 Specimen Type: BLOOD No comment entered. Ordering Provider: OUSMANE ENG R Report Released Date/Time: March 30, 2025 11:40 AM Reporting Lab: [place] [facility] [address] [place] [address] Performing Lab: [place] [facility] [address] [place] [address] [place] [facility] CBC MCV [ENTITIC VOLUME] BY AUTOMATED COUNT 87.6 fL 80.0 - 100.0 04/05 Specimen Type: BLOOD No comment entered. Ordering Provider: OUSMANE ENG R Report Released Date/Time: March 30, 2025 11:40 AM Reporting Lab: [place] [facility] [address] [place] [address] Performing Lab: [place] [facility] [address] [place] [address] [place] [facility] CBC MCH [ENTITIC MASS] BY AUTOMATED COUNT 30.5 pg 27.0 - 34.0 04/05 Specimen Type: BLOOD No comment entered. Ordering Provider: OUSMANE ENG R Report Released Date/Time: March 30, 2025 11:40 AM Reporting Lab: [place] [facility] [address] [place] [address] Performing Lab: [place] [facility] [address] [place] [address] [place] [facility] CBC MCHC [MASS/VOLUM E] BY AUTOMATED COUNT 34.8 g/dL 33.0 - 36.0 04/05 Specimen Type: BLOOD No comment entered. Ordering Provider: OUSMANE ENG R Report Released Date/Time: March 30, 2025 11:40 AM Reporting Lab: [place] [facility] [address] [place] [address] Performing Lab: [place] [facility] [address] [place] [address] [place] [facility] CBC PLATELETS [#/VOLUME] IN BLOOD BY AUTOMATED COUNT 260 10*3/uL 150 - 400 04/05 Specimen Type: BLOOD No comment entered. Ordering Provider: OUSMANE ENG R Report Released Date/Time: March 30, 2025 11:40 AM Reporting Lab: [place] [facility] [address] [place] [address] Performing Lab: [place] [facility] [address] [place] [address] [place] [facility] CBC PLATELET MEAN VOLUME [ENTITIC VOLUME] IN BLOOD BY AUTOMATED COUNT 9.2 fL 7.5 - 11.2 04/05 Specimen Type: BLOOD No comment entered. Ordering Provider: OUSMANE ENG R Report Released Date/Time: March 30, 2025 11:40 AM Reporting Lab: [place] [facility] [address] [place] [address] Performing Lab: [place] [facility] [address] [place] [address] [place] [facility] CBC ERYTHROCYTE DISTRIBUTIO N WIDTH [RATIO] BY AUTOMATED COUNT 12.7 11.8 - 15.1 04/05 Specimen Type: BLOOD No comment entered. Ordering Provider: OUSMANE ENG R Report Released Date/Time: March 30, 2025 11:40 AM Reporting Lab: [place] [facility] [address] [place] [address] Performing Lab: [place] [facility] [address] [place] [address] [place] [facility] CBC LYMPHOCYTES /100 LEUKOCYTES IN BLOOD BY AUTOMATED COUNT 43.6 04/05 Specimen Type: BLOOD No comment entered. Ordering Provider: OUSMANE ENG R Report Released Date/Time: March 30, 2025 11:40 AM Reporting Lab: [place] [facility] [address] [place] [address] Performing Lab: [place] [facility] [address] [place] [address] [place] [facility] CBC MONOCYTES/1 00 LEUKOCYTES IN BLOOD BY AUTOMATED COUNT 11.0 04/05 Specimen Type: BLOOD No comment entered. Ordering Provider: OUSMANE ENG R Report Released Date/Time: March 30, 2025 11:40 AM Reporting Lab: [place] [facility] [address] [place] [address] Performing Lab: [place] [facility] [address] [place] [address] [place] [facility] CBC NEUTROPHILS /100 LEUKOCYTES IN BLOOD BY AUTOMATED COUNT 42.3 04/05 Specimen Type: BLOOD No comment entered. Ordering Provider: OUSMANE ENG R Report Released Date/Time: March 30, 2025 11:40 AM Reporting Lab: [place] [facility] [address] [place] [address] Performing Lab: [place] [facility] [address] [place] [address] [place] [facility] CBC EOSINOPHILS /100 LEUKOCYTES IN BLOOD BY AUTOMATED COUNT 2.1 04/05 Specimen Type: BLOOD No comment entered. Ordering Provider: OUSMANE ENG R Report Released Date/Time: March 30, 2025 11:40 AM Reporting Lab: [place] [facility] [address] [place] [address] Performing Lab: [place] [facility] [address] [place] [address] [place] [facility] CBC BASOPHILS/1 00 LEUKOCYTES IN BLOOD BY AUTOMATED COUNT 0.8 04/05 Specimen Type: BLOOD No comment entered. Ordering Provider: OUSMANE ENG R Report Released Date/Time: March 30, 2025 11:40 AM Reporting Lab: [place] [facility] [address] [place] [address] Performing Lab: [place] [facility] [address] [place] [address] [place] [facility] CBC LYMPHOCYTES [#/VOLUME] IN BLOOD BY AUTOMATED COUNT 2.11 10*3/uL 0.77 - 4.50 04/05 Specimen Type: BLOOD No comment entered. Ordering Provider: OUSMANE ENG R Report Released Date/Time: March 30, 2025 11:40 AM Reporting Lab: [place] [facility] [address] [place] [address] Performing Lab: [place] [facility] [address] [place] [address] [place] [facility] CBC MONOCYTES [#/VOLUME] IN BLOOD BY AUTOMATED COUNT 0.53 10*3/uL 0.19 - 0.8 04/05 Specimen Type: BLOOD No comment entered. Ordering Provider: OUSMANE ENG R Report Released Date/Time: March 30, 2025 11:40 AM Reporting Lab: [place] [facility] [address] [place] [address] Performing Lab: [place] [facility] [address] [place] [address] [place] [facility] CBC NEUTROPHILS [#/VOLUME] IN BLOOD BY AUTOMATED COUNT 2.05 10*3/uL 2.10 - 8.00 04/05 L Specimen Type: BLOOD No comment entered. Ordering Provider: OUSMANE ENG R Report Released Date/Time: March 30, 2025 11:40 AM Reporting Lab: [place] [facility] [address] [place] [address] Performing Lab: [place] [facility] [address] [place] [address] [place] [facility] CBC EOSINOPHILS [#/VOLUME] IN BLOOD BY AUTOMATED COUNT 0.10 10*3/uL 0.00 - 0.60 04/05 Specimen Type: BLOOD No comment entered. Ordering Provider: OUSMANE ENG R Report Released Date/Time: March 30, 2025 11:40 AM Reporting Lab: [place] [facility] [address] [place] [address] Performing Lab: [place] [facility] [address] [place] [address] [place] [facility] CBC BASOPHILS [#/VOLUME] IN BLOOD BY AUTOMATED COUNT 0.04 10*3/uL 0.00 - 0.20 04/05 Specimen Type: BLOOD No comment entered. Ordering Provider: OUSMANE ENG R Report Released Date/Time: March 30, 2025 11:40 AM Reporting Lab: [place] [facility] [address] [place] [address] Performing Lab: [place] [facility] [address] [place] [address] [place] [facility] CBC IMMATURE GRANULOCYTE S/100 LEUKOCYTES IN BLOOD BY AUTOMATED COUNT 0.2 04/05 Specimen Type: BLOOD No comment entered. Ordering Provider: OUSMANE ENG Report Released Date/Time: March 30, 2025 11:40 AM Reporting Lab: [place] [facility] [address] [place] [address] Performing Lab: [place] [facility] [address] [place] [address] [place] [facility] CBC IMMATURE GRANULOCYTE S [#/VOLUME] IN BLOOD BY AUTOMATED COUNT 0.01 10*3/uL 0.00 - 0.05 04/05 Specimen Type: BLOOD No comment entered. Ordering Provider: OUSMANE ENG R Report Released Date/Time: March 30, 2025 11:40 AM Reporting Lab: [place] [facility] [address] [place] [address] Performing Lab: [place] [facility] [address] [place] [address] [place] [facility] VITAMIN D, 25-HYDROX Y 25-HYDROXYV ITAMIN D3 [MASS/VOLUM E] IN SERUM OR PLASMA 33.8 ng/mL 30 - 96 03/23 Specimen Type: SERUM No comment entered. Ordering Provider: STACEY QUINTERO Report Released Date/Time: March 23, 2025 03:52 PM Reporting Lab: [place] [facility] [address] [place] [address] Performing Lab: [place] [facility] [address] [place] [address] [facility] MAGNESIUM MAGNESIUM [MASS/VOLUM E] IN SERUM OR PLASMA 2.21 mg/dL 1.6 - 2.6 03/23 Specimen Type: PLASMA No comment entered. Ordering Provider: STACEY QUINTERO Report Released Date/Time: March 23, 2025 03:52 PM Reporting Lab: [place] [facility] [address] [place] [address] Performing Lab: [place] [facility] [address] [place] [address] [facility] B12 COBALAMIN (VITAMIN B12) [MASS/VOLUM E] IN SERUM OR PLASMA 396 pg/mL 213 - 816 03/23 Specimen Type: SERUM No comment entered. Ordering Provider: STACEY QUINTERO Report Released Date/Time: March 23, 2025 03:52 PM Reporting Lab: [place] [facility] [address] [place] [address] Performing Lab: [place] [facility] [address] [place] [address] [facility] LUPUS ANTICOAGU LANT LUPUS ANTICOAGULA NT [INTERPRETA TION] IN PLATELET POOR PLASMA Not Detected 05/11 Specimen Type: PLASMA Comment: A Lupus Anticoagula nt is not detected. Reference Range: Not Detected For additional information , please refer to [email or web address] (This link is being provided for information al/ educational purposes only.) This interpretat ion is based on the following test results. PTT-LA w/Reflex to Hexagonal Phase Confirmatio n: PTT-LA Screen Result: 33 sec PTT-LA Screen Reference Range: <=40 sec dRVVT Screen w/rfl dRVVT Confirm and dRVVT 1:1 Mix: dRVVT Screen Result: 45 sec dRVVT Screen Reference Range: <=45 sec Ordering Provider: STACEY QUINTERO Report Released Date/Time: May 11, 2024 05:00 PM Reporting Lab: [place] [facility] [address] [facility] [place] [address] Performing Lab: [place] [facility] [address] [facility] [place] [facility] LYME DISEASE AB (MA-PB) BORRELIA BURGDORFERI AB [TITER] IN SERUM BY IMMUNOASSAY <0.90{in dex} 05/11 Specimen Type: SERUM Comment: REFERENCE RANGE: <0.90 Index Reference ranges: Index Interpretat ion ----- --- <0.90 Negative 0.90-1.09 Equivocal >1.09 Positive As recommended by the Food and Drug Administrat ion (FDA), all samples with positive or equivocal results in a Borrelia burgdorferi antibody screen will be tested using a blot method. Positive or equivocal screening test results should not be interpreted as truly positive until verified as such using a supplementa l assay (e.g., B. burgdorferi blot). The screening test and/or blot for B. burgdorferi antibodies may be falsely negative in early stages of Lyme disease, including the period when erythema migrans is apparent. The Code of [place], Article 1 of Chapter 5 of Title 32.1, section 32.1-137.06 , requires that the following language must be included on every Lyme disease test report issued by a [place] laboratory: Patients undergoing a Lyme disease test should be aware that Lyme disease tests vary and may produce results that are inaccurate. This means a patient may not be able to rely on a positive or negative result. Health care providers are encouraged to discuss Lyme disease test results with the patient for whom the test was ordered. Test Performed by [facility], [address] [place], [place] Demian Ray M.D., Ph.D., Director of Laboratorie s , CLIA [id number] Ordering Provider: STACEY QUINTERO Report Released Date/Time: May 11, 2024 08:33 AM Reporting Lab: [place] [facility] [address] [facility] [address] Performing Lab: [place] [facility] [address] [facility] Vital Signs Combined list of inpatient and outpatient Vital Signs from Department of Defense and Veterans Affairs, ranging from 12 months to all on record, depending upon the facility. Vital Sign Value Date Comments Source SYSTOLIC BLOOD PRESSURE 133 03/23/2025 15:39:00 [place] [facility] DIASTOLIC BLOOD PRESSURE 86 03/23/2025 15:39:00 [facility] [place] [facility] PULSE OXIMETRY 97 03/23/2025 15:39:00 [facility] [place] [facility] WEIGHT 183.9 03/23/2025 15:39:00 [place] [facility] BMI 26 kg/m2 03/23/2025 15:39:00 [place] [facility] PAIN 6 03/23/2025 15:39:00 [place] [facility] TEMPERATURE 98.5 03/23/2025 15:39:00 [place] [facility] PULSE 97 03/23/2025 15:39:00 [place] [facility] RESPIRATION 18 03/23/2025 15:39:[place] [facility] SYSTOLIC BLOOD PRESSURE 149 10/06/2024 11:25:00 [place] [facility] DIASTOLIC BLOOD PRESSURE 114 10/06/2024 11:25:00 [place] [facility] PULSE OXIMETRY 98 10/06/2024 11:25:00 [facility] WEIGHT 187.1 10/06/2024 11:25:00 [place] [facility] BMI 27 kg/m2 10/06/2024 11:25:00 [place] [facility] PAIN 6 10/06/2024 11:25:00 [place] [facility] TEMPERATURE 98.1 10/06/2024 11:25:00 [place] [facility] PULSE 100 10/06/2024 11:25:00 [place] [facility] RESPIRATION 18 10/06/2024 11:25:00 [place] [facility] SYSTOLIC BLOOD PRESSURE 141 09/30/2024 11:32:00 [place] [facility] DIASTOLIC BLOOD PRESSURE 95 09/30/2024 11:32:00 [place] [facility] PULSE OXIMETRY 99 09/30/2024 11:32:00 [place] [facility] TEMPERATURE 97.6 09/30/2024 11:32:00 [place] [facility] PULSE 87 09/30/2024 11:32:00 [place] [facility] SYSTOLIC BLOOD PRESSURE 124 09/14/2024 11:47:00 [place] [facility] DIASTOLIC BLOOD PRESSURE 90 09/14/2024 11:47:00 [place] [facility] PULSE OXIMETRY 98 09/14/2024 11:47:00 [place] [facility] WEIGHT 184.0 09/14/2024 11:47:00 [place] [facility] BMI 26 kg/m2 09/14/2024 11:47:00 [place] [facility] PAIN 4 09/14/2024 11:47:00 [place] [facility] HEIGHT 70.0 09/14/2024 11:47:00 [place] [facility] TEMPERATURE 98.4 09/14/2024 11:47:00 [place] [facility] PULSE 85 09/14/2024 11:47:00 [place] [facility] RESPIRATION 18 09/14/2024 11:47:00 [place] [facility] SYSTOLIC BLOOD PRESSURE 148 06/23/2024 15:45:15 [place] [facility] DIASTOLIC BLOOD PRESSURE 101 06/23/2024 15:45:15 [place] [facility] PULSE OXIMETRY 97 06/23/2024 15:45:15 [place] [facility] WEIGHT 186.2 06/23/2024 15:45:15 [place] [facility] BMI 26 kg/m2 06/23/2024 15:45:15 [place] [facility] PAIN 6 06/23/2024 15:45:15 [place] [facility] TEMPERATURE 98.6 06/23/2024 15:45:15 [place] [facility] PULSE 98 06/23/2024 15:45:15 [facility] RESPIRATION 20 06/23/2024 15:45:15 [place] [facility] Encounters Combined list of: 1) Encounters from Department of Veterans Affairs facilities going backup to the last 18 months, not all VA inpatient encounters are included; 2) Encounters from the Department of Defense facilities going backup to 280 months. Location Location Details Encounter Type Encounter Number Reason For Visit Attending Provider ADM Date DC Date Status Disposition Source [facility] Outpatient Encounter [id number] 12/28 [facility] Outpatient Encounter [id number] 01/06 [facility] Out[facility]counter [id number] 01/12 [facility] [place] [facility] OFFICE O/P EST MOD 30 MIN [id number] Diagnos is: ICD-10- CM F43.12 Post-tr aumatic stress disorde r, chronic ALBERTINALIANA DA R 02/04 [place] [facility] [place] [facility] Outpatient Encounter [id number] SHOOTYARA N D 03/21 [place] [facility] [place] [facility] OFFICE O/P EST LOW 20 MIN [id number] Diagnos is: ICD-10- CM R20.2 Paresth esia of skin FELICITA MOBLEY N R 03/21 [place] [facility] O[facility]P EST LOW 20 MIN [id number] Diagnos is: ICD-10- CM R20.2 Paresth esia of skin Lolis FRANKLIN LINDA D 03/23 [facility] [place] [facility] OFFICE O/P EST MOD 30 MIN [id number] Diagnos is: ICD-10- CM F43.12 Post-tr aumatic stress disorde r, chronic LIANA ENG DA R 04/08 [place] [facility] Outpatient Encounter [id number] ZIA QUINTERO [facility] Out[facility] Encounter [id number] 04/18 [facility] [place] Outpatient Encounter [id number] 04/18 [facility] OFFICE O/P EST HI 40 MIN [id number] Diagnos is: ICD-10- CM Z00.01 Encount er for general adult medical exam w doreena l finding s ZIA QUINTERO 04/29 [facility] Outpatient Encounter [id number] 05/10 [facility] Outpatient Encounter [id number] KEELY WOO E 05/12 [facility] Outpatient Encounter [id number] 05/18 [facility] Outpatient Encounter [id number] 05/23 [facility] Outpatient Encounter [id number] 05/25 [facility] Outpatient Encounter [id number] 05/26 [facility] Outpatient Encounter [id number] 06/10 [facility] [place] [id number] Diagnos is: ICD-10- CM K02.52 Dental caries on pit and fissure surfc penetra t into dentin CHEKO LAMA 06/10 [facility] FEE [id number] Diagnos is: ICD-10- CM H93.13 Tinnitu s, bilnic Rea,CAESAR DOTYNDRA A 06/10 [facility] [place] [facility] ISABELA TEST PURE TONE [id number] Diagnos is: ICD-10- CM H93.13 Tinnitu s, antionette Rea,CAESAR SKYLER A 06/10 [place] [facility] OFF/OP EST MAY X REQ PHY/QHP [id number] Diagnos is: ICD-10- CM H91.93 Unspeci fied hearing loss, antionette Wilson,SHE DIVYA R 06/10 [facility] [place] [facility] OFFICE O/P EST MOD 30 MIN [id number] Diagnos is: ICD-10- CM F33.41 Major depress moises disorde r, recurre nt, in partial remissi on LIANA ENG DA R 06/10 [place] [facility] Outpatient Encounter [id number] 06/10 [facility] Outpatient Encounter [id number] 06/14 [facility] Outpatient Encounter [id number] 06/15 [facility] [id number] 06/16 [facility] Outpatient Encounter [id number] 06/17 [facility] OFFICE O/P EST MOD 30 MIN [id number] ZIA QUINTERO G 06/23 [facility] Outpatient Encounter [id number] 06/28 [facility] Outpatient Encounter [id number] 07/01 [facility] FEE [id number] Diagnos is: ICD-10- CM Z46.1 Encount er for fitting and adjustm ent of hearing aid CAESAR OSUNA 07/11 [facility] [id number] Diagnos is: ICD-10- CM Z46.1 Encount er for fitting and adjustm ent of hearing aid CAESAR OSUNA 07/11 [facility] Outpatient Encounter [id number] 07/22 [facility] Outpatient Encounter [id number] 07/29 [facility] COMPRE OPH EXAM EST PT 1/> [id number] Diagnos is: ICD-10- CM 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, bilater al CARA LOWERY S 08/08 [facility] Outpatient Encounter [id number] 08/17 [facility] Outpatient Encounter [id number] 08/19 [facility] Outpatient Encounter [id number] 08/26 [facility] Outpatient Encounter [id number] 09/02 [facility] Outpatient Encounter [id number] 09/06 [facility] Outpatient Encounter [id number] 09/08 [facility] OFFICE O/P EST MOD 30 MIN [id number] Diagnos is: ICD-10- CM F43.12 Post-tr aumatic stress disorde r, chronic ALBERTINA,LIANA DA R 09/09 [facility] Outpatient Encounter [id number] 09/12 [facility] Outpatient Encounter [id number] 09/12 [facility] [facility] Outpatient Encounter [id number] 09/12 [facility] 30 MIN [id number] Diagnos is: ICD-10- CM M25.531 Pain in right wrist ZIA QUINTERO G 09/14 [facility] Outpatient Encounter [id number] 09/14 [facility] Outpatient Encounter [id number] [id number] 09/19 [facility] [facility] Outpatient Encounter [id number] 09/27 [facility] Outpatient Encounter [id number] 09/28 [facility] Outpatient Encounter [id number] 09/30 [facility] OFF/OP EST MAY X REQ PHY/QHP [id number] Diagnos is: ICD-10- CM R07.9 Chest pain, unspeci fied RITCHIE YOON D 09/30 [facility] Outpatient Encounter [id number] 09/30 [facility] Outpatient Encounter [id number] MONET JONAS 10/03 [facility] Outpatient Encounter [id number] 10/04 [facility] OFFICE O/P EST MOD 30 MIN [id number] Diagnos is: ICD-10- CM M94.0 Chondro costal junctio n syndrom e [Tietze ] ZIA QUINTERO 10/06 [facility] Outpatient Encounter [id number] 10/11 [facility] FEE [id number] Diagnos is: ICD-10- CM Z46.1 Encount er for fitting and adjustm ent of hearing aid CAESAR OSUNA 10/25 [facility] [id number] Diagnos is: ICD-10- CM Z46.1 Encount er for fitting and adjustm ent of hearing aid CAESAR OSUNA 10/25 [facility] Outpatient Encounter [id number] TONIO NI 11/10 [facility] OFFICE O/P EST MOD 30 MIN [id number] Diagnos is: ICD-10- CM F33.1 Major depress moises disorde r, recurre nt, osmaniat LIANA Sumner 11/11 [facility] Outpatient Encounter [id number] 11/11 [facility] [place] [id number] [id number] Diagnos is: ICD-10- CM K02.52 Dental caries on pit and fissure surfc penetra t into dentin CHEKO LAMA 12/12 [facility] Outpatient Encounter [id number] 12/12 [facility] Outpatient Encounter [id number] 12/13 [facility] Outpatient Encounter [id number] 12/20 [facility] PSYTX W PT 60 MINUTES [id number] Diagnos is: ICD-10- CM F43.12 Post-tr aumatic stress disorde r, chronic NIKI WINKLER P 12/30 [facility] Outpatient Encounter [id number] [id number] 01/06 [facility] Outpatient Encounter [id number] 01/06 [facility] Outpatient Encounter [id number] TONIO NI M 01/19 [facility] [facility] SYNCH AUDIO-VIDE O EST MOD 30 [id number] Diagnos is: ICD-10- CM F43.12 Post-tr aumatic stress disorde r, chronic LIANA ENG DA R 01/[address] [facility] [id number] Diagnos is: ICD-10- CM F43.12 Post-tr aumatic stress disorde r, chronic NIKI WINKLER P 02/02 [facility] Outpatient Encounter [id number] [id number] 02/06 [facility] Outpatient Encounter [id number] 02/14 [facility] PSYTX W PT 60 MINUTES [id number] Diagnos is: ICD-10- CM F43.10 Post-tr aumatic stress disorde r, unspeci fied NIKI WINKLER P 03/10 [facility] Outpatient Encounter [id number] ANDREA [facility] RET 03/17 [facility] Outpatient Encounter [id number] 03/17 [facility] SYNCH AUDIO-ONLY EST MOD 30 [id number] Diagnos is: ICD-10- CM G44.59 Other complic ated headach e syndrom e WALI BROWN LATISHA 03/17 [facility] Outpatient Encounter [id number] [id number] 03/17 [facility] Outpatient Encounter [id number] [id number] SUMIMONET FRANCO L 03/20 [facility] Outpatient Encounter [id number] 03/23 [facility] OFFICE O/P EST MOD 30 MIN [id number] Diagnos is: ICD-10- CM Z09 Encntr for f/u exam aft trtmt for cond oth than jenig ZIA Moise 03/23 [facility] Outpatient Encounter [id number] NITONIO M 03/23 [facility] Outpatient Encounter [id number] [id number] 03/28 [facility] Outpatient Encounter [id number] [id number] NITONIO JERMAIN M 03/29 [facility] SYNCH AUDIO-[place]IDE [place] HI 40 [id number] [id number] Diagnos is: ICD-10- CM F43.12 Post-tr aumatic stress disorde r, chronic LIANA ENG 03/30 [facility] Outpatient Encounter [id number] 03/30 [facility] Encounter [id number] 04/03 [facility] Outpatient Encounter [id number] [id number] 04/03 [facility] Outpatient Encounter [id number] 04/03 [facility]counter [id number] [id number] 04/06 [facility] Out[facility] Encounter [id number] [id number] 04/06 [facility] Out[facility] Encounter [id number] [id number] 04/12 [facility] Outpatient Encounter [id number] 04/20 [facility] Out[facility] Encounter [id number] [id number] 05/11 [facility] Outpatient Encounter [id number] [id number] MARIA TERESA ESPINO IA 05/17 [place] [facility] Outpatient Encounter [id number] [id number] 05/17 [place] [facility] [facility] Outpatient Encounter [id number] [id number] 05/23 [facility] Outpatient Encounter [id number] [id number] Hanna ESPINOZA A 05/24 [facility] PSYTX W PT 60 MINUTES [id number] Diagnos is: ICD-10- CM F43.12 Post-tr aumatic stress disorde r, chronic NIKI WINKLER P 06/02 [facility] Outpatient Encounter [id number] LASTTONIO ALY M 06/07 [facility] [place] [facility] SYNCH AUDIO-VIDE O EST MOD 30 [id number] Diagnos is: ICD-10- CM F43.12 Post-tr aumatic stress disorde r, chronic LIANA ENG R 06/09 [facility] [facility] Outpatient Encounter [id number] 06/19 [facility] [place] Outpatient Encounter [id number] 06/19 [facility] [place] [facility] SYNCH AUDIO-VIDE O EST LOW 20 [id number] Diagnos is: ICD-10- CM R51.9 Headach e, unspeci fied CHARLIE FLETCHER A 06/19 [place] [facility] Outpatient Encounter [id number] 06/22 [facility] [place] [facility] Outpatient Encounter [id number] 06/22 [facility] [facility] [facility] Procedures Combined list of: 1) Procedures from Department of Veterans Affairs facilities going back up to thelast 18 months, not all VA non-surgical procedures are included; 2) All procedures from the Department of Defense facilities. Procedure Procedure Type Code Date Perfomer Comments Sourc e OTHER PARTIAL OSTECTOMY OF SCAPULA, CLAVICLE, AND THORAX (RIBS AND STERNUM) 03/20/1993 [facility]D Social History Combined list of available smoking, tobacco, and other social history from Department of Defense and Veterans Affairs facilities. Social History Type Response Date Comment Sourc e Tobacco smoking status NHIS VA-TOBACCO NEVER USED CIGARETTES 03/23/2025 [facility] History of tobacco use VA-TOBACCO USE EVERY DAY SMOKELESS 03/23/2025 [facility] History of tobacco use VA-TOBACCO USER EVERY DAY 03/23/2024 [facility] History of tobacco use VA-TOBACCO USER EVERY DAY 04/15/2023 [facility] History of tobacco use VA-TOBACCO USER EVERY DAY 01/23/2022 [facility] History of tobacco use VA-TOBACCO USER EVERY DAY 08/09/2020 [facility] History of tobacco use TOBACCO USER OFFERED MEDS 07/22/2018 [facility] History of tobacco use TOBACCO USER OFFERED MEDS 05/24/2018 [facility] History of tobacco use TOBACCO USER OFFERED MEDS 03/09/2018 [facility] History of tobacco use TOBACCO USER OFFERED MEDS 11/13/2017 [facility] History of tobacco use TOBACCO OFFERED STOP SMOKING CLINIC 11/06/2016 [facility] History of tobacco use TOBACCO OFFERED STOP SMOKING CLINIC 09/29/2014 [facility] History of tobacco use TOBACCO OFFERED STOP SMOKING CLINIC 10/06/2013 [facility] History of tobacco use TOBACCO OFFERED STOP SMOKING CLINIC 09/23/2012 [facility] History of tobacco use TOBACCO OFFERED PT MEDS (PROVIDER) 02/25/2012 [facility] History of tobacco use TOBACCO OFFERED PT MEDS (PROVIDER) 05/22/2011 [facility] History of tobacco use TOBACCO OFFERRED STOP SMOKING CLINIC 11/20/2010 [facility] History of tobacco use TOBACCO OFFERED PT MEDS (PROVIDER) 09/30/2010 [facility] History of tobacco use TOBACCO OFFERED PT MEDS (PROVIDER) 09/05/2010 [facility] History of tobacco use TOBACCO OFFERED PT MEDS (PROVIDER) 06/18/2010 [facility] History of tobacco use TOBACCO OFFERED PT MEDS (PROVIDER) 06/12/2010 [facility] History of tobacco use TOBACCO OFFERED PT MEDS (PROVIDER) 02/28/2010 [facility] History of tobacco use TOBACCO OFFERED STOP SMOKING CLINIC 10/31/2008 [facility] History of tobacco use TOBACCO OFFERED PT MEDS (PROVIDER) 12/02/2007 [facility] History of tobacco use CURRENT TOBACCO USER 07/01/2007 [facility] History of tobacco use CURRENT TOBACCO USER 12/02/2006 [facility] History of tobacco use TOB-SMOKES OR USES TOBACCO PRODUCTS 10/27/2002 < 1/2 pk day [facility] This section is an empty social history section. DoD Plan of Care List of future care activities from Department of Veterans Affairs facilities. Additional future care activities may be listed in the Assessment and Plan section. Date/Time Care Activity Care Activity Detail Facili ty 07/14/2025 AMBULATORY - PSYCHIATRY [facility]
--- OUTSIDE RECORDS SUMMARY | 2025-06-23 12:12 | XMS_ITS | Patient Health Record ---
Author Organization [facility] Address [address] [place] [address] Care Team Providers Care Casting Trucker Name Role Phone Rolanda Valenzuela Unavailable [phone] Reason For Referral No Information Problems Problem Type SNOMED Code ICD Code Onset Dates Problem Status W/U Status Risk Notes Problem Chronic pain syndrome (192051501) Chronic pain syndrome (G89.4) Active confirmed Plan Of Treatment Next Appt Details Provider Name:Rolanda Ventura, 08/08/2025 02:40:00 PM, [address] [place], [address],
--- OUTSIDE RECORDS SUMMARY | 2025-06-23 12:13 | XMS_ITS | Clinical Summary ---
Author Organization [facility] Address [address] [place] [address] Phone Care Team Providers Care News Broadcaster Name Role Phone Unavailable Primary Care Provider Unavailabl e Allergies Active Allergy Reactions Criticality Noted Date Comments Bwbqltd-Lvu-Pcx Reductase Inhibitors Anxiety Low 10/04/2024 Medications venlafaxine (EFFEXOR XR) 150 mg Extended Release 24 hour capsule Take 150 mg by mouth daily. 05/14/2021 Active Active Problems No known active problems Encounters Date Type Department Care Team Description 04/25/2025 Patient Outreach [facility] Ambulatory Quality [address] [place] [phone] Wali Kumar MD Primary Care Outreach (PCP Attribution / Needs appointment - If patient returns call, please schedule OVN with WALI Newell (who is listed by insurance as PCP) or APPs in that office or any [facility] Primary Care Physician. If they are not interested in establishing care with [facility], please ask them to call the number on the back of their insurance card to update their insurance plan with the correct PCP.) 04/04/2025 External Device Data ST[facility] ABSTRACTION Provider, Abstract from Last 3 Months Social History Tobacco Use Types Packs/Day Years Used Date Smoking Tobacco: Former Cigarettes Smokeless Tobacco: Current Tobacco Cessation:Ready to Q uit: Not Asked; Counseling Given: Not Answered Alcohol Use Standard Drinks/Week Comments No 0 (1 standard drink = 0.6 oz pur e alcohol) Sex and Gender Information Value Date Recorded Sex Assigned at Not on file Legal Sex Male 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 Gender Identity Not on file Sexual Orientation Not on file Last Filed Vital Signs Vital Sign Reading Time Taken Comments Blood Pressure 140/84 10/04/2024 10:17 AM MANAGER DOMESTIC Pulse 77 10/04/2024 10:17 AM MANAGER DOMESTIC Temperature - - Respiratory Rate - - Oxygen Saturation 98% 10/04/2024 10:17 AM MANAGER DOMESTIC Inhaled Oxygen Concentration - - Weight 84.4 kg (186 lb) 10/04/2024 10:17 AM MANAGER DOMESTIC Height 177.8 cm (5' 10 ) 10/04/2024 10:17 AM MANAGER DOMESTIC Body Mass Index 26.69 10/04/2024 10:17 AM MANAGER DOMESTIC Plan of Treatment Upcoming Encounters Date Type Department Care Team (Late st Contact Info) Description 09/26/2025 2:15 PM MANAGER DOMESTIC Appointment [facility] Neurology [facility] [address] [place] [phone] Kulwant Engel MD [address] [place] [address] Health Maintenance Due Date Last Done Comments HEPATITIS B VACCINES (1 of - 19+ 3-dose series) 1991 COLORECTAL SCREENING 2017 Colorectal Cancer Screening 2017 FIT-DNA Q 3 years 2017 FIT/FOBT Q 1 year 2017 Flex Sig/CT Colonography Q 5 years 2017 COVID-19 Vaccine (2023-2 5 season) 2024 04/15/2023, 12/11/2021, 06/05/2021, Additional history exists INFLUENZA VACCINE (#1) 2025 , 08/09/2020, 09/08/2019, Additional history exists Pre-Diabetes and Diabetes Screening 04/29/2027 04/29/2024 DTAP/TDAP/TD VACCINES (3 - T d or Tdap) 08/31/2028 08/31/2018, 10/06/2013, 11/16/1994 ZOSTER VACCINE Completed 04/29/2024, 07/01/2023 Procedures Procedure Name Priority Date/Time Associated Diagnosis Comments HEMOGLOBIN A1C Routine 04/29/2024 from Last 3 Months or Most Recently Relevant to Health Maintenance Results * HEMOGLOBIN A1C (04/29/2024) ABSTRACTED HGB A1C 5.2 % Blood 04/29/2024 us Abstract Provider CHEMISTRY ORDERABLES Final Res ult from Last 3 Months or Most Recently Relevant to Health Maintenance Insurance [facility] [employer]
--- OUTSIDE RECORDS SUMMARY | 2025-06-23 12:13 | XMS_ITS | Patient Health Record ---
Author Organization [facility] Address [address] [place], [place] [address] Care Team Providers Care Peoplesoft Administrator Name Role Phone Kirill GILBERT, Saul Unavailable [phone] [place] Unavailable Unavailable Allergies Allergen (clinical drug ingredient) Drug/Non Drug Allergy documented on EMR Reaction Allergy Type Onset Date Status insect stings (uncoded) Unknown Allergy Active pravastatin pravastatin Unknown Drug Allergy Act moises Reason For Referral No Information Medications Medication SIG (Take, Route, Fr equency, Duration) Notes Start Date End Date Status meloxicam 7.5 mg 1 tab po orally Q24H prn pain; take with food Active ARIPiprazole 5 mg 1 tab orally once a day Active venlafaxine 150 mg 1 cap orally once a day Active SUMAtriptan 25 mg 1 tab orally once Active Social History Tobacco Use: Social History Observation Description Date Details (start date - stop date) Former Smoker NA - NA alcohol Question Answer Notes Did you have a drink containing alcohol in the p ast year? No Points 0 Interpretation Negative Tobacco use: Question Answer Notes Additional Findings: Tobacco User Chews tobacco 1/4 can : former smoker How long has it been since you last smoked? 1-3 months Problems Problem Type SNOMED Code ICD Code Onset Dates Problem Status W/U Status Risk Notes Problem Anxiety disorder (945979090) Other specified anxiety disorders (F41.8) Active confirmed Problem Hypersomnia (78758067) Hypersomnia, unspecified (G47.10) Active confirmed Problem Acquired spondylolisthesis (386420092) Spondylolisthe sis, cervical region (M43.12) Active confirmed Problem Spondylosis without myelopathy or radiculopathy, cervical region (M47.812) Active confirmed Problem Spinal stenosis in cervical region (79549238) Spinal stenosis, cervical region (M48.02) Active confirmed Problem Cervicalgia (38986316) Cervicalgia (M54.2) Active confirmed Problem Headache (62238274) Headache (R51) Active confi rmed Problem Long-term current use of drug therapy (839311817) 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 (Z79.899) Active confirmed Problem Myalgia (24962032) Myalgia of auxiliary muscles, head and neck (M79.12) Active confirmed Plan Of Treatment No Information Insurance Providers Payer Name Payer Address Payer Phone Subscriber Number Group Number Insured Name Patient Relationship to Insured Coverage Start Date Coverage End Date [employer] Program [address] [place] [phone] [id number] Bora Kessler Self - patient is the insured Medical (General) History Medical History History ICD Code Cervical disc disorder with myelopathy o f mid-cervical region Neck pain Hyperlipidemia Primary osteoarthritis Carpal tunnel syndrome, bilateral Low back pain Chronic obstructive pulmonary disease Benign paroxysmal positional vertigo Bursitis Joint pain, forearm Hyperlipidemia Dislocation of shoulder, right Memory loss Impotence Arthropathy, hand Joint pain, left leg Joint pain, right shoulder Surgical History Surgery Date(Month/Year) Right rotator cuff repair, performed [place], 1991 Arthroscopic left knee surgery, performe d in [place], [place], 2000 Right rotator cuff repair, performed in [place], [place], 12/2015 Right carpal tunnel release, performed a [facility] by Dr. Cem Jenkins, 05/27/18
--- OUTSIDE RECORDS SUMMARY | 2025-06-23 12:14 | XMS_ITS | Clinical Summary ---
Author Organization [facility] Address [address] [address] Phone Care Team Providers Care Bakery Team Member Name Role Phone Unavailable Primary Care Provider Unavailabl e Allergies Active Allergy Reactions Criticality Noted Date Comments Pravastatin Other (See Comments) 05/14/2021 Affects his mood Medications cyclobenzaprine (FLEXERIL) 10 mg Oral tablet Take 10 mg by mouth 3 times daily as needed. Active magnesium oxide 250 mg Oral Tab Take 250 mg by mouth daily. Active venlafaxine (EFFEXOR XR) 150 mg Extended Release 24 hour capsule Take 150 mg by mouth daily. 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 Gender Identity Not on file Sexual Orientation Not on file Last Filed Vital Signs Vital Sign Reading Time Taken Comments Blood Pressure 126/85 05/14/2021 11:26 AM CDT Pulse 90 05/14/2021 11:26 AM CDT Temperature 36.8 C (98.3 F) 03/15/2012 8:15 PM CDT Respiratory Rate 20 03/15/2012 8:15 PM CDT Oxygen Saturation 98% 03/15/2012 8:15 PM CDT Inhaled Oxygen Concentration - - Weight 95.3 kg (210 lb) 05/14/2021 11:26 AM CDT Height 180.3 cm (5' 11 ) 05/14/2021 11:26 AM CDT Body Mass Index 29.29 05/14/2021 11:26 AM CDT Plan of Treatment Health Maintenance Due Date Last Done Comments DTAP/TDAP/TD VACCINES (1 - Tdap) 1991 HEPATITIS B VACCINES (1 of 3 - 19+ 3-dose series) 02/14 COLORECTAL SCREENING 2017 Colorectal Cancer Screening 2017 FIT-DNA Q 3 years 2017 FIT/FOBT Q 1 year 2017 Flex Sig/CT Colonography Q 5 years 2017 ZOSTER VACCINE (1 of 2) 2022 INFLUENZA VACCINE (#1) 2025 Insurance MEDICARE PART A AND B [employer]
--- NOTE | 2025-06-23 12:18 | CT_ITS ---
WS: [id number] CT HEAD NONCONTRAST HISTORY: headache TECHNIQUE: Contiguous axial imaging performed through the brain. Bone and soft tissue windows. Sagittal and coronal reformats reviewed. All CT scans at [facility] use at least one of these dose optimization techniques: automated exposure control; mA and/or kV adjustment per patient size (includes targeted exams where dose is matched to clinical indication); or iterative reconstruction. DLP: 1120.18 mGy.cm COMPARISON: 03/17/2025 No acute intracranial hemorrhage, midline shift or mass effect. No atrophy or prior infarcts or herniation. Ventricles: Normal size with no hydrocephalus. For displacement the cerebellar tonsils. There is a small amount of calcium in the distal LEFT vertebral artery. Paranasal sinuses: As visualized are clear. Mastoid air cells: Well pneumatized. Calvarium and scalp: Skull is intact with no soft tissue edema or swelling. CT/CT head wo con* [id number] IMPRESSION: 1. No acute intracranial hemorrhage or edema. 2. No prior infarct. No significant volume loss.
--- NOTE | 2025-06-23 12:32 | W.ED.HA ---
HPI - Headache General: Chief Complaint: Headache Stated Complaint: Possible stroke Time Seen by Provider: 06/23/25 12:16 History of Present Illness: 55-year-old male presents emergency room complaining of forgetfulness trouble with blurry vision for 2 weeks or more. He has a headache in the occipital region radiating down the back of his neck. He states he has had problems with headaches in the past but they are Weissmann frontal prior. He has not had any difficulty with speech balance or gait. No other deficits. His blood pressure is chronically elevated. Associated symptoms: Deny chest pain, fever(s) or rash Related Data Home Medications ?Medication ?Instructions ?Recorded ?Confirmed acetaminophen 500 mg tablet 1,000 mg PO QID PRN Fever Or Pain 03/17/25 04/12/25 (Tylenol Extra Strength) aripiprazole 5 mg tablet 2.5 mg PO QDAY 03/17/25 04/12/25 buspirone 10 mg tablet 10 mg PO TID 03/17/25 04/12/25 cyclobenzaprine 10 mg tablet 10 mg PO TID PRN Muscle Spasm 03/17/25 04/12/25 diclofenac sodium 1 % topical gel 4 g topical QID PRN MUSCLE PAIN 03/17/25 04/12/25 mirtazapine 15 mg tablet 7.5 mg PO BEDTIME 03/17/25 04/12/25 venlafaxine 150 mg 300 mg PO QDAY 03/17/25 04/12/25 capsule,extended release 24 hr (Effexor XR) Previous Rx's ?Medication ?Instructions ?Recorded meclizine 25 mg tablet 25 mg PO QID PRN dizziness #20 tabs 03/17/25 prednisone 20 mg tablet 20 mg PO TID #15 tabs 03/17/25 tizanidine 4 mg tablet 4 mg PO Q6H PRN muscle spasticity 03/17/25 #20 tabs amlodipine 2.5 mg tablet 2.5 mg PO DAILY #30 tabs 06/23/25 Allergies Allergy/AdvReac Type Severity Reaction Status Date / Time pravastatin AdvReac Mild muscle Verified 04/12/25 14:43 aches Review of Systems Const: Denies: fever(s) or chills Eyes: Reports: blurry vision Card: Denies: chest pain Resp: Denies: dyspnea GI: Denies: abdominal pain : Denies: dysuria, urinary frequency or urinary urgency Musc: Denies: neck pain or back pain Skin/Breast: Denies: rash Neuro: Reports: headache(s) PFSH ED PFSH: Medical History Bleeding per rectum Post-operative state 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 Dr. Mason Jenkins: C5-C6, C6-C7 ACDFF History of knee surgery (~2001) Left knee History of shoulder surgery (~1991) 1991 and 2016, Right History of carpal tunnel surgery (~2017) 05/27/2018 Dr. Salena Jenkins Open release of the median nerve at wrist on the right Family History Father COPD (chronic obstructive pulmonary disease) Social History Smoking and tobacco/nicotine status: former use of tobacco/nicotine Alcohol intake: former Year of sobriety/quit date alcohol: 20+ Substance/Drug Use: never Lives independently: Yes Household members: spouse Housing: House Marital status: service: Yes branch: [employer] Current occupational status: disabled Physical Exam Const: GENERAL APPEARANCE: cooperative ORIENTATION/CONSCIOUSNESS: Yes awake, Yes oriented to person, Yes oriented to place and Yes oriented to time HENMT: COMMON NORMALS: normocephalic, atraumatic and hearing grossly normal bilaterally HEAD & SCALP: normocephalic and atraumatic Resp: COMMON NORMALS: normal respiratory effort, No retractions, No use of accessory muscles and clear to auscultation bilaterally AUSCULTATION: clear to auscultation bilaterally Cardio: COMMON NORMALS: regular rate, regular rhythm and No murmurs present (Cardio) RATE: regular rate RHYTHM: regular rhythm GI: COMMON NORMALS: Soft to palpation and No hepatosplenomegaly present AUSCULTATION: Yes normoactive bowel sounds PALPATION: Yes Soft to palpation, No Tenderness to palpation present (GI), No Guarding due to palpation present (GI) and Yes No hepatosplenomegaly present Extremity: COMMON NORMALS: normal to inspection, capillary refill normal, no clubbing, cyanosis or edema, no calf tenderness and no pedal edema Neuro: SENSORIUM/ORIENTATION: Yes oriented to person, Yes oriented to place and Yes oriented to time Skin: COMMON NORMALS: no rashes or lesions noted GENERAL SKIN EXAM: no rashes or lesions noted Course Vital Signs: Vital signs: Vital Signs Temperature 98.2 F 06/23/25 12:10 Pulse Rate 94 06/23/25 12:10 Respiratory Rate 18 06/23/25 14:43 Blood Pressure 150/103 06/23/25 15:38 Pulse Oximetry 96 06/23/25 14:43 Oxygen Delivery Me thod Room Air 06/23/25 12:10 MDM - Headache Medical Decision Making Headache improved with treatment. Will discharge patient home start amlodipine 2.5 mg daily. No focal neurologic deficits. CT of head negative. Follow-up with primary care doctor. Medical Records I reviewed the patient's medical records. Lab Data I reviewed the patient's lab results. Radiology Impressions Head CT 06/23/25 12:18 IMPRESSION: 1. No acute intracranial hemorrhage or edema. 2. No prior infarct. No significant volume loss. All radiology interpretation(s) finalized by discharge Discharge Plan Discharge Patient Disposition: Home Clinical Impression: Headache, Hypertension Condition: Stable Prescriptions: New amlodipine 2.5 mg tablet 2.5 mg PO DAILY Qty: 30 0RF No Action tizanidine 4 mg tablet 4 mg PO Q6H PRN (Reason: muscle spasticity) Qty: 20 0RF Rx Instructions: do not exceed 3 doses per 24 hrs prednisone 20 mg tablet 20 mg PO TID Qty: 15 0RF Rx Instructions: 1 p.o. 3 times daily x3 days, 1 p.o. twice daily x2 days, 1 p.o. daily x2 days meclizine 25 mg tablet 25 mg PO QID PRN (Reason: dizziness) Qty: 20 0RF cyclobenzaprine 10 mg Tablet 10 mg PO TID PRN (Reason: Muscle Spasm) buspirone 10 mg Tablet 10 mg PO TID mirtazapine 15 mg Tablet 7.5 mg PO BEDTIME diclofenac sodium 1 % Gel 4 g TOPICAL QID PRN (Reason: MUSCLE PAIN ) Rx Instructions: apply to single knee, ankle, foot; for foot includes sole/toes/top of foot venlafaxine [Effexor XR] 150 mg capsule,extended release 24hr 300 mg PO QDAY aripiprazole 5 mg tablet 2.5 mg PO QDAY acetaminophen [Tylenol Extra Strength] 500 mg Tablet 1,000 mg PO QID PRN (Reason: Fever Or Pain) Discharge Orders: Discharge ED (Routine); Ordered 06/23/25 Ordered By: Ken Griffith Referrals: Augusta Bello APRN [Primary Care Provider, Family Practice] Discharge Diet: Usual diet Discharge Activity: Increase activity as tolerated Patient Instructions: Opioid Safety, Pain Management, Patient Portal & Zackery Instructions Activity Restrictions/Additional Instructions: [facility]. It is very important that you follow up as instructed or that you return to the Emergency Department should you have concerns or if your condition changes or worsens in any way. You were seen in the emergency room with a complaint of headache. CT of your head was negative. On exam there was no focal neurologic deficits noted. Your symptoms reported improved with control of your blood pressure and treatment for the headache. Will discharge you home with amlodipine 2.5 mg daily to lower your blood pressure. You should follow-up with your primary care doctor to recheck your blood pressure and reevaluate your symptoms within the next week. Print Language: Frisian Coding Level of Care Code ED Logistics Officer for Sheila Greene NIH stroke score NIHSS Level Of Consciousness - 1a: 0 Level Of Consciousness Questions - 1b: Both Correct Level Of Consciousness Commands - 1c: Both Correct Best Gaze - 2: Normal Visual Cespedes - 3: No Visual Loss Facial Palsy - 4: Normal Motor Arm Right - 5: No Drift Motor Arm Left - 5: No Drift Motor Leg Right - 6: No Drift Motor Leg Left - 6: No Drift Limb Ataxia - 7: Absent Sensory - 8: Normal Best Language - 9: No Aphasia Dysarthia - 10: Normal Extinction And Inattention - 11: 0 Score Total Score: 0
[2025-06-23 13:00] VITALS: BP 155/98
[2025-06-23 14:43] VITALS: RESP 18; O2SAT 96
[2025-06-23] MEDS: morphine 4 mg/mL SDV 1 mL IVP (14:43)
[2025-06-23 15:00] VITALS: BP 150/103
[2025-06-23 15:38] VITALS: BP 150/103
== END 2025-06-23 15:40 | disposition home or self-care (01) ==
PROVIDERS: Emergency Provider Family Medicine; PCP Nurse Practitioner Family
DX: R51.9 Headache, unspecified (principal); I10 Essential (primary) hypertension
CPT/HCPCS: 70450; 96374; 96375; 99285; J1885; J2270